=== PATIENT | female | born 1965 | race Caucasian/White ===

== ENCOUNTER 2019-09-15 10:13 | Outpatient (CLI) | payer MEDICARE, SELFPAY ==
--- NOTE | ~2019-09-15 | MM_ITS ---
EXAMINATION: MM screening jean paul BI w lady HISTORY: Screening mammogram, reported history of left breast excisional biopsy. TECHNIQUE: Craniocaudal and mediolateral oblique 3-D tomosynthesis images were obtained and synthetic 2-D images were generated. CAD analysis was submitted and interpreted. COMPARISON: No prior mammogram is available for comparison at this institution. BREAST PARENCHYMAL COMPOSITION: The breasts are almost entirely fatty. FINDINGS: RIGHT BREAST: There is no evidence of suspicious mass, calcification, or architectural distortion to suggest malignancy. LEFT BREAST: A mass is present in the posterior third of the upper outer quadrant of the breast. IMPRESSION: 1. Left breast mass which may represent the patient's baseline however no comparison is currently gauri ilable. 2. Comparison with prior mammograms is necessary. BI-RADS Category 0: Incomplete: Needs comparison with prior mammograms. Reviewed, dictated and finalized at location A. ENGINEER IMPRESSION: 1. Left breast mass which may represent the patient's baseline however no maribell rison is currently available. 2. Comparison with prior mammograms is necessary. BI-RADS Category 0: Incomplete: Needs comparison with prior mammograms.
== END 2019-09-15 10:14 | disposition home or self-care (01) ==
LOC: ANHIMG 10:15
PROVIDERS: PCP Emergency Medicine; Visit Provider Emergency Medicine
DX: Z12.31 Encounter for screening mammogram for malignant neoplasm of breast (principal); N63.20 Unspecified lump in the left breast, unspecified quadrant
CPT/HCPCS: 77063; 77067

== ENCOUNTER 2019-10-07 18:50 | Emergency (ER) | payer MEDICARE, SELFPAY ==
--- NOTE | ~2019-10-07 | XR_ITS ---
XR abdomen/kub 1V 10/07/2019 20:05 Indication: Chest pains. Procedure: 2 view chest Comparison: No prior studies for comparison. Findings: Bowel gas pattern is nonobstructive. There are cholecystectomy clips. There are pelvic phle boliths. No acute osseous abnormality. No acute osseous abnormality. Impression: 1: No acute abdominal abnormality. Reviewed, dictated and finalized at location A. Impression: 1: No acute abdominal abnormality.
[2019-10-07 19:07] VITALS: BP 178/93; PULSE 84; RESP 16; TEMP 37.1; O2SAT 98
--- NOTE | 2019-10-07 19:24 | ED.ABDPAIN ---
HPI - Abdominal Pain General Chief Complaint: Abdominal Pain Stated Complaint: problems with constipation Time Seen by Provider: 10/07/19 19:20 Source: patient and RN notes reviewed Mode of arrival: ambulatory Limitations: no limitations History of Present Illness HPI narrative: A 54 y/o female presents to the ED with worsening lower ABD pain. She states that she had been constipated for 4 days until she took some Laxatives earlier today and had a small BM. She reports that she has a hx of constipation d/t her umbilical hernia. She denies any hernia type pain. She denies any N/V/D, dysuria, hematuria, fevers, or CP. MD elicited complaint: abdominal pain Pertinent past history: constipation Onset (ago): unknown Location: other (lower) Associated symptoms: constipation (resolved) Treatments prior to arrival: other (Laxatives) Related Data Allergies Allergy/AdvReac Type Severity Reaction Status Date / Time No Known Allergies Allergy Mild Verified 12/27/10 00:04 Review of Systems Review of Systems: Narrative: CONSTITUTIONAL: Denies fever. CARDIOVASCULAR: Denies chest pain. GASTROINTESTINAL: Denies nausea, vomiting, or diarrhea. Reports lower ABD pain and constipation which has resovled. GENITOURINARY: Denies dysuria or hematuria. All systems reviewed & are unremarkable except as noted in HPI and below PMFSH Past Medical History Medical History (Updated 10/07/19 @ 20:27 by Alea Franklin MD) DM (diabetes mellitus) H/O: HTN (hypertension) Surgical History Surgical History (Updated 10/07/19 @ 19:35 by Prakash Marinelli) History of breast surgery Hx of eye surgery Social History Social History (Updated 10/07/19 @ 19:36 by Prakash Marinelli) Smoking packs per day: 0.5 Smoking cigarettes per day: 10.0 Smoking status: Current every day smoker Tobacco type: cigarettes Exam Narrative: Exam Narrative: GENERAL: Well-appearing and in no acute distress. HEAD: Normocephalic, atraumatic. EYES: PERRLA and EOMI. ENT: Nares clear, no rhinorrhea or epistaxis. Mucous membranes moist. NECK: Supple. CHEST: Clear to auscultation. No respiratory distress. HEART: Regular rate and rhythm. No murmur heard. Normal peripheral pulses. ABDOMEN: Soft, nondistended, normal active bowel sounds. Obese ABD, umbilical hernia, nontender, not indurated, and not hard to palpation. EXTREMITIES: Normal range of motion. No edema. SKIN: Warm and dry. Excoriation of the head, chest, ABD, and extremities, no areas of cellulites. NEURO: No focal deficits. Alert and oriented X3. Course Vital Signs Vital signs: Vital Signs Temperature 37.1 C 10/07/19 19:07 Pulse Rate 84 10/07/19 19:07 Respiratory Rate 16 10/07/19 19:07 Blood Pressure 178/93 H 10/07/19 19:07 Pulse Oximetry 98 10/07/19 19:07 Temperature 37.1 C 10/07/19 19:07 Pulse Rate 84 10/07/19 19:07 Respiratory Rate 16 10/07/19 19:07 Blood Pressure 178/93 H 10/07/19 19:07 Pulse Oximetry 98 10/07/19 19:07 MDM - Abdominal Pain MDM Narrative Medical decision making narrative: Pt presented for evaluation of constipation, although pt does report having a bowel movement today. On exam, she has an obese abdomen that is soft, nontender, nondistended. She has an umbilical hernia that is not incarcerated or strangulated appearing clinically it is not firm, tender, no overlying skin changes. KUB shows no sign of obstructive pathology or free air. As patient had a bowel movement today, I encouraged her to continue taking stool softeners, will add MiraLAX to this. Patient has no vomiting or abdominal pain. Patient was then discharged home in stable condition. Differential Diagnosis Differential diagnosis: Likely abdominal pain, constipation, gastroenteritis, pancreatitis and small bowel obstruction Medical Records Attestation: I reviewed the patient's medical records. Lab Data Attestation: I reviewed the patient's lab results. Result diagrams: 10/07/19 19:43 0
[2019-10-07] MEDS: ONDANSETRON INJ 4 MG/2 ML VIAL IV PUSH (19:40)
[2019-10-07] MEDS: MAGNESIUM CITRATE 300 ML BTL PO (19:40)
[2019-10-07 19:48] LABS: Basophils Absolute Auto 0.1 K/mm3 (0.0-0.1); Basophils Percent Auto 0.9 % (0.2-1.2); Eosinophils Absolute Auto 0.2 K/mm3 (0-0.3); Eosinophils Percent Auto 2.2 % (0-4.4); Hematocrit 37.6 % (37.0-47.0); Hemoglobin 11.6 g/dL (12.0-15.0); Immature Granulocyte Absolute 0.11 K/mm3 (0.00-0.031); Immature Granulocyte Percent A 1.3 % (0-0.5); Lymphocytes Absolute Auto 2.47 K/mm3 (0.9-3.2); Lymphocytes Percent Auto 30.1 % (18.3-44.2); Mean Corpuscular HGB Conc 30.9 g/dl (32-36); Mean Corpuscular Hemoglobin 26.7 pg (26-34); Mean Corpuscular Volume 86.6 fl (80-100); Mean Platelet Volume 11.4 fl (7.4-10.4); Monocytes Absolute Auto 0.6 K/mm3 (0.1-0.6); Monocytes Percent Auto 7.2 % (2.6-8.5); Neutrophils Absolute Auto 4.8 K/mm3 (1.3-6.7); Neutrophils Percent Auto 58.3 % (45.5-73.1); Platelet Count Result 275 k/mm3 (150-375); Red Blood Count 4.34 M/mm3 (4.2-5.4); Red Cell Distribution Width 16.4 % (11.5-14.5); White Blood Count 8.2 K/mm3 (4.5-10.0)
[2019-10-07 20:01] LABS: Alanine Aminotransferase 17 U/L (4-35); Albumin Level 3.8 g/dL (3.5-5.1); Alkaline Phosphatase 71 U/L (38-126); Aspartate Amino Transferase 20 U/L (14-36); Bilirubin,Total 0.2 mg/dL (0.2-1.3); Blood Urea Nitrogen 15 mg/dL (7-17); Calcium 9.4 mg/dL (8.4-10.2); Carbon Dioxide 31 mmol/L (22-30); Chloride 100 mmol/L (98-107); Estimated CRCL calculation 98 ml/min; Estimated Glomerular Filt Rate > 60; Glucose 193 mg/dL (65-105); Lipase 111 U/L (23-300); Potassium 4.1 mmol/L (3.4-5.0); Sodium 135 mmol/L (137-145)
--- NOTE | 2019-10-07 20:10 | PC.NURSE ---
Pt ambulatory to bathroom and stated she had an explosive bowel movement and feels like her abd is empty of stool now. Pt states pain is gone
== END 2019-10-07 20:40 | disposition home or self-care (01) ==
PROVIDERS: Emergency Provider Emergency Medicine; PCP Emergency Medicine
DX: K59.09 Other constipation (principal); E11.9 Type 2 diabetes mellitus without complications; I10 Essential (primary) hypertension; F17.210 Nicotine dependence, cigarettes, uncomplicated
CPT/HCPCS: 36415; 74018; 80053; 83690; 85025; 96374; 99284; A9270; J2405

== ENCOUNTER 2019-10-24 13:40 | Emergency (ER) | payer MEDICARE, SELFPAY ==
--- NOTE | ~2019-10-24 | CT_ITS ---
EXAMINATION: CT abdomen pelvis w con DATE: 10/24/2019 15:06 INDICATION: Right abdominal pain. TECHNIQUE: Computed tomography (CT) of the abdomen and pelvis was performed with 100 mL Omnipaque 350 intravenous contrast. Automated exposure control and iterative reconstruction technique were employe d. The dose-length product was 1903.17 mGy-cm. COMPARISON: None. FINDINGS: The visualized portions of the lung bases demonstrate minimal atelectasis. A calcified righ t lung nodule and calcified right hilar lymph nodes are consistent with old granulomatous disease. No pleural effusion. The heart size is normal. No pericardial effusion. The liver is normal. There are changes of cholecystectomy. Calcifications in the spleen are consistent with old granulomatous diseas e. The pancreas and right adrenal gland are normal. There is a 2.7 cm mass in left adrenal gland clifford uring soft tissue attenuation. Right kidney is normal. There is a 14 mm cyst in left kidney. There is an umbilical hernia containing fat. There are no dilated loops of bowel. The appendix is normal. The re are no pathologically enlarged lymph nodes. There is no free intraperitoneal fluid. The infraumbil ical anterior abdominal wall demonstrates skin thickening and subcutaneous fat stranding, right worse than left. There is moderate lumbar spondylosis. IMPRESSION: 1. Skin thickening and subcutaneous fat stranding involving the infraumbilical anterior abdominal wal l, right worse than left, consistent with inflammation. No abscess. 2. 2.7 cm left adrenal mass. In the absence of known malignancy, this finding is likely an adenoma. Reviewed, dictated and finalized at location A. IMPRESSION: 1. Skin thickening and subcutaneous fat stranding involving the infraumbilical anterior abdominal wall, right worse than left, consistent with inflammation. N o abscess. 2. 2.7 cm left adrenal mass. In the absence of known malignancy, this finding i s likely an adenoma.
[2019-10-24 13:52] VITALS: BP 203/107; PULSE 88; RESP 24; TEMP 36.4; O2SAT 100
--- NOTE | 2019-10-24 13:57 | ED.GENADULT ---
HPI - General Adult General Chief complaint: Skin/Abscess/Foreign Body Stated complaint: abcess, hard down below Time Seen by Provider: 10/24/19 13:43 Source: patient and family Mode of arrival: ambulatory Limitations: no limitations History of Present Illness HPI narrative: Patient is a 54-year-old female who presents to emergency department for evaluation of tenderness of the right abdomen involving the soft tissues of the pannus where she can feel a mass patient notes 2 days duration of pain worse with palpation and movement denies any fever chills nausea vomiting Related Data Home Medications Medication Instructions Recorded Confirmed lisinopril 40 mg PO DAILY 10/24/19 metformin 850 mg PO DAILY 10/24/19 Allergies Allergy/AdvReac Type Severity Reaction Status Date / Time No Known Allergies Allergy Mild Verified 10/24/19 14:00 Review of Systems Review of Systems: All systems reviewed & are unremarkable except as noted in HPI and below PMFSH Past Medical History Medical History DM (diabetes mellitus) H/O: HTN (hypertension) Surgical History Surgical History History of breast surgery Hx of eye surgery Social History Social History Smoking packs per day: 0.5 Smoking cigarettes per day: 10.0 Smoking status: Current every day smoker Tobacco type: cigarettes Gender identity (if verbalized by the patient): Female Exam Narrative: Exam Narrative: GENERAL: Well-appearing, well-nourished, and in no acute distress. HEAD: Normocephalic, atraumatic. EYES: PERRLA and EOMI. ENT: Nares clear, no rhinorrhea or epistaxis. Mucous membranes moist. CHEST: Clear to auscultation. No respiratory distress. No wheezes rales or rhonchi HEART: Regular rate and rhythm. No murmur heard. ABDOMEN: Soft, nontender, nondistended. EXTREMITIES: Normal range of motion. No edema. SKIN: Warm, dry, no rash. Tenderness of the pannus with palpable firm area there is no erythema fluctuance or other cellulitic findings area measures roughly 6 cm in diameter involving the right pannus NEURO: No focal deficits. Alert and oriented x3. PSYCH: Normal mood and affect. Course Course Emergency Course: Patient in the room at this time aware of case findings treatment plan and diagnosis agreeing to follow-up as directed or to return if symptoms worsen or concerns. Patient is afebrile nontoxic-appearing no distress. Patient with likely cellulitis or mass of unknown etiology could be a developing abscess. Patient will be referred to primary care. Patient provided with reasons to return. Given IV antibiotic in the emergency department will be continued on oral antibiotics provided with reasons to return as noted Vital Signs Vital signs: Vital Signs Temperature 97.5 F L 10/24/19 13:52 Pulse Rate 88 10/24/19 13:52 Respiratory Rate 24 H 10/24/19 13:52 Blood Pressure 203/107 H 10/24/19 13:52 Pulse Oximetry 100 10/24/19 13:52 Temperature 97.5 F L 10/24/19 13:52 Pulse Rate 83 10/24/19 15:09 Respiratory Rate 22 H 10/24/19 15:09 Blood Pressure 160/91 H 10/24/19 15:09 Pulse Oximetry 95 10/24/19 15:09 Medical Decision Making MDM Narrative Medical decision making narrative: See course for medical decision making Vital Signs Vital Signs: Vital Signs Temperature 97.5 F L 10/24/19 13:52 Pulse Rate 88 10/24/19 13:52 Respiratory Rate 24 H 10/24/19 13:52 Blood Pressure 203/107 H 10/24/19 13:52 Pulse Oximetry 100 10/24/19 13:52 Temperature 97.5 F L 10/24/19 13:52 Pulse Rate 83 10/24/19 15:09 Respiratory Rate 22 H 10/24/19 15:09 Blood Pressure 160/91 H 10/24/19 15:09 Pulse Oximetry 95 10/24/19 15:09 Lab Data Result diagrams: 10/24/19 14:13 10/24/19 14:13 Labs: Lab Results
[2019-10-24 14:23] LABS: Basophils Absolute Auto 0.1 K/mm3 (0.0-0.1); Eosinophils Absolute Auto 0.2 K/mm3 (0-0.3); Eosinophils Percent Auto 3.1 % (0-4.4); Hematocrit 35.6 % (37.0-47.0); Hemoglobin 11.1 g/dL (12.0-15.0); Immature Granulocyte Absolute 0.11 K/mm3 (0.00-0.031); Immature Granulocyte Percent A 1.5 % (0-0.5); Lymphocytes Absolute Auto 2.12 K/mm3 (0.9-3.2); Lymphocytes Percent Auto 29.4 % (18.3-44.2); Mean Corpuscular HGB Conc 31.2 g/dl (32-36); Mean Corpuscular Hemoglobin 27.2 pg (26-34); Mean Corpuscular Volume 87.3 fl (80-100); Mean Platelet Volume 10.6 fl (7.4-10.4); Monocytes Absolute Auto 0.5 K/mm3 (0.1-0.6); Monocytes Percent Auto 7.1 % (2.6-8.5); Neutrophils Absolute Auto 4.2 K/mm3 (1.3-6.7); Neutrophils Percent Auto 57.9 % (45.5-73.1); Platelet Count Result 337 k/mm3 (150-375); Red Blood Count 4.08 M/mm3 (4.2-5.4); Red Cell Distribution Width 16.2 % (11.5-14.5); White Blood Count 7.2 K/mm3 (4.5-10.0)
[2019-10-24 14:35] LABS: Blood Urea Nitrogen 7 mg/dL (7-17); Calcium 8.7 mg/dL (8.4-10.2); Carbon Dioxide 28 mmol/L (22-30); Chloride 101 mmol/L (98-107); Estimated CRCL calculation 132 ml/min; Estimated Glomerular Filt Rate > 60; Glucose 229 mg/dL (65-105); Potassium 4.4 mmol/L (3.4-5.0); Sodium 136 mmol/L (137-145)
--- NOTE | 2019-10-24 14:55 | PC.NURSE ---
Patient in radiology at this time.
[2019-10-24 15:09] VITALS: BP 160/91; PULSE 83; RESP 22; O2SAT 95
[2019-10-24] MEDS: ceFAZolin 2 GM/D5W 50 ML 2 GM/50 ML BAG IVPB (16:50)
[2019-10-24 16:55] VITALS: BP 147/107; PULSE 80; RESP 20; TEMP 36.5; O2SAT 99
== END 2019-10-24 17:06 | disposition home or self-care (01) ==
PROVIDERS: Emergency Medicine Emergency Medical Services; Emergency Provider Emergency Medicine; PCP Emergency Medicine
DX: L03.311 Cellulitis of abdominal wall (principal); E11.9 Type 2 diabetes mellitus without complications; I10 Essential (primary) hypertension; F17.210 Nicotine dependence, cigarettes, uncomplicated; E27.9 Disorder of adrenal gland, unspecified; Z79.84 Long term (current) use of oral hypoglycemic drugs
CPT/HCPCS: 36415; 74177; 80048; 85025; 96374; 99284; J0690; Q9967

== ENCOUNTER 2019-11-01 12:49 | Outpatient (CLI) | payer MEDICARE, SELFPAY ==
--- NOTE | ~2019-11-01 | MM_ITS ---
EXAMINATION: MM diagnostic mammo unilat LT HISTORY: Enlarging left breast mass on screening mammogram TECHNIQUE: Mediolateral 3-D tomosynthesis images of the left breast were performed and synthetic 2-D images were generated. Patient refused additional mammographic imaging. CAD analysis was submitted an d interpreted. COMPARISON: 09/15/2019, 03/04/2018 BREAST PARENCHYMAL COMPOSITION: The breasts are almost entirely fatty. FINDINGS: The mass in the upper outer quadrant of the left breast described on recent screening mammo gram is not demonstrated. In addition, there is a questionable asymmetry in the middle third of the l ower, slightly inner breast. Again, patient refused additional mammographic imaging. IMPRESSION: 1. Indeterminate mass in the upper outer quadrant of the breast and asymmetry of the lower breast req uiring additional imaging. Patient refused additional mammographic imaging and left the department pr ior ultrasound evaluation. 2. Additional mammographic views and left breast ultrasound are recommended. BI-RADS Category 0: Incomplete: Needs additional imaging evaluation. Reviewed, dictated and finalized at location A. IMPRESSION: 1. Indeterminate mass in the upper outer quadrant of the breast and asymmetry o f the lower breast requiring additional imaging. Patient refused additional jean paul mographic imaging and left the department prior ultrasound evaluation. 2. Additional mammographic views and left breast ultrasound are recommended. BI-RADS Category 0: Incomplete: Needs additional imaging evaluation.
== END 2019-11-01 12:50 | disposition home or self-care (01) ==
PROVIDERS: PCP Emergency Medicine; Visit Provider Emergency Medicine
DX: N63.20 Unspecified lump in the left breast, unspecified quadrant (principal); R92.8 Other abnormal and inconclusive findings on diagnostic imaging of breast
CPT/HCPCS: 77065

== ENCOUNTER 2020-11-12 14:13 | Emergency (ER) | payer MEDICARE, SELFPAY ==
[2020-11-12 14:22] VITALS: BP 184/104; PULSE 80; RESP 18; TEMP 36.4; O2SAT 99
--- NOTE | 2020-11-12 15:02 | ED.WOUNDLAC ---
HPI - Wound/Laceration General Chief Complaint: Wound/Laceration Stated Complaint: ripped off toenail-diabetic Time Seen by Provider: 11/12/20 14:40 Source: patient Mode of arrival: ambulatory Limitations: no limitations History of Present Illness HPI narrative: Patient is a 55 year old female who presents complaining of right 5th toe pain and bleeding. She reports injury to tow 2-3 days ago. Reports tenderness with ambulation. Reports losing nail today and bleeding . She denies new injury. Reports a history of diabetes. She denies other complaints at this time. Related Data Home Medications Medication Instructions Recorded Confirmed lisinopril 40 mg PO DAILY 10/24/19 metformin 850 mg PO DAILY 10/24/19 Allergies Allergy/AdvReac Type Severity Reaction Status Date / Time No Known Allergies Allergy Mild Verified 10/24/19 14:00 Review of Systems Review of Systems: Narrative: CONSTITUTIONAL: Denies fever, chills, or sweats. EYES: Denies visual changes, redness, or discharge. ENT: Denies rhinorrhea, congestion, sore throat, or otalgia. CARDIOVASCULAR: Denies chest pain, palpitations, or edema. RESPIRATORY: Denies cough or dyspnea. GASTROINTESTINAL: Denies abdominal pain, nausea, vomiting, or diarrhea. GENITOURINARY: Denies dysuria or hematuria. SKIN: Bleeding right 5th toe MUSCULOSKELETAL: Pain to right 5th toe NEUROLOGIC: Denies headache, numbness, dizziness, or weakness. PSYCHIATRIC: Denies anxiety or depression. [facility] Past Medical History Medical History (Updated 11/12/20 @ 16:02 by DONNY Tucker) DM (diabetes mellitus) H/O: HTN (hypertension) Surgical History Surgical History History of breast surgery Hx of eye surgery Family History Family History (Updated 11/12/20 @ 15:04 by DONNY Tucker) Other No significant family history Social History Social History Smoking packs per day: 0.5 Smoking cigarettes per day: 10.0 Smoking status: Current every day smoker Tobacco type: cigarettes Gender identity (if verbalized by the patient): Female Comments At the time of signature, I have reviewed and agree with nursing past medical, surgical, social, and family history unless otherwise noted. Please see nursing chart for further information. There is no relevant family history pertinent to the presenting complaint. Exam Narrative: Exam Narrative: GENERAL: Well-appearing, well-nourished, and in no acute distress. HEAD: Normocephalic, atraumatic. EYES: No redness or drainage. ENT: Mucous membranes pink and moist. CHEST: No respiratory distress. HEART: Regular rate and rhythm. EXTREMITIES: Tenderness with palpation to right fifth toe, mild ecchymosis noted, bleeding at nail bed controlled at this time. SKIN: Warm, dry, no rash. NEURO: No focal deficits. Alert and oriented x3. Gait steady. PSYCH: Normal affect. No signs of depression or anxiety. Course Vital Signs Vital signs: Vital Signs Temperature 36.4 C 11/12/20 14:22 Pulse Rate 80 11/12/20 14:22 Respiratory Rate 18 11/12/20 14:22 Blood Pressure 184/104 H 11/12/20 14:22 Pulse Oximetry 99 11/12/20 14:22 Temperature 36.4 C 11/12/20 14:22 Pulse Rate 80 11/12/20 14:22 Respiratory Rate 18 11/12/20 14:22 Blood Pressure 184/104 H 11/12/20 14:22 Pulse Oximetry 99 11/12/20 14:22 Reviewed-patient is informed that they may have pre-hypertension or hypertension based on a blood pressure reading. I recommend the patient call the primary care provider listed on their discharge instructions or a physician of their choice this week to arrange follow-up for further evaluation of possible pre-hypertension or hypertension. MDM - Wound/Laceration MDM Narrative Medical decision making narrative: Patient left without diagnostic testing, wound not cleansed and did not want discharge papers pe
--- NOTE | 2020-11-12 15:07 | PC.NURSE ---
Pt to desk at nurses station, states Im just gonna go ahead and go. They cant do anything for a broken toe anyway. I dont want no xray, Im just gonna leave. Pt ambulated out, no obvious distress. Pt did not sign AMA papers, did not want to wait for PA to come talk to her.
== END 2020-11-12 15:12 | disposition left against medical advice (07) ==
PROVIDERS: Emergency Provider Nurse Practitioner; PCP Emergency Medicine
DX: S91.205A Unspecified open wound of left lesser toe(s) with damage to nail, initial encounter (principal); I10 Essential (primary) hypertension; E11.9 Type 2 diabetes mellitus without complications; Z79.4 Long term (current) use of insulin; F17.210 Nicotine dependence, cigarettes, uncomplicated; X58.XXXA Exposure to other specified factors, initial encounter
CPT/HCPCS: 99282

== ENCOUNTER 2022-06-04 18:07 | Inpatient (IN) | payer MEDICARE, MEDICAID, SELFPAY ==
[2022-06-04 18:08] VITALS: BP 145/77; PULSE 96; RESP 16; TEMP 36.7; O2SAT 100
[2022-06-04 18:31] LABS: Basophils Absolute Auto 0.1 K/mm3 (0.0-0.1); Basophils Percent Auto 0.3 % (0.2-1.2); Hematocrit 37.5 % (37.0-47.0); Hemoglobin 11.7 g/dL (12.0-15.0); Immature Granulocyte Absolute 0.31 K/mm3 (0.00-0.031); Immature Granulocyte Percent A 1.5 % (0-0.5); Lymphocytes Absolute Auto 1.41 K/mm3 (0.9-3.2); Lymphocytes Percent Auto 6.8 % (18.3-44.2); Mean Corpuscular HGB Conc 31.2 g/dl (32-36); Mean Corpuscular Hemoglobin 28.8 pg (26-34); Mean Corpuscular Volume 92.4 fl (80-100); Mean Platelet Volume 11.7 fl (7.4-10.4); Monocytes Absolute Auto 0.9 K/mm3 (0.1-0.6); Monocytes Percent Auto 4.3 % (2.6-8.5); Neutrophils Percent Auto 87.1 % (45.5-73.1); Platelet Count Result 202 k/mm3 (150-375); Red Blood Count 4.06 M/mm3 (4.2-5.4); Red Cell Distribution Width 14.1 % (11.5-14.5); White Blood Count 20.7 K/mm3 (4.5-10.0)
[2022-06-04 18:33] LABS: Anion Gap 12 mmol/L (8-16); Blood Urea Nitrogen 18 mg/dL (7-17); Calcium 8.4 mg/dL (8.4-10.2); Carbon Dioxide 32 mmol/L (22-30); Chloride 93 mmol/L (98-107); Estimated CRCL calculation 81 ml/min; Estimated Glomerular Filt Rate > 60; Glucose 285 mg/dL (65-110); Sodium 137 mmol/L (137-145)
[2022-06-04 21:11] VITALS: BP 150/74; PULSE 78; RESP 18; TEMP 36.3; O2SAT 94
[2022-06-04 22:50] VITALS: BP 177/82; PULSE 78; RESP 22; O2SAT 92
[2022-06-04] MEDS: SODIUM CHLORIDE 0.9% IV 1,000 ML 999 ML IV CONT (23:23)
[2022-06-05] VITALS (10 sets, daily range): BP systolic 108–152; BP diastolic 57–80; PULSE 66–112; RESP 14–22; TEMP 36.1–37.7; O2SAT 92–100; BMI 54.3
[2022-06-05 00:10] LABS: SARS-CoV-2 RNA PCR Negative
--- NOTE | 2022-06-05 00:12 | ED.GENADULT ---
HPI - General Adult General Chief complaint: Extremity Problem,Nontraumatic Stated complaint: lower leg swelling and pain Time Seen by Provider: 06/04/22 22:48 History of Present Illness HPI narrative: Patient is a 57-year-old female who presents ER with concerns for infection to her left lower extremity. Worsening over the last 2 days. No fevers or chills or sweats. Reports it is painful to touch. It is also becoming more painful in her proximal extremity. No chest pain or chest pressure or difficulty breathing. Has history of diabetes but does not take medication. Related Data Home Medications Medication Instructions Recorded Confirmed lisinopril 40 mg tablet 40 mg PO DAILY 10/24/19 metformin 850 mg tablet 850 mg PO DAILY 10/24/19 Allergies Allergy/AdvReac Type Severity Reaction Status Date / Time No Known Allergies Allergy Mild Verified 10/24/19 14:00 Review of Systems Review of Systems: All systems reviewed & are unremarkable except as noted in HPI and below Constitutional: Constitutional: Denies chills and Denies fever(s) Cardiovascular: Cardiovascular: Denies chest pain and Denies rapid heart rate Respiratory: Respiratory: Denies cough and Denies dyspnea Gastrointestinal: Gastrointestinal: Denies abdominal pain, Denies nausea and Denies vomiting Musculoskeletal: Musculoskeletal: Denies back pain, Denies myalgias and Denies arthralgias Integumentary/Breasts: Skin/Breast: Reports erythema, Reports rash and Denies skin ulcer Neurologic: Denies syncope, Denies focal weakness and Denies numbness PMFSH Past Medical History Medical History (Updated 06/05/22 @ 01:19 by Baldo Stratton MD) DM (diabetes mellitus) H/O: HTN (hypertension) Surgical History Surgical History History of breast surgery Hx of eye surgery Family History Family History (Updated 11/12/20 @ 15:04 by Arabella Montemayor, INSURANCE FOLLOW UP REPRESENTATIVE) Other No significant family history Social History Social History Smoking packs per day: 0.5 Smoking cigarettes per day: 10.0 Smoking status: Current every day smoker Tobacco type: cigarettes Gender identity (if verbalized by the patient): Female Exam Narrative: GENERAL: Well-appearing, obese, and in no acute distress. HEAD: Normocephalic, atraumatic. EYES: PERRL and EOMI. ENT: Mucous membranes moist. CHEST: Clear to auscultation. No respiratory distress. HEART: Regular rate and rhythm. Normal peripheral pulses. ABDOMEN: Soft, nontender, nondistended. EXTREMITIES: Normal range of motion. No edema. SKIN: Warm, dry, cellulitis to the right lower extremity below the knee and above the ankle that circumferential. Warm and tender to touch. Lymphangitic streaking proximal to the knee on the right side.. NEURO: Alert and oriented x3. PSYCH: Normal mood and affect. Course Course Emergency Course: Significant cellulitis to the lower extremity. Admit to hospitalist service. Blood cultures ordered. Vital Signs Vital signs: Vital Signs Temperature 98.1 F 06/04/22 18:08 Pulse Rate 96 06/04/22 18:08 Respiratory Rate 16 06/04/22 18:08 Blood Pressure 145/77 H 06/04/22 18:08 Pulse Oximetry 100 06/04/22 18:08 Oxygen Delivery Room Air 06/04/22 18:08 Temperature 97.4 F L 06/04/22 21:11 Pulse Rate 78 06/04/22 22:50 Respiratory Rate 22 H 06/04/22 22:50 Blood Pressure 177/82 H 06/04/22 22:50 Pulse Oximetry 92 06/04/22 22:50 Oxygen Delivery Room Air 06/04/22 18:08 Medical Decision Making Vital Signs Vital Signs: Vital Signs Temperature 98.1 F 06/04/22 18:08 Pulse Rate 96 06/04/22 18:08 Respiratory Rate 16 06/04/22 18:08 Blood Pressure 145/77 H 06/04/22 18:08 Pulse Oximetry 100 06/04/22 18:08 Oxygen Delivery Room Air 06/04/22 18:08 Temperature 97.4 F L 06/04/22 21:11 Pulse Rate 78 06/04/22
--- NOTE | 2022-06-05 00:12 | PM.IMHP ---
H&P: HPI History of Present Illness Date/Time: 06/05/22 00:12 Chief Complaint: right leg cellulitis Narrative: This is a 57-year-old female with past medical history significant for morbid obesity, hypertension, patient presented to the emergency room due to right lower extremity redness swelling tenderness warmth for the last week or so patient had been taking doxycycline in the outpatient setting however a has gotten worse patient denies any fevers, rigors, chills, nausea, vomiting, abdominal pain, diarrhea, shortness of breath, cough, sputum production. preliminary workup was significant for white blood cell count 20,000. patient has been admitted for further evaluation management and treatment. Review of Systems Review of Systems: Right lower extremity redness, warmth, tenderness, swelling. Constitutional: Constitutional: Denies chills, Reports fatigue, Denies fever(s), Reports lethargy, Reports malaise, Reports poor appetite and Reports weakness Eyes: Eyes: Denies change in vision ENT: Denies dysphagia, Denies vertigo, Denies dizziness and Denies odynophagia Cardiovascular: Cardiovascular: Denies chest pain and Reports dyspnea on exertion Respiratory: Respiratory: Denies chest congestion, Denies cough, Denies excessive phlegm production and Denies pain on inspiration Gastrointestinal: Gastrointestinal: Denies abdominal pain, Denies dyspepsia, Denies heartburn, Denies diarrhea, Denies nausea and Denies vomiting Genitourinary: Genitourinary: Denies dysuria Musculoskeletal: Musculoskeletal: Reports other ( right lower extremity pain, redness, warmth, tenderness) Integumentary/Breasts: Skin/Breast: Reports change in pigmentation, Reports erythema ( right lower extremity), Reports rash, Reports skin pain and Reports skin swelling Neurologic: Denies vertigo, Denies dizziness, Denies focal weakness and Denies Sensory deficit (Neuro) Psychiatric: Psychiatric: Reports no additional psychiatric complaints and Reports as per HPI Endocrine: Endocrine: Denies cold intolerance, Denies flushing, Denies heat intolerance, Denies polyphagia, Denies polydipsia and Denies palpitations Hematologic/Lymphatic: Hematologic/Lymphatic: Reports no additional hematologic/lymphatic complaints and Reports as per HPI Allergic/Immunologic: Allergic/Immunologic: Reports no additional allergic/immunologic complaints and Reports as per HPI [facility] Past Medical History Medical History (Updated 06/05/22 @ 04:58 by Alana Quiles MD) DM (diabetes mellitus) H/O: HTN (hypertension) Surgical History Surgical History History of breast surgery Hx of eye surgery Family History Family History (Updated 11/12/20 @ 15:04 by Arabella Montemayor, [facility]ILLER) Other No significant family history Social History Social History Smoking packs per day: 0.5 Smoking cigarettes per day: 10.0 Smoking status: Former smoker Tobacco type: cigarettes Second hand tobacco smoke exposure: Yes Alcohol intake: former Substance use: former Other substance usage details: 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 Lack of Transportation: No Lack of Food: Never True Current Housing: I Do Not Have Housing Concerned About Future Housing: No Difficulty Paying Gas/Electric Bills: No Difficulty Paying for Meds: No 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ation: Grade School Difficulty w/ Childcare or Family Care: No Gender identity (if verbalized by the patient): Female Spiritual care concerns: No Meds Home Medications and Allergies Home Medications Medication Instructions Recorded Confirmed Type doxycycline hyclate 100 mg capsule 100 mg PO Q12H 14 days #28 caps 10/24/19 06/05/22 Rx lisinopril 40 mg tablet 40 mg PO DAILY 10/24/19 06/05/22 History metformin 850 mg tablet 850 mg PO DAILY 10/24/19 06/05/22 History Allergies Allergy/Adv
[2022-06-05] MEDS: metroNIDAZOLE 500 MG/ISO 100ML 500 MG/100 ML BAG 100 MG IVPB ×3 (00:15→22:00)
--- NOTE | 2022-06-05 02:42 | ADMGEN ---
This patient, Dona Cuello, was admitted to [facility] Room 312-01. Patient/family oriented to hospital policies and general routines including ID bracelet, bed and alarms, visiting hours, pain management, procedures, bathroom and other care routines, personal items, smoking policy, room service/diet, and visiting hours. Information on how to activate the Rapid Response Team has been discussed. Patient/Family are encouraged to report perceived risks to care and to ask questions if they do not understand what they are told or what they should do.
[2022-06-05] MEDS: SODIUM CHLORIDE 0.9% IV 1,000 ML 125 ML IV CONT ×2 (04:27→13:43)
[2022-06-05 06:32] LABS: Anion Gap 9 mmol/L (8-16); Blood Urea Nitrogen 18 mg/dL (7-17); Carbon Dioxide 21 mmol/L (22-30); Chloride 100 mmol/L (98-107); Estimated CRCL calculation 117 ml/min; Estimated Glomerular Filt Rate > 60; Glucose 262 mg/dL (65-110); Sodium 130 mmol/L (137-145)
[2022-06-05 06:50] LABS: Basophils Absolute Auto 0.1 K/mm3 (0.0-0.1); Basophils Percent Auto 0.3 % (0.2-1.2); Hematocrit 33.7 % (37.0-47.0); Hemoglobin 10.7 g/dL (12.0-15.0); Immature Granulocyte Absolute 0.38 K/mm3 (0.00-0.031); Lymphocytes Absolute Auto 1.48 K/mm3 (0.9-3.2); Mean Corpuscular HGB Conc 31.8 g/dl (32-36); Mean Corpuscular Hemoglobin 29.1 pg (26-34); Mean Corpuscular Volume 91.6 fl (80-100); Mean Platelet Volume 11.7 fl (7.4-10.4); Monocytes Percent Auto 5.4 % (2.6-8.5); Neutrophils Absolute Auto 15.7 K/mm3 (1.3-6.7); Neutrophils Percent Auto 84.3 % (45.5-73.1); Platelet Count Result 186 k/mm3 (150-375); Red Blood Count 3.68 M/mm3 (4.2-5.4); Red Cell Distribution Width 14.1 % (11.5-14.5); White Blood Count 18.6 K/mm3 (4.5-10.0)
[2022-06-05 08:10] LABS: Glucose Point of Care 251 mg/dl (65-105)
[2022-06-05] MEDS: lisinopriL 20 MG TABLET 40 MG PO (08:29)
[2022-06-05] MEDS: ENOXAPARIN 40 MG/0.4 ML SYRINGE SUB-Q (08:29)
[2022-06-05] MEDS: INSULIN ASPART (*BKC) 100 UNITS/ML 7 UNITS SUB-Q ×3 (08:30→17:30)
[2022-06-05] MEDS: ACETAMINOPHEN 325 MG TABLET 650 MG PO ×3 (08:34→20:40)
[2022-06-05 12:05] LABS: Glucose Point of Care 289 mg/dl (65-105)
--- NOTE | 2022-06-05 13:10 | PM.IMPN ---
Progress Note: A&P Assessment and Plan (1) Cellulitis: Code(s): L03.90 - Cellulitis, unspecified Status: Acute Assessment and Plan: Pt admitted for R leg cellulitis ? fungal infection between toes Pt started on cefepime, vancomycin and metronidazole Await cultures Consult wound team Continue to monitor WCC (2) Hypertension: Code(s): I10 - Essential (primary) hypertension Status: Acute Assessment and Plan: Bp is stable at 108/80 Continue to monitor, continue blood pressure medications (3) Morbid obesity with BMI of 50.0-59.9, adult: Code(s): E66.01 - Morbid (severe) obesity due to excess calories; Z68.43 - Body mass index [BMI] 50.0-59.9, adult Status: Acute Assessment and Plan: Diet and exercise advised (4) Type 2 diabetes mellitus: Code(s): E11.9 - Type 2 diabetes mellitus without complications Status: Acute Assessment and Plan: Accuchecks, SSI Hold metformin Plan Home suboxone reordered for patient Lovenox ordered for DVT prop Subjective Date/time seen: 06/05/22 13:10 57-year-old female with past medical history significant for morbid obesity, hypertension, patient presented to the emergency room due to right lower extremity redness swelling tenderness warmth for the last week or so patient had been taking doxycycline in the outpatient setting. Pt went to [facility] but they did not help her much sent her home. Admitted here yesterday, pt wants to continue on her Suboxone in the hospital Review of Systems Review of Systems: R leg pain and swelling Exam Const: General: comfortable, no acute distress, alert and awake Resp: Effort & Inspection: normal respiratory effort and able to speak in complete sentences Auscultation: clear to auscultation bilaterally Cardio: Jugular venous distension: no JVD Rate: regular rate Rhythm: regular rhythm Heart sounds: S1 normal heart sound present and S2 normal heart sound present Skin: Rashes: rashes noted right lower leg arrangement, borders indistinct, color red, surface erythematous and tender Neuro: Cognition (Neuro): normal cognition Speech: normal speech Gait exam (Neuro): Unable to assess gait Motor exam (neuro): 5/5 motor strength present throughout Extrem: General: full ROM Objective Data Vital Signs Vital Signs: Vital Signs - 24 hr 06/04/22 18:08 06/04/22 21:11 06/04/22 22:50 Temperature 36.7 C 36.3 C L Pulse Rate 96 78 78 Respiratory Rate 16 18 22 H Blood Pressure 145/77 H 150/74 H 177/82 H Pulse Oximetry 100 94 92 Oxygen Delivery Room Air 06/05/22 01:55 06/05/22 04:00 06/05/22 06:00 Temperature 36.7 C 37.7 C H 36.6 C Pulse Rate 89 89 112 H Respiratory Rate 22 H 18 20 Blood Pressure 152/75 H 124/70 109/71 Pulse Oximetry 98 93 96 Oxygen Delivery 06/05/22 08:41 06/05/22 08:00 06/05/22 12:00 Temperature 37.3 C 36.4 C L Pulse Rate 66 93 Respiratory Rate 18 16 Blood Pressure 139/57 L 108/80 Pulse Oximetry 92 100 95 Oxygen Delivery Room Air 06/05/22 04:27 Temperature 36.7 C Pulse Rate 89 Respiratory Rate Blood Pressure 152/75 H Pulse Oximetry 98 Oxygen Delivery Intake/Output Intake/Output: Intake & Output 06/02/22 06/03/22 06/04/22 06/05/22 23:59 23:59 23:59 23:59 Intake Total 2700 Output Total 0 Balance 2700 Meds/Results Medications: Active Medications Generic Name Dose Route Start Last Admin Trade Name Freq PRN Reason Stop Dose Admin Acetaminophen 650 mg 06/05/22 00:21 06/05/22 08:34 Acetaminophen 325 Mg Tablet PO 650 mg Q4H PRN Administration Mild Pain (1-3) or Fever Hydrocodone Bitart/Acetaminophen 1 tab 06/05/22 00:21 Hydrocodone/Acetaminophen (*Crx) 5-325 Mg Tablet PO Q4H PRN Pain Rated 4-6 Enoxaparin Sodium 40 mg 06/05/22 09:00 06/05/22 08:29 Enoxaparin 40 Mg/0.4 Ml Syringe SUB-Q 40 mg DAILY ANNE Administration Cefepime HCl 2 gm in 50 mls
[2022-06-05 16:54] LABS: Glucose Point of Care 238 mg/dl (65-105)
[2022-06-05 20:26] LABS: Glucose Point of Care 239 mg/dl (65-105)
[2022-06-05] MEDS: SENNOSIDES 8.6 MG TABLET 17.2 MG PO (20:40)
[2022-06-06] MEDS: SODIUM CHLORIDE 0.9% IV 1,000 ML 125 ML IV CONT ×2 (02:51→11:40)
[2022-06-06 03:10] LABS: Vancomycin Trough 11.6 ug/mL (10.0-20.0)
[2022-06-06 06:00] VITALS: BP 169/87; PULSE 83; RESP 16; TEMP 36.3; O2SAT 96
[2022-06-06] MEDS: metroNIDAZOLE 500 MG/ISO 100ML 500 MG/100 ML BAG 100 MG IVPB (06:07)
[2022-06-06] MEDS: ACETAMINOPHEN 325 MG TABLET 650 MG PO ×2 (06:48→13:08)
[2022-06-06 06:53] LABS: Hematocrit 34.7 % (37.0-47.0); Hemoglobin 10.4 g/dL (12.0-15.0); Mean Corpuscular Hemoglobin 28.4 pg (26-34); Mean Corpuscular Volume 94.8 fl (80-100); Platelet Count Result 142 k/mm3 (150-375); Red Blood Count 3.66 M/mm3 (4.2-5.4); Red Cell Distribution Width 14.2 % (11.5-14.5); White Blood Count 18.2 K/mm3 (4.5-10.0)
[2022-06-06 07:04] LABS: Anion Gap 10 mmol/L (8-16); Blood Urea Nitrogen 16 mg/dL (7-17); Calcium 7.7 mg/dL (8.4-10.2); Carbon Dioxide 22 mmol/L (22-30); Chloride 98 mmol/L (98-107); Estimated CRCL calculation 137 ml/min; Estimated Glomerular Filt Rate > 60; Glucose 232 mg/dL (65-110); Potassium 3.8 mmol/L (3.4-5.0); Sodium 130 mmol/L (137-145)
[2022-06-06 08:22] LABS: Glucose Point of Care 235 mg/dl (65-105)
[2022-06-06] MEDS: lisinopriL 20 MG TABLET 40 MG PO (08:35)
[2022-06-06] MEDS: ENOXAPARIN 40 MG/0.4 ML SYRINGE SUB-Q (08:35)
[2022-06-06] MEDS: INSULIN ASPART (*BKC) 100 UNITS/ML 7 UNITS SUB-Q ×3 (08:36→17:26)
[2022-06-06] MEDS: ONDANSETRON INJ 4 MG/2 ML VIAL IV PUSH ×2 (08:45→17:36)
--- NOTE | 2022-06-06 11:45 | PM.IMPN ---
Progress Note: A&P Assessment and Plan (1) Cellulitis: Code(s): L03.90 - Cellulitis, unspecified Status: Acute Assessment and Plan: Pt admitted for R leg cellulitis continue on cefepime, vancomycin. DC metronidazole Await cultures Consult wound team (2) Hypertension: Code(s): I10 - Essential (primary) hypertension Status: Acute Assessment and Plan: Bp is stable Continue to monitor, continue blood pressure medications (3) Morbid obesity with BMI of 50.0-59.9, adult: Code(s): E66.01 - Morbid (severe) obesity due to excess calories; Z68.43 - Body mass index [BMI] 50.0-59.9, adult Status: Acute Assessment and Plan: Diet and exercise advised (4) Type 2 diabetes mellitus: Code(s): E11.9 - Type 2 diabetes mellitus without complications Status: Acute Assessment and Plan: Accuchecks, SSI Hold metformin Plan Home suboxone reordered for patient Lovenox ordered for DVT prop Subjective Date/time seen: 06/06/22 11:45 not much change. Patient reports swelling and edema in the right lower extremity has decreased Review of Systems Review of Systems: R leg pain and swelling Exam Const: General: comfortable, no acute distress, alert and awake Other: morbidly obese Resp: Effort & Inspection: normal respiratory effort and able to speak in complete sentences Auscultation: clear to auscultation bilaterally Cardio: Jugular venous distension: no JVD Rate: regular rate Rhythm: regular rhythm Heart sounds: S1 normal heart sound present and S2 normal heart sound present Skin: Rashes: rashes noted right lower leg arrangement, borders indistinct, color red, surface erythematous and tender Neuro: Cognition (Neuro): normal cognition Speech: normal speech Gait exam (Neuro): Unable to assess gait Motor exam (neuro): 5/5 motor strength present throughout Extrem: General: full ROM Objective Data Vital Signs Vital Signs: Vital Signs - 24 hr 06/05/22 12:00 06/05/22 16:00 06/05/22 20:00 Temperature 97.5 F L 96.9 F L Pulse Rate 93 71 71 Respiratory Rate 16 18 18 Blood Pressure 108/80 140/66 Pulse Oximetry 95 95 95 Oxygen Delivery Room Air 06/05/22 22:00 06/06/22 06:00 Temperature 97.7 F 97.4 F L Pulse Rate 70 83 Respiratory Rate 14 16 Blood Pressure 128/75 169/87 H Pulse Oximetry 93 96 Oxygen Delivery Intake/Output Intake/Output: Intake & Output 06/03/22 06/04/22 06/05/22 06/06/22 23:59 23:59 23:59 23:59 Intake Total 6330 / 6330 2390 / 2390 Output Total 600 / 600 550 / 550 Balance 5730 / 5730 1840 / 1840 Meds/Results Medications: Active Medications Generic Name Dose Route Start Last Admin Trade Name Freq PRN Reason Stop Dose Admin Acetaminophen 650 mg 06/05/22 00:21 06/06/22 06:48 Acetaminophen 325 Mg Tablet PO 650 mg Q4H PRN Administration Mild Pain (1-3) or Fever Hydrocodone Bitart/Acetaminophen 1 tab 06/05/22 00:21 Hydrocodone/Acetaminophen (*Crx) 5-325 Mg Tablet PO Q4H PRN Pain Rated 4-6 Buprenorphine/Naloxone 2 each 06/05/22 17:00 06/06/22 08:36 Buprenorphine Hcl/Naloxone Hcl (*Crx) 4 Mg/1 Mg Sl Film SUBLINGUAL 2 each BID ANNE Administration Enoxaparin Sodium 40 mg 06/05/22 09:00 06/06/22 08:35 Enoxaparin 40 Mg/0.4 Ml Syringe SUB-Q 40 mg DAILY ANNE Administration Cefepime HCl 2 gm in 50 mls @ 100 mls/hr 06/05/22 11:00 06/06/22 11:40 Maxipime 2 Gm/D5w 50 Ml IVPB 100 mls/hr Q12H ANNE Administration Sodium Chloride 1,000 mls @ 125 mls/hr 06/05/22 00:25 06/06/22 11:40 Normal Saline Iv IV CONT 125 mls/hr .Q8H ANNE Administration Vancomycin HCl 1,750 mg in 500 mls @ 250 mls/hr 06/06/22 04:00 06/06/22 07:27 Vancomycin 1,750 Mg/D5w 500 Ml IVPB Infused Q8H ANNE Infusion Insulin Aspart 7 units 06/05/22 08:00 06/06/22 08:36 Insulin Aspart (*Bkc) 100 Units/Ml 0.05 units/kg (7 units) 7 units SUB-Q Admini
[2022-06-06 11:48] LABS: Glucose Point of Care 276 mg/dl (65-105)
[2022-06-06 14:00] VITALS: BP 130/68; PULSE 74; RESP 16; TEMP 36.2; O2SAT 97
[2022-06-06 16:24] LABS: Glucose Point of Care 250 mg/dl (65-105)
[2022-06-06] MEDS: SENNOSIDES 8.6 MG TABLET 17.2 MG PO (20:18)
[2022-06-06 20:36] LABS: Glucose Point of Care 219 mg/dl (65-105)
[2022-06-06 20:51] VITALS: BP 131/70; PULSE 72; RESP 16; TEMP 36.9; O2SAT 97
[2022-06-06 21:20] VITALS: BP 131/70; PULSE 72; RESP 16; TEMP 36.9; O2SAT 97
[2022-06-07] MEDS: ONDANSETRON INJ 4 MG/2 ML VIAL IV PUSH ×2 (02:18→09:32)
[2022-06-07] MEDS: ACETAMINOPHEN 325 MG TABLET 650 MG PO ×3 (02:18→20:07)
[2022-06-07 03:20] LABS: Estimated CRCL calculation 117 ml/min; Estimated Glomerular Filt Rate > 60
[2022-06-07 03:35] LABS: Vancomycin Trough 20.1 ug/mL (10.0-20.0)
[2022-06-07 05:51] VITALS: BP 117/55; PULSE 63; RESP 14; TEMP 36.1; O2SAT 95
[2022-06-07 07:46] LABS: Glucose Point of Care 247 mg/dl (65-105)
[2022-06-07] MEDS: INSULIN ASPART (*BKC) 100 UNITS/ML 7 UNITS SUB-Q ×3 (09:28→17:10)
[2022-06-07] MEDS: SODIUM CHLORIDE 0.9% IV 1,000 ML 125 ML IV CONT ×3 (09:28→20:08)
[2022-06-07] MEDS: lisinopriL 20 MG TABLET 40 MG PO (09:29)
[2022-06-07] MEDS: ENOXAPARIN 40 MG/0.4 ML SYRINGE SUB-Q (09:29)
[2022-06-07 11:47] LABS: Glucose Point of Care 215 mg/dl (65-105)
--- NOTE | 2022-06-07 12:31 | PM.IMPN ---
Progress Note: A&P Assessment and Plan (1) Cellulitis: Code(s): L03.90 - Cellulitis, unspecified Status: Acute Assessment and Plan: Pt admitted for R leg cellulitis continue on cefepime, vancomycin. DC metronidazole Await cultures Consult wound team (2) Hypertension: Code(s): I10 - Essential (primary) hypertension Status: Acute Assessment and Plan: Bp is stable Continue to monitor, continue blood pressure medications (3) Morbid obesity with BMI of 50.0-59.9, adult: Code(s): E66.01 - Morbid (severe) obesity due to excess calories; Z68.43 - Body mass index [BMI] 50.0-59.9, adult Status: Acute Assessment and Plan: Diet and exercise advised (4) Type 2 diabetes mellitus: Code(s): E11.9 - Type 2 diabetes mellitus without complications Status: Acute Assessment and Plan: Accuchecks, SSI Hold metformin Plan Home suboxone reordered for patient Lovenox ordered for DVT prop Subjective Date/time seen: 06/07/22 12:31 Patient was seen during the morning rounds today. Patient right leg is still swollen and red. No shortness of breath or chest pain. No abdominal pain, no nausea, no vomiting. Mood stable. Review of Systems Review of Systems: All systems reviewed & are unremarkable except as noted in HPI and below (the history and physical exam.) Constitutional: Constitutional: Denies chills, Reports fatigue, Denies fever(s), Reports lethargy, Reports malaise, Reports poor appetite and Reports weakness Eyes: Eyes: Denies change in vision ENT: Denies dysphagia, Denies vertigo, Denies dizziness and Denies odynophagia Cardiovascular: Cardiovascular: Denies chest pain, Denies palpitations and Reports dyspnea on exertion Respiratory: Respiratory: Denies chest congestion, Denies cough, Denies excessive phlegm production, Denies pain on inspiration and Reports dyspnea on exertion Gastrointestinal: Gastrointestinal: Denies abdominal pain, Denies dysphagia, Denies dyspepsia, Denies heartburn, Denies diarrhea, Denies nausea, Denies odynophagia and Denies vomiting Genitourinary: Genitourinary: Denies dysuria Musculoskeletal: Musculoskeletal: Reports other ( right lower extremity pain, redness, warmth, tenderness) Integumentary/Breasts: Skin/Breast: Reports change in pigmentation, Reports erythema ( right lower extremity), Reports rash, Reports skin pain and Reports skin swelling Neurologic: Denies vertigo, Denies dizziness, Denies focal weakness, Denies Sensory deficit (Neuro) and Reports weakness Psychiatric: Psychiatric: Reports no additional psychiatric complaints and Reports as per HPI Endocrine: Endocrine: Denies cold intolerance, Reports fatigue, Denies flushing, Denies heat intolerance, Denies polyphagia, Denies polydipsia and Denies palpitations Hematologic/Lymphatic: Hematologic/Lymphatic: Reports no additional hematologic/lymphatic complaints and Reports as per HPI Allergic/Immunologic: Allergic/Immunologic: Reports no additional allergic/immunologic complaints and Reports as per HPI Exam Narrative: patient is laying in bed Const: General: comfortable, no acute distress, well developed, alert, awake, ill appearing acutely, average body habitus and obese Nutritional Appearance: average body habitus and obese morbidly obese Orientation/consciousness: patient oriented x3 Other: morbidly obese HENMT: Head: normal to inspection, normocephalic and atraumatic Ears: hearing grossly normal bilaterally Face/Nose/Sinus: normal facial exam Face and sinus: normal facial exam Eyes: General: appearance normal, both eyes and all related structures Pupils: Equal, round and reactive pupils present EOM: EOMs intact bilaterally Neck: Neck: full ROM, no lymphadenopathy and no JVD Thyroid: thyroid normal Lymphatic: no lymphadenopathy noted Resp: Effort & Inspection: normal respiratory effort and able to speak in complete sentences Auscultation
[2022-06-07 14:00] VITALS: BP 143/64; PULSE 66; RESP 16; TEMP 36.1; O2SAT 98
[2022-06-07 16:33] LABS: Glucose Point of Care 205 mg/dl (65-105)
[2022-06-07] MEDS: SENNOSIDES 8.6 MG TABLET 17.2 MG PO (20:07)
[2022-06-07 21:00] VITALS: BP 160/87; PULSE 71; RESP 18; TEMP 36.4; O2SAT 97
[2022-06-07 22:16] LABS: Glucose Point of Care 181 mg/dl (65-105)
[2022-06-08 05:55] VITALS: BP 142/86; PULSE 79; RESP 20; TEMP 36.6; O2SAT 96
[2022-06-08] MEDS: SODIUM CHLORIDE 0.9% IV 1,000 ML 125 ML IV CONT ×2 (06:40→14:38)
[2022-06-08] MEDS: ONDANSETRON INJ 4 MG/2 ML VIAL IV PUSH ×2 (06:41→10:08)
[2022-06-08 06:48] LABS: Hematocrit 33.1 % (37.0-47.0); Hemoglobin 10.4 g/dL (12.0-15.0); Mean Corpuscular HGB Conc 31.4 g/dl (32-36); Mean Corpuscular Hemoglobin 28.5 pg (26-34); Mean Corpuscular Volume 90.7 fl (80-100); Mean Platelet Volume 11.5 fl (7.4-10.4); Platelet Count Result 231 k/mm3 (150-375); Red Blood Count 3.65 M/mm3 (4.2-5.4); Red Cell Distribution Width 14.3 % (11.5-14.5); White Blood Count 16.6 K/mm3 (4.5-10.0)
[2022-06-08 06:58] LABS: Alanine Aminotransferase 24 U/L (6-35); Albumin Level 3.2 g/dL (3.5-5.1); Alkaline Phosphatase 64 U/L (38-126); Anion Gap 8 mmol/L (8-16); Aspartate Amino Transferase 26 U/L (14-36); Bilirubin,Total 0.4 mg/dL (0.2-1.3); Blood Urea Nitrogen 12 mg/dL (7-17); Calcium 8.4 mg/dL (8.4-10.2); Carbon Dioxide 25 mmol/L (22-30); Chloride 101 mmol/L (98-107); Estimated CRCL calculation 117 ml/min; Estimated Glomerular Filt Rate > 60; Glucose 190 mg/dL (65-110); Potassium 3.9 mmol/L (3.4-5.0); Sodium 134 mmol/L (137-145)
[2022-06-08 07:24] LABS: Vancomycin Trough 20.5 ug/mL (10.0-20.0)
[2022-06-08 08:10] LABS: Glucose Point of Care 183 mg/dl (65-105)
--- NOTE | 2022-06-08 09:34 | PM.IMPN ---
Progress Note: A&P Assessment and Plan (1) Cellulitis: Code(s): L03.90 - Cellulitis, unspecified Status: Acute Assessment and Plan: DC IV antibiotics, blood cultures negative, started on doxycycline and Augmentin, monitor response and consider discharge later today (2) Hypertension: Code(s): I10 - Essential (primary) hypertension Status: Acute Assessment and Plan: Stable, monitor (3) Morbid obesity with BMI of 50.0-59.9, adult: Code(s): E66.01 - Morbid (severe) obesity due to excess calories; Z68.43 - Body mass index [BMI] 50.0-59.9, adult Status: Acute Assessment and Plan: Diet and exercise advised (4) Type 2 diabetes mellitus: Code(s): E11.9 - Type 2 diabetes mellitus without complications Status: Acute Assessment and Plan: Accuchecks, SSI Hold metformin Plan DVT prophylaxis with Lovenox GI prophylaxis not indicated Code status full code Subjective Date/time seen: 06/08/22 09:34 Interval history: No overnight events noted. No chest pain or shortness of breath. No nausea, vomiting or diarrhea. No fevers or chills. Review of Systems Review of Systems: 12 point review of systems was assessed and was negative except as noted in the HPI Exam Narrative: General: No acute distress, alert and oriented per baseline HEENT: Atraumatic, normocephalic, mucous membranes moist CV: Regular rate and rhythm, S1, S2 Lungs: Clear to auscultation bilaterally, no rales or crackles noted, no wheezes, good air entry Abdomen: Soft, nontender, nondistended Extremities: Normal to inspection Skin: No rashes noted, no lesions or wounds seen Psych: Euthymic, normal affect Objective Data Vital Signs Vital Signs: Vital Signs - 24 hr 06/07/22 14:00 06/07/22 21:00 06/08/22 05:55 Temperature 96.9 F L 97.6 F 97.8 F Pulse Rate 66 71 79 Respiratory Rate 16 18 20 Blood Pressure 143/64 H 160/87 H 142/86 H Pulse Oximetry 98 97 96 Intake/Output Intake/Output: Intake & Output 06/05/22 06/06/22 06/07/22 06/08/22 23:59 23:59 23:59 23:59 Intake Total 6330 4420 4340 1350 Output Total 769 012 9637 900 Balance 5730 3570 3340 450 Meds/Results Medications: Active Medications Generic Name Dose Route Start Last Admin Trade Name Freq PRN Reason Stop Dose Admin Acetaminophen 650 mg 06/05/22 00:21 06/07/22 20:07 Acetaminophen 325 Mg Tablet PO 650 mg Q4H PRN Administration Mild Pain (1-3) or Fever Hydrocodone Bitart/Acetaminophen 1 tab 06/05/22 00:21 Hydrocodone/Acetaminophen (*Crx) 5-325 Mg Tablet PO Q4H PRN Pain Rated 4-6 Buprenorphine/Naloxone 2 each 06/05/22 17:00 06/07/22 17:10 Buprenorphine Hcl/Naloxone Hcl (*Crx) 4 Mg/1 Mg Sl Film SUBLINGUAL 2 each BID ANNE Administration Enoxaparin Sodium 40 mg 06/05/22 09:00 06/07/22 09:29 Enoxaparin 40 Mg/0.4 Ml Syringe SUB-Q 40 mg DAILY ANNE Administration Cefepime HCl 2 gm in 50 mls @ 100 mls/hr 06/05/22 11:00 06/08/22 08:10 Maxipime 2 Gm/D5w 50 Ml IVPB Infused Q12H ANNE Infusion Sodium Chloride 1,000 mls @ 125 mls/hr 06/05/22 00:25 06/08/22 06:40 Normal Saline Iv IV CONT 125 mls/hr .Q8H ANNE Administration Vancomycin HCl 2,000 mg in 500 mls @ 250 mls/hr 06/08/22 09:00 Vancomycin 2,000 Mg/D5w 500 Ml IVPB Q12H [facility] Insulin Aspart 7 units 06/05/22 08:00 06/07/22 17:10 Insulin Aspart (*Bkc) 100 Units/Ml 0.05 units/kg (7 units) 7 units SUB-Q Administration TIDWM [facility] Lisinopril 40 mg 06/05/22 09:00 06/07/22 09:29 Lisinopril 20 Mg Tablet PO 40 mg DAILY ANNE Administration Morphine Sulfate 4 mg 06/05/22 00:21 Morphine Sulfate (*Crx) 4 Mg/Ml Inj IV PUSH Q2H PRN Pain Rated 7-10 Ondansetron HCl 4 mg 06/05/22 00:21 06/08/22 06:41 Ondansetron Inj 4 Mg/2 Ml Vial IV PUSH 4 mg Q4H PRN Administration Nausea Senna 17.2 mg 06/05/22 21:00 06/07/22 20:07 Sen
[2022-06-08] MEDS: INSULIN ASPART (*BKC) 100 UNITS/ML 7 UNITS SUB-Q ×2 (10:06→12:42)
[2022-06-08] MEDS: lisinopriL 20 MG TABLET 40 MG PO (10:07)
[2022-06-08] MEDS: ENOXAPARIN 40 MG/0.4 ML SYRINGE SUB-Q (10:07)
[2022-06-08] MEDS: ACETAMINOPHEN 325 MG TABLET 650 MG PO (10:08)
[2022-06-08] MEDS: DOXYCYCLINE HYCLATE 100 MG TABLET PO (10:18)
[2022-06-08] MEDS: AMOXICILLIN/CLAVULANATE K 875-125 MG TAB 1 TABLET PO (10:18)
[2022-06-08 11:59] LABS: Glucose Point of Care 237 mg/dl (65-105)
[2022-06-08 14:00] VITALS: BP 150/92; PULSE 84; RESP 20; TEMP 36.1; O2SAT 97
--- NOTE | 2022-06-08 15:18 | PM.DS ---
DS: Admitting Diagnosis Discharge Date June 08, 2022 Admitting Diagnosis Cellulitis DS: Discharge Diagnosis Discharge Diagnosis (1) Cellulitis: Code(s): L03.90 - Cellulitis, unspecified Status: Acute Assessment and Plan: DC IV antibiotics, blood cultures negative, started on doxycycline and Augmentin, monitor response and consider discharge later today (2) Hypertension: Code(s): I10 - Essential (primary) hypertension Status: Acute Assessment and Plan: Stable, monitor (3) Morbid obesity with BMI of 50.0-59.9, adult: Code(s): E66.01 - Morbid (severe) obesity due to excess calories; Z68.43 - Body mass index [BMI] 50.0-59.9, adult Status: Acute Assessment and Plan: Diet and exercise advised (4) Type 2 diabetes mellitus: Code(s): E11.9 - Type 2 diabetes mellitus without complications Status: Acute Assessment and Plan: Accuchecks, SSI Hold metformin Plan DVT prophylaxis with Lovenox GI prophylaxis not indicated Code status full code DS: Summary Hospital Course Hospital Course: 57-year-old female with past medical history significant for morbid obesity, hypertension, patient presented to the emergency room due to right lower extremity redness swelling tenderness warmth for the last week or so patient had been taking doxycycline in the outpatient setting however a has gotten worse patient denies any fevers, rigors, chills, nausea, vomiting, abdominal pain, diarrhea, shortness of breath, cough, sputum production. preliminary workup was significant for white blood cell count 20,000. patient has been admitted for further evaluation management and treatment. She was started on vancomycin, cefepime and Flagyl. Symptoms essentially resolved. All cultures came back negative. She was discharged on doxycycline and Augmentin to complete a 10 day course. Time Spent with Patient Time attestation: Total time spent providing and/or coordinating discharge services: Exam Narrative: General: No acute distress, alert and oriented per baseline HEENT: Atraumatic, normocephalic, mucous membranes moist CV: Regular rate and rhythm, S1, S2 Lungs: Clear to auscultation bilaterally, no rales or crackles noted, no wheezes, good air entry Abdomen: Soft, nontender, nondistended Extremities: Normal to inspection Skin: No rashes noted, no lesions or wounds seen Psych: Euthymic, normal affect DS: Data Data Completed and Pending Labs on day of discharge: Labs from last 24 hours 06/08/22 06/08/22 06/08/22 11:46 08:04 06:36 WBC RBC Hgb Hct MCV MCH MCHC RDW Plt Count MPV Sodium 134 L Potassium 3.9 Chloride 101 Carbon Dioxide 25 Anion Gap 8 BUN 12 Creatinine 0.60 L Estim Creat Clear Calc 117 Estimated GFR > 60 Glucose 190 H POC Capillary Glucose 237 H 183 H Calcium 8.4 Total Bilirubin 0.4 AST 26 ALT 24 Alkaline Phosphatase 64 Total Protein 7.0 Albumin 3.2 L Vancomycin Trough 06/08/22 06/08/22 06/07/22 06:36 06:36 22:14 WBC 16.6 H RBC 3.65 L Hgb 10.4 L Hct 33.1 L MCV 90.7 MCH 28.5 MCHC 31.4 L RDW 14.3 Plt Count 231 D MPV 11.5 H Sodium Potassium Chloride Carbon Dioxide Anion Gap BUN Creatinine Estim Creat Clear Calc Estimated GFR Glucose POC Capillary Glucose 181 H Calcium Total Bilirubin AST ALT Alkaline Phosphatase Total Protein Albumin Vancomycin Trough 20.5 H 06/07/22 16:27 WBC RBC Hgb Hct MCV MCH MCHC RDW Plt Count MPV Sodium Potassium Chloride Carbon Dioxide Anion Gap BUN Creatinine Estim Creat Clear Calc Estimated GFR Glucose POC Capillary Glucose 205 H Calcium Total Bilirubin AST ALT Alkaline Phosphatase Total Protein Albumin Vancomycin Trough Preliminary micro results at
== END 2022-06-08 16:42 | disposition home or self-care (01) | DRG 603 ==
LOC: ANHED 22:48 → ANH3MEDSUR 06-05 01:12
PROVIDERS: Emergency Medicine; Family Medicine; Hospitalist; Internal Medicine; Admitting Provider Internal Medicine; Emergency Provider Emergency Medicine; PCP Internal Medicine; Visit Provider Student in an Organized Health Care Education/Training Program
DX: L03.115 Cellulitis of right lower limb (principal); Z68.43 Body mass index [BMI] 50.0-59.9, adult; E66.01 Morbid (severe) obesity due to excess calories; E11.9 Type 2 diabetes mellitus without complications; I10 Essential (primary) hypertension; Z87.891 Personal history of nicotine dependence; Z20.822 Contact with and (suspected) exposure to COVID-19; Z79.84 Long term (current) use of oral hypoglycemic drugs
CPT/HCPCS: 36415; 80048; 80053; 80202; 82565; 82948; 85025; 85027; 87040; 96365; 96366; 96367; 96372; 96375; 99285; A9270; G0378; J0692; J1650; J1815; J2405; J3370; J7030; U0003; U0005

== ENCOUNTER 2022-06-21 12:55 | Emergency (ER) | payer MEDICARE, MEDICAID, SELFPAY ==
[2022-06-21] VITALS (11 sets, daily range): BP systolic 173–182; BP diastolic 90–108; PULSE 74–90; RESP 12–21; TEMP 36.4; O2SAT 95–99
--- NOTE | 2022-06-21 17:22 | ED.EXTPRO ---
HPI - Extremity Problem General Chief complaint: Extremity Problem,Nontraumatic Stated complaint: weeping leg Time Seen by Provider: 06/21/22 17:02 History of Present Illness HPI Narrative: Patient is a 57-year-old female presenting with a leg infection. Patient states that she was admitted here a couple of weeks ago for cellulitis of her right leg. She was treated with IV antibiotics and was able to go home. Patient states that she had a few blisters in the area when she was discharged but they have now opened and her leg is weeping a lot of clear fluid. She denies any pain. No fevers or chills. No spreading redness. Patient states she is just concerned that she does not know how to take care of it. She denies numbness or weakness, other lesions or rashes, headache, chest pain, shortness of breath, abdominal pain, nausea or vomiting, diarrhea. Related Data Home Medications Medication Instructions Recorded Confirmed lisinopril 40 mg tablet 40 mg PO DAILY 10/24/19 06/05/22 metformin 850 mg tablet 850 mg PO DAILY 10/24/19 06/05/22 buprenorphine 8 mg-naloxone 2 mg 1 film sublingual BID 06/05/22 06/05/22 sublingual film (Suboxone) sennosides 8.6 mg tablet (Senokot) 17.2 mg PO QHS 06/05/22 06/05/22 Allergies Allergy/AdvReac Type Severity Reaction Status Date / Time No Known Allergies Allergy Mild Verified 06/21/22 13:16 Review of Systems Review of Systems: All systems reviewed & are unremarkable except as noted in HPI and below PMFSH Past Medical History Medical History DM (diabetes mellitus) H/O: HTN (hypertension) Surgical History Surgical History History of breast surgery Hx of eye surgery Family History Family History Other No significant family history Social History Social History Smoking packs per day: 0.5 Smoking cigarettes per day: 10.0 Smoking status: Former smoker Tobacco type: cigarettes Second hand tobacco smoke exposure: Yes Alcohol intake: former Substance use: former Other substance usage details: 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 Lack of Transportation: No Lack of Food: Never True Current Housing: I Do Not Have Housing Concerned About Future Housing: No Difficulty Paying Gas/Electric Bills: No Difficulty Paying for Meds: No 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ation: Grade School Difficulty w/ Childcare or Family Care: No Gender identity (if verbalized by the patient): Female Spiritual care concerns: No Exam Narrative: GENERAL: Pleasant, obese female resting comfortably in bed HEAD: Normocephalic, atraumatic. EYES: PERRLA and EOMI. ENT: Nares clear, no rhinorrhea or epistaxis. Mucous membranes moist. NECK: Supple. CHEST: Clear to auscultation. No respiratory distress. HEART: Regular rate and rhythm. No murmur heard. Normal peripheral pulses. ABDOMEN: Soft, nontender, nondistended, normal active bowel sounds. EXTREMITIES: Right lower extremity with weeping open blisters with large amount of healthy looking granulation tissue, distal pulses 2+ SKIN: See above NEURO: No focal deficits. Alert and oriented x3. PSYCH: Normal mood and affect. Course Vital Signs Vital signs: Vital Signs Temperature 97.6 F 06/21/22 13:16 Pulse Rate 81 06/21/22 13:16 Respiratory Rate 18 06/21/22 13:16 Blood Pressure 182/108 H 06/21/22 13:16 Pulse Oximetry 98 06/21/22 13:16 Temperature 97.6 F 06/21/22 13:16 Pulse Rate 89 06/21/22 19:45 Respiratory Rate 21 H 06/21/22 19:45 Blood Pressure 173/90 H 06/21/22 16:03 Pulse Oximetry 97 06/21/22 18:46 MDM - Extremity (Nontraumatic) MDM Narrative Medical decision making narrative: Patient is a 57-year-old presenting with right leg wounds. Patient is hypertensive,
[2022-06-21] MEDS: SODIUM CHLORIDE 0.9% IV 1,000 ML 999 ML IV CONT (18:46)
[2022-06-21 18:47] LABS: Basophils Absolute Auto 0.1 K/mm3 (0.0-0.1); Eosinophils Absolute Auto 0.1 K/mm3 (0-0.3); Hematocrit 34.7 % (37.0-47.0); Hemoglobin 10.8 g/dL (12.0-15.0); Immature Granulocyte Absolute 0.06 K/mm3 (0.00-0.031); Immature Granulocyte Percent A 0.8 % (0-0.5); Immature Platelet Fraction Pct 8.3 % (0.9-11.2); Lymphocytes Absolute Auto 2.36 K/mm3 (0.9-3.2); Mean Corpuscular HGB Conc 31.1 g/dl (32-36); Mean Corpuscular Hemoglobin 28.5 pg (26-34); Mean Corpuscular Volume 91.6 fl (80-100); Mean Platelet Volume 11.3 fl (7.4-10.4); Monocytes Absolute Auto 0.6 K/mm3 (0.1-0.6); Monocytes Percent Auto 7.8 % (2.6-8.5); Neutrophils Percent Auto 55.4 % (45.5-73.1); Platelet Count Result 222 k/mm3 (150-375); Red Blood Count 3.79 M/mm3 (4.2-5.4); Red Cell Distribution Width 14.4 % (11.5-14.5); White Blood Count 7.2 K/mm3 (4.5-10.0)
[2022-06-21 18:56] LABS: Alanine Aminotransferase 25 U/L (6-35); Albumin Level 3.5 g/dL (3.5-5.1); Alkaline Phosphatase 60 U/L (38-126); Anion Gap 5 mmol/L (8-16); Aspartate Amino Transferase 44 U/L (14-36); Bilirubin,Total 0.4 mg/dL (0.2-1.3); Blood Urea Nitrogen 9 mg/dL (7-17); Calcium 8.5 mg/dL (8.4-10.2); Carbon Dioxide 33 mmol/L (22-30); Chloride 98 mmol/L (98-107); Estimated CRCL calculation 138 ml/min; Estimated Glomerular Filt Rate > 60; Glucose 180 mg/dL (65-110); Potassium 3.9 mmol/L (3.4-5.0); Sodium 136 mmol/L (137-145)
[2022-06-21 19:01] LABS: Platelet Estimate Adequate (Adequate)
[2022-06-21 19:02] LABS: Schistocytes None Seen (NORMAL)
--- NOTE | 2022-06-21 19:57 | PC.NURSE ---
Report received from NORA Farr. Assumed care of patient at this time.
== END 2022-06-21 20:36 | disposition home or self-care (01) ==
PROVIDERS: Emergency Provider Emergency Medicine; PCP Internal Medicine
DX: R23.8 Other skin changes (principal); I10 Essential (primary) hypertension; E11.9 Type 2 diabetes mellitus without complications; Z79.84 Long term (current) use of oral hypoglycemic drugs; Z87.891 Personal history of nicotine dependence
CPT/HCPCS: 36415; 80053; 85025; 85055; 87040; 96360; 96361; 99283; J7030

== ENCOUNTER 2022-08-14 07:40 | Outpatient (RCR) | payer MEDICARE, MEDICAID, SELFPAY ==
[2022-07-02 12:55] VITALS: BMI 55.9
== END 2022-08-30 15:52 | disposition home or self-care (01) ==
LOC: ANHWOC 07:40
PROVIDERS: PCP Internal Medicine; Visit Provider Internal Medicine
DX: L03.90 Cellulitis, unspecified (principal)
CPT/HCPCS: 99212; 99213; 99214; A9270; G0463

== ENCOUNTER 2022-09-05 09:36 | Outpatient (CLI) | payer MEDICARE, MEDICAID, SELFPAY ==
--- NOTE | ~2022-09-05 | US_ITS ---
Limited Abdominal Sonogram: Real-time sonographic imaging of the right upper quadrant was performed. Clinical History: Abnormal liver enzymes Findings: The liver appears echogenic, with no evidence of mass lesion or bile duct dilatation. Main portal vein demonstrates normal direction of flow. Patient is status post cholecystectomy. There is a small fluid collection at the gallbladder fossa measuring 3.4 x 2.3 x 1.9 cm. The common bile duct measures 4 mm. The visualized pancreas, aorta, and IVC are unremarkable. Impression: Status post cholecystectomy. 3.4 x 2.3 x 1.9 cm fluid collection of the gallbladder fossa. This could reflect postoperative seroma . Correlate for any possibility of abscess or biloma. Diffuse fatty infiltration of liver. Reviewed, dictated and finalized at [facility]. [employer] Impression: Status post cholecystectomy. 3.4 x 2.3 x 1.9 cm fluid collection of the gallbladder fossa. This could reflec t postoperative seroma. Correlate for any possibility of abscess or biloma. Diffuse fatty infiltration of liver.
== END 2022-09-05 09:37 | disposition home or self-care (01) ==
PROVIDERS: PCP Internal Medicine; Visit Provider Internal Medicine
DX: R74.01 Elevation of levels of liver transaminase levels (principal); K76.0 Fatty (change of) liver, not elsewhere classified
CPT/HCPCS: 76705

== ENCOUNTER 2022-10-12 18:27 | Emergency (ER) | payer MEDICARE, MEDICAID, SELFPAY ==
--- NOTE | ~2022-10-12 | CT_ITS ---
EXAMINATION: CT lumbar spine wo con DATE: 10/12/2022 20:55 INDICATION: Midline tenderness w/ Bony protuberance at L1ish . TECHNIQUE: Computed tomography (CT) of the lumbar spine was performed without intravenous contrast. A utomated exposure control and iterative reconstruction technique were employed. The dose-length produ ct was 1191.21 mGy-cm. COMPARISON: CT abdomen and pelvis 10/24/2019. FINDINGS: Mild lumbar scoliosis. 5 nonrib-bearing lumbar-type vertebral bodies. Pedicles intact. Norm al vertebral body alignment. Mild stable anterior wedge deformity at L1, possibly physiologic. The re maining body heights are preserved. Multilevel disc space narrowing and marginal osteophytosis, with vacuum phenomenon at L3-4 and L5-S1. Multilevel diffuse and left lateral disc bulges. 4 mm left subar ticular protrusion at L4-5. Multilevel moderate facet hypertrophy and sclerosis. Gas within the bilat eral SI joints and mild sclerosis, without erosion. Cholecystectomy clips. Stable 2.7cm indeterminate density left adrenal mass, consistent with an adenoma. Partially visualized hyperdensity in the left inferior pole, simple cyst in the prior exam. IMPRESSION: No acute fracture or traumatic malalignment in the lumbar spine. Reviewed, dictated and finalized at location [facility].
[2022-10-12 18:30] VITALS: BP 158/85; PULSE 85; RESP 22; TEMP 36.6; O2SAT 94
[2022-10-12] MEDS: ACETAMINOPHEN 500 MG TABLET 1000 MG PO (21:04)
[2022-10-12] MEDS: LIDOCAINE 1 EACH XX (21:05)
[2022-10-12] MEDS: LIDOCAINE 5% PATCH 1 PATCH TRANSDERM (21:05)
[2022-10-12] MEDS: methocarbamoL 750 MG TABLET 1500 MG PO (21:05)
--- NOTE | 2022-10-12 21:07 | ED.GENADULT ---
HPI - General Adult General Chief complaint: Back Pain/Injury Stated complaint: back pain Time Seen by Provider: 10/12/22 18:56 History of Present Illness HPI narrative: This is a 57-year-old female presenting ED with a chief complaint of lower back pain. Patient says that she developed a knot in the middle of her back. Occurred while she was lifting some dog food. Patient has tried Tylenol with minimal Relief. The pain does not radiate down her legs. It is not associated with bowel incontinence, urinary retention or focal neural deficits. patient denies use of drugs. No known cancer. No trauma. Related Data Home Medications Medication Instructions Recorded Confirmed lisinopril 40 mg tablet 40 mg PO DAILY 10/24/19 09/26/22 metformin 850 mg tablet 850 mg PO DAILY 10/24/19 09/26/22 buprenorphine 8 mg-naloxone 2 mg 1 film sublingual BID 06/05/22 09/26/22 sublingual film (Suboxone) sennosides 8.6 mg tablet (Senokot) 17.2 mg PO QHS 06/05/22 09/26/22 atorvastatin 10 mg tablet 10 mg PO DAILY 09/26/22 09/26/22 gabapentin 600 mg tablet 600 mg PO BID 09/26/22 09/26/22 Allergies Allergy/AdvReac Type Severity Reaction Status Date / Time No Known Allergies Allergy Mild Verified 10/12/22 18:50 [facility] Past Medical History Medical History (Updated 10/12/22 @ 23:33 by Narciso Gonzalez MD) Colon cancer screening DM (diabetes mellitus) Elevated liver enzymes H/O: HTN (hypertension) Hepatitis C Surgical History Surgical History History of breast surgery Hx of eye surgery Family History Family History Other No significant family history Social History Social History Smoking packs per day: 0.5 Smoking cigarettes per day: 10.0 Smoking status: Former smoker Tobacco type: cigarettes Second hand tobacco smoke exposure: Yes Alcohol intake: former Substance use: former Other substance usage details: 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 Lack of Transportation: No Lack of Food: Never True Current Housing: I Do Not Have Housing Concerned About Future Housing: No Difficulty Paying Gas/Electric Bills: No Difficulty Paying for Meds: No 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ation: Grade School Difficulty w/ Childcare or Family Care: No Gender identity (if verbalized by the patient): Female Spiritual care concerns: No Exam Narrative: APPEARANCE: No apparent distress. Head: atraumatic. EYES: EOMI, NOSE: Atraumatic NECK: Trachea midline RESPIRATORY: No increased rate of breathing CARDIOVASCULAR: RRR, ABDOMINAL: Obese, nontender MUSCULOSKELETAl: patient does have a small knot over L1-L2. It is not fluctuant. There are no overlying skin changes. It is not bony. NEURO: Alert. Moving 4/4 extremities SKIN:: Warm, dry. Normal color PSYCHIATRIC: Normal affect Course Vital Signs Vital signs: Vital Signs Temperature 97.9 F 10/12/22 18:30 Pulse Rate 85 10/12/22 18:30 Respiratory Rate 22 H 10/12/22 18:30 Blood Pressure 158/85 H 10/12/22 18:30 Pulse Oximetry 94 10/12/22 18:30 Oxygen Delivery Room Air 10/12/22 18:30 Temperature 97.9 F 10/12/22 18:30 Pulse Rate 85 10/12/22 18:30 Respiratory Rate 22 H 10/12/22 18:30 Blood Pressure 158/85 H 10/12/22 18:30 Pulse Oximetry 94 10/12/22 18:30 Oxygen Delivery Room Air 10/12/22 18:30 Medical Decision Making [facility] Narrative Medical decision making narrative: -Presentation: 57-year-old female presenting ED with lower back pain after lifting dog food. On physical exam she does have a small knot over her L-spine. It is tender but does not appear to be an abscess. A CT L-spine will be ordered. -DDX includes but is not limited to: Lower back strain, spinal fracture -Co-morbidities complicating care: morbid obesity, Suboxone use
[2022-10-12 23:38] VITALS: BP 151/87; PULSE 79; RESP 18; O2SAT 99
== END 2022-10-12 23:39 | disposition home or self-care (01) ==
PROVIDERS: Emergency Provider Emergency Medicine; PCP Internal Medicine
DX: M54.50 Low back pain, unspecified (principal); E11.9 Type 2 diabetes mellitus without complications; I10 Essential (primary) hypertension; B19.20 Unspecified viral hepatitis C without hepatic coma; Z87.891 Personal history of nicotine dependence; Z79.84 Long term (current) use of oral hypoglycemic drugs
CPT/HCPCS: 72131; 99284; A9270

== ENCOUNTER 2022-11-05 09:40 | Outpatient (CLI) | payer MEDICARE, MEDICAID, SELFPAY ==
--- NOTE | ~2022-11-05 | MM_ITS ---
EXAMINATION: MM screening [facility] BI w lady HISTORY: Screening mammogram TECHNIQUE: Craniocaudal and mediolateral oblique 3-D tomosynthesis images were obtained and synthetic 2-D images were generated. CAD analysis was submitted and interpreted. COMPARISON: 11/01/2019, 09/15/2019, 03/04/2018 BREAST PARENCHYMAL COMPOSITION:The breasts are almost entirely fatty FINDINGS: Stable dense ovoid mass at the upper, outer, posterior left breast. Stable coarse calcifica tions scattered in the left breast. No suspicious mass, calcification, or architectural distortion ar e identified in either breast to suggest malignancy. There has been no suspicious interval change. IMPRESSION: No mammographic evidence of malignancy. Additional stable findings, as detailed above. Stability over the comparison time interval is compati ble with benign findings. Recommend routine screening mammography in one year. BI-RADS Category 2: Benign finding(s). Reviewed, dictated and finalized at [facility]. IMPRESSION: No mammographic evidence of malignancy. Additional stable findings, as detailed above. Stability over the comparison ti me interval is compatible with benign findings. Recommend routine screening mammography in one year. BI-RADS Category 2: Benign finding(s).
== END 2022-11-05 09:41 | disposition home or self-care (01) ==
LOC: ANHIMG 09:43
PROVIDERS: PCP Internal Medicine; Visit Provider Internal Medicine
DX: Z12.31 Encounter for screening mammogram for malignant neoplasm of breast (principal)
CPT/HCPCS: 77063; 77067

== ENCOUNTER 2022-12-12 08:09 | Outpatient (CLI) | payer MEDICARE, MEDICAID, SELFPAY ==
--- NOTE | 2022-12-27 02:30 | WPDHOMESLEEP ---
Sleep Study - Home Unattended Date of Study: 12/12/22 Ordering Provider: Cesario De Los Santos MD Interpreting Provider: Corina Bell MD Home Sleep Study Type: Watch PAT Height: 1.57 m Weight: 127.006 kg Body Mass Index: 51.2 Neck Circumference (inches): 17 Hawkins: 13 Reason for Sleep Study Hypersomnolence Sleep History Dona Cuello is a 57-year-old woman with difficulty staying asleep. She uses sleeping pills. She occasionally awakens from sleep feeling short of breath. She does not awaken at night with heartburn, belching or coughing. She frequently snores and it is frequently loud enough that others complain about it. She frequently has difficulty sleeping with a cold. She rarely wakes up gasping for breath at night. She does not have breathing problems at night observed by others. She constantly sweats excessively at night. She occasionally notices her heart pounding or beating irregularly at night. She constantly falls asleep during the day, frequently falls asleep involuntarily, never falls asleep while driving. She rarely has loss of muscle tone with strong emotion. She does not have daytime difficulties due to excessive sleepiness. She does not feel paralyzed on waking or falling asleep. She frequently has vivid dreamlike scenes upon awakening or falling asleep. She does not feel afraid to go to sleep. She rarely has nightmares. She does not have dream recall. She rarely has racing thoughts across from mine. She does not feel sad or depressed. She constantly has anxiety. She occasionally has muscular tension. She occasionally notices parts of her body jerking. She does not kick at night. She constantly has crawling and aching feelings in her legs. She constantly has leg pain at night. She does not have morning jaw pain. She frequently grinds her teeth during sleep. She constantly is bothered by pain during the day. She rarely is awakened by pain at night. She rarely wakes up feeling stiff in the morning with sore or achy muscles. She frequently wakes up with pain in the neck, spine and joints. She has headaches, memory problems and concentration difficulties. She takes sedatives. Normal bedtime is 10:00 p.m.. It takes her about 1 hour to fall asleep. She wakes 3 times on average during the night. While awake, she may watch television. It takes her about an hour to return to sleep. She wakes for the day at 7:00 a.m.. Her weekend schedule is different, bedtime is 2:00 a.m. and she awakens at 9:00 a.m.. She estimates getting 4 hours of sleep on an average night. She takes naps in the afternoon or evening. A short nap lasting 10 or 15 minutes may be refreshing. She feels better in the afternoon compared to other times of day. Habits: Tobacco: Quit smoking years. ago. Caffeine: 52 oz a day. Alcohol: None. Recreational substances: None. [facility] Past Medical History Medical History Colon cancer screening DM (diabetes mellitus) Elevated liver enzymes H/O: HTN (hypertension) Hepatitis C Surgical History Surgical History History of breast surgery Hx of eye surgery Family History Family History Other No significant family history Social History Social History Smoking packs per day: 0.5 Smoking cigarettes per day: 10.0 Smoking status: Former smoker Tobacco type: cigarettes Second hand tobacco smoke exposure: Yes Alcohol intake: former Substance use: former Other substance usage details: 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 Lack of Transportation: No Lack of Food: Never True Current Housing: I Do Not Have Housing Concerned About Future Housing: No Difficulty Paying Gas/Electric Bills: No Difficulty Paying for Meds: No 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
[2022-12-27 02:49] VITALS: BMI 51.2
== END 2022-12-13 10:43 | disposition home or self-care (01) ==
LOC: ANHCSM 08:17
PROVIDERS: PCP Internal Medicine; Visit Provider Internal Medicine
DX: G47.33 Obstructive sleep apnea (adult) (pediatric) (principal); E11.9 Type 2 diabetes mellitus without complications; I10 Essential (primary) hypertension; Z87.891 Personal history of nicotine dependence
CPT/HCPCS: 95800

== ENCOUNTER 2022-12-31 10:24 | Outpatient (CLI) | payer MEDICARE, MEDICAID, SELFPAY ==
--- NOTE | ~2022-12-31 | CT_ITS ---
EXAMINATION: CT lumbar spine wo con DATE: 12/31/2022 10:45 INDICATION: Mid and low back pain. Localized swelling, mass, and lump of lumbar spine. TECHNIQUE: Computed tomography (CT) of the lumbar spine was performed without intravenous contrast. A utomated exposure control and iterative reconstruction technique were employed. The dose-length produ ct was 1342.35 mGy-cm. COMPARISON: Lumbar spine CT 10/12/2022 FINDINGS: There are changes of cholecystectomy. There is 9 degrees dextrocurvature of lumbar spine. T here is mild chronic anterior wedging of T12 and L1 vertebral bodies, likely physiologic. There is mi ldly decreased disc height at L2-L3, severely decreased disc height at L3-L4, mildly decreased disc h eight at L4-L5, and severely decreased disc height at L5-S1 with endplate remodeling. The following d isc levels are specifically discussed: L1-L2: The disc does not extend beyond the endplate margin. There is mild bilateral facet joint osteo arthritis. There is no neural foraminal stenosis. There is no central canal stenosis. L2-L3: The disc is bulging. There is severe right and moderate left facet joint osteoarthritis. There is mild bilateral neural foraminal stenosis. There is mild central canal stenosis. L3-L4: The disc is bulging. There is severe bilateral facet joint osteoarthritis. There is mild right and moderate left neural foraminal stenosis. There is mild central canal stenosis. L4-L5: The disc is bulging. There is severe bilateral facet joint osteoarthritis. There is mild bilat eral neural foraminal stenosis. There is moderate central canal stenosis. L5-S1: The disc is bulging. There is severe bilateral facet joint osteoarthritis. There is moderate r ight and mild left neural foraminal stenosis. There is mild central canal stenosis. IMPRESSION: 1. Severe lumbar spondylosis, stable from 10/12/2022. Reviewed, dictated and finalized at location [facility].
== END 2022-12-31 10:25 | disposition home or self-care (01) ==
PROVIDERS: PCP Internal Medicine; Visit Provider Surgery
DX: M47.816 Spondylosis without myelopathy or radiculopathy, lumbar region (principal)
CPT/HCPCS: 72131

== ENCOUNTER 2023-04-07 13:23 | Outpatient (CLI) | payer MEDICARE, MEDICAID, SELFPAY ==
[2023-04-07 13:48] LABS: Hematocrit 35.8 % (37.0-47.0); Hemoglobin 11.1 g/dL (12.0-15.0); Mean Corpuscular Hemoglobin 28.8 pg (26-34); Mean Corpuscular Volume 92.7 fl (80-100); Mean Platelet Volume 10.9 fl (7.4-10.4); Platelet Count Result 220 k/mm3 (150-375); Red Blood Count 3.86 M/mm3 (4.2-5.4); Red Cell Distribution Width 13.2 % (11.5-14.5); White Blood Count 7.5 K/mm3 (4.5-10.0)
[2023-04-07 14:04] LABS: Alanine Aminotransferase 12 U/L (6-35); Albumin Level 3.9 g/dL (3.5-5.1); Alkaline Phosphatase 67 U/L (38-126); Anion Gap 6 mmol/L (8-16); Aspartate Amino Transferase 29 U/L (14-36); Bilirubin,Total 0.3 mg/dL (0.2-1.3); Blood Urea Nitrogen 12 mg/dL (7-17); Calcium 9.1 mg/dL (8.4-10.2); Carbon Dioxide 32 mmol/L (22-30); Chloride 101 mmol/L (98-107); Estimated Glomerular Filt Rate > 60; Glucose 108 mg/dL (65-110); Sodium 139 mmol/L (137-145)
[2023-04-07 14:07] LABS: Prothrombin Time 13.9 Seconds (11.1-14.7)
[2023-04-10 17:07] LABS: Hepatitis C RNA, Quant PCR <15 IU/mL
== END 2023-04-07 13:24 | disposition home or self-care (01) ==
LOC: ANHLAB 13:25
PROVIDERS: PCP Internal Medicine; Visit Provider Internal Medicine Gastroenterology
DX: R74.8 Abnormal levels of other serum enzymes (principal); B19.20 Unspecified viral hepatitis C without hepatic coma
CPT/HCPCS: 36415; 80053; 85027; 85610; 87522

== ENCOUNTER 2023-04-20 11:16 | Emergency (ER) | payer MEDICARE, MEDICAID, SELFPAY ==
[2023-04-20 11:27] VITALS: BP 129/66; PULSE 76; RESP 21; TEMP 37; O2SAT 99
--- NOTE | 2023-04-20 11:39 | ED.GENADULT ---
HPI - General Adult General Chief complaint: Extremity Injury, Upper Stated complaint: right finger injury Time Seen by Provider: 04/20/23 11:40 Source: patient Mode of arrival: ambulatory Limitations: no limitations History of Present Illness HPI narrative: 57 y/o female presented for c/o right middle finger pain and swelling after falling at home last night. States she tripped and tried to catch herself with the right hand, and jammed it on the ground. Reports pain and difficulty bending the finger. Pain is mostly at the PIP. Has not taken anything for pain. Denies numbness, tingling or weakness. Related Data Home Medications Medication Instructions Recorded Confirmed lisinopril 40 mg tablet 40 mg PO DAILY 10/24/19 04/20/23 buprenorphine 8 mg-naloxone 2 mg 1 film sublingual BID 06/05/22 04/20/23 sublingual film (Suboxone) atorvastatin 10 mg tablet 10 mg PO DAILY 09/26/22 04/20/23 gabapentin 600 mg tablet 600 mg PO BID 09/26/22 04/20/23 doxepin 10 mg capsule 10 mg PO DAILY 04/20/23 04/20/23 dulaglutide 4.5 mg/0.5 mL 4.5 mg subcut DIRECTED 04/20/23 04/20/23 subcutaneous pen injector (Trulicity) empagliflozin 25 mg tablet 25 mg PO DAILY 04/20/23 04/20/23 (Jardiance) linaclotide 290 mcg capsule 290 mcg PO DAILY 04/20/23 04/20/23 (Linzess) metformin 1,000 mg tablet 1,000 mg PO DIRECTED 04/20/23 04/20/23 pioglitazone 15 mg tablet 15 mg PO DAILY 04/20/23 04/20/23 Allergies Allergy/AdvReac Type Severity Reaction Status Date / Time ibuprofen Allergy Mild hives Verified 04/20/23 11:27 strawberry Allergy Mild hives Verified 04/20/23 11:27 Review of Systems Review of Systems: CONSTITUTIONAL: Denies body aches, fever, chills EYES: Denies visual changes ENT: Denies rhinorrhea, congestion CARDIOVASCULAR: Denies chest pain, palpitations, or edema. RESPIRATORY: Denies cough or dyspnea. GASTROINTESTINAL: Denies abdominal pain, nausea, vomiting, or diarrhea. SKIN: Denies rash, itching, or wounds. MUSCULOSKELETAL: Reports right middle finger pain; Denies back pain, joint pain, or myalgia. NEUROLOGIC: Denies headache, numbness, tingling, or weakness. All systems reviewed & are unremarkable except as noted in HPI and below PMFSH Past Medical History Medical History Colon cancer screening Constipation due to opioid therapy DM (diabetes mellitus) Elevated liver enzymes Encounter for monitoring Suboxone maintenance therapy Fatty liver H/O: HTN (hypertension) Hepatitis C Surgical History Surgical History History of breast surgery Hx of eye surgery Family History Family History Other No significant family history Social History Social History Smoking packs per day: 0.5 Smoking cigarettes per day: 10.0 Smoking status: Former smoker Tobacco type: cigarettes Second hand tobacco smoke exposure: Yes Alcohol intake: former Substance use: former Other substance usage details: 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 Lack of Transportation: No Lack of Food: Never True Current Housing: I Do Not Have Housing Concerned About Future Housing: No Difficulty Paying Gas/Electric Bills: No Difficulty Paying for Meds: No 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ation: Grade School Difficulty w/ Childcare or Family Care: No Gender identity (if verbalized by the patient): Female Spiritual care concerns: No Comments At time of signature, I have reviewed and agree with nursing past medical, surgical, social and family history unless otherwise noted. Please see nursing chart for further information. There is no relevant family history pertinent to the presenting complaint Exam Narrative: GENERAL: Well-appearing, and in no acute distress. HEAD: Normocephalic, atraumatic. EYES: c
== END 2023-04-20 11:50 | disposition home or self-care (01) ==
PROVIDERS: Emergency Provider Nurse Practitioner Family; PCP Internal Medicine
DX: M79.644 Pain in right finger(s) (principal); Z87.891 Personal history of nicotine dependence; E11.9 Type 2 diabetes mellitus without complications; I10 Essential (primary) hypertension; Z86.19 Personal history of other infectious and parasitic diseases
CPT/HCPCS: 29130; 99212; G0463

== ENCOUNTER 2023-09-13 09:51 | Emergency (ER) | payer MEDICARE, MEDICAID, SELFPAY ==
--- NOTE | ~2023-09-13 | XR_ITS ---
EXAMINATION: XR finger 4th LT min 2V DATE: 09/13/2023 10:44 INDICATION: Left fourth digit injury TECHNIQUE: Dorsal palmar, lateral and oblique views of the left fourth digit were obtained COMPARISON: None FINDINGS: Alignment is normal. No fracture. 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 Soft tissue swelling about the base of the left fourth digit. IMPRESSION: 1. No acute osseous abnormality. Reviewed, dictated and finalized at location A. [employer]
--- NOTE | 2023-09-13 09:57 | ED.UPPEXIN ---
HPI - Extremity Injury (Upper) General Chief Complaint: Extremity Injury, Upper Stated Complaint: left finger injury Time Seen by Provider: 09/13/23 11:00 Source: patient and RN notes reviewed Mode of arrival: ambulatory Limitations: no limitations History of Present Illness HPI narrative: 58-year-old female presents concern for injury to the 4th digit of the left hand. Reports she fell in the snow yesterday. She reports mid digit pain and difficulty bending it. She reports she has been taking Tylenol complaint: injury to: left and finger Related Data Home Medications Medication Instructions Recorded Confirmed lisinopril 40 mg tablet 40 mg PO DAILY 10/24/19 04/20/23 buprenorphine 8 mg-naloxone 2 mg 1 film sublingual BID 06/05/22 09/13/23 sublingual film (Suboxone) atorvastatin 10 mg tablet 10 mg PO DAILY 09/26/22 09/13/23 gabapentin 600 mg tablet 600 mg PO BID 09/26/22 09/13/23 doxepin 10 mg capsule 10 mg PO DAILY 04/20/23 09/13/23 dulaglutide 4.5 mg/0.5 mL 4.5 mg subcut DIRECTED 04/20/23 09/13/23 subcutaneous pen injector (Trulicity) empagliflozin 25 mg tablet 25 mg PO DAILY 04/20/23 09/13/23 (Jardiance) linaclotide 290 mcg capsule 290 mcg PO DAILY 04/20/23 04/20/23 (Linzess) metformin 1,000 mg tablet 1,000 mg PO DIRECTED 04/20/23 04/20/23 pioglitazone 15 mg tablet 15 mg PO DAILY 04/20/23 04/20/23 Allergies Allergy/AdvReac Type Severity Reaction Status Date / Time ibuprofen Allergy Mild hives Verified 09/13/23 10:36 strawberry Allergy Mild hives Verified 09/13/23 10:36 Review of Systems Review of Systems: CONSTITUTIONAL: Denies malaise, chills, sweats, or fever. SKIN: Denies rash or itching, open skin, laceration, abrasion, redness, warmth MUSCULOSKELETAL: Reports left 4th digit finger pain and swelling, decreased range of motion NEUROLOGIC: Denies numbness, weakness All systems reviewed & are unremarkable except as noted in HPI and below PMFSH Past Medical History Medical History Colon cancer screening Constipation due to opioid therapy DM (diabetes mellitus) Elevated liver enzymes Encounter for monitoring Suboxone maintenance therapy Fatty liver H/O: HTN (hypertension) Hepatitis C Surgical History Surgical History History of breast surgery Hx of eye surgery Family History Family History Other No significant family history Social History Social History Smoking packs per day: 0.5 Smoking cigarettes per day: 10.0 Smoking status: Former smoker Tobacco type: cigarettes Second hand tobacco smoke exposure: Yes Alcohol intake: former Substance use: former Other substance usage details: 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 Lack of Transportation: No Lack of Food: Never True Current Housing: I Do Not Have Housing Concerned About Future Housing: No Difficulty Paying Gas/Electric Bills: No Difficulty Paying for Meds: No 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ation: Grade School Difficulty w/ Childcare or Family Care: No Gender identity (if verbalized by the patient): Female Spiritual care concerns: No Comments At time of signature, agree with nursing past medical, surgical, social and family history. There is no relevant family history pertinent to the presenting complaint Exam Narrative: GENERAL: Well-appearing, well-nourished, and in no acute distress. HEAD: Normocephalic, atraumatic. EYES: PERRLA, conjunctivae clear NECK: Supple. CHEST: Speaks in full sentences. No respiratory distress. HEART: Regular rate and rhythm. Normal and equal peripheral pulses. EXTREMITIES: 4th digit of the left hand has grossly normal strength and sensation, limited range of motion. Moderate mid digit edema, no erythema, ecchymosis. Normal sensation with sen
[2023-09-13 10:12] VITALS: BP 162/75; PULSE 76; RESP 18; TEMP 36.2; O2SAT 100
[2023-09-13 10:36] VITALS: BP 162/75; PULSE 76; RESP 18; TEMP 36.2; O2SAT 100
== END 2023-09-13 11:10 | disposition home or self-care (01) ==
PROVIDERS: Emergency Provider Nurse Practitioner; PCP Internal Medicine
DX: S63.615A Unspecified sprain of left ring finger, initial encounter (principal); W19.XXXA Unspecified fall, initial encounter; E11.9 Type 2 diabetes mellitus without complications; Z79.84 Long term (current) use of oral hypoglycemic drugs; K76.0 Fatty (change of) liver, not elsewhere classified; I10 Essential (primary) hypertension
CPT/HCPCS: 29130; 73140; 99213; G0463

== ENCOUNTER 2023-10-08 16:41 | Emergency (ER) | payer MEDICARE, MEDICAID, SELFPAY ==
--- NOTE | 2023-10-08 16:45 | ED.DENTAL ---
HPI - Dental/Oral General Chief complaint: Dental/Oral Stated complaint: right side dental pain Time Seen by Provider: 10/08/23 17:00 Source: patient Mode of arrival: ambulatory Limitations: no limitations History of Present Illness HPI Narrative: Sarah is a 58-year-old female patient presenting to the clinic today with complaints of right-sided dental pain. She reports that she thinks that there may be an abscess. Contacted her dentist and is unable to get in till next week. Related Data Home Medications Medication Instructions Recorded Confirmed lisinopril 40 mg tablet 40 mg PO DAILY 10/24/19 10/08/23 buprenorphine 8 mg-naloxone 2 mg 1 film sublingual BID 06/05/22 10/08/23 sublingual film (Suboxone) atorvastatin 10 mg tablet 10 mg PO DAILY 09/26/22 10/08/23 gabapentin 600 mg tablet 600 mg PO BID 09/26/22 10/08/23 doxepin 10 mg capsule 10 mg PO DAILY 04/20/23 10/08/23 dulaglutide 4.5 mg/0.5 mL 4.5 mg subcut DIRECTED 04/20/23 10/08/23 subcutaneous pen injector (Trulicity) empagliflozin 25 mg tablet 25 mg PO DAILY 04/20/23 10/08/23 (Jardiance) linaclotide 290 mcg capsule 290 mcg PO DAILY 04/20/23 10/08/23 (Linzess) metformin 1,000 mg tablet 1,000 mg PO DIRECTED 04/20/23 10/08/23 pioglitazone 15 mg tablet 15 mg PO DAILY 04/20/23 10/08/23 Allergies Allergy/AdvReac Type Severity Reaction Status Date / Time ibuprofen Allergy Mild hives Verified 10/08/23 16:43 strawberry Allergy Mild hives Verified 10/08/23 16:43 Review of Systems Review of Systems: Pertinent positives per HPI. Patient denies any fever, chills, rash, headache, visual changes, dizziness, cough, shortness of breath, chest pain, palpitations, nausea, vomiting, diarrhea, constipation, abdominal pain, or any urinary issues. [facility] Past Medical History Medical History Colon cancer screening Constipation due to opioid therapy DM (diabetes mellitus) Elevated liver enzymes Encounter for monitoring Suboxone maintenance therapy Fatty liver H/O: HTN (hypertension) Hepatitis C Surgical History Surgical History History of breast surgery Hx of eye surgery Family History Family History Other No significant family history Social History Social History Smoking packs per day: 0.5 Smoking cigarettes per day: 10.0 Smoking status: Former smoker Tobacco type: cigarettes Second hand tobacco smoke exposure: Yes Alcohol intake: former Substance use: former Other substance usage details: 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 Lack of Transportation: No Lack of Food: Never True Current Housing: I Do Not Have Housing Concerned About Future Housing: No Difficulty Paying Gas/Electric Bills: No Difficulty Paying for Meds: No 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ation: Grade School Difficulty w/ Childcare or Family Care: No Gender identity (if verbalized by the patient): Female Spiritual care concerns: No Comments At the time of my signature, I reviewed and agree with the nursing past medical, surgical, social, and family history. There is no relevant family history pertinent to the patient complaint. Exam Narrative: General: Well-developed, well nourished, in no apparent distress Head: Normocephalic, atraumatic Eyes: Pupils equally round and reactive to light bilaterally, EOM intact, sclera and conjunctive clear, no discharge, lids normal Ears: TMs intact and clear, ear canals clear, no drainage, grossly hearing normal. Nose: Nares patent, no discharge, no inflammation, no sinus tenderness. Mouth: Oral pharynx without lesions or masses, poor dentition, MMM. Neck: Supple, trachea midline, no enlargement of anterior or posterior cervical nodes, no thyroid masses or goiter palpable. Car
[2023-10-08 16:50] VITALS: BP 142/68; PULSE 75; RESP 16; TEMP 37.2; O2SAT 97
== END 2023-10-08 17:08 | disposition home or self-care (01) ==
PROVIDERS: Emergency Provider Nurse Practitioner Family; PCP Internal Medicine
DX: K04.7 Periapical abscess without sinus (principal); Z87.891 Personal history of nicotine dependence; E11.9 Type 2 diabetes mellitus without complications; Z79.84 Long term (current) use of oral hypoglycemic drugs; K76.0 Fatty (change of) liver, not elsewhere classified; I10 Essential (primary) hypertension
CPT/HCPCS: 99213; G0463

== ENCOUNTER 2024-01-02 11:48 | Emergency (ER) | payer MEDICARE, MEDICAID, SELFPAY ==
--- NOTE | 2024-01-02 11:50 | ED.EXTPRO ---
HPI - Extremity Problem General Chief complaint: Extremity Problem,Nontraumatic Stated complaint: Feet Swelling Time Seen by Provider: 01/02/24 12:06 Mode of arrival: ambulatory Limitations: no limitations History of Present Illness HPI Narrative: 58-year-old female presents with concern for bilateral feet swelling. She reports that started a couple days ago. She denies injury, trauma, redness, warmth, tenderness. She denies shortness of breath or chest pain. She takes a blood pressure pill, she denies any other history of heart disease. MD Complaint: extremity swelling Related Data Home Medications Medication Instructions Recorded Confirmed lisinopril 40 mg tablet 40 mg PO DAILY 10/24/19 01/02/24 buprenorphine 8 mg-naloxone 2 mg 1 film sublingual BID 06/05/22 01/02/24 sublingual film (Suboxone) atorvastatin 10 mg tablet 10 mg PO DAILY 09/26/22 01/02/24 gabapentin 600 mg tablet 600 mg PO BID 09/26/22 01/02/24 doxepin 10 mg capsule 10 mg PO DAILY 04/20/23 01/02/24 dulaglutide 4.5 mg/0.5 mL 4.5 mg subcut DIRECTED 04/20/23 01/02/24 subcutaneous pen injector (Trulicity) empagliflozin 25 mg tablet 25 mg PO DAILY 04/20/23 01/02/24 (Jardiance) linaclotide 290 mcg capsule 290 mcg PO DAILY 04/20/23 01/02/24 (Linzess) metformin 1,000 mg tablet 1,000 mg PO DIRECTED 04/20/23 01/02/24 pioglitazone 15 mg tablet 15 mg PO DAILY 04/20/23 01/02/24 Allergies Allergy/AdvReac Type Severity Reaction Status Date / Time ibuprofen Allergy Mild hives Verified 01/02/24 11:55 strawberry Allergy Mild hives Verified 01/02/24 11:55 Review of Systems Review of Systems: CONSTITUTIONAL: Denies malaise, chills, sweats, or fever. CARDIOVASCULAR: Denies chest pain, palpitations. Reports bilateral lower leg edema. RESPIRATORY: Denies cough or dyspnea. SKIN: Denies rash or itching. MUSCULOSKELETAL: Denies back pain, joint pain, or myalgia. NEUROLOGIC: Denies numbness, weakness, or headache. All systems reviewed & are unremarkable except as noted in HPI and below PMFSH Past Medical History Medical History Colon cancer screening Constipation due to opioid therapy DM (diabetes mellitus) Elevated liver enzymes Encounter for monitoring Suboxone maintenance therapy Fatty liver H/O: HTN (hypertension) Hepatitis C Surgical History Surgical History History of breast surgery Hx of eye surgery Family History Family History Other No significant family history Social History Social History Smoking packs per day: 0.5 Smoking cigarettes per day: 10.0 Smoking status: Former smoker Tobacco type: cigarettes Second hand tobacco smoke exposure: Yes Alcohol intake: former Substance use: former Other substance usage details: 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 Lack of Transportation: No Lack of Food: Never True Current Housing: I Do Not Have Housing Concerned About Future Housing: No Difficulty Paying Gas/Electric Bills: No Difficulty Paying for Meds: No 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ation: Grade School Difficulty w/ Childcare or Family Care: No Gender identity (if verbalized by the patient): Female Spiritual care concerns: No Comments At time of signature, agree with nursing past medical, surgical, social and family history. There is no relevant family history pertinent to the presenting complaint Exam Narrative: GENERAL: Well-appearing, well-nourished, and in no acute distress. HEAD: Normocephalic, atraumatic. EYES: PERRLA, sclera clear, and EOMI. No nystagmus. ENT: Nares clear. Mucous membranes moist. NECK: Supple. No lymphadenopathy. No jugular venous distension, thyromegaly, or carotid bruits. Carotids were easily palpable bilaterally. CHEST: No respirat
[2024-01-02 11:59] VITALS: BP 151/77; PULSE 81; RESP 16; TEMP 36.4; O2SAT 98
== END 2024-01-02 12:25 | disposition home or self-care (01) ==
PROVIDERS: Emergency Provider Nurse Practitioner; PCP Internal Medicine
DX: R60.0 Localized edema (principal); Z87.891 Personal history of nicotine dependence; E11.9 Type 2 diabetes mellitus without complications; Z79.84 Long term (current) use of oral hypoglycemic drugs; K76.0 Fatty (change of) liver, not elsewhere classified; I10 Essential (primary) hypertension
CPT/HCPCS: 99213; G0463

== ENCOUNTER 2024-01-14 12:02 | Outpatient (CLI) | payer MEDICARE, MEDICAID, SELFPAY ==
--- NOTE | ~2024-01-14 | US_ITS ---
EXAMINATION: US venous doppler [facility] DATE: 01/14/2024 12:47 INDICATION: Lower limb edema. TECHNIQUE: Grayscale ultrasound images without and with compression and Doppler ultrasound images of the bilateral lower extremity veins were obtained. COMPARISON: None. FINDINGS: The visualized portions of right common femoral vein, profunda (deep) femoral vein, femoral vein, pop liteal vein, peroneal veins, posterior tibial veins, and greater saphenous vein outflow are patent. The visualized portions of left common femoral vein, profunda femoral vein, femoral vein, popliteal v ein, peroneal veins, posterior tibial veins, and greater saphenous vein outflow are patent. IMPRESSION: 1. No deep venous thrombosis. Reviewed, dictated and finalized at location A.
== END 2024-01-14 12:03 | disposition home or self-care (01) ==
LOC: ANHIMG 12:04
PROVIDERS: PCP Internal Medicine; Visit Provider Internal Medicine
DX: R60.0 Localized edema (principal)
CPT/HCPCS: 93970

== ENCOUNTER 2025-01-22 09:54 | Emergency (ER) | payer MEDICARE, MEDICAID, SELFPAY ==
[2025-01-22 10:01] VITALS: BP 145/82; PULSE 77; RESP 16; TEMP 36.4; O2SAT 99
--- NOTE | 2025-01-22 14:48 | ED.GENADULT ---
HPI - General Adult General Chief complaint: Unspecified Stated complaint: knot on stomach, possible bite Time Seen by Provider: 01/22/25 14:24 History of Present Illness HPI narrative: Patient is a 59-year-old female who presents ER with a nodule to the right lower quadrant of her abdomen. Noticed it this morning. Tender to touch. No redness. No fevers or chills or sweats. Denies urinary or GI symptoms. No break in skin. Related Data Home Medications ?Medication ?Instructions ?Recorded ?Confirmed ?Last Taken ?Type lisinopril 40 mg tablet 40 mg PO DAILY 10/24/19 01/02/24 Unknown History buprenorphine 8 mg-naloxone 2 mg 1 film sublingual BID 06/05/22 01/02/24 Unknown History sublingual film (Suboxone) atorvastatin 10 mg tablet 10 mg PO DAILY 09/26/22 01/02/24 Unknown History gabapentin 600 mg tablet 600 mg PO BID 09/26/22 01/02/24 Unknown History doxepin 10 mg capsule 10 mg PO DAILY 04/20/23 01/02/24 Unknown History dulaglutide 4.5 mg/0.5 mL 4.5 mg subcut DIRECTED 04/20/23 01/02/24 Unknown History subcutaneous pen injector (Trulicity) empagliflozin 25 mg tablet 25 mg PO DAILY 04/20/23 01/02/24 Unknown History (Jardiance) linaclotide 290 mcg capsule 290 mcg PO DAILY 04/20/23 01/02/24 Unknown History (Linzess) metformin 1,000 mg tablet 1,000 mg PO DIRECTED 04/20/23 01/02/24 Unknown History pioglitazone 15 mg tablet 15 mg PO DAILY 04/20/23 01/02/24 Unknown History Allergies Allergy/AdvReac Type Severity Reaction Status Date / Time ibuprofen Allergy Mild hives Verified 01/22/25 10:02 strawberry Allergy Mild hives Verified 01/22/25 10:02 Review of Systems Constitutional: Constitutional: Reports no additional constitutional complaints Gastrointestinal: Gastrointestinal: Reports no additional gastrointestinal complaints Genitourinary: Genitourinary: Reports no additional female genitourinary complaints Integumentary/Breasts: Skin/Breast: Reports system reviewed and no additional complaints, except as docu [facility] Past Medical History Medical History Colon cancer screening Constipation due to opioid therapy DM (diabetes mellitus) Elevated liver enzymes Encounter for monitoring Suboxone maintenance therapy Fatty liver H/O: HTN (hypertension) Hepatitis C Surgical History Surgical History History of breast surgery Hx of eye surgery Family History Family History Other No significant family history Social History Social History Smoking packs per day: 0.5 Smoking cigarettes per day: 10.0 Smoking status: Former smoker Tobacco type: cigarettes Second hand tobacco smoke exposure: Yes Alcohol intake: former Substance use: former Other substance usage details: 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 Lack of Transportation: No Lack of Food: Never True Current Housing: I Do Not Have Housing Concerned About Future Housing: No Difficulty Paying Gas/Electric Bills: No Difficulty Paying for Meds: No 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ation: Grade School Difficulty w/ Childcare or Family Care: No Gender identity (if verbalized by the patient): Female Spiritual care concerns: No Exam Narrative: GENERAL: Well-appearing, morbidly obese, and in no acute distress. HEAD: Normocephalic, atraumatic. ABDOMEN: Soft, nontender, nondistended. Tender subcutaneous nodule right lower quadrant of the pannus without cellulitis or fluctuance. EXTREMITIES: Normal range of motion. No edema. SKIN: Warm, dry, no rash. NEURO: Alert and oriented x3. PSYCH: Normal mood and affect. Course Course Emergency Course: Subcutaneous nodule. No infection. No lab testing indicated. Discharge. Discussed treatment plan including Tylenol for pain. May use ice packs or heat as desired. Vital Signs Vital signs: Vital Signs Temperature 97.5 F L 01/22/25 10:01 Pulse Rate 77 01/22/25 10:01 Respiratory Rate 16 01/22/25 10:01 Blood Pressure 145/82 H 01/22/25 10:01 Pulse Oximetry 99 01/22/25 10:01 Temperature 97.5 F L 01/22/25 10:01 Pulse Rate 77 01/22/25 10:01 Respiratory Rate 16 01/22/25 10:01 Blood Pressure 145/82 H 01/22/25 10:01 Pulse Oximetry 99 01/22/25 10:01 Medical Decision Making Vital Signs Vital Signs: Vital Signs Temperature 97.5 F L 01/22/25 10:01 Pulse Rate 77 01/22/25 10:01 Respiratory Rate 16 01/22/25 10:01 Blood Pressure 145/82 H 01/22/25 10:01 Pulse Oximetry 99 01/22/25 10:01 Temperature 97.5 F L 01/22/25 10:01 Pulse Rate 77 01/22/25 10:01 Respiratory Rate 16 01/22/25 10:01 Blood Pressure 145/82 H 01/22/25 10:01 Pulse Oximetry 99 01/22/25 10:01 Discharge Plan Discharge Clinical Impression: Subcutaneous nodule Patient Disposition: Home Condition: Stable Additional Instructions: You have a nodule under your skin that may be inflamed fat or lymph node. There is no indication for antibiotics at this time. No evidence of abscess. Follow-up with your primary care doctor. Take Tylenol for pain. Patient Language: Taiwanese Prescriptions: No Action pioglitazone 15 mg tablet 15 mg PO DAILY doxepin 10 mg capsule 10 mg PO DAILY metformin 1,000 mg tablet 1,000 mg PO DIRECTED Linzess 290 mcg capsule 290 mcg PO DAILY Jardiance 25 mg tablet 25 mg PO DAILY Trulicity 4.5 mg/0.5 mL pen injector 4.5 mg SUBCUT DIRECTED (DME) compress.stocking,knee,reg,lrg Misc See Rx Instructions .Route Qty: 4 0RF Rx Instructions: As directed atorvastatin 10 mg tablet 10 mg PO DAILY gabapentin 600 mg tablet 600 mg PO BID Linzess 145 mcg capsule 145 mcg PO DAILY Qty: 30 5RF lisinopril 40 mg Tablet 40 mg PO DAILY Patient Comments: Pt denies taking lidocaine 5 % adhesive patch,medicated 1 patch topical DAILY Qty: 15 0RF Rx Instructions: leave on most painful area for up to 12 hrs buprenorphine-naloxone [Suboxone] 8-2 mg Film 1 film sublingual BID Follow-up/Referrals: Cesario De Los Santos MD [Primary Care Provider] - 1 Week
[2025-01-22 15:07] VITALS: RESP 17; O2SAT 98
== END 2025-01-22 15:10 | disposition home or self-care (01) ==
PROVIDERS: Emergency Provider Emergency Medicine; PCP Internal Medicine
DX: R22.2 Localized swelling, mass and lump, trunk (principal); E11.9 Type 2 diabetes mellitus without complications; I10 Essential (primary) hypertension; K76.0 Fatty (change of) liver, not elsewhere classified; Z86.19 Personal history of other infectious and parasitic diseases; Z87.891 Personal history of nicotine dependence; Z79.84 Long term (current) use of oral hypoglycemic drugs; Z79.899 Other long term (current) drug therapy; Z79.85 Long-term (current) use of injectable non-insulin antidiabetic drugs
CPT/HCPCS: 99283

== ENCOUNTER 2025-04-01 14:00 | Outpatient (CLI) | payer MEDICARE, MEDICAID, SELFPAY ==
--- OUTSIDE RECORDS SUMMARY | 2025-02-16 05:00 | XMS_ITS ---
Author Organization [facility] Address [address] [place] [address] Care Team Providers Care Signal Supervisor Name Role Phone Cesario De Los Santos Primary Care Provider [phone] [facility], Adult LEXI Unavailabl e [phone] Results Component Value Reference Range Notes Dehydroepiandrosterone (DHEA ) Sulfate Reviewed date:02/23/2025 03:06:33 PM Interpretation: Performing Lab:[facility] [place], Phone - [phone], Director - [facility] Notes/Report: Test(s) 997230-Ismnhdkwxhm; 055681-Uldzn Activity, Plasma; 549067- Normetanephrine, Pl; 485073-Azgxqspqpbaj, Pl; 856225- Androstenedione LCMS was developed and its performance characteristics determined by [employer]. It has not been cleared or approved by the Food and Drug Administration. DHEA-Sulfate 26.1 29.4-220.5 ug/dL Cortisol Reviewed date:02/23/2025 03:06:33 PM Interpretation: Performing Lab:[facility] [address] [facility], Phone - [phone], Director - [facility] Notes/Report: Test(s) 168931-Tvaidzlhyei; 598284-Cpjsd Activity, Plasma; 702279- Normetanephrine, Pl; 782189-Odfkeihftuni, Pl; 191402- Androstenedione LCMS was developed and its performance characteristics determined by [employer]. It has not been cleared or approved by the Food and Drug Administration. Cortisol 4.1 6.2-19.4 ug/dL Please Note: The reference interval and flagging for this test is for an AM collection. If this is a PM collection please use: Cortisol PM: 2.3-11.9 Androstenedione LCMS Reviewed date:02/23/2025 03:06:33 PM Interpretation: Performing Lab:[facility], [address] [place] [address], Phone - [phone], Director - [facility] Notes/Report: Test(s) 623659-Btuxstsdhke; 147899-Gjtrn Activity, Plasma; 435637- Normetanephrine, Pl; 738710-Bckkzdgtcyyj, Pl; 528408- Androstenedione LCMS was developed and its performance characteristics determined by [facility] [address]. It has not been cleared or approved by the Food and Drug Administration. Androstenedione LCMS 11 41-262 ng/dL Metanephrines, Frac., Pl. Fr ee Reviewed date:02/23/2025 03:06:33 PM Interpretation: Performing Lab:[facility] [place], [address] [place] [address], Phone - [phone], Director - [facility] Notes/Report: Test(s) 308374-Aitvaypjezz; 612355-Uodqh Activity, Plasma; 645270- Normetanephrine, Pl; 004766-Nwjfopkennut, Pl; 626887- Androstenedione LCMS was developed and its performance characteristics determined by [facility]. It has not been cleared or approved by the Food and Drug Administration. Normetanephrine, Pl 63.3 0.0-244.0 pg/mL Metanephrine, Pl <25.0 0.0-88.0 pg/mL Testosterone, Serum Reviewed date:02/23/2025 03:06:33 PM Interpretation: Performing Lab:[facility] [place], [address] [place] [address], Phone - [phone], Director - [facility] Notes/Report: Test(s) 659210-Bdqpfsosgtz; 644465-Bkskm Activity, Plasma; 140150- Normetanephrine, Pl; 670918-Wnxneqfagzes, Pl; 801009- Androstenedione LCMS was developed and its performance characteristics determined by [employer]. It has not been cleared or approved by the Food and Drug Administration. Testosterone <3 4-50 ng/dL CBC With Differential/Platel et* Reviewed date:02/23/2025 03:06:33 PM Interpretation: Performing Lab:[facility] [place] [address] [facility], Phone - [phone], Director - [facility] Notes/Report: Test(s) 938363-Xzlwdtcvknk; 453796-Kcglm Activity, Plasma; 719258- Normetanephrine, Pl; 964755-Nrvotsjhjayg, Pl; 887548- Androstenedione LCMS was developed and its performance characteristics determined by [employer]. It has not been cleared or approved by the Food and Drug Administration. WBC 9.4 3.4-10.8 x10E3/uL RBC 3.65 3.77-5.28 x10E6/uL Hemoglobin 10.9 11.1-15.9 g/dL Hematocrit 33.7 34.0-46.6 % MCV 92 79-97 fL MCH 29.9 26.6-33.0 pg MCHC 32.3 31.5-35.7 g/dL RDW 13.8 11.7-15.4 % Platelets 193 150-450 x10E3/uL Neutrophils 63 Not Estab. % Lymphs 27 Not Estab. % Monocytes 7 Not Estab. % Eos 1 Not Estab. % Basos 1 Not Estab. % Neutrophils (Absolute) 6.1 1.4-7.0 x10E3/uL Lymphs (Absolute) 2.5 0.7-3.1 x10E3/uL Monocytes(Absolute) 0.6 0.1-0.9 x10E3/uL Eos (Absolute) 0.1 0.0-0.4 x10E3/uL Baso (Absolute) 0.1 0.0-0.2 x10E3/uL Immature Granulocytes 1 Not Estab. % Immature Grans (Abs) 0.1 0.0-0.1 x10E3/uL CMP 14 Comprehensive Metabol ic Panel* Reviewed date:02/23/2025 03:06:34 PM Interpretation: Performing Lab:[facility] [place] [address] [facility], Phone - [phone], [facility] Notes/Report: Test(s) 696806-Rkmpuxrofox; 711624-Ewxyr Activity, Plasma; 831431- Normetanephrine, Pl; 092470-Hgznfdwzdlfb, Pl; 198024- Androstenedione LCMS was developed and its performance characteristics determined by [employer]. It has not been cleared or approved by the Food and Drug Administration. Glucose 119 70-99 mg/dL BUN 11 6-24 mg/dL Creatinine 0.90 0.57-1.00 mg/dL eGFR 74 >59 mL/min/1.73 BUN/Creatinine Ratio 12 9-23 Sodium 132 134-144 mmol/L Potassium 3.9 3.5-5.2 mmol/L Chloride 94 96-106 mmol/L Carbon Dioxide, Total 25 20-29 mmol/L Calcium 9.3 8.7-10.2 mg/dL Protein, Total 7.1 6.0-8.5 g/dL Albumin 4.2 3.8-4.9 g/dL Globulin, Total 2.9 1.5-4.5 g/dL Bilirubin, Total 0.5 0.0-1.2 mg/dL Alkaline Phosphatase 38 44-121 IU/L AST (SGOT) 15 0-40 IU/L ALT (SGPT) 6 0-32 IU/L TSH Rfx on Abnormal to Free T4 Reviewed date:02/23/2025 03:06:34 PM Interpretation: Performing Lab:[facility] [address] [facility], Phone - [phone], Director - [facility] Notes/Report: Test(s) 121312-Wongjjjupjo; 133887-Jppqn Activity, Plasma; 768601- Normetanephrine, Pl; 433542-Zzzxuqqytahv, Pl; 512354- Androstenedione LCMS was developed and its performance characteristics determined by [employer]. It has not been cleared or approved by the Food and Drug Administration. TSH 0.795 0.450-4.500 uIU/mL Aldosterone:Renin Ratio Reviewed date:02/23/2025 03:06:34 PM Interpretation: Performing Lab:[facility] [address] [facility], Phone - [phone], Director - [facility] Notes/Report: Test(s) 968318-Dfqwuofycrv; 227073-Tmiis Activity, Plasma; 576008- Normetanephrine, Pl; 636984-Uwektzjsshhc, Pl; 560183- Androstenedione LCMS was developed and its performance characteristics determined by [employer]. It has not been cleared or approved by the Food and Drug Administration. Aldosterone <1.0 0.0-30.0 ng/dL Renin Activity, Plasma 0.378 0.167-5.380 ng/mL/ hr Aldos/Renin Ratio <2.6 0.0-30.0 Units: ng/ dL per ng/mL/hr REASON FOR VISIT lab Medications Medication SIG (Take, Route, Frequency, Duration) Notes Start Date End Date Status dexAMETHasone 1 MG 1 tablet Orally Once a day; Duration: 30 day(s) 02/15/2025 Active Trulicity 4.5 MG/0.5ML INJECT 4.5MG SUBCUTANEOUSLY EVERY WEEK; Duration: 28 days Active Buprenorphine HCl-Naloxone HCl 8-2 MG 1 tablet under the tongue and allow to dissolve Sublingual twice a day; Duration: 30 days 02/15/2025 Active Senna 8.6 MG 2 tablets at bedtime as needed Orally Once a day 09/03/2022 Active Linzess 290 MCG TAKE 1 CAPSULE BY MO UTH AT LEAST 30 MINUTE(S) BEFORE FIRST MEAL OF THE DAY ON AN EMPTY STOMACH; Duration: 30 Active Doxepin HCl 10 MG 1-2 capsule at bedtime Orally Once a day; Duration: 90 days As needed insomnia Not-Taking Ketoconazole 2 % 1 application District Administrative Assistant ally Once a day; Duration: 30 days 04/22/2024 Not-Taking Atorvastatin Calcium 40 mg TAKE 1 TABLET BY MOUTH DAILY; Duration: 90 Not-Taking Lisinopril 20 mg TAKE 1 TABLET BY ROSLYN TH DAILY Active Lidocaine 5 % 1 patch remove after 12 hours Externally; Duration: 30 days Active metFORMIN HCl 1000 mg TAKE 1 TABLET BY M OUTH TWICE A DAY WITH MEALS; Duration: 90 Not-Taking Amlactin Daily 12 % 1 application TO LEG S AND FEET Externally at night Active Nystatin 153273 UNIT/GM 1 application TO RASH ON ABDOMEN Externally Twice a day Active Jardiance 25 mg TAKE 1 TABLET BY ROSLYN TH DAILY Active Walker - ROLLATOR WALKER FOR USE WITH AMBULATION for dx: G62.9 EXTERNAL DAILY Active Fluticasone Propionate 50 MCG/ACT 1 spray in each nostril Nasally twice daily Not-Taking Vitamin B 12 500 MCG 1 tablet Orally Onc e a day Active Social History Sex Assigned At : Social History Observation Description Sex Assigned At Female Encounters Encounter Location Date Provider Diagnosis [address] [place] [address] 02/16/2025 Cesario De Los Santos Adrenal mass E27.9 ; Fatigue R53.83 ; Kidney mass N28.89 and Type 2 diabetes mellitus without complication, without long-term current use of insulin E11.9 Assessments Encounter Date Diagnosis (ICD Code) Assessment Notes Treatment Notes Treatment Clinical Notes Section Notes 02/16/2025 Adrenal mass (ICD-10 - E27.9) 02/16/2025 Fatigue (ICD-10 - R53.83) 02/16/2025 Kidney mass (ICD-10 - N28.89) 02/16/2025 Type 2 diabetes mellitus without complication, without long-term current use of insulin (ICD-10 - E11.9) Plan Of Treatment No Information Progress Notes * Ed CUELLOB:1965 (59 yo F)Acc No.[id number]:02/16/2025 UNLOCKED PROGRESS NOTE Patient: Dona MESSER Provider: Alzie De Los Santos :1965 A ge:59 Y S ex:Female Date:02/16/2025 Address:[address] [place], [place] [id number] Check In:09:50 AM HELIUM ARC WELDER Subjective: * Chief Complaints: * 1 . Lab. * Medical History: * Medications: T aking Vitamin B 12 500 MCG Tablet 1 tablet Orally Once a day , Taking Nystatin 842041 UNIT/GM Cream 1 application TO RASH ON ABDOMEN Externally Twice a day , Taking Jardiance 25 mg Tablet TAKE 1 TABLET BY MOUTH DAILY , Taking Walker - Miscellaneous ROLLATOR WALKER FOR USE WITH AMBULATION for dx: G62.9 EXTERNAL DAILY , Taking Amlactin Daily 12 % Lotion 1 application TO LEGS AND FEET Externally at night , Taking Lisinopril 20 mg Tablet TAKE 1 TABLET BY MOUTH DAILY , Taking Lidocaine 5 % Patch 1 patch remove after 12 hours Externally , Taking Trulicity 4.5 MG/0.5ML Solution Pen-injector INJECT 4.5MG SUBCUTANEOUSLY EVERY WEEK , Taking Buprenorphine HCl-Naloxone HCl 8-2 MG Tablet Sublingual 1 tablet under the tongue and allow to dissolve Sublingual twice a day , Taking Senna 8.6 MG Tablet 2 tablets at bedtime as needed Orally Once a day , Taking Linzess 290 MCG Capsule TAKE 1 CAPSULE BY MOUTH AT LEAST 30 MINUTE(S) BEFORE FIRST MEAL OF THE DAY ON AN EMPTY STOMACH , Taking dexAMETHasone 1 MG Tablet 1 tablet Orally Once a day , Not-Taking Fluticasone Propionate 50 MCG/ACT Suspension 1 spray in each nostril Nasally twice daily , Not-Taking metFORMIN HCl 1000 mg Tablet TAKE 1 TABLET BY MOUTH TWICE A DAY WITH MEALS , Not-Taking Doxepin HCl 10 MG Capsule 1-2 capsule at bedtime Orally Once a day As needed insomnia, Not-Taking Ketoconazole 2 % Cream 1 application Externally Once a day , Not-Taking Atorvastatin Calcium 40 mg Tablet TAKE 1 TABLET BY MOUTH DAILY Objective: * Vitals: Assessment: * Assessment: 1. A drenal mass - E27.9 2 . F atigue - R53.83 3 . K idney mass - N28.89 4 . T ype 2 diabetes mellitus without complication, without long-term current use of insulin - E11.9 Plan: * Treatment: 2. F atigue L AB: TSH Rfx on Abnormal to Free T4 (Collection Date & Time - 02/16/2025) 3. K idney mass L AB: CBC With Differential/Platelet* (Collection Date & Time - 02/16/2025) 4. T ype 2 diabetes mellitus without complication, without long-term current use of insulin L AB: CMP 14 Comprehensive Metabolic Panel* (Collection Date & Time - 02/16/2025) * * Electronic signature of Sangita De Los Santos , [id number] on 04/01/2025 at 02:11 PM CDT Sign off status: Pending * Provider: Alize De Los Santos Date: 02/16/2025 Generated for Diego pereira/Jyoti/Brady on: 04/01/2025 02:11 PM CDT
--- OUTSIDE RECORDS SUMMARY | 2025-03-18 05:20 | XMS_ITS ---
Author Organization [facility] Address [address] [place] [address] Care Team Providers Care Folder And Notcher Name Role Phone Cesario De Los Santos Primary Care Provider [facility], Adult LEXI Unavailabl e [phone] REASON FOR VISIT ED F/U Cellulitis Social History Sex Assigned At : Social History Observation Description Sex Assigned At Female Encounters Encounter Location Date Provider Diagnosis [address] [place] [address] 03/18/2025 Cesario De Los Santos Plan Of Treatment No Information Progress Notes * Navarro CUELLO:1965 (59 yo F)Acc No.[id number]:03/18/2025 UNLOCKED PROGRESS NOTE Progress Note Patient: Dona MESSER Provider: Alize De Los Santos :1965 A ge:59 Y S ex:Female Date:03/18/2025 Address:[address] [place], [place] [id number] Subjective: * Chief Complaints: * 1 . ED F/U Cellulitis. * Medical History: Objective: * Vitals: Assessment: Plan: * Treatment: * * Electronic signature of Sangita De Los Santos , [id number] on 04/01/2025 at 02:11 PM CDT Sign off status: Pending * Provider: Alize De Los Santos Date: 0 03/18/2025 Generated for Diego pereira/Jyoti/Brady on: 04/01/2025 02:11 PM CDT
--- NOTE | ~2025-04-01 | XR_ITS ---
XR chest 2V 04/01/2025 14:34 Indication: Umbilical hernia with obstruction. Preop examination. Procedure: 2 view chest Comparison: No prior studies for comparison. Findings: Borderline heart size. Right basilar infiltrates may represent atelectasis/scarring or less likely pneumonia. No pleural effusion, edema or pneumothorax. Impression: 1: Right basilar infiltrates may represent atelectasis/scarring or less likely pneumonia. Reviewed, dictated and finalized at location [facility]. Impression: 1: Right basilar infiltrates may represent atelectasis/scarring or less likely pneumonia.
--- NOTE | 2025-04-01 14:07 | ECG_ITS ---
Test Date: 2025-04-01 14:18:20 Measurements Intervals [place] Rate: 79 P: 27 NV: 222 QRS: 62 QRSD: 97 T: 97 QT: 370 QTc: 425 Interpretive Statements SINUS RHYTHM WITH FIRST DEGREE AV BLOCK MODERATE T-WAVE ABNORMALITY, CONSIDER LATERAL ISCHEMIA [-0.1+ mV T WAVE IN I/aVL/V5/V6] No previous ECG available for comparison Electronically Signed On 04-02-2025 10:39:38 CDT by Pierre Hanley M.D.
--- OUTSIDE RECORDS SUMMARY | 2025-04-01 14:11 | XMS_ITS | Clinical Summary ---
Author Organization [facility] Address [address] [place] [address] Care Team Providers Care Assembly Riveter Name Role Phone Job Odell MD Primary Care Provider [phone] Source Comments [facility],non-owned Affiliates and Associated Physician Practices is amultiple site organization consisting of ambulatory clinics and hospital sitesin [place], [place], [place] and [place]. This disclosure is being madepursuant to the Care Everywhere program and may not contain all information available regarding this patient. Last updated 18.[facility] Allergies Active Allergy Reactions Criticality Noted Date Comments Levofloxacin 08/05/2016 Medications * Be aware that medications may not be up to date on this document. Alwaysverify current medications with the patient. atorvastatin (LIPITOR) 10 MG tablet Take 10 mg by mouth at bedtime Active TRAZODONE HCL PO Active citalopram (CELEXA) 20 MG tablet Take 20 mg by mouth once daily Active gabapentin (NEURONTIN) 600 MG tablet Take 600 mg by mouth 3 times daily Active metFORMIN (GLUCOPHAGE) 500 MG tablet Take 500 mg by mouth 2 times daily with morning and evening meal Active hydrOXYzine pamoate (VISTARIL) 50 MG capsule Take 50 mg by mouth every 6 hours as needed Active cloNIDine (CATAPRES) 0.1 MG tablet Take 0.1 mg by mouth 2 times daily Active ibuprofen (MOTRIN) 200 MG tablet Take by mouth every 6 hours as needed for Pain Active Social History Tobacco Use Types Packs/Day Years Used Date Smoking Tobacco: Never Assessed Comments Unknown Sex and Gender Information Value Date Recorded Sex Assigned at Not on file Legal Sex Female 12:51 PM COLLEGE COUNSELOR Gender Identity Not on file Sexual Orientation Not on file Last Filed Vital Signs Vital Sign Reading Time Taken Comments Blood Pressure 126/80 08/05/2016 2:43 PM COLLEGE COUNSELOR Pulse 86 08/05/2016 2:43 PM COLLEGE COUNSELOR Temperature 37.1 C (98.8 F) 08/05/2016 2:43 PM COLLEGE COUNSELOR Respiratory Rate 16 08/05/2016 2:43 PM COLLEGE COUNSELOR Oxygen Saturation - - Inhaled Oxygen Concentration - - Weight 105.2 kg (232 lb) 08/05/2016 2:43 PM COLLEGE COUNSELOR Height 157.5 cm (5' 2) 08/05/2016 2:43 PM COLLEGE COUNSELOR Body Mass Index 42.43 08/05/2016 2:43 PM COLLEGE COUNSELOR Plan of Treatment Health Maintenance Due Date Last Done Comments COLOGUARD (AGES 45-75) - COL ON CA SCREENING 1965 COLON MONITORING 1965 COLONOSCOPY - COLON CA SCREENING 1965 CT COLONOGRAPHY - COLON CA SCREENING 1965 Colorectal Cancer Screening 1965 FIT - COLON CA SCREENING 1965 FLEX SIG - COLON CA SCREENING 1965 MAMMOGRAM 1965 HIV SCREENING 1980 HEPATITIS C SCREENING 05/16/1983 DTAP/TDAP/TD VACCINES (1 - Tdap) 1984 HEPATITIS B VACCINE (1 of 3 - 19+ 3-dose series) 1984 PNEUMOCOCCAL VACCINE 50+ (1 of 1 - PCV) 2015 ZOSTER VACCINE (1 of 2) 2015 DEPRESSION SCREENING 07/28/2024 COVID-19 VACCINE (1 - 2023-2 5 season) 2025 INFLUENZA VACCINE (#1) 2025 HIB VACCINE Aged Out No longer eligi ble based on patient's age to complete this topic HPV VACCINE Aged Out No longer eligi ble based on patient's age to complete this topic MENINGOCOCCAL (Group B) VACC INE SHARED DECISION-MAKING Aged Out No longer eligibl e based on patient's age to complete this topic MENINGOCOCCAL GROUPS A/C/Y/W VACCINE Aged Out No longer eligible b ased on patient's [place] [id number] MEDICARE [facility] MEDICARE Care Teams Assembly Riveter Relationship Specialty Start Date End Date Job Odell MD [address] [facility] [address] [place] [address] PCP - General Internal Medicine 08/05/16
--- OUTSIDE RECORDS SUMMARY | 2025-04-01 14:11 | XMS_ITS | Clinical Summary ---
Author Organization [facility] Address [address] [place] [address] Care Team Providers Care Hplc Chemist Name Role Phone Cesario De Los Santos MD Primary Care Provider [phone] Allergies Active Allergy Reactions Criticality Noted Date Comments Ibuprofen Hives,Shortness of breath High 04/17/2023 Levofloxacin Hives Medium 08/09/2016 Hives [place] Anaphylaxis High 02/03/2019 Medications lisinopril (PRINIVIL,ZESTR [place]) 20 mg tablet Take 1 tablet (20 mg total) by mouth daily 01/11/2019 Active metFORMIN (GLUCOPHAGE) 500 mg tablet Take 2 tablets (1,000 mg total) by mouth 2 (two) times a day with meals 01/11/2019 Active tobramycin (TOBREX) 0.3 % ophthalmic solution 01/30/2019 Active cephalexin (KEFLEX) 500 mg capsule 01/29/2019 Active hydrOXYzine (VISTARIL) 50 mg capsule Take 1 capsule (50 mg total) by mouth every 6 (six) hours as needed Active ibuprofen 200 mg tab/cap Take by mouth every 6 (six) hours as needed Active cloNIDine (CATAPRES) 0.1 mg tablet Take 1 tablet (0.1 mg total) by mouth 2 (two) times a day Active dulaglutide (TRULICITY) 1.5 mg/0.5 mL pen injector Inject 0.5 mL (1.5 mg total) under the skin every 7 days Takes weekly on Mondays. Unsure of mg-patient states I am on the highest dose Active buprenorphine-n aloxone (SUBOXONE) 8-2 mg per SL tablet Place 1 tablet under the tongue 2 (two) times a day Active doxepin (SINEquan) 10 mg capsule Take 2 capsules (20 mg total) by mouth nightly Active empagliflozin (JARDIANCE) 25 mg tablet Take 1 tablet (25 mg total) by mouth daily Active atorvastatin (LIPITOR) 40 mg tablet Take 1 tablet (40 mg total) by mouth daily Active gabapentin (NEURONTIN) 600 mg tablet Take 1 tablet (600 mg total) by mouth 3 (three) times a day Active Active Problems Problem Noted Date Diagnosed Date Complex cyst of uterine adnexa 04/10/2023 Diabetes mellitus 04/10/2023 Diabetic peripheral neuropathy 04/10/2023 Hyperactive behavior 04/10/2023 Lesion of lumbar spine 04/10/2023 Uncomplicated opioid dependence 01/08/2021 Surgical History Surgery Date Site/Laterality Comments CHOLECYSTECTOMY 07/28/2001 - 07/27/2002 EYE SURGERY Right age 5 [facility] BREAST SURGERY Left age 13-removed lump CARPAL TUNNEL RELEASE 07/28/2005 - 07/27/2006 Bilateral COLONOSCOPY 07/28/2021 - 07/27/2022 Medical History Medical History Date Comments Hypertension Diabetes mellitus (HCC) Acid indigestion Anxiety and depression Sleep apnea Asthma Arthritis GERD (gastroesophageal reflux disease) rarely Irritable bowel syndrome IBS-C Anemia no hx of transfu sions Anxiety Family History Medical History Relation Name Comments Heart disease Father Heart disease Mother Relation Name Status Comments Father (Age 56) Mother (Age 62) Social History Tobacco Use Types Packs/Day Years Used Date Smoking Tobacco: Former Cigarettes Q uit: 02/03/2002 Smokeless Tobacco: Never Tobacco Cessation:Counseling Given: Not Answered Alcohol Use Standard Drinks/Week Comments Never 0 (1 standard drink = 0.6 oz pur e alcohol) AUDIT-C Answer Date Recorded Q1: How often do you have a drink containing alc ohol? Never 04/22/2023 Average Number of Drinks Not on file 023 Q3: How often do you have si x or more drinks on one occasion? Never 04/22/2023 Personal Safety Answer Date Recorded Have you ever been in or are you currently in a harmful physical or emotional relationship or is someone making you feel afraid or unsafe? 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 Gender Identity Not on file Sexual Orientation Not on file Obstetrics History Last Filed Vital Signs Vital Sign Reading Time Taken Comments Blood Pressure 139/78 04/22/2023 12:45 PM CDT Pulse 64 04/22/2023 12:45 PM CDT Temperature 36.2 C (97.2 F) 04/22/2023 12:19 PM CDT Respiratory Rate 16 04/22/2023 12:3 0 PM CDT Oxygen Saturation 98% 04/22/2023 12: 45 PM CDT Inhaled Oxygen Concentration - - Weight 125.8 kg (277 lb 4.4 oz) 023 10:35 AM CDT Height 157.5 cm (5' 2.01) 04/22/2023 1 0:35 AM CDT Body Mass Index 50.7 04/22/2023 10:35 AM CDT Plan of Treatment Health Maintenance Due Date Last Done Comments Albumin Creatinine Ratio, Urine 1965 Breast Cancer Screening-Mammogram 1965 Cervical Cancer Screening 1965 Colon Cancer Screening-Colonoscopy 1965 Depression Screening 1965 Hepatitis C Screening 1965 Dilated Eye Exam 1965 Foot Exam 1965 DTaP/Tdap/Td Vaccine (1 - Tdap) 1976 Regular Well Visit/Exam 18-64 1983 Pneumococcal vaccine <65 (1 of 2 - PCV) 1984 Zoster Vaccine (1 of 2) 2015 Lipid Panel 11/26/2019 11/25/2018, 10/19/2016 Hemoglobin A1C 10/17/2023 04/18/2023 eGFR 04/18/2024 04/18/2023 Covid-19 Vaccine ( season) 2025 07/11/2022, 01/30/2021, 01/10/2021 Influenza Vaccine (#1) 2025 05/12/2021, 2012 Hepatitis B Screening Completed 10/01/2022, 023 Procedures Procedure Name Priority Date/Time Associated Diagnosis Comments EGFR Routine 04/18/2023 11:00 AM CDT Preop testing HEMOGLOBIN A1C Routine 04/18/2023 11:00 AM CDT Preop testing Diabetes mellitus due to underlying condition with other specified complication, unspecified whether [facility] insulin use (HCC) LIPID PANEL Routine 11/25/2018 from Last 3 Months or Most Recently Relevant to Health Maintenance Results * eGFR (04/18/2023 11:00 AM CDT) eGFR 105 mL/min/1. 73 m2 [facility] Comment: Interpretive Data Reference Interval Normal >/= 90 mL/min/1.73m2 Mildly decreased* 60 - 89 mL/min/1.73m2 Mildly to moderately decreased 45 - 59 mL/min/1.73m2 Moderately to severely decreased 30 - 44 mL/min/1.73m2 Severely decreased 15 - 29 mL/min/1.73m2 Kidney Failure < 15 mL/min/1.73m2 *Relative to young adult level Estimated glomerular filtration rate is determined by the 2020 CKD-EPI equation recommended by the National Kidney Foundation (A Unifying Approach to GFR Estimation: Recommendations of the NKF-ASK Task Force on Reassessing the Inclusion of Race in Diagnosing Kidney Disease, JASN 2020). The CKD-EPI equation should not be used for patients with unstable renal function and has not been validated in children and those over 70. Current interpretive data was last reviewed 2021. Testing performed by: [address] [address] Blood 04/18/2023 11:0 0 AM CDT 04/18/2023 11:04 AM CDT Lonny Delgado MD LAB BLOOD ORDERABLES [facility] al Result PEÑA [address] [facility] [place] [address] * (ABNORMAL) Hemoglobin A1c (04/18/2023 11:00 AM CDT) Hgb A1C 6.9(H) 4.0 - 5.6 % PEÑA Comment:Testing performed by : [address] [address] Estimated Average Glucose 151 mg/dL [facility] Comment: The ADA recommends reporting an estimated Average Glucose (eAG) with all Hemoglobin A1c results using the equation derived from a study of 507 normal and diabetic adults. Minority populations were underrepresented and children were not included. (Diabetes Care 31:9153-5857, 2008). The eAG is not equivalent to a fasting glucose. Testing performed by: [facility], [address] [place] [address]., [address] Blood 04/18/2023 11:0 0 AM CDT 04/18/2023 11:04 AM CDT Lonny Delgado MD LAB BLOOD ORDERABLES Fin al Result PEÑA [address] [facility] [place] [address] * Lipid panel (11/25/2018) Blood specimen (specimen) Historical Provider LAB BLOOD ORDERABLES Gabi l Result from Last 3 Months or Most Recently Relevant to Health Maintenance Insurance MEDICARE [facility] Address: [facility] [address] [place] [address] [employer] [facility] MEDICARE ADVANTAGE IDPA [facility] MEDICARE ADVANTAGE [facility] MEDICARE ADVANTAGE [facility] MEDICARE ADVANTAGE [employer] Care Teams Hplc Chemist Relationship Specialty Start Date End Date Cesario De Los Santos MD [address] [facility] [address] [place] [address] PCP - General Internal Medicine 04/18/23
--- OUTSIDE RECORDS SUMMARY | 2025-04-01 14:11 | XMS_ITS | Patient Health Record ---
Author Organization [facility] Address [address] [place] [address] Care Team Providers Care Charge Entry Clerk Name Role Phone Cesario De Los Santos Primary Care Provider [phone] [facility], Adult LEXI Unavailabl e [phone] Taylor Delorisdavid Unavailable [phone] Corazon Garcia Unavailable [phone] Breanna Dumont Unavailable [phone] Montse Estrella Unavailable [phone] Allergies Allergen (clinical drug ingredient) Drug/Non Drug Allergy documented on EMR Reaction Allergy Type Onset Date Status Levaquin rash Drug Allergy Active Strawberries anaphylaxis Allergy Activ e Results Component Value Reference Range Notes 14 Panel Urine Drug Screen Reviewed date:03/21/2025 09:51:37 AM Interpretation: Performing Lab: Notes/Report: THC neg FELICITA neg MOP (OPI) neg AMP neg MET neg BAR neg BZO neg MDMA neg MTD neg OXY neg PCP neg BUP POS TCA neg FTY neg Buprenorphine and Metabolite (Urine test) Reviewed date:03/29/2025 10:01:44 AM Interpretation: Performing Lab:[facility], [address], [place], Phone - [phone], Director - [facility] Notes/Report: Clinical Information:CCU:[id number] LM Buprenorphine Positive Confirmation p erformed by Mass Spectrometry Buprenorphine Positive Buprenorphine Conf, MS, UR 574 Cutoff=10 ng/m L Norbuprenorphine Positive Norbuprenorphine Conf, MS, UR 1779 Cutoff=10 n g/mL 14 Panel Urine Drug Screen Reviewed date:02/15/2025 01:33:14 PM Interpretation: Performing Lab: Notes/Report: THC neg FELICITA neg MOP (OPI) neg AMP neg MET negg BAR neg BZO neg MDMA neg MTD neg OXY neg PCP neg BUP POS TCA neg FTY neg Hemoglobin A1c CLIA Waived Reviewed date:04/22/2024 10:22:40 AM Interpretation: Performing Lab: Notes/Report: Hemoglobin A1c 7.3 4.0 - 6.4 % 12 Panel Urine Drug Screen Reviewed date:12/14/2024 09:01:32 AM Interpretation: Performing Lab: Notes/Report: THC neg FELICITA neg MOP (OPI) neg AMP neg MET neg BAR neg BZO neg MDMA neg MTD neg OXY neg PCP neg BUP POS 14 Panel Urine Drug Screen Reviewed date:01/17/2025 09:31:22 AM Interpretation: Performing Lab: Notes/Report: THC neg FELICITA neg MOP (OPI) neg AMP neg MET neg BAR neg BZO neg MDMA neg MTD neg OXY neg PCP neg BUP POS TCA neg FTY neg Aldosterone:Renin Ratio Reviewed date:02/23/2025 03:06:34 PM Interpretation: Performing Lab:[facility] [address] [facility], Phone - [phone], Director - [facility] Notes/Report: Test(s) 621585-Atbbfifhyvi; 922218-Zptyr Activity, Plasma; 660996- Normetanephrine, Pl; 674442-Hacxiwcubjzj, Pl; 454733- Androstenedione LCMS was developed and its performance characteristics determined by [facility]. It has not been cleared or approved by the Food and Drug Administration. Aldosterone <1.0 0.0-30.0 ng/dL Renin Activity, Plasma 0.378 0.167-5.380 ng/mL/ hr Aldos/Renin Ratio <2.6 0.0-30.0 Units: ng/ dL per ng/mL/hr TSH Rfx on Abnormal to Free T4 Reviewed date:02/23/2025 03:06:34 PM Interpretation: Performing Lab:[facility] [address] [facility], Phone - [phone], Director - [facility] Notes/Report: Test(s) 115227-Lcudkyyqikt; 978464-Rwsia Activity, Plasma; 648470- Normetanephrine, Pl; 148502-Caxipyefxjhg, Pl; 929737- Androstenedione LCMS was developed and its performance characteristics determined by [facility]. It has not been cleared or approved by the Food and Drug Administration. TSH 0.795 0.450-4.500 uIU/mL CMP 14 Comprehensive Metabol ic Panel* Reviewed date:02/23/2025 03:06:34 PM Interpretation: Performing Lab:[facility], [address] [facility], Phone - [phone], Director - [facility] Notes/Report: Test(s) 115736-Grgvxdlidyt; 844865-Kdilj Activity, Plasma; 484311- Normetanephrine, Pl; 788437-Lillwoghfavf, Pl; 508331- Androstenedione LCMS was developed and its performance characteristics determined by [employer]. It has not been cleared or approved [...] 0-40 IU/L ALT (SGPT) 6 0-32 IU/L CBC With Differential/Platel et* Reviewed date:02/23/2025 03:06:33 PM Interpretation: Performing Lab:[facility], [address] [facility], Phone - [phone], Director - [facility] Notes/Report: Test(s) 198285-Qghbrrzkkkn; 667577-Oebij Activity, Plasma; 691603- Normetanephrine, Pl; 123755-Zdvshnlsolce, Pl; 634278- Androstenedione LCMS was developed and its performance characteristics determined by [employer]. It has not been cleared or approved [...] % Immature Grans (Abs) 0.1 0.0-0.1 x10E3/uL Metanephrines, Frac., Pl. Fr ee Reviewed date:02/23/2025 03:06:33 PM Interpretation: Performing Lab:[facility], [address] [place] [address], [place], Phone - [phone], Director - Maggie Notes/Report: Test(s) 291800-Jdoeqsewkia; 743162-Tnccd Activity, Plasma; 883759- Normetanephrine, Pl; 448281-Lbmxfcgwjjow, Pl; 654211- Androstenedione LCMS was developed and its performance characteristics determined by [employer]. It has not been cleared or approved by the Food and Drug Administration. Normetanephrine, Pl 63.3 0.0-244.0 pg/mL Metanephrine, Pl <25.0 0.0-88.0 pg/mL Cortisol Reviewed date:02/23/2025 03:06:33 PM Interpretation: Performing Lab:[facility], [address] [facility], Phone - [phone], Director - [place] Notes/Report: Test(s) 929848-Adajpfocdci; 016262-Xoypk Activity, Plasma; 332103- Normetanephrine, Pl; 962678-Zslmxthjjdhp, Pl; 711707- Androstenedione LCMS was developed and its performance characteristics determined by [employer]. It has not been cleared or approved by the Food and Drug Administration. Cortisol 4.1 6.2-19.4 ug/dL Please Note: The reference interval and flagging for this test is for an AM collection. If this is a PM collection please use: Cortisol PM: 2.3-11.9 12 Panel Urine Drug Screen Reviewed date:05/17/2024 10:26:40 AM Interpretation: Performing Lab: Notes/Report: THC neg FELICITA neg MOP (OPI) neg AMP neg MET neg BAR neg BZO neg MDMA neg MTD neg OXY neg PCP neg BUP POS 12 Panel Urine Drug Screen Reviewed date:07/16/2024 08:41:08 AM Interpretation: Performing Lab: Notes/Report: THC neg FELICITA neg MOP (OPI) neg AMP neg MET neg BAR neg BZO neg MDMA neg MTD neg OXY neg PCP neg BUP POS 12 Panel Urine Drug Screen Reviewed date:08/17/2024 08:56:21 AM Interpretation: Performing Lab: Notes/Report: THC neg FELICITA neg MOP (OPI) neg AMP neg MET neg BAR neg BZO neg MDMA neg MTD neg OXY neg PCP neg BUP POS Buprenorphine and Metabolite (Urine test) Reviewed date:08/24/2024 09:47:12 AM Interpretation: Performing Lab:[facility], [address] [facility], [facility], Phone - [phone], Director - [employer] Notes/Report: Clinical Information:[id number]:[id number] LM Buprenorphine Positive Confirmation p erformed by Mass Spectrometry Buprenorphine Positive Buprenorphine Conf, MS, UR 264 Cutoff=10 ng/m L Norbuprenorphine Positive Norbuprenorphine Conf, MS, UR >2000 Cutoff=10 n g/mL 12 Panel Urine Drug Screen Reviewed date:06/17/2024 09:05:02 AM Interpretation: Performing Lab: Notes/Report: THC neg FELICITA neg MOP (OPI) neg AMP neg MET neg BAR neg BZO neg MDMA neg MTD neg OXY neg PCP neg BUP POS 12 Panel Urine Drug Screen Reviewed date:09/17/2024 09:25:16 AM Interpretation: Performing Lab: Notes/Report: THC neg FELICITA neg MOP (OPI) neg AMP neg MET neg BAR neg BZO neg MDMA neg MTD neg OXY neg PCP neg BUP POS 12 Panel Urine Drug Screen Reviewed date:10/15/2024 09:58:15 AM Interpretation: Performing Lab: Notes/Report: THC NEG FELICITA NEG MOP (OPI) NEG AMP NEG MET NEG BAR NEG BZO NEG MDMA NEG MTD NEG OXY NEG PCP NEG BUP POS 12 Panel Urine Drug Screen Reviewed date:11/15/2024 09:46:08 AM Interpretation: Performing Lab: Notes/Report: THC neg FELICITA neg MOP (OPI) neg AMP neg MET neg BAR neg BZO neg MDMA neg MTD neg OXY neg PCP neg BUP POS Testosterone, Serum Reviewed date:02/23/2025 03:06:33 PM Interpretation: Performing Lab:[address], Phone - [phone], Director - [facility] Notes/Report: Test(s) 623521-Xjbobpxjhjj; 446439-Lmmdt Activity, Plasma; 394521- Normetanephrine, Pl; 544782-Vybrulrvguak, Pl; 560263- Androstenedione LCMS was developed and its performance characteristics determined by [employer]. It has not been cleared or approved by the Food and Drug Administration. Testosterone <3 4-50 ng/dL Androstenedione LCMS Reviewed date:02/23/2025 03:06:33 PM Interpretation: Performing Lab:[facility] [address] [place] [address], Phone - [phone], Director - [facility] Notes/Report: Test(s) 072143-Hnuzdsohfvj; 455247-Qccxh Activity, Plasma; 024871- Normetanephrine, Pl; 108216-Aqyxlpauqzrm, Pl; 898926- Androstenedione LCMS was developed and its performance characteristics determined by [employer]. It has not been cleared or approved by the Food and Drug Administration. Androstenedione LCMS 11 41-262 ng/dL Dehydroepiandrosterone (DHEA ) Sulfate Reviewed date:02/23/2025 03:06:33 PM Interpretation: Performing Lab:[facility] [place], [address] [facility], Phone - [phone], Director - [place] Notes/Report: Test(s) 881988-Drrvgphqlcs; 824760-Fdxju Activity, Plasma; 213727- Normetanephrine, Pl; 961568-Hdjkhaogxqss, Pl; 561661- Androstenedione LCMS was developed and its performance characteristics determined by [facility]. It has not been cleared or approved by the Food and Drug Administration. DHEA-Sulfate 26.1 29.4-220.5 ug/dL Reason For Referral Reason exophytic left renal mass Diagnosis 1 Kidney mass (N28.89) Referral Organization [facility] Referring Provider First Name Cesario Referring Provider Last Name Filiberto Referring Provider Speciality Internal M edicine Referred Provider Specialty Urology General Notes Selam Nagel RN 08:31:11 AM >referral faxed Clinical Notes [facility], [address] [facility] [address], [facility], Referral Priority Urgent Reason painful umbilical he rnia Diagnosis 1 Umbilical hernia (K4 2.9) Referral Organization [facility] Referring Provider First Name Cesario Referring Provider Last Name Filiberto Referring Provider Speciality Internal M edicine Referred Provider Specialty General Surg oriana General Notes Selam Nagel RN 08:12:46 AM > Clinical Notes General [facility], [address] [facility] [address], [facility] , Referral Priority Urgent Medications Medication SIG (Take, Route, Frequency, Duration) Notes Start Date End Date Status Lisinopril 20 mg TAKE 1 TABLET BY ROSLYN DAILY Active Vitamin B 12 500 MCG 1 tablet Orally Onc e a day Active Lidocaine 5 % 1 patch remove after 12 hours Externally; Duration: 30 days Active Fluticasone Propionate 50 MCG/ACT 1 spray in each nostril Nasally twice daily Not-Taking Amlactin Daily 12 % 1 application TO LEG S AND FEET Externally at night Active Trulicity 4.5 MG/0.5ML INJECT 4.5MG SUBCUTANEOUSLY EVERY WEEK; Duration: 28 days Active Doxepin HCl 10 MG 1-2 capsule at bedtime Orally Once a day; Duration: 90 days As needed insomnia Not-Taking Ketoconazole 2 % 1 application Orthotic/Prosthetic Practitioner ally Once a day; Duration: 30 days 04/22/2024 Not-Taking Atorvastatin Calcium 40 mg TAKE 1 TABLET BY MOUTH DAILY; Duration: 90 Not-Taking Nystatin 557024 UNIT/GM 1 application TO RASH ON ABDOMEN Externally Twice a day Active Senna 8.6 MG 2 tablets at bedtime as needed Orally Once a day 09/03/2022 Active Jardiance 25 mg TAKE 1 TABLET BY ROSLYN TH DAILY Active Linzess 290 MCG TAKE 1 CAPSULE BY MO UTH AT LEAST 30 MINUTE(S) BEFORE FIRST MEAL OF THE DAY ON AN EMPTY STOMACH; Duration: 30 Active Walker - ROLLATOR WALKER FOR USE WITH AMBULATION for dx: G62.9 EXTERNAL DAILY Active dexAMETHasone 1 MG 1 tablet Orally Once a day; Duration: 30 day(s) 02/15/2025 Active metFORMIN HCl 1000 mg TAKE 1 TABLET BY M OUTH TWICE A DAY WITH MEALS; Duration: 90 Not-Taking Amoxicillin-Pot Clavulanate 875-125 MG 1 tablet Orally every 12 hrs; Duration: 5 days 02/18/2025 Active Buprenorphine HCl-Naloxone HCl 8-2 MG 1 tablet under the tongue and allow to dissolve Sublingual twice a day; Duration: 30 days 03/21/2025 Active Immunizations Vaccine Route Administration Date Status Comme nts FLU VAC NO PRSV 4VAL 6 mo+ IM Intramuscular 05/01/2022 Administered Pt. tolerated well. No questions/concer ns at this time. Influenza, injectable, quadrivalent, preservative free IM Intramuscular 05/11/2018 Administered Patient tolerated well. Patient given vaccine info sheet. Tdap IM Intramuscular 06/24/2022 Administered Pt leanne well. Social History Tobacco Use: Social History Observation Description Date Details (start date - stop date) Never Smoker NA - NA Sex Assigned At : Social History Observation Description Sex Assigned At Female Alcohol Screen (Audit-C) Question Answer Notes Did you have a drink containing alcohol in the p ast year? No Points 0 Interpretation Negative PRAPARE Question Answer Notes Date Completed/Updated: 03/23/2024 What is your current housing situation? I have h ousing Are you worried about losing your housing? No What is the highest level of school that you have finished? Less than a high school degree What is your current work situation? Oth erwise unemployed but not seeking work (ex. student, retired, disabled, unpaid primary rn wound care) In the past year, have you o r any family members you live with been unable to get any of the following when it was really needed? Check all that apply I do not have problems meeting my needs Has lack of transportation k ept you from medical appointments, meetings, work or from getting things needed for daily living? Yes, it has kept me from medical appointments or from getting my medications,Yes, it has kept me from non-medical meetings, appointments, work, or getting things needed for daily living How often do you see or talk to people that you care about and feel close to? (For example: talking to friends on the phone, visiting friends or family, going to synagogue or club meetings) More than 5 times a week How stressed are you? Stress is when someone feels tense, nervous, anxious, or can\t sleep at night because their mind is troubled A little bit In the past year have you sp ent more than 2 nights in a row in a snf, halfway, care home center, or juvenile correctional facility? No Are you a refugee? No What country are you from? [place] Do you feel physically and e motionally safe where you currently live? Yes In the past year, have you b een afraid of your partner or ex-partner? No PRAPARE Score: 7 Tobacco Control (Standard) Question Answer Notes Tobacco use: Nonsmoker Section Notes: Last Heroin use 08/10/16 Last Heroin use 08/10/16 Last Heroin use 08/10/16 Last Heroin use 08/10/16 Problems Problem Type SNOMED Code ICD Code Onset Dates Problem Status W/U Status Risk Notes Problem Morbid obesity (disorder) (998140087) Morbid (severe) obesity due to excess calories (E66.01) Active confirmed Problem Chronic pain (72192402) Other chronic pain (G89.29) Active confirmed Problem Anxiety (31305823) Anxiety (F41.9) Active confi rmed Problem Vitamin D deficiency (46958222) Vitamin D deficiency (E55.9) Active confirmed Problem Allergic rhinitis (54859204) Allergic rhinitis (J30.9) Active confirmed Problem Anemia (162930766) Anemia (D64.9) Active confir med Problem Sleep apnea (66471773) Sleep apnea (G47.30) Active confirmed Problem Venous insufficiency of leg (disorder) (021289436) Venous insufficiency (I87.2) Active confirmed Problem Hallucinations (4731113) Hallucinations (R44.3) Active confirmed Problem Neuropathy (745198100) Neuropathy (G62.9) Active confirmed Problem Liver enzymes abnormal (761943681) Abnormal liver enzymes (R74.8) Active confirmed Problem Moderate recurrent major depression (08397765) Moderate episode of recurrent major depressive disorder (F33.1) Active confirmed Problem Obstipation (412722302) Obstipation (K59.00) Active confirmed Problem Severe recurrent major depression without psychotic features (88413769) Depression, major, severe recurrence (F33.2) 10/17/19 18 Active confirmed Problem Essential hypertension (39265634) Essential hypertension (I10) 10/26/19 17 Active confirmed Problem Mild intermittent asthma (991867106) Mild intermittent asthma without complication (J45.20) Active confirmed Problem Viral hepatitis type C (95934397) Hepatitis C virus infection, unspecified chronicity (B19.20) 08/07/19 17 Active confirmed Problem Type II diabetes mellitus without complication (025905514) Type 2 diabetes mellitus without complication, without long-term current use of insulin (E11.9) 08/02/19 17 Active confirmed Problem Migraine without aura, not refractory (902180277) Migraine without aura and without status migrainosus, not intractable (G43.009) Active confirmed Problem Abnormal findings on diagnostic imaging of breast (237267568) Abnormal mammogram of both breasts (R92.8) Active confirmed Problem Chronic rhinitis (75533858) Rhinitis, unspecified type (J31.0) Active confirmed Problem High cholesterol (89031618) High cholesterol (E78.00) 08/20/19 17 Active confirmed Problem Tobacco use (204325480) Tobacco use disorder (F17.200) Active confirmed Problem Gastroesophageal reflux disease (467111811) GERD without esophagitis (K21.9) Active confirmed Problem Urinary incontinence (246161402) Urinary incontinence in female (R32) Active confirmed Problem Morbid obesity (857371609) Obesity, morbid, BMI 40.0-49.9 (E66.01) Active confirmed Problem Opioid use disorder (2912034748) Opioid use disorder (F11.99) Active confirmed Problem Body mass index 40+ - severely obese (425495292) BMI 50.0-59.9, adult (Z68.43) Active confirmed Problem Adrenal mass (171148547) Adrenal mass (E27.9) Active confirmed Problem Diabetic renal disease (412057828) 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) 08/20/19 Active confirmed Problem Xeroderma (07355868) 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) Active confirmed Problem Kidney mass (622449198) Kidney mass (N28.89) Active confirmed Vital Signs Heart Rate 68 /min 03/21/2025 Temperature 98 degrees Fahrenheit 03/21/2025 Respiratory Rate 16 /min 03/21/2025 Oximetry 98 % 03/21/2025 Blood pressure diastolic 72 mm Hg 03/21/2025 Height 62 in 03/21/2025 Blood pressure systolic 118 mm Hg 03/21/2025 Weight 281 lbs 03/21/2025 BMI 51.39 kg/m2 03/21/2025 Encounters Encounter Location Date Provider Diagnosis [address] [address] 02/16/2025 Cesario De Los Santos Adrenal mass E27.9 ; Fatigue R53.83 ; Kidney mass N28.89 and Type 2 diabetes mellitus without complication, without long-term current use of insulin E11.[address] [address] 04/22/2024 Cesario De Los Santos Type 2 diabetes mellitus without complication, without long-term current use of insulin E11.9 ; Yeast dermatitis B37.2 and Nutritional counseling Z71.[address] [address] 05/17/2024 Montse Mendozafiyann Opioid use disorder F11.99 ; Nutritional counseling Z71.3 and Morbid (severe) obesity due to excess calories E66.[address] [address] 06/17/2024 Montse Grahamlufiyann Opioid use disorder F11.99 ; Nutritional counseling Z71.3 and Morbid (severe) obesity due to excess calories E66.[address] [address] 07/16/2024 Jenia Heavens Opioid use disorder F11.99 ; BMI 50.0-59.9, adult Z68.43 and Tobacco use disorder F17.[address] [address] 08/17/2024 Montse Szlufik Opioid use disorder F11.[address] [address] 09/17/2024 Jenia Heavens Opioid use disorder F11.99 ; Moderate episode of recurrent major depressive disorder F33.1 and Tobacco use disorder F17.[address] [address] 10/15/2024 Montse Szlufik Opioid use disorder F11.99 [facility] [address] [place] [address] 11/15/2024 Breanna Tanwangco Opioid use disorder F11.[address] [address] 12/14/2024 Cesario De Los Santos Opioid use disorder F11.[address] [address] 01/17/2025 Corazon Garcia Opioid use disorder F11.[address] [address] 02/15/2025 Cesario De Los Santos Obstipation K59.00 ; Kidney mass N28.89 ; Adrenal mass E27.9 ; Type 2 diabetes mellitus without complication, without long-term current use of insulin E11.9 ; Essential hypertension I10 ; Opioid use disorder F11.99 ; Umbilical hernia K42.9 and Fatigue R53.83 [facility] [address], [place] [address] 03/21/2025 Breanna Tanwangco Opioid use disorder F11.99 and Tobacco use disorder F17.[address] [address] 04/01/2025 Cesario De Los Santos [address] [address] 06/18/2024 Cesario De Los Santos [address] [address] 12/14/2024 Cesario De Los Santos [facility] [address] [facility] [place] [address] 12/14/2024 Cesario De Los Santos [address] [address] 02/03/2025 Cesario De Los Santos [address] [address] 02/10/2025 Cesario De Los Santos [address] [address] 02/18/2025 Cesario De Los Santos UTI (urinary tract infection) N39.[address] [address] 03/07/2025 Cesario De Los Santos Assessments Encounter Date Diagnosis (ICD Code) Assessment Notes Treatment Notes Treatment Clinical Notes Section Notes 02/15/2025 Obstipation (ICD-10 - K59.00) 02/18/2025 UTI (urinary tract infection) (ICD-10 - N39.0) 03/21/2025 Opioid use disorder (ICD-10 - F11.99) 02/15/2025 Kidney mass (ICD-10 - N28.89) 02/16/2025 Adrenal mass (ICD-10 - E27.9) 04/22/2024 Type 2 diabetes mellitus without complication, without long-term current use of insulin (ICD-10 - E11.9) 04/22/2024 Yeast dermatitis (ICD-10 - B37.2) 05/17/2024 Nutritional counseling (ICD-10 - Z71.3) 05/17/2024 Opioid use disorder (ICD-10 - F11.99) 07/16/2024 Opioid use disorder (ICD-10 - F11.99) 07/16/2024 BMI 50.0-59.9, adult (ICD-10 - Z68.43) 08/17/2024 Opioid use disorder (ICD-10 - F11.99) 09/17/2024 Moderate episode of recurrent major depressive disorder (ICD-10 - F33.1) 09/17/2024 Opioid use disorder (ICD-10 - F11.99) 10/15/2024 Opioid use disorder (ICD-10 - F11.99) 11/15/2024 Opioid use disorder (ICD-10 - F11.99) 12/14/2024 Opioid use disorder (ICD-10 - F11.99) 01/17/2025 Opioid use disorder (ICD-10 - F11.99) May self-administer or be administered own oral medication per [facility] Protocols. Provided informed consent with understanding of side effects, risks and benefits as well as alternative treatments as previously discussed and with the above recommended medications ang other aspects of the treatment program. Agrees to return sooner if symptoms worsen or suicidal or homicidal ideations occur. support and education provided concerning illness and treatment plan, risks and benefits, pt verbalized understanding of the same and agreeable - presents via secure Zoom connection for MAT walk in clinic. Denies concerns, cravings, or missteps. Admits constipation but has IBS and follows with PCP - Feels Suboxone at current dose has been working well, prefers to continue with current dose - continue Suboxone for OUD, evaluate at follow up in 4 weeks - [place] PDMP- no concerns - UDS-no concerns 06/17/2024 Nutritional counseling (ICD-10 - Z71.3) 06/17/2024 Opioid use disorder (ICD-10 - F11.99) 07/16/2024 Tobacco use disorder (ICD-10 - F17.200) 09/17/2024 Tobacco use disorder (ICD-10 - F17.200) 06/17/2024 Morbid (severe) obesity due to excess calories (ICD-10 - E66.01) 04/22/2024 Nutritional counseling (ICD-10 - Z71.3) 05/17/2024 Morbid (severe) obesity due to excess calories (ICD-10 - E66.01) 02/16/2025 Fatigue (ICD-10 - R53.83) 02/15/2025 Adrenal mass (ICD-10 - E27.9) INSTRUCTED ON LOW-DOSE DEX SUPPRESSION. LABS IN AM. 03/21/2025 Tobacco use disorder (ICD-10 - F17.200) 02/16/2025 Kidney mass (ICD-10 - N28.89) 02/15/2025 Type 2 diabetes mellitus without complication, without long-term current use of insulin (ICD-10 - E11.9) 02/15/2025 Essential hypertension (ICD-10 - I10) 02/16/2025 Type 2 diabetes mellitus without complication, without long-term current use of insulin (ICD-10 - E11.9) 02/15/2025 Opioid use disorder (ICD-10 - F11.99) 02/15/2025 Umbilical hernia (ICD-10 - K42.9) 02/15/2025 Fatigue (ICD-10 - R53.83) 04/22/2024 Other LIE DOWN AT LEAST 30 MIN EVERY 2 HRS TO HEALP WITH FLUID COLLECTION IN LOWER ABDOMEN. 05/17/2024 Other Client agrees to take medication as prescribed. Discussed medication side effects, adverse effects, risks, benefits, as well as interactions. Encouraged non-use of opioids and other illicit substances. Has naloxone. Discontinuing buprenorphine increases the risk of overdose upon return to illicit opioid use. Use of alcohol or benzodiazepines with buprenorphine increases the risk of overdose and . Education provided about safe storage of medications. Encouraged participation in recovery groups/counseling services. Contact office with questions or concerns. 06/17/2024 Other Patient agrees to take medication as prescribed. Discussed medication side effects, adverse effects, risks, benefits, as well as interactions. Encouraged non-use of opioids and other illicit substances. Has naloxone. Discontinuing buprenorphine increases the risk of overdose upon return to illicit opioid use. Use of alcohol or benzodiazepines with buprenorphine increases the risk of overdose and . Education provided about safe storage of medications. Encouraged participation in recovery groups/counseling services. Contact office with questions or concerns. 07/16/2024 Other Client agrees to take medication as prescribed. Discussed medication side effects, adverse effects, risks, benefits, as well as interactions. Encouraged non-use of opioids. Has naloxone. Recommended participation in recovery groups/counseling services. May contact office with questions or concerns. 08/17/2024 Other Patient agrees to take medication as prescribed. Discussed medication side effects, adverse effects, risks, benefits, as well as interactions. Encouraged non-use of opioids and other illicit substances. Has naloxone. Discontinuing buprenorphine increases the risk of overdose upon return to illicit opioid use. Use of alcohol or benzodiazepines with buprenorphine increases the risk of overdose and . Education provided about safe storage of medications. Encouraged participation in recovery groups/counseling services. Contact office with questions or concerns. 09/17/2024 Other Patient agrees to take medication as prescribed. Discussed medication side effects, adverse effects, risks, benefits, as well as interactions. Encouraged non-use of opioids. Has naloxone. Recommended participation in recovery groups and/or counseling services. May contact office with questions or concerns. Patient may self-administe r their own medications or may self-administe r their own oral medications per [facility] Protocol. 10/15/2024 Other Patient agrees to take medication as prescribed. Discussed medication side effects, adverse effects, risks, benefits, as well as interactions. Encouraged non-use of opioids and other illicit substances. Has naloxone. Discontinuing buprenorphine increases the risk of overdose upon return to illicit opioid use. Use of alcohol or benzodiazepines with buprenorphine increases the risk of overdose and . Education provided about safe storage of medications. Encouraged participation in recovery groups/counseling services. Contact office with questions or concerns. Patient may self-administe r their own medications or may self-administe r their own oral medications per [facility] Protocol. 11/15/2024 Other Patient agrees to take medication as prescribed. Discussed medication side effects, adverse effects, risks, benefits, as well as interactions. Encouraged non-use of opioids. Encouraged participation in recovery groups. Patient may contact office with questions or concerns. 03/21/2025 Other Patient agrees to take medication as prescribed. Discussed medication side effects, adverse effects, risks, benefits, as well as interactions. Encouraged non-use of opioids. Encouraged participation in recovery groups. Patient may contact office with questions or concerns. Patient agrees to take medication as prescribed. Discussed medication side effects, adverse effects, risks, benefits, as well as interactions. Encouraged non-use of opioids. Encouraged participation in recovery groups. Patient may contact office with questions or concerns. 02/18/2025 Other Learning About the Safe Use of Antibiotics material was discussed. Pt was educated on use of antibiotic medication including dosing, side effects, adverse effects and anticipated response. Pt was also educated on importance of completing full course of treatment as ordered. Patient voiced understanding of all. Plan Of Treatment No Information Insurance Providers Payer Name Payer Address Payer Phone Subscriber Number Group Number Insured Name Patient Relationship to Insured Coverage Start Date Coverage End Date [employer] Medicare Assure [address] [address] [place] [phone] [id number] Dona Cuello Self - patient is the insured 3 MEDICAID [address] [place] [address] [id number] Dona Cuello Self - patient is the insured 6 Medical (General) History Medical History History ICD [...] Hospitalization History Reason Date(Month/Year) Leg issue at [place] 05/2022 suicidal ideations - [facility] 06/2016
[2025-04-01 14:39] LABS: Hematocrit 34.9 % (37.0-47.0); Hemoglobin 10.9 g/dL (12.0-15.0); Immature Granulocyte Percent A 2.3 % (0-0.5); Lymphocytes Absolute Auto 2.31 K/mm3 (0.9-3.2); Mean Corpuscular HGB Conc 31.2 g/dl (32-36); Mean Corpuscular Hemoglobin 30.1 pg (26-34); Mean Corpuscular Volume 96.4 fl (80-100); Nucleated Red Blood Cells Absolute Auto 0.000 K/mm3 (0.0-0.012); Nucleated Red Blood Cells Perc 0.0 % (0.0-0.2); Platelet Count Result 219 k/mm3 (150-375); Red Blood Count 3.62 M/mm3 (4.2-5.4); White Blood Count 9.6 K/mm3 (4.5-10.0)
[2025-04-01 15:00] LABS: Anion Gap 7 mmol/L (4-12); Blood Urea Nitrogen 15 mg/dL (7-17); Calcium 9.2 mg/dL (8.4-10.2); Carbon Dioxide 28 mmol/L (22-30); Chloride 100 mmol/L (98-107); Estimated Glomerular Filt Rate > 60; Glucose 148 mg/dL (65-110); Potassium 4.8 mmol/L (3.4-5.0); Sodium 135 mmol/L (137-145)
== END 2025-04-01 14:01 | disposition home or self-care (01) ==
LOC: ANHSURGERY 14:03
PROVIDERS: PCP Internal Medicine; Visit Provider Surgery
DX: Z01.818 Encounter for other preprocedural examination (principal); K42.0 Umbilical hernia with obstruction, without gangrene
CPT/HCPCS: 36415; 71046; 80048; 85025; 86850; 86860; 86870; 86880; 86900; 86901; 86902; 86971; 93005

== ENCOUNTER 2025-05-03 09:14 | Outpatient (CLI) | payer MEDICARE, MEDICAID, SELFPAY ==
--- OUTSIDE RECORDS SUMMARY | 2025-03-18 05:20 | XMS_ITS ---
Author Organization [facility] Address [address] [place] [address] Care Team Providers Care Writing Manager Name Role Phone Cesario De Los Santos Primary Care Provider [facility], Adult LEXI Unavailabl e [phone] REASON FOR VISIT ED F/U Cellulitis Social History Sex Assigned At : Social History Observation Description Sex Assigned At Female Encounters Encounter Location Date Provider Diagnosis [address] [place] [address] 03/18/2025 Cesario De Los Santos Plan Of Treatment No Information Progress Notes * Navarro CUELLO:1965 (59 yo F)Acc No.[id number]:03/18/2025 UNLOCKED PROGRESS NOTE Progress Note Patient: Dona MESSER Provider: Alize De Los Santos :1965 A ge:59 Y S ex:Female Date:03/18/2025 Address:[address] [place], [place] [id number] Subjective: * Chief Complaints: * 1 . ED F/U Cellulitis. * Medical History: Objective: * Vitals: Assessment: Plan: * Treatment: * * Electronic signature of Sangita De Los Santos , [id number] on 05/03/2025 at 09:40 AM CDT Sign off status: Pending * Provider: Alize De Los Santos Date: 0 03/18/2025 Generated for Diego pereira/Jyoti/eTgarrison on: 1 09:40 AM CDT
--- OUTSIDE RECORDS SUMMARY | 2025-04-11 19:00 | XMS_ITS | Continuity of Care Document ---
Author Organization [facility] Address [address] [place] [phone] Phone Care Team Providers Care Manager [employer] Name Role Phone Artur WALLS, FAC, Latrell Unavailable Unavailab le Procedures Procedure Date EXTREMITY STUDY Advance Directives Directive Yes / No Effective Date File Name No Information Encounters Encounter Description Practice Location Reason(s) For Visit Diagnoses Date Provider Providers Copied on Encounter [facility], [address] [place] [address], [id number], tel:[phone] [facility] No Information Artur Sams. [address] [place] [address], [id number], . tel:[phone] Referring Provider: Latrell Siddiqui, [address] [place] [address], [id number]. tel:[phone] Family History Family Member Type Diagnosis Age At Onset No Information Payers Payer name Insurance type Covered constitution party ID Authoriza tion(s) [facility] [id number] PPO C [id number] [facility] [facility] [id number] Social History Type Description Quantity Date Captured Comments Sex Female Smoking Status No Information Chief Complaint And Reason For Visit No Information Reason For Referral Reason For Referral No Information History Of Present Illness Encounter Date Complaint History Of Prese nt Illness No Information Functional Status Date Functional Assessmen t No Information Instructions Date Instruction Additional Infor mation No Information Assessments Type Assessment Date No Information Patient Care Teams Name Effective Dates (start - stop) Status Members No Information
--- OUTSIDE RECORDS SUMMARY | 2025-05-03 09:41 | XMS_ITS | Patient Health Record ---
Author Organization [facility] Address [address] [place] [address] Care Team Providers Care Supervisor Tubing Name Role Phone Cesario De Los Santos Primary Care Provider [phone] [facility], Adult LEXI Unavailabl e [phone] TaylorRosemary Unavailable [phone] Corazon Garcia Unavailable [phone] Breanna Dumont Unavailable Montse Estrella Unavailable [phone] Allergies Allergen (clinical drug ingredient) Drug/Non Drug [...] Interpretation: Performing Lab:[facility], [address], [place], Phone - [phone], Director - PhDAbudu Notes/Report: Clinical Information:CCU:[id number] LM Buprenorphine Positive Confirmation p erformed by Mass Spectrometry Buprenorphine Positive Buprenorphine Conf, MS, UR 574 Cutoff=10 ng/m L Norbuprenorphine Positive Norbuprenorphine Conf, MS, UR 1779 Cutoff=10 n g/mL Testosterone, Serum Reviewed date:02/23/2025 03:06:33 PM Interpretation: Performing Lab:[facility] [address], Phone - [phone], Director - [facility] Notes/Report: Test(s) 449258-Eskuljaibzr; 451684-Jijmm Activity, Plasma; 127242- Normetanephrine, Pl; 352017-Uodwwkfqlusk, Pl; 034967- Androstenedione LCMS was developed and its performance characteristics determined by [facility]. It has not been cleared or approved by the Food and Drug Administration. Testosterone <3 4-50 ng/dL Androstenedione LCMS Reviewed date:02/23/2025 03:06:33 PM Interpretation: Performing Lab:[facility], Phone - [phone], Director - [facility] Notes/Report: Test(s) 182168-Oykvurltcvp; 738646-Pdtci Activity, Plasma; 022315- Normetanephrine, Pl; 066759-Wdzmwhtiyunj, Pl; 690249- Androstenedione LCMS was developed and its performance characteristics determined by [facility]. It has not been cleared or approved by the Food and Drug Administration. Androstenedione LCMS 11 41-262 ng/dL Dehydroepiandrosterone (DHEA ) Sulfate Reviewed date:02/23/2025 03:06:33 PM Interpretation: Performing Lab:[facility] [address], Phone - [phone], Director - [facility] Notes/Report: Test(s) 921004-Oammgwhfzxc; 847560-Cgptj Activity, Plasma; 305680- Normetanephrine, Pl; 342133-Vhhprgrxxfcl, Pl; 504170- Androstenedione LCMS was developed and its performance characteristics determined by [employer] [facility]. It has not been cleared or approved by the Food and Drug Administration. DHEA-Sulfate 26.1 29.4-220.5 ug/dL 14 Panel Urine Drug Screen Reviewed date:01/17/2025 09:31:22 AM Interpretation: Performing Lab: Notes/Report: THC neg FELICITA neg MOP (OPI) neg AMP neg MET neg BAR neg BZO neg MDMA neg MTD neg OXY neg PCP neg BUP POS TCA neg FTY neg 12 Panel Urine Drug Screen Reviewed date:08/17/2024 08:56:21 AM Interpretation: Performing Lab: Notes/Report: THC neg FELICITA neg MOP (OPI) neg AMP neg MET neg BAR neg BZO neg MDMA neg MTD neg OXY neg PCP neg BUP POS Buprenorphine and Metabolite (Urine test) Reviewed date:08/24/2024 09:47:12 AM Interpretation: Performing Lab:[facility], [address], [place], Phone - [phone], Director - PhDDarius Notes/Report: Clinical Information:[id number] LM Buprenorphine Positive Confirmation p erformed by Mass Spectrometry Buprenorphine Positive Buprenorphine Conf, MS, UR 264 Cutoff=10 ng/m L Norbuprenorphine Positive Norbuprenorphine Conf, MS, UR >2000 Cutoff=10 n g/mL 12 Panel Urine Drug Screen Reviewed date:11/15/2024 [...] POS 12 Panel Urine Drug Screen Reviewed date:06/17/2024 [...] neg OXY neg PCP neg BUP POS Aldosterone:Renin Ratio Reviewed date:02/23/2025 03:06:34 PM Interpretation: Performing Lab:[facility] [place], [address] [facility], Phone - [phone], Director - [facility] Notes/Report: Test(s) 959663-Gvbozvolhnx; 951730-Ocoms Activity, Plasma; 401075- Normetanephrine, Pl; 444955-Grftiheaverd, Pl; 783777- Androstenedione LCMS was developed and its performance characteristics determined by [employer]. It has not been cleared or approved by the Food and Drug Administration. Aldosterone <1.0 0.0-30.0 ng/dL Renin Activity, Plasma 0.378 0.167-5.380 ng/mL/ hr Aldos/Renin Ratio <2.6 0.0-30.0 Units: ng/ dL per ng/mL/hr TSH Rfx on Abnormal to Free T4 Reviewed date:02/23/2025 03:06:34 PM Interpretation: Performing Lab:[facility], Phone - [phone], Director - [facility] Notes/Report: Test(s) 270668-Lnpykhjkoqq; 769011-Dztnf Activity, Plasma; 990833- Normetanephrine, Pl; 377194-Hrxkekjlxxnf, Pl; 581145- Androstenedione LCMS was developed and its performance characteristics determined by [employer]. It has not been cleared or approved by the Food and Drug Administration. TSH 0.795 0.450-4.500 uIU/mL CMP 14 Comprehensive Metabol ic Panel* Reviewed date:02/23/2025 03:06:34 PM Interpretation: [facility]forming [facility] [address] [facility], Phone - [phone], Director - [facility] Notes/Report: Test(s) 522431-Dfxtlhdfeqn; 212202-Kkjzi Activity, Plasma; 631325- Normetanephrine, Pl; 135725-Kkmehtgrlnap, Pl; 508884- Androstenedione LCMS was developed and its performance characteristics determined by [employer]. It has not been cleared or approved [...] et* Reviewed date:02/23/2025 03:06:33 PM Interpretation: Performing Lab:[facility] [place], [address] [facility], [place], Phone - [phone], Director - Maggie Notes/Report: Test(s) 960243-Qhrdyuwsvts; 883680-Jqoku Activity, Plasma; 428915- Normetanephrine, Pl; 427925-Elryjukovkby, Pl; 704392- Androstenedione LCMS was developed and its performance characteristics determined by [employer]. It has not been cleared or approved [...] ee Reviewed date:02/23/2025 03:06:33 PM Interpretation: Performing Lab:[facility], [address] [facility], Phone - [phone], Director - [facility] Notes/Report: Test(s) 737770-Zsmcmqzzvqf; 761035-Tjojz Activity, Plasma; 375946- Normetanephrine, Pl; 110029-Uaukzjfecynt, Pl; 105174- Androstenedione LCMS was developed and its performance characteristics determined by [facility]. It has not been cleared or approved by the Food and Drug Administration. Normetanephrine, Pl 63.3 0.0-244.0 pg/mL Metanephrine, Pl <25.0 0.0-88.0 pg/mL Cortisol Reviewed date:02/23/2025 03:06:33 PM Interpretation: Performing Lab:[facility] [place], [address] [facility], Phone - [phone], Director - [facility] Notes/Report: Test(s) 702698-Umhpuibixwe; 704280-Dxojq Activity, Plasma; 867621- Normetanephrine, Pl; 720551-Xztunjeuztgk, Pl; 133790- Androstenedione LCMS was developed and its performance characteristics determined by [employer]. It has not been cleared or approved by the Food and Drug Administration. Cortisol 4.1 6.2-19.4 ug/dL Please Note: The reference interval and flagging for this test is for an AM collection. If this is a PM collection please use: Cortisol PM: 2.3-11.9 14 Panel Urine Drug Screen Reviewed date:02/15/2025 01:33:14 PM Interpretation: Performing Lab: Notes/Report: THC neg FELICITA neg MOP (OPI) neg AMP neg MET negg BAR neg BZO neg MDMA neg MTD neg OXY neg PCP neg BUP POS TCA neg FTY neg 12 Panel Urine Drug Screen Reviewed date:05/17/2024 10:26:40 AM Interpretation: Performing Lab: Notes/Report: THC neg FELICITA neg MOP (OPI) neg AMP neg MET neg BAR neg BZO neg MDMA neg MTD neg OXY neg PCP neg BUP POS 14 Panel Urine Drug Screen Reviewed date:04/19/2025 10:40:55 AM Interpretation: Performing Lab: Notes/Report: THC POS FELICITA neg MOP (OPI) neg AMP neg MET neg BAR neg BZO neg MDMA neg MTD neg OXY neg PCP neg BUP POS TCA neg FTY neg 12 Panel Urine Drug Screen Reviewed date:12/14/2024 09:01:32 AM Interpretation: Performing Lab: Notes/Report: THC neg FELICITA neg MOP (OPI) neg AMP neg MET neg BAR neg BZO neg MDMA neg MTD neg OXY neg PCP neg BUP POS Reason For Referral Reason exophytic left renal mass Diagnosis 1 Kidney mass (N28.89) Referral Organization [facility] Referring Provider First Name Cesario Referring Provider Last Name Filiberto Referring Provider Speciality Internal M edicine Referred Provider Specialty Urology General Notes Selam Nagel RN 08:31:11 AM >referral faxed Clinical Notes [facility], [address] [place] [address] [address], [facility], Referral Priority Urgent Reason painful umbilical he rndavid Diagnosis 1 Umbilical hernia (K4 2.9) Referral Organization [facility] Referring Provider First Name Cesario Referring Provider Last Name Filiberto Referring Provider Speciality Internal M edicine Referred Provider Specialty General Surg oriana General Notes Selam Nagel RN 08:12:46 AM > Clinical Notes General [facility], [address] [place] [address] [address], [facility] , Referral Priority Urgent Reason PREOP EVALUATION, [place] BERNADINE BASSETT Diagnosis 1 Abnormal EKG (R94.31 ) Referral Organization [facility] Referring Provider First Name Cesario Referring Provider Last Name Filiberto Referring Provider Speciality Internal M edicine Referred Provider Specialty Cardiology General Notes Selam Nagel RN 03:08:49 PM >confirmed taking insurance referral sent letter mailed Clinical Notes [facility] Jayne up, Dr Miguel Woo, [address] [place] [address] [address], [facility] , , fax [phone] Referral Priority Urgent Medications Medication SIG (Take, Route, Frequency, Duration) Notes Start Date End Date Status Nystatin 469105 UNIT/GM 1 application TO RASH ON ABDOMEN Externally Twice a day Active Linzess 290 MCG TAKE 1 CAPSULE BY MO UTH AT LEAST 30 MINUTE(S) BEFORE FIRST MEAL OF THE DAY ON AN EMPTY STOMACH; Duration: 30 Active Fluticasone Propionate 50 MCG/ACT 1 spray in each nostril Nasally twice daily Not-Taking Senna 8.6 MG 2 tablets at bedtime as needed Orally Once a day 09/03/2022 Active Walker - ROLLATOR WALKER FOR USE WITH AMBULATION for dx: G62.9 EXTERNAL DAILY Active Amoxicillin-Pot Clavulanate 875-125 MG 1 tablet Orally every 12 hrs; Duration: 5 days 02/18/2025 Active Jardiance 25 mg TAKE 1 TABLET BY ROSLYN TH DAILY Active dexAMETHasone 1 MG 1 tablet Orally Once a day; Duration: 30 day(s) 02/15/2025 Active Vitamin B 12 500 MCG 1 tablet Orally Onc e a day Active Lisinopril 20 mg TAKE 1 TABLET BY ROSLYN TH DAILY Active Atorvastatin Calcium 40 mg TAKE 1 TABLET BY MOUTH DAILY; Duration: 90 Not-Taking Lidocaine 5 % 1 patch remove after 12 hours Externally; Duration: 30 days Active Amlactin Daily 12 % 1 application TO LEG S AND FEET Externally at night Active Buprenorphine HCl-Naloxone HCl 8-2 MG 1 tablet under the tongue and allow to dissolve Sublingual twice a day; Duration: 30 days 04/19/2025 Active metFORMIN HCl 1000 mg TAKE 1 TABLET BY M OUTH TWICE A DAY WITH MEALS; Duration: 90 Not-Taking Trulicity 4.5 MG/0.5ML INJECT 4.5MG SUBCUTANEOUSLY EVERY WEEK; Duration: 28 days Active Ketoconazole 2 % 1 application [employer] ally Once a day; Duration: 30 days 04/22/2024 Not-Taking Doxepin HCl 10 MG 1-2 capsule at bedtime Orally Once a day; Duration: 90 days As needed insomnia Not-Taking Immunizations Vaccine Route Administration Date Status Comme [...] work (ex. student, retired, disabled, unpaid primary healthcare facility administrator) In the past year, have you o [...] phone, visiting friends or family, going to mormonism or club meetings) More than 5 times a week How stressed are you? Stress is when someone feels tense, nervous, anxious, or can\t sleep at night because their mind is troubled A little bit In the past year have you sp ent more than 2 nights in a row in a detention, intermediate, care home center, or juvenile correctional facility? [...] Status Risk Notes Problem Morbid obesity (disorder) (097280699) Morbid (severe) obesity due to excess calories (E66.01) Active confirmed Problem Chronic pain (70737893) Other chronic pain (G89.29) Active confirmed Problem Anxiety (91262448) Anxiety (F41.9) Active confi rmed Problem Vitamin D deficiency (50544340) Vitamin D deficiency (E55.9) Active confirmed Problem Allergic rhinitis (98015820) Allergic rhinitis (J30.9) Active confirmed Problem Anemia (874589572) Anemia (D64.9) Active confir med Problem Sleep apnea (72168518) Sleep apnea (G47.30) Active confirmed Problem Peripheral venous insufficiency (25234381) Venous insufficiency (I87.2) Active confirmed Problem Hallucinations (5943393) Hallucinations (R44.3) Active confirmed Problem Neuropathy (926433535) Neuropathy (G62.9) Active confirmed Problem Liver enzymes abnormal (298288580) Abnormal liver enzymes (R74.8) Active confirmed Problem Moderate recurrent major depression (83564153) Moderate episode of recurrent major depressive disorder (F33.1) Active confirmed Problem Obstipation (254182782) Obstipation (K59.00) Active confirmed Problem Severe recurrent major depression without psychotic features (18697232) Depression, major, severe recurrence (F33.2) 10/17/19 18 Active confirmed Problem Essential hypertension (04544803) Essential hypertension (I10) 10/26/19 17 Active confirmed Problem Mild intermittent asthma (453721700) Mild intermittent asthma without complication (J45.20) Active confirmed Problem Viral hepatitis type C (38293198) Hepatitis C virus infection, unspecified chronicity (B19.20) 08/07/19 17 Active confirmed Problem Type II diabetes mellitus without complication (585129418) Type 2 diabetes mellitus without complication, without long-term current use of insulin (E11.9) 08/02/19 17 Active confirmed Problem Migraine without aura, not refractory (118952108) Migraine without aura and without status migrainosus, not intractable (G43.009) Active confirmed Problem Abnormal findings on diagnostic imaging of breast (863050360) Abnormal mammogram of both breasts (R92.8) Active confirmed Problem Chronic rhinitis (22149799) Rhinitis, unspecified type (J31.0) Active confirmed Problem High cholesterol (53657293) High cholesterol (E78.00) 08/20/19 17 Active confirmed Problem Tobacco use (142888270) Tobacco use disorder (F17.200) Active confirmed Problem Gastroesophageal reflux disease (488028670) GERD without esophagitis (K21.9) Active confirmed Problem Urinary incontinence (360937909) Urinary incontinence in female (R32) Active confirmed Problem Morbid obesity (346717331) Obesity, morbid, BMI 40.0-49.9 (E66.01) Active confirmed Problem Opioid use disorder (1501825997) Opioid use disorder (F11.99) Active confirmed Problem Body mass index 40+ - severely obese (524773678) BMI 50.0-59.9, adult (Z68.43) Active confirmed Problem Adrenal mass (641872252) Adrenal mass (E27.9) Active confirmed Problem Diabetic renal disease (608646525) 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) 08/20/19 23 Active confirmed Problem Xeroderma (47709383) 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) Active confirmed Problem Kidney mass (600033112) Kidney mass (N28.89) Active confirmed Vital Signs Heart Rate 70 /min 04/19/2025 Temperature 98 degrees Fahrenheit 03/21/2025 Respiratory Rate 16 /min 04/19/2025 Oximetry 98 % 04/19/2025 Blood pressure diastolic 74 mm Hg 04/19/2025 Height 62in in 04/19/2025 Blood pressure systolic 130 mm Hg 04/19/2025 Weight 289.2lbs lbs 04/19/2025 BMI 52.89 kg/m2 04/19/2025 Encounters Encounter Location Date Provider Diagnosis [address] [place] [address] 02/16/2025 Cesario De Los Santos Adrenal mass E27.9 ; Fatigue R53.83 ; Kidney mass N28.89 and Type 2 diabetes mellitus without complication, without long-term current use of insulin E11.[address] [place] [address] 05/17/2024 Montse Estrella Opioid use disorder F11.99 ; Nutritional counseling Z71.3 and Morbid (severe) obesity due to excess calories E66.[address] [place] [address] 06/17/2024 Montse Mendozafiyann Opioid use disorder F11.99 ; Nutritional counseling Z71.3 and Morbid (severe) obesity due to excess calories E66.[address] [address] 07/16/2024 Jenia Heavevanessa Opioid use disorder F11.99 ; BMI 50.0-59.9, adult Z68.43 and Tobacco use disorder F17.[address] [address] 08/17/2024 Montse Mendozafiyann Opioid use disorder F11.[address] [address] 09/17/2024 Jenia Hejami Opioid use disorder F11.99 ; Moderate episode of recurrent major depressive disorder F33.1 and Tobacco use disorder F17.[address] [address] 10/15/2024 Montse Estrella Opioid use disorder F11.[address] [address] 11/15/2024 Breanna Dumont Opioid use disorder F11.[address] [address] 12/14/2024 Cesario De Los Santos Opioid use disorder F11.[address] [address] 01/17/2025 Corazon Garcia Opioid use disorder F11.[address] [address] 02/15/2025 Cesario De Los Santos Obstipation K59.00 ; Kidney mass N28.89 ; Adrenal mass E27.9 ; Type 2 diabetes mellitus without complication, without long-term current use of insulin E11.9 ; Essential hypertension I10 ; Opioid use disorder F11.99 ; Umbilical hernia K42.9 and Fatigue R53.83 [facility] [address] [place] [address] 03/21/2025 Breanna Dumont Opioid use disorder F11.99 and Tobacco use disorder F17.[address] [address] 04/19/2025 Cesario De Los Santos Opioid use disorder F11.99 and Abnormal EKG R94.[address] [address] 06/18/2024 Cesario De Los Santos [address] [address] 12/14/2024 Cesario De Los Santos [facility] [address] [place] [address] 12/14/2024 Cesario De Los Santos [address] [address] 02/03/2025 Cesario De Los Santos [address] [address] 02/10/2025 Cesario De Los Santos [address] [address] 02/18/2025 Cesario De Los Santos UTI (urinary tract infection) N39.[address] [address] 03/07/2025 Cesario De Los Santos [address] [address] 04/01/2025 Cesario De Los Santos [address] [address] 04/13/2025 Cesario De Los Santos Assessments Encounter Date Diagnosis (ICD Code) Assessment Notes Treatment Notes Treatment Clinical Notes Section Notes 02/15/2025 Obstipation (ICD-10 - K59.00) 02/18/2025 UTI (urinary tract infection) (ICD-10 - N39.0) 06/17/2024 Nutritional counseling (ICD-10 - Z71.3) 06/17/2024 Opioid use disorder (ICD-10 - F11.99) 09/17/2024 Moderate episode of recurrent major depressive disorder (ICD-10 - F33.1) 09/17/2024 Opioid use disorder (ICD-10 - F11.99) 04/19/2025 Abnormal EKG (ICD-10 - R94.31) 04/19/2025 Opioid use disorder (ICD-10 - F11.99) 07/16/2024 Opioid use disorder (ICD-10 - F11.99) 07/16/2024 BMI 50.0-59.9, adult (ICD-10 - Z68.43) 08/17/2024 Opioid use disorder (ICD-10 - F11.99) 11/15/2024 Opioid use disorder (ICD-10 - F11.99) 12/14/2024 Opioid use disorder (ICD-10 - F11.99) 01/17/2025 Opioid use disorder (ICD-10 - F11.99) May self-administer or be administered own oral medication per [facility] Protocols. Provided informed consent with understanding of [...] at follow up in 4 weeks - [place] PD[place]- no concerns - UDS-no concerns 02/15/2025 Kidney mass (ICD-10 - N28.89) 02/16/2025 Adrenal mass (ICD-10 - E27.9) 05/17/2024 Nutritional counseling (ICD-10 - Z71.3) 05/17/2024 Opioid use disorder (ICD-10 - F11.99) 03/21/2025 Opioid use disorder (ICD-10 - F11.99) 10/15/2024 Opioid use disorder (ICD-10 - F11.99) 05/17/2024 Morbid (severe) obesity due to excess calories (ICD-10 - E66.01) 03/21/2025 Tobacco use disorder (ICD-10 - F17.200) 07/16/2024 Tobacco use disorder (ICD-10 - F17.200) 02/16/2025 Fatigue (ICD-10 - R53.83) 02/15/2025 Adrenal mass (ICD-10 - E27.9) INSTRUCTED ON LOW-DOSE DEX SUPPRESSION. LABS IN AM. 06/17/2024 Morbid (severe) obesity due to excess calories (ICD-10 - E66.01) 09/17/2024 Tobacco use disorder (ICD-10 - F17.200) 02/15/2025 Type 2 diabetes mellitus without complication, without long-term current use of insulin (ICD-10 - E11.9) 02/16/2025 Kidney mass (ICD-10 - N28.89) 02/16/2025 Type 2 diabetes mellitus without complication, without long-term current use of insulin (ICD-10 - E11.9) 02/15/2025 Essential hypertension (ICD-10 - I10) 02/15/2025 Opioid use disorder (ICD-10 - F11.99) 02/15/2025 Umbilical hernia (ICD-10 - K42.9) 02/15/2025 Fatigue (ICD-10 - R53.83) 05/17/2024 Other Client agrees to take medication [...] self-administe r their own oral medications per [facility] Protocol. 10/15/2024 Other Patient agrees to take [...] self-administe r their own oral medications per [facility] Protocol. 11/15/2024 Other Patient agrees to take [...] Insured Coverage Start Date Coverage End Date [facility] Medicare Assure [address] [address] [place] [address] [id number] Dona Cuello Self - patient is the insured 3 MEDICAID [address] [place] [address] [id number] Dona Cuello Self - patient is the [...] Hospitalization History Reason Date(Month/Year) Leg issue at [place] 05/2022 suicidal ideations - [place] 06/2016
--- OUTSIDE RECORDS SUMMARY | 2025-05-03 09:41 | XMS_ITS | Clinical Summary ---
Author Organization [facility] Address [address] [address] Care Team Providers Care Cloth Pattern Maker Name Role Phone Job Odell MD Primary Care Provider [phone] Source Comments [facility],non-owned Affiliates and Associated Physician Practices is amultiple site organization consisting of ambulatory clinics and hospital sitesin [place], [place]. This disclosure is being madepursuant to the Care Everywhere program and may not contain all information available regarding this patient. Last updated 18.[facility] [employer] Allergies Active Allergy Reactions Criticality Noted Date [...] on file Legal Sex Female 12:51 PM [employer] Gender Identity Not on file Sexual Orientation Not on file Last Filed Vital Signs Vital Sign Reading Time Taken Comments Blood Pressure 126/80 08/05/2016 2:43 PM [employer] Pulse 86 08/05/2016 2:43 PM [employer] Temperature 37.1 C (98.8 F) 08/05/2016 2:43 PM [employer] Respiratory Rate 16 08/05/2016 2:43 PM [employer] Oxygen Saturation - - Inhaled Oxygen Concentration - - Weight 105.2 kg (232 lb) 08/05/2016 2:43 PM [employer] Height 157.5 cm (5' 2) 08/05/2016 2:43 PM [employer] Body Mass Index 42.43 08/05/2016 2:43 PM [employer] Plan of Treatment Health Maintenance Due Date [...] [place] [id number] MEDICARE [facility] MEDICARE Care Teams Cloth Pattern Maker Relationship Specialty Start Date End Date Job Odell MD [address] [facility] [place] [address] PCP - General Internal Medicine 08/05/16
--- OUTSIDE RECORDS SUMMARY | 2025-05-03 09:41 | XMS_ITS | Clinical Summary ---
Author Organization [facility] Office Building B Address [address] [place] [address] Care Team Providers Care Shirring Machine Operator Name Role Phone Cesario De Los Santos MD Primary Care Provider [phone] Allergies Active Allergy Reactions Criticality Noted Date Comments Ibuprofen Hives,Shortness of breath High 04/17/2023 Levofloxacin Hives Medium 08/09/2016 Hives [place] Anaphylaxis High 02/03/2019 Medications lisinopril (PRINIVIL,ZESTR [place]) [...] 07/27/2002 EYE SURGERY Right age 5 from [facility] BREAST SURGERY Left age 13-removed lump CARPAL TUNNEL RELEASE 07/28/2005 - 07/27/2006 Bilateral COLONOSCOPY 07/28/2021 - 07/27/2022 Medical History Medical History Date Comments Hypertension Diabetes mellitus Acid indigestion Anxiety and depression Sleep apnea [...] on file 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 Testing performed by: [address] [address] Blood 04/18/2023 11:0 0 AM CDT 04/18/2023 11:04 AM CDT us Lonny Delgado MD LAB BLOOD ORDERABLES Fin al Result PEÑA [address] [facility] Department [place] [address] * (ABNORMAL) Hemoglobin A1c (04/18/2023 11:00 AM CDT) Hgb A1C 6.9(H) 4.0 - 5.6 % PEÑA Comment:Testing performed by : [address] [address] Estimated Average Glucose 151 mg/dL PEÑA HESTER Comment: The ADA recommends reporting an estimated Average Glucose (eAG) with all Hemoglobin A1c results using the equation derived from a study of 507 normal and diabetic adults. Minority populations were underrepresented and children were not included. (Diabetes Care 31:7109-6116, 2008). The eAG is not equivalent to a fasting glucose. Testing performed by: [facility], [address] [place] [address]., [address] Blood 04/18/2023 11:0 0 AM CDT 04/18/2023 11:04 AM CDT Lonny Delgado MD LAB BLOOD ORDERABLES Fin al Result PEÑA [address] [facility] Department [place] [address] * Lipid panel (11/25/2018) Blood specimen (specimen) Historical Provider LAB BLOOD ORDERABLES Gabi l Result from Last 3 Months or Most Recently Relevant to Health Maintenance Insurance MEDICARE [facility] MEDICARE ADVANTAGE [employer] [facility] MEDICARE ADVANTAGE [facility] MEDICARE ADVANTAGE [facility] MEDICARE ADVANTAGE IDPA Care Teams Shirring Machine Operator Relationship Specialty Start Date End Date Cesario De Los Santos MD [address] [facility] [place] [address] PCP - General Internal Medicine 04/18/23
[2025-05-03 10:02] LABS: Cholesterol 117 mg/dL (0-200); HDL Direct 51 mg/dL; Triglycerides 55 mg/dL (<150)
== END 2025-05-03 09:15 | disposition home or self-care (01) ==
LOC: ANHLAB 09:15
PROVIDERS: PCP Internal Medicine; Visit Provider Internal Medicine Cardiovascular Disease
DX: I10 Essential (primary) hypertension (principal)
CPT/HCPCS: 36415; 80061

== ENCOUNTER 2025-05-19 08:19 | Outpatient (CLI) | payer MEDICARE, MEDICAID, SELFPAY ==
--- NOTE | ~2025-05-19 | NM_ITS ---
EXAMINATION: NM douglas stress w perfusion DATE: 05/19/2025 12:58 INDICATION: Encounter for preprocedural cardiovascular examination TECHNIQUE: Rest images were obtained following intravenous administration of 9.7 mCi Tc99m tetrofosmin (Myoview). The patient was infused intravenously with Lexiscan (Regadenoson). Then, 32.7 mCi Tc99m tetrofosmin (Myoview) was administered intravenously, and stress images were obtained. Data was recon structed into short axis and horizontal and vertical long axis SPECT images. Gated SPECT images were also obtained. COMPARISON: None. FINDINGS: There is no definite reversible or fixed perfusion abnormality to suggest ischemia or infarction. There is normal left ventricular chamber size, wall motion and ejection fraction. Left ventricular ejection fraction measures >70%. IMPRESSION: 1. Normal myocardial perfusion at rest and during stress. 2. Left ventricular ejection fraction measuring >70%. Reviewed, dictated and finalized at location A.
--- NOTE | 2025-05-19 08:21 | ECHO_ITS ---
Patient Info Name: Dona Cuello Age: 59 years : 1965 Gender: Female Ht: 62 in Wt: 298 lbs BSA: 2.52 m2 HR: 62 bpm BP: 152 / 92 mmHg Technical Quality: Good Exam Date: 05/19/2025 9:13 AM Patient Status: O Admit Date: 05/19/2025 Exam Type: CA echo doppler color flow Complete two-dimensional, color flow and Doppler transthoracic echocardiogram is performed. Staff Referring Physician: Miguel Woo DO Supervisor Histology: Karena Orozco Attending Provider: Miguel Woo DO Summary 1. Complete two-dimensional, color flow and Doppler transthoracic echocardiogram is performed. 2. Left ventricular chamber dimension is normal. 3. Left ventricular systolic function is normal, estimated at 60-65. 4. The left ventricular diastolic function is normal. 5. E/e' 7 is not elevated. 6. There is mild aortic valve sclerosis. 7. There is very mild aortic valve stenosis with a peak velocity of 207 cm/s, mean gradient of 9 mmHg, and aortic valve area of 2.0 cm2. Left Ventricle E/e' 7 is not elevated. Left ventricular chamber dimension is normal. Left ventricular systolic function is normal, estimated at 60-65. The left ventricular diastolic function is normal. Right Ventricle Right ventricular chamber dimension is normal. Right ventricular systolic function is normal and with normal TAPSE 2.6 cm. Left Atria Left atrial chamber dimension is normal. Right Atria Right atrial chamber dimension is normal. Aortic Valve The aortic valve is probable trileaflet. There is mild aortic valve sclerosis. There is very mild aortic valve stenosis with a peak velocity of 207 cm/s, mean gradient of 9 mmHg, and aortic valve area of 2.0 cm2. There is no aortic valve regurgitation. Pulmonic Valve There is no pulmonic regurgitation. Mitral Valve There is no mitral valve stenosis. There is no mitral valve regurgitation. Tricuspid Valve There is no tricuspid valve regurgitation. Pericardium/Pleural There is no pericardial effusion. Inferior Vena Cava Normal inferior vena cava with >50% collapse upon inspiration consistent with normal right atrial pressure, 5 mmHg. Aorta The aortic root size at the sinus of Valsalva is normal. Left Ventricular Outflow Tract Name Value Normal LVOT 2D LVOT Diameter 2.0 cm LVOT Doppler LVOT Peak Velocity 136 cm/s LVOT Peak Gradient 7 mmHg LVOT Mean Gradient 4 mmHg LVOT VTI 34 cm LVOT VTI/AV VTI Ratio 0.7 LVOT Stroke Volume 101 ml LVOT CO 5.9 l/min LVOT CI 2.3 l/min/m2 Pulmonic Valve Name Value Normal RVOT Doppler RVOT Peak Velocity 86 cm/s RVOT Peak Gradient 3 mmHg PV Doppler PV Peak Velocity 125 cm/s PV Peak Gradient 6 mmHg Mitral Valve Name Value Normal MV Diastolic Function MV E Peak Velocity 81 cm/s MV A Peak Velocity 64 cm/s MV E/A 1.3 MV Decel Time (PW) 192 ms MV Annular TDI MV E/e' (Septal) 7.8 MV E/e' (Lateral) 8.2 MV E/e' (Average) 8.0 Tricuspid Valve Name Value Normal Estimated PAP/RSVP RA Pressure 5 mmHg <=5 Aortic Valve Name Value Normal AV Doppler AV Peak Velocity 207 cm/s AV Peak Gradient 17 mmHg AV Mean Gradient 9 mmHg AV VTI 50 cm AV Area (Cont Eq VTI) 2.0 cm2 >=3.0 AV Area (Cont Eq Kwadwo) 2.0 cm2 AV DI (Kwadwo) 0.66 AV Regurgitation 2D LVOT Area 3.0 cm2 Ventricles Name Value Normal LV Dimensions 2D/MM IVS Diastolic Thickness (2D) 1.1 cm 0.6-1.0 LVID Diastole (2D) 5.0 cm 3.8-5.2 LVIW Diastolic Thickness (2D) 0.9 cm 0.6-0.9 LVID Systole (2D) 3.0 cm 2.2-3.5 LVOT Diameter 2.0 cm LV Mass (2D Cubed) 171.86 g 67.00-162.00 LV Mass Index (2D Cubed) 68 g/m2 43-95 Relative Wall Thickness (2D) 0.35 <=0.42 LV Fractional Shortening/Ejection Fraction 2D/MM LV Fractional Shortening (2D) 39 % 27-45 LV EF (2D Teichholz) 69 % LV Diastolic Volume (4C MOD) 119 ml LV EF (4C MOD) 52 % LV Diastolic Volume (2C MOD) 114 ml LV EF (2C MOD) 66 % LV Diastolic Volume (BP MOD) 120 ml 46-106 LV Diastolic Volume Index (BP MOD) 47 ml/m2 29-61 LV Systolic Volume (BP MOD) 47 ml 14-42 LV Systolic Volume Index (BP MOD) 19 ml/m2 8-24 LV EF (BP MOD) 61 % 54-74 LV Diastolic Length (4C) 8.3 cm LV Systolic Length (4C) 6.3 cm LV Stroke Volume (4C MOD) 62 ml Atria Name Value Normal LA Dimensions LA Volume (4C A-L) 48 ml LA Volume (BP A-L) 50 ml RA Dimensions RA Systolic Major Randlett Length (4C) 6.4 cm 2.2-2.8 RA Area (4C) 17.3 cm2 <=18.0 Report Signatures
--- NOTE | 2025-05-19 08:21 | EST_ITS ---
Patient Info Name: Dona Cuello Age: 59 years : 1965 Gender: Female Ht: 62 in Wt: 320 lbs BSA: 2.62 m2 HR: 69 bpm BP: 146 / 86 mmHg Exam Date: 05/19/2025 8:21 AM Patient Status: O Admit Date: 05/19/2025 Exam Type: CA stress douglas w NM A regadenoson stress test was performed. Staff Referring Physician: Miguel Woo DO Attending Provider: Miguel Woo DO Exercise Technologist: Yani Lord Exercise Physician: Miguel Woo DO Summary 1. 1. Negative lexiscan stress test for ischemic ST changes by ECG criteria. 2. 2. Baseline hypertension. 3. 3. Nuclear scan to follow and will be reported separately. Please correlate with it. 4. 4. Patient informed of the above results. Protocol: Lexiscan Stress ECG Details Stage: REST Duration (min): 1 min : 55 sec HR (bpm): 69 SBP (mmHg): 146 DBP (mmHg): 86 Stage: REST Duration (min): 4 min : 32 sec HR (bpm): 70 SBP (mmHg): 146 DBP (mmHg): 86 Stage: STAGE 1 Duration (min): 1 min : 0 sec HR (bpm): 102 SBP (mmHg): 161 DBP (mmHg): 81 Stage: RECOVERY Duration (min): 1 min : 0 sec HR (bpm): 90 SBP (mmHg): 161 DBP (mmHg): 81 Stage: RECOVERY Duration (min): 2 min : 0 sec HR (bpm): 82 SBP (mmHg): 161 DBP (mmHg): 81 Stage: RECOVERY Duration (min): 3 min : 0 sec HR (bpm): 70 SBP (mmHg): 161 DBP (mmHg): 81 Stage: RECOVERY Duration (min): 3 min : 52 sec HR (bpm): 75 SBP (mmHg): 127 DBP (mmHg): 77 Rest HR: 70 bpm Peak HR: 102 bpm Rest Sys BP: 146 mmHg Peak Sys BP: 161 mmHg Max Pred HR: 161 bpm % Max Pred HR: 63 % Target HR: 137 bpm Max RPP: 16,422 bpm*mmHg Termination Reason: Completed protocol Cardiac Symptoms: Shortness of breath Total Time: 1 min : 0 sec Rest Schwartz BP: 86 mmHg Peak Schwartz BP: 81 mmHg Total Dose: 0.4 mg Resting ECG Sinus rhythm, borderline T wave abnormality in diffuse leads. Stress ECG No ST changes. Arrhythmias None. Report Signatures
--- OUTSIDE RECORDS SUMMARY | 2025-05-19 08:26 | XMS_ITS | Clinical Summary ---
[facility] Organization [facility] B Address [address] [place] [address] Care Team Providers Care Horizontal Boring Mill Set Up Operator Name Role Phone Cesario De Los Santos MD Primary Care Provider [phone] Allergies Active Allergy Reactions Criticality Noted Date Comments Ibuprofen Hives,Shortness of breath High 04/17/2023 Levofloxacin Hives Medium 08/09/2016 Hives [place] Anaphylaxis High 02/03/2019 Medications lisinopril (PRINIVIL,ZESTR [place]) [...] 07/27/2002 EYE SURGERY Right age 5 from [facility] BREAST SURGERY Left age 13-removed lump CARPAL [...] on file 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 Testing performed by: [address] [address] Blood 04/18/2023 11:0 0 AM CDT 04/18/2023 11:04 AM CDT us Lonny Delgado MD LAB BLOOD ORDERABLES Fin al Result PEÑA [address] [facility] Department [place] [address] * (ABNORMAL) Hemoglobin A1c (04/18/2023 11:00 AM CDT) Hgb A1C 6.9(H) 4.0 - 5.6 % PEÑA Comment:Testing performed by : [address] [address] Estimated Average Glucose 151 mg/dL PEÑA HESTER Comment: The ADA recommends reporting an estimated Average Glucose (eAG) with all Hemoglobin A1c results using the equation derived from a study of 507 normal and diabetic adults. Minority populations were underrepresented and children were not included. (Diabetes Care 31:3594-1859, 2008). The eAG is not equivalent to a fasting glucose. Testing performed by: [facility], [address] [place] [address]., [address] Blood 04/18/2023 11:0 0 AM CDT 04/18/2023 11:04 AM CDT Lonny Delgado MD LAB BLOOD ORDERABLES Fin al Result PEÑA [address] [facility] Department [place] [address] * Lipid panel (11/25/2018) Blood specimen (specimen) Historical Provider LAB BLOOD ORDERABLES Gabi l Result from Last 3 Months or Most Recently Relevant to Health Maintenance Insurance [facility]ICARE [facility] MEDICARE ADVANTAGE [facility] MEDICARE Address: [address] [address] [place] [address] IDPA [facility] MEDICARE ADVANTAGE [facility] MEDICARE Address: [address] [address] [place] [address] [facility] MEDICARE ADVANTAGE [facility] MEDICARE Address: [address] [address] [place] [address] [facility] MEDICARE ADVANTAGE [facility] MEDICARE Address: [address] [address] [place] [address] IDPA Care Teams Horizontal Boring Mill Set Up Operator Relationship Specialty Start Date End Date Cesario De Los Santos MD [address] [place] [address] PCP - General Internal Medicine 04/18/23
--- OUTSIDE RECORDS SUMMARY | 2025-05-19 08:26 | XMS_ITS | Clinical Summary ---
Author Organization [facility] Address [address] [address] Care Team Providers Care Pharmacist Hospital Name Role Phone Job Odell MD Primary Care Provider [phone] Source Comments [facility],non-owned Affiliates and Associated Physician Practices is amultiple site organization consisting of ambulatory clinics and hospital sitesin [place], [place], [place] and [place]. This disclosure is being madepursuant to the Care Everywhere program and may not contain all information available regarding this patient. 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 Gender Identity Not on file Sexual Orientation Not on file Last Filed Vital Signs Vital Sign Reading Time Taken Comments Blood Pressure 126/80 08/05/2016 2:43 PM PROPERTY AND CASUALTY INSURANCE AGENT Pulse 86 08/05/2016 2:43 PM PROPERTY AND CASUALTY INSURANCE AGENT Temperature 37.1 C (98.8 F) 08/05/2016 2:43 PM PROPERTY AND CASUALTY INSURANCE AGENT Respiratory Rate 16 08/05/2016 2:43 PM PROPERTY AND CASUALTY INSURANCE AGENT Oxygen Saturation - - Inhaled Oxygen Concentration - - Weight 105.2 kg (232 lb) 08/05/2016 2:43 PM PROPERTY AND CASUALTY INSURANCE AGENT Height 157.5 cm (5' 2) 08/05/2016 2:43 PM PROPERTY AND CASUALTY INSURANCE AGENT Body Mass Index 42.43 08/05/2016 2:43 PM PROPERTY AND CASUALTY INSURANCE AGENT Plan of Treatment Health Maintenance Due Date [...] [place] [id number] MEDICARE [facility] MEDICARE Care Teams Pharmacist Hospital Relationship Specialty Start Date End Date Job Odell MD [address] [facility] [address] [place] [address] PCP - General Internal Medicine 08/05/16
== END 2025-05-19 08:20 | disposition home or self-care (01) ==
PROVIDERS: PCP Internal Medicine; Visit Provider Internal Medicine Cardiovascular Disease
DX: Z01.810 Encounter for preprocedural cardiovascular examination (principal); R06.09 Other forms of dyspnea; I35.8 Other nonrheumatic aortic valve disorders; I35.0 Nonrheumatic aortic (valve) stenosis; I10 Essential (primary) hypertension
CPT/HCPCS: 78452; 93017; 93306; A9502; J2785

== ENCOUNTER 2025-06-27 12:31 | Outpatient (CLI) | payer MEDICARE, MEDICAID, SELFPAY ==
--- OUTSIDE RECORDS SUMMARY | 2025-06-27 13:42 | XMS_ITS | Clinical Summary ---
Author Organization [facility] Address [address] [place] [address] Care Team Providers Care Photocopying Equipment Mechanic Name Role Phone Job Odell MD Primary Care Provider [phone] Source Comments [facility],non-owned Affiliates and Associated Physician Practices is amultiple site organization consisting of ambulatory clinics and hospital sitesin [place], [place], [place] and [place]. This disclosure is being madepursuant to the Care Everywhere program and may not contain all information available regarding this patient. Last updated 18.[facility] [employer] Allergies Active Allergy Reactions Criticality Noted Date [...] on file Legal Sex Female 12:51 PM REPEAT CHIEF Gender Identity Not on file Sexual Orientation Not on file Last Filed Vital Signs Vital Sign Reading Time Taken Comments Blood Pressure 126/80 08/05/2016 2:43 PM REPEAT CHIEF Pulse 86 08/05/2016 2:43 PM REPEAT CHIEF Temperature 37.1 C (98.8 F) 08/05/2016 2:43 PM REPEAT CHIEF Respiratory Rate 16 08/05/2016 2:43 PM REPEAT CHIEF Oxygen Saturation - - Inhaled Oxygen Concentration - - Weight 105.2 kg (232 lb) 08/05/2016 2:43 PM REPEAT CHIEF Height 157.5 cm (5' 2) 08/05/2016 2:43 PM REPEAT CHIEF Body Mass Index 42.43 08/05/2016 2:43 PM REPEAT CHIEF Plan of Treatment Health Maintenance Due Date [...] 05/16/1983 DTAP/TDAP/TD VACCINES (1 - Tdap) 1984 PAP SMEAR 1986 Cervical Cancer Screening 1995 PAP with HPV 1995 PNEUMOCOCCAL VACCINE 50+ (1 of 1 - PCV) 2015 Respiratory Syncytial Virus (RSV) Vaccine Pt: or over 60 yrs (1 - Risk 50-74 years 1-dose series) 2015 ZOSTER VACCINE (1 of 2) 2015 DEPRESSION SCREENING 07/28/2024 COVID-19 VACCINE (1 - 2024-2 6 season) 2025 INFLUENZA VACCINE (#1) 2025 HEPATITIS B VACCINE Aged Out No longe r eligible based on patient's age to complete this topic HIB VACCINE Aged Out No longer eligi [...] patient's age to complete this topic Insurance MEDICARE [facility] [place] [address] [place] [id number] Care Teams Photocopying Equipment Mechanic Relationship Specialty Start Date End Date Job Odell MD [address] [facility] [address] [place] [id number] PCP - General Internal Medicine 08/05/16
--- OUTSIDE RECORDS SUMMARY | 2025-06-27 13:42 | XMS_ITS | Clinical Summary ---
Author Organization [facility] Medical [facility] Building B Address [address] [place] [address] Care Team Providers Care Carton Packaging Machine Operator Name Role Phone Cesario De Los Santos MD Primary Care Provider [phone] Allergies Active Allergy Reactions Criticality Noted Date Comments Ibuprofen Hives,Shortness of breath High 04/17/2023 Levofloxacin Hives Medium 08/09/2016 Hives [place] Anaphylaxis High 02/03/2019 Medications lisinopril (PRINIVIL,ZESTR [place]) [...] 07/27/2002 EYE SURGERY Right age [address] 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 Testing performed by: [address] [address] Blood 04/18/2023 11:0 0 AM CDT 04/18/2023 11:04 AM CDT Lonny Delgado MD LAB BLOOD ORDERABLES Fin al Result PEÑA [address] [facility] [place] [address] * (ABNORMAL) Hemoglobin A1c (04/18/2023 11:00 AM CDT) Hgb A1C 6.9(H) 4.0 - 5.6 % PÑEA HESTER Comment:Testing performed by : [address] [address] Estimated Average Glucose 151 mg/dL PEÑA HESTER Comment: The ADA recommends reporting an estimated Average Glucose (eAG) with all Hemoglobin A1c results using the equation derived from a study of 507 normal and diabetic adults. Minority populations were underrepresented and children were not included. (Diabetes Care 31:5313-1832, 2008). The eAG is not equivalent to a fasting glucose. Testing performed by: [facility], [address] [place] [address], [place]., [address] Blood 04/18/2023 11:0 0 AM CDT 04/18/2023 11:04 AM CDT Lonny Delgado MD LAB BLOOD ORDERABLES Fin al Result PEÑA [address] [facility] [place] [address] * Lipid panel (11/25/2018) Blood specimen (specimen) Historical Provider LAB BLOOD ORDERABLES Gabi l Result from Last 3 Months or Most Recently Relevant to Health Maintenance Insurance MEDICARE [facility] Address: [facility] [address] [place] [address] [facility] MEDICARE ADVANTAGE IDPA [facility] MEDICARE ADVANTAGE [facility] MEDICARE ADVANTAGE [facility] MEDICARE ADVANTAGE IDPA Care Teams Carton Packaging Machine Operator Relationship Specialty Start Date End Date Cesario De Los Santos MD [address] [place] [address] [place] [address] PCP - General Internal Medicine 04/18/23
[2025-06-27 14:42] LABS: INR 1.1; Prothrombin Time 14.3 Seconds (11.1-14.7)
[2025-06-27 14:43] LABS: Partial Thromboplastin Time 28.2 Seconds (22.3-36.8)
[2025-06-27 14:50] LABS: Anion Gap 6 mmol/L (4-12); Blood Urea Nitrogen 19 mg/dL (7-17); Calcium 9.2 mg/dL (8.4-10.2); Carbon Dioxide 25 mmol/L (22-30); Chloride 106 mmol/L (98-107); Estimated Glomerular Filt Rate 57; Glucose 182 mg/dL (65-110); Potassium 4.7 mmol/L (3.4-5.0); Sodium 137 mmol/L (137-145)
== END 2025-06-27 12:32 | disposition home or self-care (01) ==
LOC: ANHSURGERY 12:37
PROVIDERS: Anesthesiology; PCP Internal Medicine; Visit Provider Surgery
DX: K42.0 Umbilical hernia with obstruction, without gangrene (principal); R74.8 Abnormal levels of other serum enzymes; B19.20 Unspecified viral hepatitis C without hepatic coma; Z01.818 Encounter for other preprocedural examination
CPT/HCPCS: 36415; 80048; 85610; 85730; 86850; 86900; 86901

== ENCOUNTER 2025-07-01 12:54 | Inpatient (IN) | payer MEDICARE, MEDICAID, SELFPAY ==
--- OUTSIDE RECORDS SUMMARY | 2025-02-16 10:00 | XMS_ITS ---
Author Organization [facility] Address [address] [place] [address] Phone [phone] Care Team Providers Care E Commerce Strategist Name Role Phone Cesario De Los Santos Primary Care Provider [phone] [facility], Adult LEXI Unavailabl e [phone] Results Component Value Reference Range Flag Notes Dehydroepiandrosterone (DHEA ) Sulfate Order date: 02/16/2025 Reviewed date:02/23/2025 03:06:33 PM Interpretation: Performing Lab:[employer] [place] [facility] [place] [facility], Phone - [phone], Director - Maggie Notes/Report: Test(s) 919262-Owhmzddnirj; 175678-Qvkbt Activity, Plasma; 510839- Normetanephrine, Pl; 609671-Fzhyvyboywzq, Pl; 207480- Androstenedione LCMS was developed and its performance characteristics determined by [employer]. It has not been cleared or approved by the Food and Drug Administration. DHEA-Sulfate 26.1 29.4-220.5 ug/dL L Cortisol Order date: 02/16/2025 Reviewed date:02/23/2025 03:06:33 PM Interpretation: Performing Lab:[employer] [place] [facility] [address] [facility] Phone - [phone], Director - Maggie Notes/Report: Test(s) 933412-Hoxovkqpxjd; 166416-Uiecc Activity, Plasma; 006173- Normetanephrine, Pl; 753368-Tdgjlcbshgct, Pl; 273552- Androstenedione LCMS was developed and its performance characteristics determined by [facility]. It has not been cleared or approved by the Food and Drug Administration. Cortisol 4.1 6.2-19.4 ug/dL L Please Note: The reference interval and flagging for this test is for an AM collection. If this is a PM collection please use: Cortisol PM: 2.3-11.9 Androstenedione LCMS Order date: 02/16/2025 Reviewed date:02/23/2025 03:06:33 PM Interpretation: Performing Lab:[address], Phone - [phone], Director - [facility] Notes/Report: Test(s) 373480-Rxxrfdkvvld; 468367-Kpxbe Activity, Plasma; 228076- Normetanephrine, Pl; 730987-Pavwzphsviha, Pl; 623471- Androstenedione LCMS was developed and its performance characteristics determined by [employer]. It has not been cleared or approved by the Food and Drug Administration. Androstenedione LCMS 11 41-262 ng/dL L Metanephrines, Frac., Pl. Fr ee Order date: 02/16/2025 Reviewed date:02/23/2025 03:06:33 PM Interpretation: Performing Lab:[facility] [place], [address] [place] [address], Phone - [phone], [facility] Notes/Report: Test(s) 665618-Tnppvrsehzj; 032925-Hsedo Activity, Plasma; 219834- Normetanephrine, Pl; 138211-Ydloyxqhkxex, Pl; 821230- Androstenedione LCMS was developed and its performance characteristics determined by [facility]. It has not been cleared or approved by the Food and Drug Administration. Normetanephrine, Pl 63.3 0.0-244.0 pg/mL Metanephrine, Pl <25.0 0.0-88.0 pg/mL Testosterone, Serum Order date: 02/16/2025 Reviewed date:02/23/2025 03:06:33 PM Interpretation: Performing Lab:[facility] [place], [address] [facility], Phone - [phone], Director - [facility] Notes/Report: Test(s) 848368-Nacngmyjiyd; 709032-Lqpny Activity, Plasma; 426995- Normetanephrine, Pl; 457997-Kgpycuynxjvn, Pl; 386393- Androstenedione LCMS was developed and its performance characteristics determined by [employer]. It has not been cleared or approved by the Food and Drug Administration. Testosterone <3 4-50 ng/dL L CBC With Differential/Platel et* Order date: 02/16/2025 Reviewed date:02/23/2025 03:06:33 PM Interpretation: Performing Lab:[facility] [place], [address] [facility], Phone - [phone], Director - [facility] Notes/Report: Test(s) 028580-Ublcnkzqnxi; 361523-Dcuor Activity, Plasma; 218280- Normetanephrine, Pl; 157842-Atvrwbleecxg, Pl; 997624- Androstenedione LCMS was developed and its performance characteristics determined by [employer]. It has not been cleared or approved by the Food and Drug Administration. WBC 9.4 3.4-10.8 x10E3/uL RBC 3.65 3.77-5.28 x10E6/uL L Hemoglobin 10.9 11.1-15.9 g/dL L Hematocrit 33.7 34.0-46.6 % L MCV 92 79-97 fL MCH 29.9 26.6-33.0 [...] x10E3/uL CMP 14 Comprehensive Metabol ic Panel* Order date: 02/16/2025 Reviewed date:02/23/2025 03:06:34 PM Interpretation: Performing Lab:[facility], [address] [facility], Phone - [phone], Director - [facility] Notes/Report: Test(s) 953244-Dphsorrsrlk; 454539-Ljayc Activity, Plasma; 869999- Normetanephrine, Pl; 225814-Rogoowwkleob, Pl; 455875- Androstenedione LCMS was developed and its performance characteristics determined by [employer]. It has not been cleared or approved by the Food and Drug Administration. Glucose 119 70-99 mg/dL H BUN 11 6-24 mg/dL Creatinine 0.90 0.57-1.00 mg/dL eGFR 74 >59 mL/min/1.73 BUN/Creatinine Ratio 12 9-23 Sodium 132 134-144 mmol/L L Potassium 3.9 3.5-5.2 mmol/L Chloride 94 96-106 mmol/L L Carbon Dioxide, Total 25 20-29 mmol/L Calcium 9.3 8.7-10.2 mg/dL Protein, Total 7.1 6.0-8.5 g/dL Albumin 4.2 3.8-4.9 g/dL Globulin, Total 2.9 1.5-4.5 g/dL Bilirubin, Total 0.5 0.0-1.2 mg/dL Alkaline Phosphatase 38 44-121 IU/L L AST (SGOT) 15 0-40 IU/L ALT (SGPT) 6 0-32 IU/L TSH Rfx on Abnormal to Free T4 Order date: 02/16/2025 Reviewed date:02/23/2025 03:06:34 PM Interpretation: Performing Lab:[facility], [address] [place] [address], Phone - [phone], Director - [facility] Notes/Report: Test(s) 499926-Vapvqylbuaz; 945181-Mqktu Activity, Plasma; 766613- Normetanephrine, Pl; 504055-Elgsdcbdcasu, Pl; 985114- Androstenedione LCMS was developed and its performance characteristics determined by [employer]. It has not been cleared or approved by the Food and Drug Administration. TSH 0.795 0.450-4.500 uIU/mL Aldosterone:Renin Ratio Order date: 02/16/2025 Reviewed date:02/23/2025 03:06:34 PM Interpretation: Performing Lab[facility], [address] [facility], [place], Phone - [phone], Director - Maggie Notes/Report: Test(s) 575512-Uzbxmsldomr; 462804-Pjeeh Activity, Plasma; 661680- Normetanephrine, Pl; 320299-Mqqyjijypypz, Pl; 941739- Androstenedione LCMS was developed and its performance characteristics determined by [employer]. It has not been cleared or approved by the Food and Drug Administration. Aldosterone <1.0 0.0-30.0 ng/dL Renin Activity, Plasma 0.378 0.167-5.380 ng/mL/hr Aldos/Renin Ratio <2.6 0.0-30.0 Units: ng/dL per ng/mL/hr REASON FOR VISIT lab Medications Medication SIG (Take, Route, Frequency, Duration) Notes Start Date End Date Diagnosis (ICD Code) Status dexAMETHasone 1 MG Tablet 1 tablet Orally Once a day; Duration: 30 day(s) 5 Kidney mass (ICD_10 - N28.89) Active Trulicity 4.5 MG/0.5ML Solution Pen-injector INJECT 4.5MG SUBCUTANEOUSLY EVERY WEEK; Duration: 28 days Type 2 diabete s mellitus without complication, without long-term current use of insulin (ICD_10 - E11.9) Active Buprenorphine HCl-Naloxone HCl 8-2 MG Tablet Sublingual 1 tablet under the tongue and allow to dissolve Sublingual twice a day; Duration: 30 days 5 Opioid use disorder (ICD_10 - F11.99) Active Senna 8.6 MG Tablet 2 tablets at bedtime as needed Orally Once a day 3 Obstipation (ICD_10 - K59.00) Active Linzess 290 MCG Capsule TAKE 1 CAPSULE BY MOUTH AT LEAST 30 MINUTE(S) BEFORE FIRST MEAL OF THE DAY ON AN EMPTY STOMACH; Duration: 30 Obstipation (ICD_10 - K59.00) Active Doxepin HCl 10 MG Capsule 1-2 capsule at bedtime Orally Once a day; Duration: 90 days As needed insomnia Not-Takin g Ketoconazole 2 % Cream 1 application Externally Once a day; Duration: 30 days 4 Yeast dermatitis (ICD_10 - B37.2) Not-Taking Atorvastatin Calcium 40 mg Tablet TAKE 1 TABLET BY MOUTH DAILY; Duration: 90 Not-Taking Lisinopril 20 mg Tablet TAKE 1 TABLET BY MOUTH DAILY Active Lidocaine 5 % Patch 1 patch remove after 12 hours Externally; Duration: 30 days Low back pain, unspecified (ICD_10 - M54.50) Active metFORMIN HCl 1000 mg Tablet TAKE 1 TABLET BY MOUTH TWICE A DAY WITH MEALS; Duration: 90 Not-Taking Amlactin Daily 12 % Lotion 1 application TO LEGS AND FEET Externally at night Xeroderma (ICD_10 - Q80.9) Active Nystatin 316593 UNIT/GM Cream 1 application TO RASH ON ABDOMEN Externally Twice a day Yeast dermatitis (ICD_10 - B37.2) Active Jardiance 25 mg Tablet TAKE 1 TABLET BY MOUTH DAILY Active Walker - Miscellaneous ROLLATOR WALKER FOR USE WITH AMBULATION for dx: G62.9 EXTERNAL DAILY Neuropathy (ICD_10 - G62.9) Active Fluticasone Propionate 50 MCG/ACT Suspension 1 spray in each nostril Nasally twice daily Allergic rhinitis (ICD_10 - J30.9) Not-Taking Vitamin B 12 500 MCG Tablet 1 tablet Orally Once a day Active Social History Sex Observation Social History Observation Description Sex Observation Female Sexual Orientation Social History Observation Description Sexual Orientation Straight or heterose xual Gender Identity Social History Observation Description Gender Identity Female Encounters Date Time Type Facility Location Provider Diagnosis 02/16/2025 10:00 AM Office Visit [address] [address] Cesario De Los Santos Adrenal mass E27.9 ; Fatigue R53.83 ; Kidney mass N28.89 and Type 2 diabetes mellitus without complication, without long-term current use of insulin E11.9 Assessments Encounter Date Diagnosis (ICD Code) Assessment Notes Treat ment Notes Section Notes 02/16/2025 Adrenal mass (ICD-10 - E27.9) 02/16/2025 Fatigue (ICD-10 - R53.83) 02/16/2025 Kidney mass (ICD-10 - N28.89) 02/16/2025 Type 2 diabetes mellitus without complication, without long-term current use of insulin (ICD-10 - E11.9) Plan Of Treatment No Information Medical (General) History Medical History History ICD Code Breast cancer Ovarian cancer Type 2 diabetes mellitus wit hout complication, without long-term current use of insulin E11.9 Moderate episode of recurrent major depr essive disorder F33.1 Anxiety F41.9 Neuropathy G62.9 Hepatitis C virus infection, unspecified chronicity B19.20 High cholesterol E78.00 Vitamin D deficiency E55.9 Essential hypertension I10 Migraine without aura and without status migrainosus, not intractable G43.009 Opioid use disorder F11.99 GERD without esophagitis K21.9 Surgical History Surgery Date(Month/Year) left breast removal of masses 1977 cholecystectomy 2001 right eye reconstructive surgery due to accident 1973 mole removal 03/2023 Hospitalization History Reason Date(Month/Year) Leg issue at [place] 05/2022 suicidal ideations - [facility] 06/2016 Progress Notes * Ed CUELLOB:1965 (60 yo F)Acc No.[id number]:02/16/2025 UNLOCKED PROGRESS NOTE Patient: Dona MESSER Provider: Alize De Los Santos :1965 A ge:59 Y S ex:Female Date:02/16/2025 Address:[address] [place], [place] [id number] Check In:09:50 AM WELFARE CASE WORKER Subjective: * Chief Complaints: * 1 . Lab. * Screening: * * Medical History: * Medications: T aking Vitamin B 12 500 MCG Tablet 1 tablet Orally Once a day , Taking Nystatin 049735 UNIT/GM Cream 1 application TO RASH ON [...] Date & Time - 02/16/2025) 3. K idal mass L AB: CBC With Differential/Platelet* (Collection Date & Time - 02/16/2025) 4. T ype 2 diabetes mellitus without complication, without long-term current use of insulin L AB: CMP 14 Comprehensive Metabolic Panel* (Collection Date & Time - 02/16/2025) * * Electronic signature of Sangita De Los Santos , [id number] on 06/30/2025 at 01:42 AM WELFARE CASE WORKER Sign off status: Pending * Provider: Alize De Los Santos Date: 0 02/16/2025 Generated for Diego pereira/Jyoti/Brady on: 1 08/31/2024 01:42 AM WELFARE CASE WORKER
--- OUTSIDE RECORDS SUMMARY | 2025-03-18 10:20 | XMS_ITS ---
Author Organization [facility] Address [address] [place] [address] Phone [phone] Care Team Providers Care Electronics Supervisor Name Role Phone Cesario De Los Santos Primary Care Provider [phone] [facility], Adult LEXI Unavailabl e [phone] REASON FOR VISIT ED F/U Cellulitis Social History Sex Observation Social History Observation Description Sex Observation Female Sexual Orientation Social History Observation Description Sexual Orientation Straight or heterose xual Gender Identity Social History Observation Description Gender Identity Female Encounters Date Time Type Facility Location Provider Diagnosis 03/18/2025 10:20 AM Office Visit [address] [place] [address] Cesario De Los Santos Plan Of Treatment No Information Medical (General) [...] Hospitalization History Reason Date(Month/Year) Leg issue at [facility] 05/2022 suicidal ideations - [facility] 06/2016 Progress Notes * Ed CUELLOB:1965 (60 yo F)Acc No.[id number]:03/18/2025 UNLOCKED PROGRESS NOTE Progress Note Patient: Dona MESSER Provider: Alize De Los Santos :1965 A ge:59 Y S ex:Female Date:03/18/2025 Address:[address] [place], [place] [id number] Subjective: * Chief Complaints: * 1 . ED F/U Cellulitis. * Screening: * * Medical History: Objective: * Vitals: Assessment: Plan: * Treatment: * * Electronic signature of Sangita De Los Santos , [id number] on 06/30/2025 at 01:42 AM CHAIN BUILDER LOOM CONTROL Sign off status: Pending * Provider: Alize De Los Santos Date: 0 03/18/2025 Generated for Diego pereira/Jyoti/Zhouitting on: 1 08/31/2024 01:42 AM CHAIN BUILDER LOOM CONTROL
[2025-04-01 09:10] VITALS: BMI 52.2
--- NOTE | 2025-04-01 09:11 | PC.NURSE ---
Addendum entered by Elle Delacruz RN 06/27/25 10:04: Pt called and updated on status for new date and time of surgery and instructions as below. Questions answered and pt to come for testing next day or two. Med list and H & P reconciled ANDREW Report to the Outpatient Waiting Room, entrance under the [facility] located off [facility], at time _10:00am_ on date _06-30-2025_. Planned Procedure Time: _12:00pm_.? Time changes happen often and if your time is changed the preop area will call you the afternoon before. - You and your visitor will be asked to self-screen and do not enter if you have any COVID symptoms. Please call surgeon if you need to reschedule. - A mask is optional within the hospital at this time. Patients may have clear liquids (water, carbonated beverages, clear teas, apple juice) until 3 hours prior to surgery with a maximum of 20 ounces. - No food from midnight until time of surgery and no smoking, or chewing tobacco (or any form of nicotine). No chewing gum, candy or mints. (0900am) Take only the following medications with a SIP of water on the morning of surgery: __None____ DO NOT STOP ANY OF YOUR OTHER PRESCRIPTION MEDICATIONS PRIOR TO SURGERY EXCEPT THE FOLLOWING Hold all vitamins and supplements for 3 days per anesthesiologist. Medications to discontinue per physician Pt stated that Dr De Los Santos told her to HOLD AM Dose only and restart post op. We will verify this ok w Anesthesia for DOS ANDREW Original Note: Report to the Outpatient Waiting Room, entrance [facility] located off [facility], at time _0700_ on date _[id number]_. Planned Procedure Time: _0900_.? Time changes happen often and if your time is changed the preop area will call you the afternoon before. - You and your visitor will be asked to self-screen and do not enter if you have any COVID symptoms. Please call surgeon if you need to reschedule. - A mask is optional within the hospital at this time. Patients may have clear liquids (water, carbonated beverages, clear teas, apple juice) until 3 hours prior to surgery with a maximum of 20 ounces. - No food from midnight until time of surgery and no smoking, or chewing tobacco (or any form of nicotine). No chewing gum, candy or mints. Take only the following medications with a SIP of water on the morning of surgery: __None____ DO NOT STOP ANY OF YOUR OTHER PRESCRIPTION MEDICATIONS PRIOR TO SURGERY EXCEPT THE FOLLOWING Hold all vitamins and supplements for 3 days per anesthesiologist. Medications to discontinue per physician Discussed Suboxone with Dr Mojica and asked the patient to discuss with whoever orders that for her if they could recommend tapering the dose down prior to surgery. Does not need to taper off completely, just to a lower dose. Date to take last dose Please no make-up, nail croatian, hairspray, perfume, deodorant, or body powder the day of surgery.? No jewelry (including any body piercings) or valuables the day of surgery, leave them at home.? Please take a shower or bath the night before, or the morning of, surgery with an antibacterial soap.? Wear comfortable, loose fitting clothing.? - Jewelry must be removed prior to entering the operating room.? Rings and piercings that are not removed may be cut off. - The hospital will not accept responsibility for valuables.? - Please leave all valuables, including medications, at home the day of surgery. If you are going home after surgery, a licensed cpr ambulance driver must drive you home.? - NO public transportation without another adult if you receive anesthesia. - We recommend that an adult stay with you for 24 hours following discharge. - We also recommend that you do not drive, make important decision, drink alcoholic beverages, or take any drugs that were not prescribed by your health care provider for at least 24 hours after your discharge time. Follow any additional instructions given to you from your surgeon. Telephone instructions given to __Dona___and asked if any additional questions and then verbalized understanding. Patient advised to call surgeon office or pre surgery nurse liaison [phone] if any additional questions.
[2025-06-27 09:51] VITALS: BMI 55.6
[2025-06-30] VITALS (16 sets, daily range): BP systolic 112–171; BP diastolic 39–82; PULSE 74–95; RESP 12–27; TEMP 35.7–37.2; O2SAT 91–100
--- OUTSIDE RECORDS SUMMARY | 2025-06-30 01:42 | XMS_ITS | Clinical Summary ---
Author Organization [facility] B Address [address] [place] [address] Care Team Providers Care Jig Filler Name Role Phone Cesario De Los Santos MD Primary Care Provider [phone] Allergies Active Allergy Reactions Criticality Noted Date Comments Ibuprofen Hives,Shortness of breath High 04/17/2023 Levofloxacin Hives Medium 08/09/2016 Hives [place] Anaphylaxis High 02/03/2019 Medications lisinopril (PRINIVIL,ZESTR [place]) [...] 07/27/2002 EYE SURGERY Right age 5 from [facility] BREAST SURGERY Left age 13-removed lump CARPAL [...] on file 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 Testing performed by: [address] [address] Blood 04/18/2023 11:0 0 AM CDT 04/18/2023 11:04 AM CDT Lonny Delgado MD LAB BLOOD ORDERABLES Fin al Result PEÑA [address] [facility] Department [place] [address] * (ABNORMAL) Hemoglobin A1c (04/18/2023 11:00 AM CDT) Hgb A1C 6.9(H) 4.0 - 5.6 % PEÑA HESTER Comment:Testing performed by : [address] [address] Estimated Average Glucose 151 mg/dL PEÑA HESTER Comment: The ADA recommends reporting an estimated Average Glucose (eAG) with all Hemoglobin A1c results using the equation derived from a study of 507 normal and diabetic adults. Minority populations were underrepresented and children were not included. (Diabetes Care 31:9411-6582, 2008). The eAG is not equivalent to a fasting glucose. Testing performed by: [facility], [address] [place] [address], [place]., [address] Blood 04/18/2023 11:0 0 AM CDT 04/18/2023 11:04 AM CDT Lonny Delgado MD LAB BLOOD ORDERABLES Fin al Result PEÑA [address] [facility] Department [place] [address] * Lipid panel (11/25/2018) Blood specimen (specimen) Historical Provider LAB BLOOD ORDERABLES Gabi l Result from Last 3 Months or Most Recently Relevant to Health Maintenance Insurance MEDICARE [facility] MEDICARE AD[facility]ANTAGE [facility] Address: [address] [address] [place] [address] IDPA [facility] MEDICARE ADVANTAGE [facility] MEDIC[facility] Address: [address] [address] [place] [address] [facility] MEDICARE ADVANTAGE [facility] MEDIC[facility] Address: [address] [address] [place] [address] [facility] MEDICARE ADVANTAGE [facility] MEDIC[facility] Address: [address] [address] [place] [address] IDPA Care Teams Jig Filler Relationship Specialty Start Date End Date Cesario De Los Santos MD [address] [place] [address] [place] [address] PCP - General Internal Medicine 04/18/23
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
--- OUTSIDE RECORDS SUMMARY | 2025-06-30 01:42 | XMS_ITS | Clinical Summary ---
Author Organization [facility] Address [address] [place] [address] Care Team Providers Care Mineralogy Professor Name Role Phone Job Odell MD Primary Care Provider [phone] Source Comments [facility],non-owned Affiliates and Associated Physician Practices is amultiple site organization consisting of ambulatory clinics and hospital sitesin [place], [place], [place] and [place]. This disclosure is being madepursuant to the Care Everywhere program and may not contain all information available regarding this patient. Last updated 18.[facility] [employer] Allergies Active Allergy Reactions Criticality Noted Date [...] on file Legal Sex Female 12:51 PM MECHANICAL RESEARCH ENGINEER Gender Identity Not on file Sexual Orientation Not on file Last Filed Vital Signs Vital Sign Reading Time Taken Comments Blood Pressure 126/80 08/05/2016 2:43 PM MECHANICAL RESEARCH ENGINEER Pulse 86 08/05/2016 2:43 PM MECHANICAL RESEARCH ENGINEER Temperature 37.1 C (98.8 F) 08/05/2016 2:43 PM MECHANICAL RESEARCH ENGINEER Respiratory Rate 16 08/05/2016 2:43 PM MECHANICAL RESEARCH ENGINEER Oxygen Saturation - - Inhaled Oxygen Concentration - - Weight 105.2 kg (232 lb) 08/05/2016 2:43 PM MECHANICAL RESEARCH ENGINEER Height 157.5 cm (5' 2) 08/05/2016 2:43 PM MECHANICAL RESEARCH ENGINEER Body Mass Index 42.43 08/05/2016 2:43 PM MECHANICAL RESEARCH ENGINEER Plan of Treatment Health Maintenance Due Date [...] 05/16/1983 DTAP/TDAP/TD VACCINES (1 - Tdap) 1984 PNEUMOCOCCAL VACCINE 50+ (1 of 1 [...] age to complete this topic Insurance MEDICARE [facility] MEDICARE Care Teams Mineralogy Professor Relationship Specialty Start Date End Date Job Odell MD [address] [place] [address] [address] [place] [id number] PCP - General Internal Medicine 08/05/16
[2025-06-30] MEDS: ACETAMINOPHEN 500 MG TABLET 1000 MG PO (11:22)
[2025-06-30] MEDS: KETOROLAC 15 MG/ML VIAL (*BKC) IV PUSH ×3 (11:24→22:51)
--- NOTE | 2025-06-30 11:30 | P.PNAN_ITS ---
Anes - Initial Pre Proc Eval Procedure: Operation Date: 06/30/25 12:00 Proposed Procedures p Robotic Assisted Incarcerated Umbilical Hernia Repair with Mesh - Sumit Gustafson MD Date/Time: 06/30/25 11:30 Surgeon: Sumit Gustafson MD Pre Op Diagnosis: Incarcerated Umbilical Hernia(5CM) Patient Data Age: 60 Gender: F Height: 1.57 m Weight: 138 kg Allergies Allergy/AdvReac Type Severity Reaction Status Date / Time ibuprofen Allergy Mild hives Verified 06/30/25 11:22 strawberry Allergy Mild hives Verified 06/30/25 11:22 Home Medications ?Medication ?Instructions ?Recorded ?Confirmed ?Type buprenorphine 8 mg-naloxone 2 mg 1 film sublingual BID 06/05/22 06/13/25 History sublingual film (Suboxone) dulaglutide 4.5 mg/0.5 mL 4.5 mg subcut DIRECTED 06/13/25 History subcutaneous pen injector (Trulicity) linaclotide 290 mcg capsule 290 mcg PO DAILY 04/20/23 06/13/25 History (Linzess) compress.stocking,knee,reg,lrg #4 ea 01/02/24 06/13/25 Rx lisinopril 20 mg tablet 20 mg PO DAILY 04/01/2505/28 History Laboratory Tests 06/30/25 10:13 POC Capillary Glucose 157 H mg/dl (65-105) Patient hx anesthesia problems: none Family hx anesthesia problems: none Results Review: All pre-operative results and documents have been reviewed as part of the pre- operative evaluation. [facility] Past Medical History Medical History Gallbladder disorder Asthma Allergies Fatty liver Encounter for monitoring Suboxone maintenance therapy Constipation due to opioid therapy Colon cancer screening Elevated liver enzymes Hepatitis C DM (diabetes mellitus) H/O: HTN (hypertension) Surgical History Surgical History Hx of carpal tunnel repair Hx of cholecystectomy 2000 History of breast surgery Hx of eye surgery Family History Family History Father Diabetes mellitus Hypertension Mother Diabetes mellitus Hypertension Sibling Diabetes mellitus Hypertension Social History Social History Smoking packs per day: 0.5 Smoking cigarettes per day: 10.0 Years smoked: 10 Smoking pack-years: 5.00 Smoking status: Former smoker Tobacco type: cigarettes Second hand tobacco smoke exposure: Yes Additional smoking assessment comments: QUIT smoking 2 cigarettes a day 06/11/25 Alcohol intake: former Substance use: former Substance use type: heroin and other Other substance usage details: 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 taking Suboxone BID daily Lack of Transportation: No Lack of Food: Never True Current Housing: I Do Not Have Housing Concerned About Future Housing: No Difficulty Paying Gas/Electric Bills: No Difficulty Paying for Meds: No 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ation: Grade School Difficulty w/ Childcare or Family Care: No Living arrangements: with family Gender identity (if verbalized by the patient): Female Spiritual care concerns: No Anes - Eval Final PreProcedure Day of Procedure 06/30/25 11:30 Patient weight: super morbidly obese Heart: regular rate and rhythm Lungs: clear to auscultation Airway: Mallampati scale class II and special considerations poor dentition Neurological: alert and oriented Last oral intake: >/= 8 hours ASA classification: III Emergent: no Anesthetic plan: proceed Anesthesia type and monitoring: general ETT and standard monitoring Results Review: All pre-operative results and documents have been reviewed as part of the pre- operative evaluation. Informed Consent: The patient's anesthetic plan and its attendant risks including NC, CVA, respiratory distress and open procedure and benefits were discussed with the patient/family/POA. Questions were solicited and answers provided to the satisfaction of the patient/family/POA.
[2025-06-30] MEDS: LACTATED RINGERS 1,000 ML 30 ML IV CONT ×2 (11:42→14:50)
--- NOTE | 2025-06-30 11:43 | WPDHPUPDATE1 ---
History and Physical Update Update Date/Time: 06/30/25 11:43 History and Physical has been reviewed, including an updated exam of the patient. There are NO changes in the patient's condition. Risks, benefits, and alternatives have been discussed and questions answered. Patient agrees to proceed with procedure.
[2025-06-30] MEDS: ceFAZolin 3 GM/D5W 100 ML 100 ML IVPB (12:20)
--- NOTE | 2025-06-30 14:49 | P.OP_ITS ---
Procedure Note - Detailed Date of Procedure 06/30/25 Pre-op Diagnosis Incarcerated Umbilical Hernia(4-5 CM) Post-op Diagnosis Same (4 cm defect) Procedure Performed Robotic laparoscopic repair incarcerated umbilical hernia with 4 cm defect, with mesh Surgeon Sumit Gustafson MD Quality Control Specialist Justo ADAME Anesthesia General and Local Indications Patient has had a longstanding incarcerated umbilical hernia. The hernia had caused skin wounds on the adjoining umbilical skin. She had an extensive preoperative workup and wound care until the umbilical skin wounds had healed. The umbilical skin is still dusky and the hernia is tender. She is taken to surgery now for repair of a 4-5 cm chronically incarcerated umbilical hernia Findings Large amount of omentum was incarcerated. No bowel was involved. She had a large hernia sac which was removed. No other significant findings were noted Description of Procedure Patient was taken to surgery and induced into general anesthesia. The abdomen was prepped and draped. Trocars were placed in the usual fashion starting with a left subcostal applied Medical optical trocar. We placed this and then the 2 robotic ports placed on the left side of the abdomen. We changed out the optical trocar for a robotic 8 mm trocar under direct visualization. The robotic arms were brought in and docked. The instruments and camera were positioned appropriately. Surgeon went to the robotic console. The omentum was able to be gently reduced. Only a few adhesions at the fascial margins had to be divided. Once this was reduced, I was able to reduce and then remove the large hernia sac. This was removed from the abdominal cavity. The the hernia measured 4 cm in transverse dimension and 3 cm in length. I dissected some of the midline properitoneal fat from the caudal end of the hernia on further towards the pubis so that the mesh would be in direct contact with the undersurface of the abdominal wall. There was no significant midline properitoneal fat going cephalad. 0 Stratafix was brought into the field. I closed the hernia defect in transverse orientation. To 0 V lock suture were introduced. A 15 x [address] hernia mesh patch was rolled and introduced into the abdomen. I placed the needle from the Stratafix through the center of the mesh and then used the needle to secure it to the anterior abdominal wall. I then used the 2-0 V lock and started on the right lateral aspect of the mesh and circumferentially sutured the Stratafix around the entire circumference of the mesh. Four of the 12 in 2 0 V lock suture were required. The mesh looked to be secure to the anterior abdominal wall and in good position. I then used another Stratafix suture and in running fashion sutured the mesh to the anterior abdominal wall to facilitate incorporation. We then removed all the needles. The mesh looked to be in good position and secure. We removed the instruments and undocked the robot. CO2 was evacuated from the abdominal cavity. I reviewed the umbilical skin and it appeared to be quite viable. I saw no evidence of injury to the skin although it was dusky prior to the surgery. Trocars were removed and the skin incisions were closed with subcuticular 4-0 Monocryl skin suture. The wounds were dressed with Exofin surgical adhesive. The patient was then awakened and extubated. She was taken to recovery in good condition. Implants 10 x [address] hernia mesh patch Estimated Blood Loss -5 Drains No Packing No Pathology None sent Complications None Condition Stable Disposition PACU [facility] Billing Surgery - Charge Forward: Surgery Billing (Robotic laparoscopic repair incarcerated umbilical hernia with 4 cm defect, with mesh)
[2025-06-30] MEDS: ONDANSETRON INJ 4 MG/2 ML VIAL IV PUSH (16:27)
[2025-06-30] MEDS: fentaNYL CITRATE INJ (*CRX) 100 MCG/2 ML VIAL 25 MCG IV PUSH ×8 (16:27→16:50)
--- NOTE | 2025-06-30 17:33 | ADMGEN ---
This patient, Dona Cuello, was admitted to [address] [facility] Surg Room 303-01. Patient/family oriented to hospital policies and general routines including ID bracelet, bed and alarms, visiting hours, pain management, procedures, bathroom and other care routines, personal items, smoking policy, room service/diet, and visiting hours. Information on how to activate the Rapid Response Team has been discussed. Patient/Family are encouraged to report perceived risks to care and to ask questions if they do not understand what they are told or what they should do. report recieved from Xuan in [place].
[2025-06-30] MEDS: LACTATED RINGERS 1,000 ML 100 ML IV CONT (17:50)
[2025-06-30] MEDS: BUPRENORPHINE/NALOXONE (*CRX) 4 MG/1 MG SL FILM 2 EACH SUBLINGUAL (20:41)
[2025-06-30] MEDS: SENNA/DOCUSATE SODIUM TABLET 2 TAB PO (20:42)
[2025-06-30] MEDS: ENOXAPARIN 30 MG/0.3 ML SYRINGE SUB-Q (20:44)
--- NOTE | 2025-06-30 23:39 | P.HP_ITS ---
H&P: HPI History of Present Illness Date/Time: 06/30/251929 [facility] Past Medical History Medical History Gallbladder disorder Asthma Allergies Fatty liver Encounter for monitoring Suboxone maintenance therapy Constipation due to opioid therapy Colon cancer screening Elevated liver enzymes Hepatitis C DM (diabetes mellitus) H/O: HTN (hypertension) Surgical History Surgical History Hx of carpal tunnel repair Hx of cholecystectomy 2000 History of breast surgery Hx of eye surgery Family History Family History Father Diabetes mellitus Hypertension Mother Diabetes mellitus Hypertension Sibling Diabetes mellitus Hypertension Social History Social History Smoking packs per day: 0.5 Smoking cigarettes per day: 10.0 Years smoked: 10 Smoking pack-years: 5.00 Smoking status: Former smoker Tobacco type: cigarettes Second hand tobacco smoke exposure: No Additional smoking assessment comments: QUIT smoking 2 cigarettes a day 06/11/25 Alcohol intake: former Substance use: former Substance use type: heroin, painkillers and other Other substance usage details: 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 taking Suboxone BID daily Lack of Transportation: No Lack of Food: Never True Current Housing: I Do Not Have Housing Concerned About Future Housing: No Difficulty Paying Gas/Electric Bills: No Difficulty Paying for Meds: No 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ation: High School Diploma/GED Difficulty w/ Childcare or Family Care: No Living arrangements: with family Gender identity (if verbalized by the patient): Female Spiritual care concerns: No Meds Home Medications and Allergies Home Medications ?Medication ?Instructions ?Recorded ?Confirmed ?Type buprenorphine 8 mg-naloxone 2 mg 1 film sublingual BID 06/05/22 06/13/25 History sublingual film (Suboxone) dulaglutide 4.5 mg/0.5 mL 4.5 mg subcut DIRECTED 06/13/25 History subcutaneous pen injector (Trulicity) linaclotide 290 mcg capsule 290 mcg PO DAILY 04/20/23 06/13/25 History (Linzess) compress.stocking,knee,reg,lrg #4 ea 01/02/24 06/13/25 Rx lisinopril 20 mg tablet 20 mg PO DAILY 04/01/2505/28 History Allergies Allergy/AdvReac Type Severity Reaction Status Date / Time ibuprofen Allergy Mild hives Verified 06/30/25 17:34 strawberry Allergy Mild hives Verified 06/30/25 17:34 Vital Signs Vital Signs - 24 hr 06/30/25 08:42 06/30/25 14:50 06/30/25 15:05 Temperature 98.2 F 98.9 F Pulse Rate 95 83 79 Respiratory Rate 16 21 H 23 H Blood Pressure 148/82 H 114/39 L 112/79 Pulse Oximetry 96 100 100 Oxygen Delivery Room Air Simple Face Mask Simple Face Mask Oxygen Flow Rate 8 8 06/30/25 15:20 06/30/25 15:35 06/30/25 15:50 Temperature Pulse Rate 78 74 76 Respiratory Rate 22 H 23 H 27 H Blood Pressure 152/54 H 153/50 H 169/54 H Pulse Oximetry 100 100 91 Oxygen Delivery Simple Face Mask Simple Face Mask Room Air Oxygen Flow Rate 8 8 06/30/25 16:05 06/30/25 16:20 06/30/25 16:35 Temperature Pulse Rate 76 82 80 Respiratory Rate 18 18 19 Blood Pressure 166/60 H 164/68 H 120/66 Pulse Oximetry 92 92 94 Oxygen Delivery Room Air Room Air Room Air Oxygen Flow Rate 06/30/25 16:50 06/30/25 17:02 06/30/25 17:15 Temperature Pulse Rate 80 74 82 Respiratory Rate 16 12 18 Blood Pressure 157/77 H 155/72 H 153/74 H Pulse Oximetry 92 92 94 Oxygen Delivery Room Air Room Air Oxygen Flow Rate 06/30/25 17:30 06/30/25 18:00 06/30/25 18:54 Temperature 96.7 F L 96.3 F L 96.3 F L Pulse Rate 77 82 83 Respiratory Rate 17 20 20 Blood Pressure 157/81 H 171/78 H 159/73 H Pulse Oximetry 93 96 95 Oxygen Delivery Oxygen Flow Rate 06/30/25 22:39 Temperature 98.3 F Pulse Rate 81 Respiratory Rate 17 Blood Pressure 132/65 Pulse Oximetry 98 Oxygen Delivery Oxygen Flow Rate
--- NOTE | 2025-06-30 23:41 | PM.IMCN2 ---
Assessment and Plan Assessment and plan (1) Incarcerated umbilical hernia: Code(s): K42.0 - Umbilical hernia with obstruction, without gangrene Status: Acute Assessment and Plan: Patient with 10 year history of umbilical hernia. Recently noticed increased pain and overlying skin changes. robotic laparoscopic repair of chronically incarcerated umbilical hernia with mesh on 06/30. -increase diet as tolerated -encourage ambulation -incentive spirometry -continue Suboxone -p.r.n. pain management with acetaminophen and ketorolac -do not order additional opioids (2) Constipation due to opioid therapy: Code(s): K59.03 - Drug induced constipation; T40.2X5A - Adverse effect of other opioids, initial encounter Status: Chronic Assessment and Plan: Patient with past history of heroin use. Now on Suboxone maintenance therapy for the past 5 years. -continue Linzess, MiraLax (3) Non-insulin dependent diabetes mellitus: Status: Chronic Assessment and Plan: - hypoglycemia protocol - POC blood glucose ACHS - home medication: Trulicity - correct regimen ordered: Low-dose sliding scale (4) Hypertension: Code(s): I10 - Essential (primary) hypertension Status: Chronic Assessment and Plan: Continue lisinopril Prior Studies I have reviewed the following patient records and this information was taken into consideration when formulating the assessment and plan.: previous labs, previous ER visits, previous hospitalizations and previous clinic visits Time Spent with Patient Time with patient: 45 - 74 minutes HPI Date of Consult Consult date: 07/01/25 Requesting Physician: Sumit Gustafson MD Primary Care Provider: Cesario De Los Santos MD Consult Narrative Reason for consult: Medical management Narrative: Dona Cuello is a 60 year old female with past medical history of constipation, hypertension, DM 2, opioid use disorder on Suboxone presents to the hospital on 06/30/2025 for a scheduled robotic repair of an umbilical hernia with mesh. Hernia has been present for about 10 years but the patient has recently noticed pain to the area and purple coloration of the overlying skin. The hernia is reducible but painful. Patient's initial surgery was supposed to be in March but due to an EKG abnormality, she had to get clearance from Cardiology. Patient was evaluated and had a negative stress test and was given clearance to proceed with the umbilical hernia surgery. [facility] Past Medical History Medical History Gallbladder disorder Asthma Allergies Fatty liver Encounter for monitoring Suboxone maintenance therapy Constipation due to opioid therapy Colon cancer screening Elevated liver enzymes Hepatitis C DM (diabetes mellitus) H/O: HTN (hypertension) Surgical History Surgical History Hx of carpal tunnel repair Hx of cholecystectomy 2000 History of breast surgery Hx of eye surgery Family History Family History Father Diabetes mellitus Hypertension Mother Diabetes mellitus Hypertension Sibling Diabetes mellitus Hypertension Social History Social History Smoking packs per day: 0.5 Smoking cigarettes per day: 10.0 Years smoked: 10 Smoking pack-years: 5.00 Smoking status: Former smoker Tobacco type: cigarettes Second hand tobacco smoke exposure: No Additional smoking assessment comments: QUIT smoking 2 cigarettes a day 06/11/25 Alcohol intake: former Substance use: former Substance use type: heroin, painkillers and other Other substance usage details: 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 taking Suboxone BID daily Lack of Transportation: No Lack of Food: Never True Current Housing: I Do Not Have Housing Concerned About Future Housing: No Difficulty Paying Gas/Electric Bills: No Difficulty Paying for Meds: No 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ation: High School Diploma/GED Difficulty w/ Childcare or Family Care: No Living arrangements: with family Gender identity (if verbalized by the patient): Female Spiritual care concerns: No Meds Home Medications and Allergies Home Medications ?Medication ?Instructions ?Recorded ?Confirmed ?Type buprenorphine 8 mg-naloxone 2 mg 1 film sublingual BID 06/05/22 06/13/25 History sublingual film (Suboxone) dulaglutide 4.5 mg/0.5 mL 4.5 mg subcut DIRECTED 04/20/23 06/13/25 History subcutaneous pen injector (Trulicity) linaclotide 290 mcg capsule 290 mcg PO DAILY 04/20/23 06/13/25 History (Linzess) compress.stocking,knee,reg,lrg #4 ea 01/02/24 06/13/25 Rx lisinopril 20 mg tablet 20 mg PO DAILY 04/01/25 06/13/25 History Allergies Allergy/AdvReac Type Severity Reaction Status Date / Time ibuprofen Allergy Mild hives Verified 06/30/25 17:34 strawberry Allergy Mild hives Verified 06/30/25 17:34 Vital Signs Vital Signs - 24 hr 06/30/25 08:42 06/30/25 14:50 06/30/25 15:05 Temperature 98.2 F 98.9 F Pulse Rate 95 83 79 Respiratory Rate 16 21 H 23 H Blood Pressure 148/82 H 114/39 L 112/79 Pulse Oximetry 96 100 100 Oxygen Delivery Room Air Simple Face Mask Simple Face Mask Oxygen Flow Rate 8 8 06/30/25 15:20 06/30/25 15:35 06/30/25 15:50 Temperature Pulse Rate 78 74 76 Respiratory Rate 22 H 23 H 27 H Blood Pressure 152/54 H 153/50 H 169/54 H Pulse Oximetry 100 100 91 Oxygen Delivery Simple Face Mask Simple Face Mask Room Air Oxygen Flow Rate 8 8 06/30/25 16:05 06/30/25 16:20 06/30/25 16:35 Temperature Pulse Rate 76 82 80 Respiratory Rate 18 18 19 Blood Pressure 166/60 H 164/68 H 120/66 Pulse Oximetry 92 92 94 Oxygen Delivery Room Air Room Air Room Air Oxygen Flow Rate 06/30/25 16:50 06/30/25 17:02 06/30/25 17:15 Temperature Pulse Rate 80 74 82 Respiratory Rate 16 12 18 Blood Pressure 157/77 H 155/72 H 153/74 H Pulse Oximetry 92 92 94 Oxygen Delivery Room Air Room Air Oxygen Flow Rate 06/30/25 17:30 06/30/25 18:00 06/30/25 18:54 Temperature 96.7 F L 96.3 F L 96.3 F L Pulse Rate 77 82 83 Respiratory Rate 17 20 20 Blood Pressure 157/81 H 171/78 H 159/73 H Pulse Oximetry 93 96 95 Oxygen Delivery Oxygen Flow Rate 06/30/25 22:39 Temperature 98.3 F Pulse Rate 81 Respiratory Rate 17 Blood Pressure 132/65 Pulse Oximetry 98 Oxygen Delivery Oxygen Flow Rate Exam Narrative: GENERAL: non-toxic appearing, in no acute distress. Morbidly obese HEAD: Normocephalic, atraumatic. EYES: PERRLA. Conjunctivae clear. NOSE: Normal no drainage. THROAT: Pharynx clear, no exudate. NECK: Trachea midline. No adenopathy, no masses. RESPIRATORY: Airway patent, respirations nonlabored. Breath sounds decreased bilaterally CARDIOVASCULAR: Regular rate and rhythm BREASTS: Defer GASTROINTESTINAL: Abdomen is soft with mild tenderness around lap sites. For lap sites with surgical glue intact. Bowel sounds present. GENITOURINARY: Defer MUSCULOSKELETAL: Moves all extremities. No gross deformities. SKIN: Warm, dry, normal color. Wound to right lateral ankle covered with Band-Aid. NEURO: A&O X4. Speech clear PSYCHIATRIC: Normal interaction Results Labs 07/01/25 05:57 07/01/25 05:57 Quality VTE Prophylaxis VTE prophylaxis: mechanical ordered
[2025-07-01] VITALS (7 sets, daily range): BP systolic 121–154; BP diastolic 56–73; PULSE 77–93; RESP 16–18; TEMP 36.2–36.8; O2SAT 92–97
--- NOTE | ~2025-07-01 | XR_ITS ---
EXAM/PROCEDURE: XR UGI water soluble w sbs HISTORY: NAUSEA AFTER HERNIA REPAIR COMPARISON: None available. TECHNIQUE: Single-contrast water-soluble upper GI and small bowel follow-through series performed. Fluoroscopy time: 0.4 minutes DAP: 242.489 [place] per square centimeter Number of images: 33 Contrast: 350 mL Omnipaque 350 contrast. FINDINGS: On the upper GI portion, tertiary contractions were noted with no stricture stenosis or occlusion. No large ulceration seen. In the stomach, no obvious abnormality identified, however the stomach is poorly distended. No extravasation of contrast or large mass effect identified. Contrast flowed readily into the proximal small bowel. On the small bowel series, contrast flowed readily into the large intestine within 1 hour. Contrast may be present in the right hemicolon at 30 minutes. No extravasation of contrast or evidence of obstruction. IMPRESSION: 1. Limited single contrast exam as above demonstrating tertiary contractions in the esophagus suggesting esophagitis. 2. No evidence of obstruction. Rapid transit of contrast with contrast possibly present in the large intestine within 30 minutes. Reviewed, dictated and finalized at location A. OUT OPERATOR
--- NOTE | ~2025-07-01 | CT_ITS ---
EXAM/PROCEDURE: CT abdomen pelvis wo con HISTORY: LEFT PERIUMBILICAL PAIN STATUS POST HERNIA REPAIR COMPARISON: October 24, 2019 TECHNIQUE: Noncontrast CT of the abdomen and pelvis performed FINDINGS: The lung bases are clear other than minimal atelectatic and/or fibrotic changes. Heart size normal with trace pericardial effusion. Within the umbilicus, a 6.1 x 4.6 x 4.4 cm fairly circumscribed fluid attenuation present with nondependent gaseous accumulation. There is also moderately extensive adjacent infiltrative changes in the surrounding extra peritoneal soft tissues. Within the peritoneum, the bowel gas pattern is nonobstructive with no free air free fluid or pneumatosis. 2 cm left adrenal nodule unchanged. No hydroureteronephrosis. Cholecystectomy clips. Pancreas spleen stomach and liver unremarkable. There are normal size. No grossly inflamed appendix. Urinary bladder nondistended with what appears to be remnant urachus with mildly increased strandy changes compared to the previous study. Diffuse degenerative changes in the bones which otherwise appear intact. IMPRESSION: 1. Directed noncontrast exam demonstrating 6.1 x 4.6 x 4.4 cm extraperitoneal umbilical fluid accumulation with gas pockets and adjacent infiltrative changes which may represent abscess and adjacent cellulitis. Correlate with clinical presentation and exam. 2. Mildly increased fatty changes about what appears to be a urachal remnant; developing inflammation or infection involving the urachus is not excluded. Reviewed, dictated and finalized at location A. CIGAR MAKING SUPERVISOR IMPRESSION: 1. Directed noncontrast exam demonstrating 6.1 x 4.6 x 4.4 cm extraperitoneal u mbilical fluid accumulation with gas pockets and adjacent infiltrative changes which may represent abscess and adjacent cellulitis. Correlate with clinical pr esentation and exam. 2. Mildly increased fatty changes about what appears to be a urachal remnant; d eveloping inflammation or infection involving the urachus is not excluded.
[2025-07-01] MEDS: KETOROLAC 15 MG/ML VIAL (*BKC) IV PUSH ×3 (04:20→20:08)
[2025-07-01] MEDS: LINACLOTIDE 145 MCG CAPSULE 290 MCG PO (06:32)
[2025-07-01 06:35] LABS: Hematocrit 32.6 % (37.0-47.0); Hemoglobin 9.9 g/dL (12.0-15.0); Mean Corpuscular HGB Conc 30.4 g/dl (32-36); Mean Corpuscular Hemoglobin 30.1 pg (26-34); Mean Corpuscular Volume 99.1 fl (80-100); Platelet Count Result 235 k/mm3 (150-375); Red Blood Count 3.29 M/mm3 (4.2-5.4); White Blood Count 12.2 K/mm3 (4.5-10.0)
[2025-07-01 06:58] LABS: Anion Gap 0 mmol/L (4-12); Blood Urea Nitrogen 16 mg/dL (7-17); Calcium 8.8 mg/dL (8.4-10.2); Carbon Dioxide 32 mmol/L (22-30); Chloride 104 mmol/L (98-107); Estimated CRCL calculation 83 ml/min; Estimated Glomerular Filt Rate > 60; Glucose 137 mg/dL (65-110); Potassium 4.5 mmol/L (3.4-5.0); Sodium 136 mmol/L (137-145)
[2025-07-01] MEDS: ENOXAPARIN 30 MG/0.3 ML SYRINGE SUB-Q ×2 (08:57→20:09)
[2025-07-01] MEDS: BUPRENORPHINE/NALOXONE (*CRX) 4 MG/1 MG SL FILM 2 EACH SUBLINGUAL ×2 (08:58→16:40)
--- NOTE | 2025-07-01 10:59 | P.PNGS_ITS ---
Progress Note: A&P Assessment and Plan (1) Incarcerated umbilical hernia: Code(s): K42.0 - Umbilical hernia with obstruction, without gangrene Status: Acute Assessment and Plan: POD1 s/p robotic umbilical hernia repair. Patient is healing appropriately. Ambulating with walker. Voiding appropriately. Tolerating full liquids without nausea or vomiting. * Continue full liquid diet today. * Encourage OOB, up to chair, and ambulation with walker. (2) Morbid obesity with BMI of 50.0-59.9, adult: Code(s): E66.01 - Morbid (severe) obesity due to excess calories; Z68.43 - Body mass index [BMI] 50.0-59.9, adult Status: Acute (3) Type 2 diabetes mellitus: Code(s): E11.9 - Type 2 diabetes mellitus without complications Status: Acute (4) Constipation due to opioid therapy: Code(s): K59.03 - Drug induced constipation; T40.2X5A - Adverse effect of other opioids, initial encounter Status: Chronic Assessment and Plan: Avoid any narcotic pain medications. Continue bowel stimulation with Senna/Docusate and Miralax. Plan Discussed patient's case and plan of care with Dr. Gustafson. Subjective Subjective Date/Time Seen: 07/01/25 10:59 Post Op day: 1 ( Robotic laparoscopic incarcerated umbilical hernia repair with mesh.) Patient reports: no new complaints, tolerating liquids well and afebrile Interval history: pod 1. Patient doing well. Ambulating with walker around room. Voiding appropriately. Tolerating liquid diet. No bowel movement or flatus yet. Exam Const: General: comfortable and no acute distress GI: Inspection: Pannus present and obesity GI Palp: Yes abdominal tenderness ( Periumbilical) and Yes Soft to palpation Auscultation: normal bowel sounds Objective Data Vital Signs Vital Signs: Vital Signs - 24 hr 06/30/25 14:50 06/30/25 15:05 06/30/25 15:20 Temperature 98.9 F Pulse Rate 83 79 78 Respiratory Rate 21 H 23 H 22 H Blood Pressure 114/39 L 112/79 152/54 H Pulse Oximetry 100 100 100 Oxygen Delivery Simple Face Mask Simple Face Mask Simple Face Mask Oxygen Flow Rate 8 8 8 06/30/25 15:35 06/30/25 15:50 06/30/25 16:05 Temperature Pulse Rate 74 76 76 Respiratory Rate 23 H 27 H 18 Blood Pressure 153/50 H 169/54 H 166/60 H Pulse Oximetry 100 91 92 Oxygen Delivery Simple Face Mask Room Air Room Air Oxygen Flow Rate 8 06/30/25 16:20 06/30/25 16:35 06/30/25 16:50 Temperature Pulse Rate 82 80 80 Respiratory Rate 18 19 16 Blood Pressure 164/68 H 120/66 157/77 H Pulse Oximetry 92 94 92 Oxygen Delivery Room Air Room Air Room Air Oxygen Flow Rate 06/30/25 17:02 06/30/25 17:15 06/30/25 17:30 Temperature 96.7 F L Pulse Rate 74 82 77 Respiratory Rate 12 18 17 Blood Pressure 155/72 H 153/74 H 157/81 H Pulse Oximetry 92 94 93 Oxygen Delivery Room Air Oxygen Flow Rate 06/30/25 18:00 06/30/25 18:54 06/30/25 20:44 Temperature 96.3 F L 96.3 F L Pulse Rate 82 83 Respiratory Rate 20 20 Blood Pressure 171/78 H 159/73 H Pulse Oximetry 96 95 Oxygen Delivery Room Air Oxygen Flow Rate 06/30/25 22:39 07/01/25 02:28 07/01/25 05:45 Temperature 98.3 F 97.2 F L 97.4 F L Pulse Rate 81 81 77 Respiratory Rate 17 16 16 Blood Pressure 132/65 121/56 L 127/58 L Pulse Oximetry 98 92 95 Oxygen Delivery Oxygen Flow Rate 07/01/25 08:35 07/01/25 09:43 Temperature Pulse Rate 88 Respiratory Rate 18 Blood Pressure 151/56 H Pulse Oximetry 95 93 Oxygen Delivery Room Air Oxygen Flow Rate Intake/Output Intake/Output: Intake & Output 06/28/25 06/29/25 06/30/25 07/01/25 23:59 23:59 23:59 23:59 Intake Total 200 200 Balance 200 200 Meds/Results Medications: Active Medications Generic Name Dose Route Start Last Admin Trade Name Freq PRN Reason Stop Dose Admin Acetaminophen 500 mg 06/30/25 17:03 Acetaminophen 500 Mg Tablet PO Q6H PRN Pain Rated 1-3 Buprenorphine/Naloxone 2 each 06/30/25 20:10 07/01/25 08:58 Buprenorphine/Naloxone (*Crx) 4 Mg/1 Mg Sl Film SUBLINGUAL 2 each BID ANNE Administration Dextrose 12.5 gm 07/01/25 02:20 Dextrose 50% 25 Gm/50 Ml Syringe IV PUSH PRN PRN Hypoglycemia Protocol Enoxaparin Sodium 30 mg 06/30/25 21:00 07/01/25 08:57 Enoxaparin 30 Mg/0.3 Ml Syringe SUB-Q 30 mg Q12HR ANNE Administration Glucagon 1 mg 07/01/25 02:20 Glucagon For Inj 1 Mg Vial IM PRN PRN Hypoglycemia Protocol Glucose 15 gm 07/01/25 02:20 Glucose Oral Gel 15 Gm Of Glucse In 37.5 Gm Tube PO PRN PRN Hypoglycemia Protocol Dextrose 1,000 mls @ 100 mls/hr 07/01/25 02:20 Dextrose 5% 1,000 Ml IVPB PRN PRN Hypoglycemia Protocol Insulin Aspart 2 - 5 units 07/01/25 08:00 07/01/25 08:58 Insulin Aspart (*Bkc) 100 Units/Ml SUB-Q Not Given TIDWM ANNE Protocol Ketorolac Tromethamine 15 mg 06/30/25 22:40 07/01/25 04:20 Ketorolac 15 Mg/Ml Vial (*Bkc) IV PUSH 15 mg Q6H PRN Administration Pain Rated 4-6 Linaclotide 290 mcg 07/01/25 06:30 07/01/25 06:32 Linaclotide 145 Mcg Capsule PO 290 mcg DAILY@0630 ANNE Administration Lisinopril 20 mg 07/01/25 09:00 07/01/25 08:57 Lisinopril 20 Mg Tablet PO 20 mg DAILY ANNE Administration Polyethylene Glycol 17 gm 07/01/25 09:00 07/01/25 08:57 Polyethylene Glycol 3350 17 Gm Powd.Pack PO 17 gm QAM ANNE Administration Senna/Docusate Sodium 2 tab 06/30/25 21:00 06/30/25 20:42 Senna/Docusate Sodium Tablet PO 2 tab HS ANNE Administration Labs Labs: Laboratory Results - last 24 hr 06/30/25 06/30/25 07/01/25 15:01 17:32 05:57 WBC 12.2 H RBC 3.29 L Hgb 9.9 L Hct 32.6 L MCV 99.1 MCH 30.1 MCHC 30.4 L RDW 13.2 Plt Count 235 MPV 10.5 H Sodium 136 L Potassium 4.5 Chloride 104 Carbon Dioxide 32 H Anion Gap 0 L BUN 16 Creatinine 0.85 Estim Creat Clear Calc 83 Estimated GFR > 60 Glucose 137 H POC Capillary Glucose 193 H 205 H Calcium 8.8 07/01/25 07:43 WBC RBC Hgb Hct MCV MCH MCHC RDW Plt Count MPV Sodium Potassium Chloride Carbon Dioxide Anion Gap BUN Creatinine Estim Creat Clear Calc Estimated GFR Glucose POC Capillary Glucose 133 H Calcium
--- NOTE | 2025-07-01 12:43 | P.PNIM_ITS ---
Assessment and Plan Assessment and Plan (1) Incarcerated umbilical hernia: Code(s): K42.0 - Umbilical hernia with obstruction, without gangrene Status: Acute Assessment and Plan: Patient with 10 year history of umbilical hernia. Recently noticed increased pain and overlying skin changes. robotic laparoscopic repair of chronically incarcerated umbilical hernia with mesh on 06/30. * increase diet as tolerated currently on full liquid diet * encourage ambulation * incentive spirometry * continue Suboxone * p.r.n. pain management with acetaminophen and ketorolac * do not order additional opioids (2) Constipation due to opioid therapy: Code(s): K59.03 - Drug induced constipation; T40.2X5A - Adverse effect of other opioids, initial encounter Status: Chronic Assessment and Plan: Patient with past history of heroin use. Now on Suboxone maintenance therapy for the past 5 years. * continue Linzess, MiraLax (3) Non-insulin dependent diabetes mellitus: Status: Chronic Assessment and Plan: * hypoglycemia protocol * POC blood glucose ACHS * home medication: Trulicity hold due to surgery * correct regimen ordered: Low-dose sliding scale (4) Hypertension: Code(s): I10 - Essential (primary) hypertension Status: Chronic Assessment and Plan: * Continue lisinopril Plan Code status: Full code per patient DVT prophylaxis: Lovenox Stress ulcer prophylaxis: NA PT/OT notes: Ambulating Disposition: Patient continues admission to the medical unit after laparoscopic repair of a incarcerated hernia plan for discharge to home when medically stable. Medical Record Review I have reviewed the following patient records and this information was taken into consideration when formulating the assessment and plan.: previous labs Consultations Consultations: I have discussed the care of this pt with the consulting sander garcia. Time Spent With Patient Time with patient: 15 - 25 minutes Subjective Date/time seen: 07/01/25 12:43 Interval history: Patient is a 60 female who underwent a laparoscopic repair of a incarcerated umbilical hernia. We are following for medical consultation. 07/01/2025: Patient with mild complaints of mid ABD pain. Patient ambulating and tolerating full liquid diet. Has not had a BM or passed gas otherwise no other complaints. Review of Systems Review of Systems: All systems reviewed & are unremarkable except as noted in HPI and below Exam Const: General: comfortable and no acute distress HENMT: Mouth: Yes moist mucous membranes Eyes: General: appearance normal, both eyes and all related structures Sclera: sclerae normal Pupils: Equal, round and reactive pupils present Neck: Neck: supple Resp: Effort & Inspection: normal respiratory effort Auscultation: clear to auscultation bilaterally Cardio: Rate: regular rate Rhythm: regular rhythm GI: GI Palp: Yes Soft to palpation and Yes Tenderness to palpation present (GI) (Periumbilical ) Auscultation: normal bowel sounds Skin: General skin exam: normal color and no rashes or lesions noted Wounds: no wounds Neuro: General: gait normal Speech: normal speech Motor exam (neuro): 5/5 motor strength present throughout Sensory Exam: normal sensation Extrem: General: normal to inspection Psych: Mental Status: mental status grossly normal Affect: normal affect Objective Data Vital Signs Vital Signs: Vital Signs - 24 hr 06/30/25 14:50 06/30/25 15:05 06/30/25 15:20 Temperature 98.9 F Pulse Rate 83 79 78 Respiratory Rate 21 H 23 H 22 H Blood Pressure 114/39 L 112/79 152/54 H Pulse Oximetry 100 100 100 Oxygen Delivery Simple Face Mask Simple Face Mask Simple Face Mask Oxygen Flow Rate 8 8 8 06/30/25 15:35 06/30/25 15:50 06/30/25 16:05 Temperature Pulse Rate 74 76 76 Respiratory Rate 23 H 27 H 18 Blood Pressure 153/50 H 169/54 H 166/60 H Pulse Oximetry 100 91 92 Oxygen Delivery Simple Face Mask Room Air Room Air Oxygen Flow Rate 8 06/30/25 16:20 06/30/25 16:35 06/30/25 16:50 Temperature Pulse Rate 82 80 80 Respiratory Rate 18 19 16 Blood Pressure 164/68 H 120/66 157/77 H Pulse Oximetry 92 94 92 Oxygen Delivery Room Air Room Air Room Air Oxygen Flow Rate 06/30/25 17:02 06/30/25 17:15 06/30/25 17:30 Temperature 96.7 F L Pulse Rate 74 82 77 Respiratory Rate 12 18 17 Blood Pressure 155/72 H 153/74 H 157/81 H Pulse Oximetry 92 94 93 Oxygen Delivery Room Air Oxygen Flow Rate 06/30/25 18:00 06/30/25 18:54 06/30/25 20:44 Temperature 96.3 F L 96.3 F L Pulse Rate 82 83 Respiratory Rate 20 20 Blood Pressure 171/78 H 159/73 H Pulse Oximetry 96 95 Oxygen Delivery Room Air Oxygen Flow Rate 06/30/25 22:39 07/01/25 02:28 07/01/25 05:45 Temperature 98.3 F 97.2 F L 97.4 F L Pulse Rate 81 81 77 Respiratory Rate 17 16 16 Blood Pressure 132/65 121/56 L 127/58 L Pulse Oximetry 98 92 95 Oxygen Delivery Oxygen Flow Rate 07/01/25 08:35 07/01/25 09:43 07/01/25 11:50 Temperature Pulse Rate 88 84 Respiratory Rate 18 Blood Pressure 151/56 H 132/73 Pulse Oximetry 95 93 94 Oxygen Delivery Room Air Oxygen Flow Rate Intake/Output Intake/Output: Intake & Output 06/28/25 06/29/25 06/30/25 07/01/25 23:59 23:59 23:59 23:59 Intake Total 200 200 Balance 200 200 Meds/Results Medications: Active Medications Generic Name Dose Route Start Last Admin Trade Name Freq PRN Reason Stop Dose Admin Acetaminophen 500 mg 06/30/25 17:03 Acetaminophen 500 Mg Tablet PO Q6H PRN Pain Rated 1-3 Buprenorphine/Naloxone 2 each 06/30/25 20:10 07/01/25 08:58 Buprenorphine/Naloxone (*Crx) 4 Mg/1 Mg Sl Film SUBLINGUAL 2 each BID ANNE Administration Dextrose 12.5 gm 07/01/25 02:20 Dextrose 50% 25 Gm/50 Ml Syringe IV PUSH PRN PRN Hypoglycemia Protocol Enoxaparin Sodium 30 mg 06/30/25 21:00 07/01/25 08:57 Enoxaparin 30 Mg/0.3 Ml Syringe SUB-Q 30 mg Q12HR ANNE Administration Glucagon 1 mg 07/01/25 02:20 Glucagon For Inj 1 Mg Vial IM PRN PRN Hypoglycemia Protocol Glucose 15 gm 07/01/25 02:20 Glucose Oral Gel 15 Gm Of Glucse In 37.5 Gm Tube PO PRN PRN Hypoglycemia Protocol Dextrose 1,000 mls @ 100 mls/hr 07/01/25 02:20 Dextrose 5% 1,000 Ml IVPB PRN PRN Hypoglycemia Protocol Insulin Aspart 2 - 5 units 07/01/25 08:00 07/01/25 08:58 Insulin Aspart (*Bkc) 100 Units/Ml SUB-Q Not Given TIDWM ANNE Protocol Ketorolac Tromethamine 15 mg 06/30/25 22:40 07/01/25 11:06 Ketorolac 15 Mg/Ml Vial (*Bkc) IV PUSH 15 mg Q6H PRN Administration Pain Rated 4-6 Linaclotide 290 mcg 07/01/25 06:30 07/01/25 06:32 Linaclotide 145 Mcg Capsule PO 290 mcg DAILY@0630 ANNE Administration Lisinopril 20 mg 07/01/25 09:00 07/01/25 08:57 Lisinopril 20 Mg Tablet PO 20 mg DAILY ANNE Administration Polyethylene Glycol 17 gm 07/01/25 09:00 07/01/25 08:57 Polyethylene Glycol 3350 17 Gm Powd.Pack PO 17 gm QAM ANEN Administration Senna/Docusate Sodium 2 tab 06/30/25 21:00 06/30/25 20:42 Senna/Docusate Sodium Tablet PO 2 tab HS ANNE Administration Labs Labs: Laboratory Results - last 24 hr 06/30/25 06/30/25 07/01/25 15:01 17:32 05:57 WBC 12.2 H RBC 3.29 L Hgb 9.9 L Hct 32.6 L MCV 99.1 MCH 30.1 MCHC 30.4 L RDW 13.2 Plt Count 235 MPV 10.5 H Sodium 136 L Potassium 4.5 Chloride 104 Carbon Dioxide 32 H Anion Gap 0 L BUN 16 Creatinine 0.85 Estim Creat Clear Calc 83 Estimated GFR > 60 Glucose 137 H POC Capillary Glucose 193 H 205 H Calcium 8.8 07/01/25 07/01/25 07:43 11:35 WBC RBC Hgb Hct MCV MCH MCHC RDW Plt Count MPV Sodium Potassium Chloride Carbon Dioxide Anion Gap BUN Creatinine Estim Creat Clear Calc Estimated GFR Glucose POC Capillary Glucose 133 H 156 H Calcium Attestation: I personally reviewed all lab results Quality VTE Prophylaxis VTE prophylaxis: mechanical ordered -Patient's previous records reviewed on admission -ER notes reviewed in detail on admission -discussed all findings and current treatment plan with patient/Family/POA -Consultations reviewed for recommendations -Patient's disposition for safe discharge discussed with embedded case manager -radiology imaging, EKG and test results I have personally reviewed and interpreted unless otherwise specified Dictation performed by [employer] direct speech recognition software, therefore cover stripper variants and typographical errors may occur. Hospitalist MIPS Advance Care Plan I have confirmed that the patient's Advanced Care Plan is present, code status is documented, or surrogate decision maker is listed in patient medical record.: Yes Medication Reconciliation I have utilized all available resources to obtain, update and review the patients current medications (includes all prescriptions, OTC, herbals, cannabis, and nutritional supplements).: Yes The patient is not eligible for med reconciliation; the patient is in a emergent medical situation where delaying treatment would jeopardize the patients health.: No
--- NOTE | 2025-07-01 14:04 | WPDANESPN ---
Anes - Prog Note Post-Op Date/Time: 07/01/25 14:04 Cardiovascular status: normal Respiratory status: normal Airway patency: baseline Mental status: baseline Post-Op hydration status: normal Vital Signs: Last Vital Signs Temp 36.3 C L 07/01/25 05:45 Pulse 84 07/01/25 11:50 Resp 18 07/01/25 08:35 BP 132/73 07/01/25 11:50 Pulse Ox 94 07/01/25 11:50 O2 Del Method Room Air 07/01/25 09:43 O2 Flow Rate 8 06/30/25 15:35 Pain Score (VAS): 2 I/O: Intake & Output 06/30/25 07/01/25 07/01/25 23:59 07:59 15:59 Intake Total 200 200 240 Balance 200 200 240 Laboratory Tests 07/01/25 05:57 07/01/25 05:57 06/30/25 06/30/25 07/01/25 15:01 17:32 05:57 WBC 12.2 H RBC 3.29 L Hgb 9.9 L Hct 32.6 L MCV 99.1 MCH 30.1 MCHC 30.4 L RDW 13.2 Plt Count 235 MPV 10.5 H Sodium 136 L Potassium 4.5 Chloride 104 Carbon Dioxide 32 H Anion Gap 0 L BUN 16 Creatinine 0.85 Estim Creat Clear Calc 83 Estimated GFR > 60 Glucose 137 H POC Capillary Glucose 193 H 205 H Calcium 8.8 07/01/25 07/01/25 07:43 11:35 WBC RBC Hgb Hct MCV MCH MCHC RDW Plt Count MPV Sodium Potassium Chloride Carbon Dioxide Anion Gap BUN Creatinine Estim Creat Clear Calc Estimated GFR Glucose POC Capillary Glucose 133 H 156 H Calcium Post-procedural complaints: none Patient Feedback: Patient satisfied with anesthetic care.
[2025-07-01] MEDS: ACETAMINOPHEN 500 MG TABLET PO (15:03)
[2025-07-01] MEDS: SENNA/DOCUSATE SODIUM TABLET 2 TAB PO (20:09)
[2025-07-02] MEDS: ACETAMINOPHEN 500 MG TABLET PO ×3 (00:04→21:52)
[2025-07-02] MEDS: KETOROLAC 15 MG/ML VIAL (*BKC) IV PUSH ×4 (03:52→23:15)
[2025-07-02] MEDS: LINACLOTIDE 145 MCG CAPSULE 290 MCG PO (06:08)
[2025-07-02] MEDS: BUPRENORPHINE/NALOXONE (*CRX) 4 MG/1 MG SL FILM 2 EACH SUBLINGUAL ×2 (08:31→17:20)
[2025-07-02] MEDS: ENOXAPARIN 30 MG/0.3 ML SYRINGE SUB-Q ×2 (08:31→20:12)
[2025-07-02 08:37] VITALS: BP 134/55; PULSE 82; RESP 18; TEMP 36.9; O2SAT 94
[2025-07-02 09:20] LABS: Hematocrit 32.2 % (37.0-47.0); Hemoglobin 10.0 g/dL (12.0-15.0); Mean Corpuscular HGB Conc 31.1 g/dl (32-36); Mean Corpuscular Hemoglobin 30.2 pg (26-34); Mean Corpuscular Volume 97.3 fl (80-100); Platelet Count Result 216 k/mm3 (150-375); Red Blood Count 3.31 M/mm3 (4.2-5.4); White Blood Count 10.7 K/mm3 (4.5-10.0)
[2025-07-02 09:43] LABS: Alanine Aminotransferase 10 U/L (6-35); Albumin Level 3.8 g/dL (3.5-5.1); Alkaline Phosphatase 65 U/L (38-126); Anion Gap 3 mmol/L (4-12); Aspartate Amino Transferase 18 U/L (14-36); Bilirubin,Total 0.6 mg/dL (0.2-1.3); Blood Urea Nitrogen 13 mg/dL (7-17); Calcium 9.0 mg/dL (8.4-10.2); Carbon Dioxide 29 mmol/L (22-30); Chloride 100 mmol/L (98-107); Estimated CRCL calculation 90 ml/min; Estimated Glomerular Filt Rate > 60; Glucose 181 mg/dL (65-110); Potassium 4.1 mmol/L (3.4-5.0); Sodium 132 mmol/L (137-145); Total Protein 7.5 g/dL (6.3-8.2)
[2025-07-02] MEDS: ONDANSETRON INJ 4 MG/2 ML VIAL IV PUSH (09:45)
[2025-07-02 12:45] VITALS: BP 126/63; PULSE 87; RESP 18; TEMP 36.8; O2SAT 94
--- NOTE | 2025-07-02 13:46 | P.PNIM_ITS ---
Assessment and Plan Assessment and Plan (1) Incarcerated umbilical hernia: Code(s): K42.0 - Umbilical hernia with obstruction, without gangrene Status: Acute Assessment and Plan: Patient with 10 year history of umbilical hernia. Recently noticed increased pain and overlying skin changes. robotic laparoscopic repair of chronically incarcerated umbilical hernia with mesh on 06/30. * increase diet as tolerated currently on full liquid diet * encourage ambulation * incentive spirometry * continue Suboxone * p.r.n. pain management with acetaminophen and ketorolac * do not order additional opioids * Should hold Trulicity post-op * Antiemetics (2) Constipation due to opioid therapy: Code(s): K59.03 - Drug induced constipation; T40.2X5A - Adverse effect of other opioids, initial encounter Status: Chronic Assessment and Plan: Patient with past history of heroin use. Now on Suboxone maintenance therapy for the past 5 years. * continue Linzess, MiraLax (3) Non-insulin dependent diabetes mellitus: Status: Chronic Assessment and Plan: * hypoglycemia protocol * POC blood glucose ACHS * home medication: Trulicity hold due to surgery * correct regimen ordered: Low-dose sliding scale (4) Hypertension: Code(s): I10 - Essential (primary) hypertension Status: Chronic Assessment and Plan: * Continue lisinopril Plan Code status: Full code per patient DVT prophylaxis: Lovenox Stress ulcer prophylaxis: NA PT/OT notes: Ambulating Disposition: Patient continues admission to the medical unit after laparoscopic repair of a incarcerated hernia plan for discharge to home when medically stable. Time Spent With Patient Time with patient: 15 - 25 minutes Subjective Date/time seen: 07/02/25 13:46 Interval history: Patient is a 60 female who underwent a laparoscopic repair of a incarcerated umbilical hernia. We are following for medical consultation. 07/02/2025: Patient reporting some nasuea no vomiting still has not had a BM or has gas othe rwise no other complaints still tolerating full liquid diet. Review of Systems Review of Systems: All systems reviewed & are unremarkable except as noted in HPI and below Exam Const: General: comfortable and no acute distress HENMT: Mouth: Yes moist mucous membranes Eyes: General: appearance normal, both eyes and all related structures Sclera: sclerae normal Pupils: Equal, round and reactive pupils present Neck: Neck: supple Resp: Effort & Inspection: normal respiratory effort Auscultation: clear to auscultation bilaterally Cardio: Rate: regular rate Rhythm: regular rhythm GI: Auscultation: normal bowel sounds Skin: General skin exam: normal color and no rashes or lesions noted Wounds: no wounds Neuro: General: gait normal Cranial nerves: Yes Equal, round and reactive pupils present Speech: normal speech Motor exam (neuro): 5/5 motor strength present throughout Sensory Exam: normal sensation Extrem: General: normal to inspection Psych: Mental Status: mental status grossly normal Affect: normal affect Objective Data Vital Signs Vital Signs: Vital Signs - 24 hr 07/01/25 17:29 07/01/25 22:06 07/02/25 08:30 Temperature 98.2 F Pulse Rate 93 86 Respiratory Rate 16 Blood Pressure 154/71 H 129/56 L Pulse Oximetry 97 93 Oxygen Delivery Room Air 07/02/25 08:37 12/06/25 12:45 Temperature 98.5 F 98.2 F Pulse Rate 82 87 Respiratory Rate 18 18 Blood Pressure 134/55 L 126/63 Pulse Oximetry 94 94 Oxygen Delivery Intake/Output Intake/Output: Intake & Output 06/29/25 06/30/25 07/01/25 07/02/25 23:59 23:59 23:59 23:59 Intake Total 200 1570 790 Balance 200 1570 790 Meds/Results Medications: Active Medications Generic Name Dose Route Start Last Admin Trade Name Freq PRN Reason Stop Dose Admin Acetaminophen 500 mg 06/30/25 17:03 07/02/25 12:12 Acetaminophen 500 Mg Tablet PO 500 mg Q6H PRN Administration Pain Rated 1-3 Buprenorphine/Naloxone 2 each 06/30/25 20:10 07/02/25 08:31 Buprenorphine/Naloxone (*Crx) 4 Mg/1 Mg Sl Film SUBLINGUAL 2 each BID ANNE Administration Dextrose 12.5 gm 07/01/25 02:20 Dextrose 50% 25 Gm/50 Ml Syringe IV PUSH PRN PRN Hypoglycemia Protocol Enoxaparin Sodium 30 mg 06/30/25 21:00 07/02/25 08:31 Enoxaparin 30 Mg/0.3 Ml Syringe SUB-Q 30 mg Q12HR ANNE Administration Glucagon 1 mg 07/01/25 02:20 Glucagon For Inj 1 Mg Vial IM PRN PRN Hypoglycemia Protocol Glucose 15 gm 07/01/25 02:20 Glucose Oral Gel 15 Gm Of Glucse In 37.5 Gm Tube PO PRN PRN Hypoglycemia Protocol Dextrose 1,000 mls @ 100 mls/hr 07/01/25 02:20 Dextrose 5% 1,000 Ml IVPB PRN PRN Hypoglycemia Protocol Insulin Aspart 2 - 5 units 07/01/25 08:00 07/02/25 12:01 Insulin Aspart (*Bkc) 100 Units/Ml SUB-Q Not Given TIDWM [facility] [place] Protocol Ketorolac Tromethamine 15 mg 06/30/25 22:40 07/02/25 09:45 Ketorolac 15 Mg/Ml Vial (*Bkc) IV PUSH 15 mg Q6H PRN Administration Pain Rated 4-6 Linaclotide 290 mcg 07/01/25 06:30 07/02/25 06:08 Linaclotide 145 Mcg Capsule PO 290 mcg DAILY@0630 ANNE Administration Lisinopril 20 mg 07/01/25 09:00 07/02/25 08:31 Lisinopril 20 Mg Tablet PO 20 mg DAILY ANNE Administration Ondansetron HCl 4 mg 07/02/25 09:39 07/02/25 09:45 Ondansetron Inj 4 Mg/2 Ml Vial IV PUSH 4 mg Q6H PRN Administration Nausea And Vomiting Polyethylene Glycol 17 gm 07/01/25 09:00 07/02/25 08:32 Polyethylene Glycol 3350 17 Gm Powd.Pack PO 17 gm QAM ANNE Administration Senna/Docusate Sodium 2 tab 06/30/25 21:00 07/01/25 20:09 Senna/Docusate Sodium Tablet PO 2 tab HS ANNE Administration Labs Labs: Laboratory Results - last 24 hr 07/01/25 07/01/25 07/02/25 16:49 21:28 07:23 WBC RBC Hgb Hct MCV MCH MCHC RDW Plt Count MPV Sodium Potassium Chloride Carbon Dioxide Anion Gap BUN Creatinine Estim Creat Clear Calc Estimated GFR Glucose POC Capillary Glucose 140 H 185 H 170 H Calcium Total Bilirubin AST ALT Alkaline Phosphatase Total Protein Albumin 07/02/25 07/02/25 09:10 11:07 WBC 10.7 H RBC 3.31 L Hgb 10.0 L Hct 32.2 L MCV 97.3 MCH 30.2 MCHC 31.1 L RDW 13.3 Plt Count 216 MPV 10.0 Sodium 132 L Potassium 4.1 Chloride 100 Carbon Dioxide 29 Anion Gap 3 L BUN 13 Creatinine 0.78 Estim Creat Clear Calc 90 Estimated GFR > 60 Glucose 181 H POC Capillary Glucose 186 H Calcium 9.0 Total Bilirubin 0.6 AST 18 ALT 10 Alkaline Phosphatase 65 Total Protein 7.5 Albumin 3.8 Quality VTE Prophylaxis VTE prophylaxis: mechanical ordered -Patient's previous records reviewed on admission -ER notes reviewed in detail on admission -discussed all findings and current treatment plan with patient/Family/POA -Consultations reviewed for recommendations -Patient's disposition for safe discharge discussed with shoe parts caser -radiology imaging, EKG and test results I have personally reviewed and interpreted unless otherwise specified Dictation performed by [employer] direct speech recognition software, therefore rotor balancer variants and typographical errors may occur. Hospitalist MIPS Advance Care Plan I have confirmed that the patient's Advanced Care Plan is present, code status is documented, or surrogate decision maker is listed in patient medical record.: Yes Medication Reconciliation I have utilized all available resources to obtain, update and review the patients current medications (includes all prescriptions, OTC, herbals, cannabis, and nutritional supplements).: Yes The patient is not eligible for med reconciliation; the patient is in a emergent medical situation where delaying treatment would jeopardize the patients health.: No
--- NOTE | 2025-07-02 17:56 | PM.PNGS ---
Progress Note: A&P Assessment and Plan (1) Incarcerated umbilical hernia: Code(s): K42.0 - Umbilical hernia with obstruction, without gangrene Status: Chronic Assessment and Plan: Repair intact, still having quite a bit of pain, no bowel movement, nausea this morning. Slowly improving postop day 2. (2) Morbid obesity with BMI of 50.0-59.9, adult: Code(s): E66.01 - Morbid (severe) obesity due to excess calories; Z68.43 - Body mass index [BMI] 50.0-59.9, adult Status: Chronic (3) Type 2 diabetes mellitus: Code(s): E11.9 - Type 2 diabetes mellitus without complications Status: Chronic (4) Constipation due to opioid therapy: Code(s): K59.03 - Drug induced constipation; T40.2X5A - Adverse effect of other opioids, initial encounter Status: Chronic Assessment and Plan: Receiving Linzess, MiraLax, Senokot tabs. No bowel movement as yet Subjective Subjective Date/Time Seen: 07/02/25 17:56 Patient reports: still having pain (Patient can only take Tylenol as she takes Suboxone twice a day), tolerating liquids well, voiding w/o difficulty, no bowel movement, nausea (Queasy, nauseated this morning but that has gone. Prefers to stay on full liquids) and afebrile Exam Const: General: cooperative, comfortable, alert, awake and obese; No acute distress Orientation/consciousness: patient oriented x3 GI: Inspection: non-distended, incision (Dry and healing well), no visible herniation and other (Umbilical skin still kind of marques but appears viable.) GI Palp: Yes Soft to palpation, Yes Tenderness to palpation present (GI), No Hernia present and No Palpable mass present Auscultation: normal bowel sounds Objective Data Vital Signs Vital Signs: Vital Signs - 24 hr 07/01/25 22:06 07/02/25 08:30 07/02/25 08:37 Temperature 36.8 C 36.9 C Pulse Rate 86 82 Respiratory Rate 16 18 Blood Pressure 129/56 L 134/55 L Pulse Oximetry 93 94 Oxygen Delivery Room Air 07/02/25 12:45 Temperature 36.8 C Pulse Rate 87 Respiratory Rate 18 Blood Pressure 126/63 Pulse Oximetry 94 Oxygen Delivery Intake/Output Intake/Output: Intake & Output 06/29/25 06/30/25 07/01/25 07/02/25 23:59 23:59 23:59 23:59 Intake Total 200 1570 990 Balance 200 1570 990 Meds/Results Medications: Active Medications Generic Name Dose Route Start Last Admin Trade Name Freq PRN Reason Stop Dose Admin Acetaminophen 500 mg 06/30/25 17:03 07/02/25 12:12 Acetaminophen 500 Mg Tablet PO 500 mg Q6H PRN Administration Pain Rated 1-3 Buprenorphine/Naloxone 2 each 06/30/25 20:10 07/02/25 17:20 Buprenorphine/Naloxone (*Crx) 4 Mg/1 Mg Sl Film SUBLINGUAL 2 each BID ANNE Administration Dextrose 12.5 gm 07/01/25 02:20 Dextrose 50% 25 Gm/50 Ml Syringe IV PUSH PRN PRN Hypoglycemia Protocol Enoxaparin Sodium 30 mg 06/30/25 21:00 07/02/25 08:31 Enoxaparin 30 Mg/0.3 Ml Syringe SUB-Q 30 mg Q12HR ANNE Administration Glucagon 1 mg 07/01/25 02:20 Glucagon For Inj 1 Mg Vial IM PRN PRN Hypoglycemia Protocol Glucose 15 gm 07/01/25 02:20 Glucose Oral Gel 15 Gm Of Glucse In 37.5 Gm Tube PO PRN PRN Hypoglycemia Protocol Dextrose 1,000 mls @ 100 mls/hr 07/01/25 02:20 Dextrose 5% 1,000 Ml IVPB PRN PRN Hypoglycemia Protocol Insulin Aspart 2 - 5 units 07/01/25 08:00 07/02/25 16:53 Insulin Aspart (*Bkc) 100 Units/Ml SUB-Q Not Given TIDWM ANNE Protocol Ketorolac Tromethamine 15 mg 06/30/25 22:40 07/02/25 17:20 Ketorolac 15 Mg/Ml Vial (*Bkc) IV PUSH 15 mg Q6H PRN Administration Pain Rated 4-6 Linaclotide 290 mcg 07/01/25 06:30 07/02/25 06:08 Linaclotide 145 Mcg Capsule PO 290 mcg DAILY@0630 ANNE Administration Lisinopril 20 mg 07/01/25 09:00 07/02/25 08:31 Lisinopril 20 Mg Tablet PO 20 mg DAILY ANNE Administration Ondansetron HCl 4 mg 07/02/25 09:39 07/02/25 09:45 Ondansetron Inj 4 Mg/2 Ml Vial IV PUSH 4 mg Q6H PRN Administration Nausea And Vomiting Polyethylene Glycol 17 gm 07/01/25 09:00 07/02/25 08:32 Polyethylene Glycol 3350 17 Gm Powd.Pack PO 17 gm QAM ANNE Administration Senna/Docusate Sodium 2 tab 06/30/25 21:00 07/01/25 20:09 Senna/Docusate Sodium Tablet PO 2 tab HS ANNE Administration Labs Labs: Laboratory Results - last 24 hr 07/01/25 07/02/25 07/02/25 21:28 07:23 09:10 WBC 10.7 H RBC 3.31 L Hgb 10.0 L Hct 32.2 L MCV 97.3 MCH 30.2 MCHC 31.1 L RDW 13.3 Plt Count 216 MPV 10.0 Sodium 132 L Potassium 4.1 Chloride 100 Carbon Dioxide 29 Anion Gap 3 L BUN 13 Creatinine 0.78 Estim Creat Clear Calc 90 Estimated GFR > 60 Glucose 181 H POC Capillary Glucose 185 H 170 H Calcium 9.0 Total Bilirubin 0.6 AST 18 ALT 10 Alkaline Phosphatase 65 Total Protein 7.5 Albumin 3.8 07/02/25 07/02/25 11:07 16:33 WBC RBC Hgb Hct MCV MCH MCHC RDW Plt Count MPV Sodium Potassium Chloride Carbon Dioxide Anion Gap BUN Creatinine Estim Creat Clear Calc Estimated GFR Glucose POC Capillary Glucose 186 H 154 H Calcium Total Bilirubin AST ALT Alkaline Phosphatase Total Protein Albumin
[2025-07-02] MEDS: SENNA/DOCUSATE SODIUM TABLET 2 TAB PO (20:12)
[2025-07-02 22:00] VITALS: BP 113/54; PULSE 91; RESP 16; TEMP 36.9; O2SAT 97
[2025-07-03 06:00] VITALS: BP 116/55; PULSE 73; RESP 16; TEMP 36.4; O2SAT 95
[2025-07-03] MEDS: LINACLOTIDE 145 MCG CAPSULE 290 MCG PO (06:16)
[2025-07-03 06:26] LABS: Hematocrit 31.5 % (37.0-47.0); Hemoglobin 9.6 g/dL (12.0-15.0); Mean Corpuscular HGB Conc 30.5 g/dl (32-36); Mean Corpuscular Hemoglobin 30.2 pg (26-34); Mean Corpuscular Volume 99.1 fl (80-100); Platelet Count Result 216 k/mm3 (150-375); Red Blood Count 3.18 M/mm3 (4.2-5.4); White Blood Count 9.0 K/mm3 (4.5-10.0)
[2025-07-03 06:53] LABS: Alanine Aminotransferase 12 U/L (6-35); Albumin Level 3.5 g/dL (3.5-5.1); Alkaline Phosphatase 66 U/L (38-126); Anion Gap 4 mmol/L (4-12); Aspartate Amino Transferase 19 U/L (14-36); Bilirubin,Total 0.5 mg/dL (0.2-1.3); Blood Urea Nitrogen 11 mg/dL (7-17); Calcium 8.9 mg/dL (8.4-10.2); Carbon Dioxide 29 mmol/L (22-30); Chloride 100 mmol/L (98-107); Estimated CRCL calculation 100 ml/min; Estimated Glomerular Filt Rate > 60; Glucose 150 mg/dL (65-110); Magnesium 1.9 mg/dL (1.6-2.3); Potassium 4.4 mmol/L (3.4-5.0); Sodium 133 mmol/L (137-145); Total Protein 7.2 g/dL (6.3-8.2)
[2025-07-03] MEDS: BUPRENORPHINE/NALOXONE (*CRX) 4 MG/1 MG SL FILM 2 EACH SUBLINGUAL ×2 (08:40→17:25)
[2025-07-03] MEDS: KETOROLAC 15 MG/ML VIAL (*BKC) IV PUSH (08:48)
[2025-07-03] MEDS: ENOXAPARIN 30 MG/0.3 ML SYRINGE SUB-Q ×2 (08:49→21:02)
--- NOTE | 2025-07-03 10:59 | P.PNIM_ITS ---
Assessment and Plan Assessment and Plan (1) Incarcerated umbilical hernia: Code(s): K42.0 - Umbilical hernia with obstruction, without gangrene Status: Chronic Assessment and Plan: Patient with 10 year history of umbilical hernia. Recently noticed increased pain and overlying skin changes. robotic laparoscopic repair of chronically incarcerated umbilical hernia with mesh on 06/30. * increase diet as tolerated regular diet * encourage ambulation * incentive spirometry * continue Suboxone * p.r.n. pain management with acetaminophen and ketorolac * do not order additional opioids * Should hold Trulicity post-op * Antiemetics (2) Constipation due to opioid therapy: Code(s): K59.03 - Drug induced constipation; T40.2X5A - Adverse effect of other opioids, initial encounter Status: Chronic Assessment and Plan: Patient with past history of heroin use. Now on Suboxone maintenance therapy for the past 5 years. * continue Linzess, MiraLax (3) Non-insulin dependent diabetes mellitus: Status: Chronic Assessment and Plan: * hypoglycemia protocol * POC blood glucose ACHS * home medication: Trulicity hold due to surgery * correct regimen ordered: Low-dose sliding scale (4) Hypertension: Code(s): I10 - Essential (primary) hypertension Status: Chronic Assessment and Plan: * Continue lisinopril Plan Code status: Full code per patient DVT prophylaxis: Lovenox Stress ulcer prophylaxis: NA PT/OT notes: Ambulating Disposition: Patient continues admission to the medical unit after laparoscopic repair of a incarcerated hernia plan for discharge to home when medically stable. Consultations Consultations: I have discussed the care of this pt with the consulting providers. Time Spent With Patient Time with patient: 15 - 25 minutes Subjective Date/time seen: 07/03/25 10:59 Interval history: Patient is a 60 female who underwent a laparoscopic repair of a incarcerated umbilical hernia. We are following for medical consultation. 07/03/2025: Patient tolerated regular diet today, still passing gas but no BM. Review of Systems Review of Systems: All systems reviewed & are unremarkable except as noted in HPI and below Exam Const: General: comfortable and no acute distress HENMT: Mouth: Yes moist mucous membranes Eyes: General: appearance normal, both eyes and all related structures Sclera: sclerae normal Pupils: Equal, round and reactive pupils present Neck: Neck: supple Resp: Effort & Inspection: normal respiratory effort Auscultation: clear to auscultation bilaterally Cardio: Rate: regular rate Rhythm: regular rhythm GI: Auscultation: normal bowel sounds Skin: General skin exam: normal color and no rashes or lesions noted Wounds: no wounds Neuro: General: gait normal Cranial nerves: Yes Equal, round and reactive pupils present Speech: normal speech Motor exam (neuro): 5/5 motor strength present throughout Sensory Exam: normal sensation Extrem: General: normal to inspection Psych: Mental Status: mental status grossly normal Affect: normal affect Objective Data Vital Signs Vital Signs: Vital Signs - 24 hr 07/02/25 12:45 07/02/25 20:00 07/02/25 22:00 Temperature 98.2 F 98.5 F Pulse Rate 87 91 Respiratory Rate 18 16 Blood Pressure 126/63 113/54 L Pulse Oximetry 94 97 Oxygen Delivery Room Air 07/03/25 06:00 Temperature 97.5 F L Pulse Rate 73 Respiratory Rate 16 Blood Pressure 116/55 L Pulse Oximetry 95 Oxygen Delivery Intake/Output Intake/Output: Intake & Output 06/30/25 07/01/25 07/02/25 07/03/25 23:59 23:59 23:59 23:59 Intake Total 200 1570 1230 620 Balance 200 1570 1230 620 Meds/Results Medications: Active Medications Generic Name Dose Route Start Last Admin Trade Name Freq PRN Reason Stop Dose Admin Acetaminophen 500 mg 06/30/25 17:03 07/02/25 21:52 Acetaminophen 500 Mg Tablet PO 500 mg Q6H PRN Administration Pain Rated 1-3 Buprenorphine/Naloxone 2 each 06/30/25 20:10 07/03/25 08:40 Buprenorphine/Naloxone (*Crx) 4 Mg/1 Mg Sl Film SUBLINGUAL 2 each BID ANNE Administration Dextrose 12.5 gm 07/01/25 02:20 Dextrose 50% 25 Gm/50 Ml Syringe IV PUSH PRN PRN Hypoglycemia Protocol Enoxaparin Sodium 30 mg 06/30/25 21:00 07/03/25 08:49 Enoxaparin 30 Mg/0.3 Ml Syringe SUB-Q 30 mg Q12HR ANNE Administration Glucagon 1 mg 07/01/25 02:20 Glucagon For Inj 1 Mg Vial IM PRN PRN Hypoglycemia Protocol Glucose 15 gm 07/01/25 02:20 Glucose Oral Gel 15 Gm Of Glucse In 37.5 Gm Tube PO PRN PRN Hypoglycemia Protocol Dextrose 1,000 mls @ 100 mls/hr 07/01/25 02:20 Dextrose 5% 1,000 Ml IVPB PRN PRN Hypoglycemia Protocol Insulin Aspart 2 - 5 units 07/01/25 08:00 07/03/25 08:40 Insulin Aspart (*Bkc) 100 Units/Ml SUB-Q Not Given [facility] Protocol Ketorolac Tromethamine 15 mg 06/30/25 22:40 07/03/25 08:48 Ketorolac 15 Mg/Ml Vial (*Bkc) IV PUSH 15 mg Q6H PRN Administration Pain Rated 4-6 Linaclotide 290 mcg 07/01/25 06:30 07/03/25 06:16 Linaclotide 145 Mcg Capsule PO 290 mcg DAILY@0630 ANNE Administration Lisinopril 20 mg 07/01/25 09:00 07/03/25 08:40 Lisinopril 20 Mg Tablet PO 20 mg DAILY ANNE Administration Ondansetron HCl 4 mg 07/02/25 09:39 07/02/25 09:45 Ondansetron Inj 4 Mg/2 Ml Vial IV PUSH 4 mg Q6H PRN Administration Nausea And Vomiting Polyethylene Glycol 17 gm 07/01/25 09:00 07/03/25 08:40 Polyethylene Glycol 3350 17 Gm Powd.Pack PO 17 gm QAM ANNE Administration Senna/Docusate Sodium 2 tab 06/30/25 21:00 07/02/25 20:12 Senna/Docusate Sodium Tablet PO 2 tab HS ANNE Administration Labs Labs: Laboratory Results - last 24 hr 07/02/25 07/02/25 07/02/25 11:07 16:33 20:33 WBC RBC Hgb Hct MCV MCH MCHC RDW Plt Count MPV Sodium Potassium Chloride Carbon Dioxide Anion Gap BUN Creatinine Estim Creat Clear Calc Estimated GFR Glucose POC Capillary Glucose 186 H 154 H 246 H Calcium Magnesium Total Bilirubin AST ALT Alkaline Phosphatase Total Protein Albumin 07/02/25 07/03/25 07/03/25 21:48 05:16 07:18 WBC 9.0 RBC 3.18 L Hgb 9.6 L Hct 31.5 L MCV 99.1 MCH 30.2 MCHC 30.5 L RDW 13.2 Plt Count 216 MPV 10.7 H Sodium 133 L Potassium 4.4 Chloride 100 Carbon Dioxide 29 Anion Gap 4 BUN 11 Creatinine 0.70 Estim Creat Clear Calc 100 Estimated GFR > 60 Glucose 150 H POC Capillary Glucose 182 H 163 H Calcium 8.9 Magnesium 1.9 Total Bilirubin 0.5 AST 19 ALT 12 Alkaline Phosphatase 66 Total Protein 7.2 Albumin 3.5 Attestation: I personally reviewed all lab results Quality VTE Prophylaxis VTE prophylaxis: mechanical ordered -Patient's previous records reviewed on admission -ER notes reviewed in detail on admission -discussed all findings and current treatment plan with patient/Family/POA -Consultations reviewed for recommendations -Patient's disposition for safe discharge discussed with case aide -radiology imaging, EKG and test results I have personally reviewed and interpreted unless otherwise specified Dictation performed by [employer] direct speech recognition software, the refore supervisor buffing and pasting variants and typographical errors may occur. Hospitalist MIPS Advance Care Plan I have confirmed that the patient's Advanced Care Plan is present, code status is documented, or surrogate decision maker is listed in patient medical record.: Yes Medication Reconciliation I have utilized all available resources to obtain, update and review the patients current medications (includes all prescriptions, OTC, herbals, cannabis, and nutritional supplements).: Yes The patient is not eligible for med reconciliation; the patient is in a emergent medical situation where delaying treatment would jeopardize the patients health.: No
[2025-07-03] MEDS: INSULIN ASPART (*BKC) 100 UNITS/ML SUB-Q (11:57)
[2025-07-03 14:00] VITALS: BP 143/64; PULSE 77; RESP 18; TEMP 36.9; O2SAT 100
--- NOTE | 2025-07-03 14:38 | P.PNGS_ITS ---
Progress Note: A&P Assessment and Plan (1) Incarcerated umbilical hernia: Code(s): K42.0 - Umbilical hernia with obstruction, without gangrene Status: Chronic Assessment and Plan: repair intact and umbilical skin healing. Pain is not severe but patient has very poor appetite and is frequently nauseated. Labs look okay. No fever. White blood cell count is now normal. Patient does have history of consti pation. Will give soapsuds enema today. If still nauseated tomorrow, will need further imaging. (2) Morbid obesity with BMI of 50.0-59.9, adult: Code(s): E66.01 - Morbid (severe) obesity due to excess calories; Z68.43 - Body mass index [BMI] 50.0-59.9, adult Status: Chronic (3) Type 2 diabetes mellitus: Code(s): E11.9 - Type 2 diabetes mellitus without complications Status: Chronic (4) Constipation due to opioid therapy: Code(s): K59.03 - Drug induced constipation; T40.2X5A - Adverse effect of other opioids, initial encounter Status: Chronic Assessment and Plan: Receiving Linzess, MiraLax, Senokot tabs. No bowel movement as yet as noted above. Subjective Subjective Date/Time Seen: 07/03/25 14:38 Patient reports: pain is less, no bowel movement and nausea ( poor appetite) Exam Const: General: comfortable, alert and awake; No acute distress GI: Inspection: non-distended, incision ( wounds healing well) and other ( umbilical skin healing) GI Palp: Yes Soft to palpation and No Tenderness to palpation present (GI) Auscultation: normal bowel sounds Objective Data Vital Signs Vital Signs: Vital Signs - 24 hr 07/02/25 20:00 07/02/25 22:00 07/03/25 06:00 Temperature 36.9 C 36.4 C L Pulse Rate 91 73 Respiratory Rate 16 16 Blood Pressure 113/54 L 116/55 L Pulse Oximetry 97 95 Oxygen Delivery Room Air 07/03/25 08:40 07/03/25 14:00 Temperature 36.9 C Pulse Rate 77 Respiratory Rate 18 Blood Pressure 143/64 H Pulse Oximetry 100 Oxygen Delivery Room Air Intake/Output Intake/Output: Intake & Output 06/30/25 07/01/25 07/02/25 07/03/25 23:59 23:59 23:59 23:59 Intake Total 200 1570 1230 860 Balance 200 1570 1230 860 Meds/Results Medications: Active Medications Generic Name Dose Route Start Last Admin Trade Name Freq PRN Reason Stop Dose Admin Acetaminophen 500 mg 06/30/25 17:03 07/02/25 21:52 Acetaminophen 500 Mg Tablet PO 500 mg Q6H PRN Administration Pain Rated 1-3 Buprenorphine/Naloxone 2 each 06/30/25 20:10 07/03/25 08:40 Buprenorphine/Naloxone (*Crx) 4 Mg/1 Mg Sl Film SUBLINGUAL 2 each BID ANNE Administration Dextrose 12.5 gm 07/01/25 02:20 Dextrose 50% 25 Gm/50 Ml Syringe IV PUSH PRN PRN Hypoglycemia Protocol Enoxaparin Sodium 30 mg 06/30/25 21:00 07/03/25 08:49 Enoxaparin 30 Mg/0.3 Ml Syringe SUB-Q 30 mg Q12HR ANNE Administration Glucagon 1 mg 07/01/25 02:20 Glucagon For Inj 1 Mg Vial IM PRN PRN Hypoglycemia Protocol Glucose 15 gm 07/01/25 02:20 Glucose Oral Gel 15 Gm Of Glucse In 37.5 Gm Tube PO PRN PRN Hypoglycemia Protocol Dextrose 1,000 mls @ 100 mls/hr 07/01/25 02:20 Dextrose 5% 1,000 Ml IVPB PRN PRN Hypoglycemia Protocol Insulin Aspart 2 - 5 units 07/01/25 08:00 07/03/25 11:57 Insulin Aspart (*Bkc) 100 Units/Ml SUB-Q 2 units TIDWM ANNE Administration Protocol Ketorolac Tromethamine 15 mg 06/30/25 22:40 07/03/25 08:48 Ketorolac 15 Mg/Ml Vial (*Bkc) IV PUSH 15 mg Q6H PRN Administration Pain Rated 4-6 Linaclotide 290 mcg 07/01/25 06:30 07/03/25 06:16 Linaclotide 145 Mcg Capsule PO 290 mcg DAILY@0630 ANNE Administration Lisinopril 20 mg 07/01/25 09:00 07/03/25 08:40 Lisinopril 20 Mg Tablet PO 20 mg DAILY ANNE Administration Ondansetron HCl 4 mg 07/02/25 09:39 07/02/25 09:45 Ondansetron Inj 4 Mg/2 Ml Vial IV PUSH 4 mg Q6H PRN Administration Nausea And Vomiting Polyethylene Glycol 17 gm 07/01/25 09:00 07/03/25 08:40 Polyethylene Glycol 3350 17 Gm Powd.Pack PO 17 gm QAM ANNE Administration Senna/Docusate Sodium 2 tab 06/30/25 21:00 07/02/25 20:12 Senna/Docusate Sodium Tablet PO 2 tab HS ANNE Administration Labs Labs: Laboratory Results - last 24 hr 07/02/25 07/02/25 07/02/25 16:33 20:33 21:48 WBC RBC Hgb Hct MCV MCH MCHC RDW Plt Count MPV Sodium Potassium Chloride Carbon Dioxide Anion Gap BUN Creatinine Estim Creat Clear Calc Estimated GFR Glucose POC Capillary Glucose 154 H 246 H 182 H Calcium Magnesium Total Bilirubin AST ALT Alkaline Phosphatase Total Protein Albumin 07/03/25 07/03/25 07/03/25 05:16 07:18 11:12 WBC 9.0 RBC 3.18 L Hgb 9.6 L Hct 31.5 L MCV 99.1 MCH 30.2 MCHC 30.5 L RDW 13.2 Plt Count 216 MPV 10.7 H Sodium 133 L Potassium 4.4 Chloride 100 Carbon Dioxide 29 Anion Gap 4 BUN 11 Creatinine 0.70 Estim Creat Clear Calc 100 Estimated GFR > 60 Glucose 150 H POC Capillary Glucose 163 H 202 H Calcium 8.9 Magnesium 1.9 Total Bilirubin 0.5 AST 19 ALT 12 Alkaline Phosphatase 66 Total Protein 7.2 Albumin 3.5
[2025-07-03] MEDS: SENNA/DOCUSATE SODIUM TABLET 2 TAB PO (21:01)
[2025-07-03 21:34] VITALS: BP 154/70; PULSE 78; RESP 14; TEMP 36.8; O2SAT 97
[2025-07-04] MEDS: KETOROLAC 15 MG/ML VIAL (*BKC) IV PUSH ×4 (00:52→20:54)
[2025-07-04] MEDS: ACETAMINOPHEN 500 MG TABLET PO ×2 (04:33→11:12)
[2025-07-04 05:28] VITALS: BP 142/84; PULSE 83; RESP 16; TEMP 36.7; O2SAT 96
[2025-07-04] MEDS: LINACLOTIDE 145 MCG CAPSULE 290 MCG PO (05:42)
[2025-07-04 06:15] LABS: Hematocrit 31.3 % (37.0-47.0); Hemoglobin 9.4 g/dL (12.0-15.0); Mean Corpuscular HGB Conc 30.0 g/dl (32-36); Mean Corpuscular Hemoglobin 29.9 pg (26-34); Mean Corpuscular Volume 99.7 fl (80-100); Platelet Count Result 218 k/mm3 (150-375); Red Blood Count 3.14 M/mm3 (4.2-5.4); White Blood Count 8.8 K/mm3 (4.5-10.0)
[2025-07-04 08:15] LABS: Alanine Aminotransferase 11 U/L (6-35); Albumin Level 3.2 g/dL (3.5-5.1); Alkaline Phosphatase 67 U/L (38-126); Anion Gap 3 mmol/L (4-12); Aspartate Amino Transferase 16 U/L (14-36); Bilirubin,Total 0.3 mg/dL (0.2-1.3); Blood Urea Nitrogen 15 mg/dL (7-17); Calcium 8.9 mg/dL (8.4-10.2); Carbon Dioxide 29 mmol/L (22-30); Chloride 102 mmol/L (98-107); Estimated CRCL calculation 101 ml/min; Estimated Glomerular Filt Rate > 60; Glucose 153 mg/dL (65-110); Magnesium 1.7 mg/dL (1.6-2.3); Potassium 4.4 mmol/L (3.4-5.0); Sodium 134 mmol/L (137-145); Total Protein 6.5 g/dL (6.3-8.2)
[2025-07-04] MEDS: BUPRENORPHINE/NALOXONE (*CRX) 4 MG/1 MG SL FILM 2 EACH SUBLINGUAL ×2 (11:11→17:28)
[2025-07-04] MEDS: ENOXAPARIN 30 MG/0.3 ML SYRINGE SUB-Q ×2 (11:12→20:53)
--- NOTE | 2025-07-04 12:02 | PM.PNGS ---
Progress Note: A&P Assessment and Plan (1) Incarcerated umbilical hernia: Code(s): K42.0 - Umbilical hernia with obstruction, without gangrene Status: Chronic Assessment and Plan: Repair is intact. Trocar incisions are healing well. Umbilical skin is healing as well. (2) Morbid obesity with BMI of 50.0-59.9, adult: Code(s): E66.01 - Morbid (severe) obesity due to excess calories; Z68.43 - Body mass index [BMI] 50.0-59.9, adult Status: Chronic (3) Type 2 diabetes mellitus: Code(s): E11.9 - Type 2 diabetes mellitus without complications Status: Chronic (4) Constipation due to opioid therapy: Code(s): K59.03 - Drug induced constipation; T40.2X5A - Adverse effect of other opioids, initial encounter Status: Chronic Assessment and Plan: Receiving Linzess, MiraLax, Senokot tabs. No bowel movement after soap suds enema yesterday. Water-soluble upper GI small-bowel follow-through performed this morning. No evidence of small-bowel obstruction. Hopefully this will stimulate some bowel movements. Will try to advance diet after small-bowel series. Subjective Subjective Date/Time Seen: 07/04/25 12:02 Post Op day: 4 Patient reports: feels better (Having pain but nausea is gone today), still having pain (Midline lower abdominal or suprapubic pain after got her enema yesterday), tolerating liquids well, no bowel movement (After soap suds enema, patient had only a small palpable or 2 of bowel movement, otherwise no result) and afebrile Exam Const: General: comfortable, alert and awake Nutritional Appearance: obese Orientation/consciousness: No confusion GI: Inspection: non-distended, incision (Healing well) and other (Umbilicus shows no recurrent hernia, skin healing nicely) GI Palp: Yes Soft to palpation, Yes Tenderness to palpation present (GI) (Umbilical area), No Hernia present and No Palpable mass present Objective Data Vital Signs Vital Signs: Vital Signs - 24 hr 07/03/25 14:00 07/03/25 20:00 07/03/25 21:34 Temperature 36.9 C 36.8 C Pulse Rate 77 78 Respiratory Rate 18 14 Blood Pressure 143/64 H 154/70 H Pulse Oximetry 100 97 Oxygen Delivery Room Air 07/04/25 05:28 07/04/25 11:15 Temperature 36.7 C Pulse Rate 83 Respiratory Rate 16 Blood Pressure 142/84 H Pulse Oximetry 96 Oxygen Delivery Room Air Intake/Output Intake/Output: Intake & Output 07/01/25 07/02/25 07/03/25 07/04/25 23:59 23:59 23:59 23:59 Intake Total 1570 1230 1410 590 Balance 1570 1230 1410 590 Meds/Results Medications: Active Medications Generic Name Dose Route Start Last Admin Trade Name Freq PRN Reason Stop Dose Admin Acetaminophen 500 mg 06/30/25 17:03 07/04/25 11:12 Acetaminophen 500 Mg Tablet PO 500 mg Q6H PRN Administration Pain Rated 1-3 Buprenorphine/Naloxone 2 each 06/30/25 20:10 07/04/25 11:11 Buprenorphine/Naloxone (*Crx) 4 Mg/1 Mg Sl Film SUBLINGUAL 2 each BID ANNE Administration Dextrose 12.5 gm 07/01/25 02:20 Dextrose 50% 25 Gm/50 Ml Syringe IV PUSH PRN PRN Hypoglycemia Protocol Enoxaparin Sodium 30 mg 06/30/25 21:00 07/04/25 11:12 Enoxaparin 30 Mg/0.3 Ml Syringe SUB-Q 30 mg Q12HR ANNE Administration Glucagon 1 mg 07/01/25 02:20 Glucagon For Inj 1 Mg Vial IM PRN PRN Hypoglycemia Protocol Glucose 15 gm 07/01/25 02:20 Glucose Oral Gel 15 Gm Of Glucse In 37.5 Gm Tube PO PRN PRN Hypoglycemia Protocol Dextrose 1,000 mls @ 100 mls/hr 07/01/25 02:20 Dextrose 5% 1,000 Ml IVPB PRN PRN Hypoglycemia Protocol Insulin Aspart 2 - 5 units 07/01/25 08:00 07/04/25 09:12 Insulin Aspart (*Bkc) 100 Units/Ml SUB-Q Not Given TIDWM ANNE Protocol Ketorolac Tromethamine 15 mg 06/30/25 22:40 07/04/25 06:24 Ketorolac 15 Mg/Ml Vial (*Bkc) IV PUSH 15 mg Q6H PRN Administration Pain Rated 4-6 Linaclotide 290 mcg 07/01/25 06:30 07/04/25 05:42 Linaclotide 145 Mcg Capsule PO 290 mcg DAILY@0630 ANNE Administration Lisinopril 20 mg 07/01/25 09:00 07/04/25 11:12 Lisinopril 20 Mg Tablet PO 20 mg DAILY ANNE Administration Ondansetron HCl 4 mg 07/02/25 09:39 07/02/25 09:45 Ondansetron Inj 4 Mg/2 Ml Vial IV PUSH 4 mg Q6H PRN Administration Nausea And Vomiting Polyethylene Glycol 17 gm 07/01/25 09:00 07/04/25 11:12 Polyethylene Glycol 3350 17 Gm Powd.Pack PO 17 gm QAM ANNE Administration Senna/Docusate Sodium 2 tab 06/30/25 21:00 07/03/25 21:01 Senna/Docusate Sodium Tablet PO 2 tab HS ANNE Administration Radiology Results: ITS Impressions Upper GI Series 07/04/25 11:23 IMPRESSION: 1. Limited single contrast exam as above demonstrating tertiary contractions in the esophagus suggesting esophagitis. 2. No evidence of obstruction. Rapid transit of contrast with contrast possibly present in the large intestine within 30 minutes. Labs Labs: Laboratory Results - last 24 hr 07/03/25 07/03/25 07/04/25 16:27 21:13 05:11 WBC 8.8 RBC 3.14 L Hgb 9.4 L Hct 31.3 L MCV 99.7 MCH 29.9 MCHC 30.0 L RDW 13.1 Plt Count 218 MPV 11.1 H Sodium 134 L Potassium 4.4 Chloride 102 Carbon Dioxide 29 Anion Gap 3 L BUN 15 Creatinine 0.69 L Estim Creat Clear Calc 101 Estimated GFR > 60 Glucose 153 H POC Capillary Glucose 143 H 187 H Calcium 8.9 Magnesium 1.7 Total Bilirubin 0.3 AST 16 ALT 11 Alkaline Phosphatase 67 Total Protein 6.5 Albumin 3.2 L 07/04/25 07/04/25 07:35 11:21 WBC RBC Hgb Hct MCV MCH MCHC RDW Plt Count MPV Sodium Potassium Chloride Carbon Dioxide Anion Gap BUN Creatinine Estim Creat Clear Calc Estimated GFR Glucose POC Capillary Glucose 145 H 150 H Calcium Magnesium Total Bilirubin AST ALT Alkaline Phosphatase Total Protein Albumin Imaging Attestation: I personally reviewed and interpreted this imaging study as follows: (Upper GI small-bowel follow-through done this morning) My impression: Contrast definitely in the colon by 45 minutes, maybe even sooner. Colon is dilated and there are areas of stool in the colon. Radiologist's impression: FINDINGS: On the upper GI portion, tertiary contractions were noted with no stricture stenosis or occlusion. No large ulceration seen. In the stomach, no obvious abnormality identified, however the stomach is poorly distended. No extravasation of contrast or large mass effect identified. Contrast flowed readily into the proximal small bowel. On the small bowel series, contrast flowed readily into the large intestine within 1 hour. Contrast may be present in the right hemicolon at 30 minutes. No extravasation of contrast or evidence of obstruction. IMPRESSION: 1. Limited single contrast exam as above demonstrating tertiary contractions in the esophagus suggesting esophagitis. 2. No evidence of obstruction. Rapid transit of contrast with contrast possibly present in the large intestine within 30 minutes. Reviewed, dictated and finalized at location A. [employer]
--- NOTE | 2025-07-04 12:52 | P.PNIM_ITS ---
Assessment and Plan Assessment and Plan (1) Incarcerated umbilical hernia: Code(s): K42.0 - Umbilical hernia with obstruction, without gangrene Status: Chronic Assessment and Plan: Patient with 10 year history of umbilical hernia. Recently noticed increased pain and overlying skin changes. robotic laparoscopic repair of chronically incarcerated umbilical hernia with mesh on 06/30. * increase diet as tolerated regular diet * encourage ambulation * incentive spirometry * continue Suboxone * p.r.n. pain management with acetaminophen and ketorolac * do not order additional opioids * Should hold Trulicity post-op * Antiemetics * SBS no obstruction (2) Constipation due to opioid therapy: Code(s): K59.03 - Drug induced constipation; T40.2X5A - Adverse effect of other opioids, initial encounter Status: Chronic Assessment and Plan: Patient with past history of heroin use. Now on Suboxone maintenance therapy for the past 5 years. * continue Linzess, MiraLax (3) Non-insulin dependent diabetes mellitus: Status: Chronic Assessment and Plan: * hypoglycemia protocol * POC blood glucose ACHS * home medication: Trulicity hold due to surgery * correct regimen ordered: Low-dose sliding scale (4) Hypertension: Code(s): I10 - Essential (primary) hypertension Status: Chronic Assessment and Plan: * Continue lisinopril Plan Code status: Full code per patient DVT prophylaxis: Lovenox Stress ulcer prophylaxis: NA PT/OT notes: Ambulating Disposition: Patient continues admission to the medical unit after laparoscopic repair of a incarcerated hernia plan for discharge to home when medically stable. Time Spent With Patient Time with patient: 15 - 25 minutes Subjective Date/time seen: 07/04/25 12:52 Interval history: Patient is a 60 female who underwent a laparoscopic repair of a incarcerated umbilical hernia. We are following for medical consultation. 07/04/2025: Patient tolerating advancement of diet and passing gas. Initially patient still had not had a bowel movement a small bowel series was performed with no evidence of obstruction and rapid transit of contrast. Multiple patient post bowel series which time she reported she did have a large movement. Review of Systems Review of Systems: All systems reviewed & are unremarkable except as noted in HPI and below Exam Const: General: comfortable and no acute distress HENMT: Mouth: Yes moist mucous membranes Eyes: General: appearance normal, both eyes and all related structures Sclera: sclerae normal Pupils: Equal, round and reactive pupils present Neck: Neck: supple Resp: Effort & Inspection: normal respiratory effort Auscultation: clear to auscultation bilaterally Cardio: Rate: regular rate Rhythm: regular rhythm GI: Auscultation: normal bowel sounds Skin: General skin exam: normal color and no rashes or lesions noted Wounds: no wounds Neuro: General: gait normal Cranial nerves: Yes Equal, round and reactive pupils present Speech: normal speech Motor exam (neuro): 5/5 motor strength present throughout Sensory Exam: normal sensation Extrem: General: normal to inspection Psych: Mental Status: mental status grossly normal Affect: normal affect Objective Data Vital Signs Vital Signs: Vital Signs - 24 hr 07/03/25 14:00 07/03/25 20:00 07/03/25 21:34 Temperature 98.5 F 98.2 F Pulse Rate 77 78 Respiratory Rate 18 14 Blood Pressure 143/64 H 154/70 H Pulse Oximetry 100 97 Oxygen Delivery Room Air 07/04/25 05:28 07/04/25 11:15 Temperature 98.0 F Pulse Rate 83 Respiratory Rate 16 Blood Pressure 142/84 H Pulse Oximetry 96 Oxygen Delivery Room Air Intake/Output Intake/Output: Intake & Output 07/01/25 07/02/25 07/03/25 07/04/25 23:59 23:59 23:59 23:59 Intake Total 1570 1230 1410 590 Balance 1570 1230 1410 590 Meds/Results Medications: Active Medications Generic Name Dose Route Start Last Admin Trade Name Freq PRN Reason Stop Dose Admin Acetaminophen 500 mg 06/30/25 17:03 07/04/25 11:12 Acetaminophen 500 Mg Tablet PO 500 mg Q6H PRN Administration Pain Rated 1-3 Buprenorphine/Naloxone 2 each 06/30/25 20:10 07/04/25 11:11 Buprenorphine/Naloxone (*Crx) 4 Mg/1 Mg Sl Film SUBLINGUAL 2 each BID ANNE Administration Dextrose 12.5 gm 07/01/25 02:20 Dextrose 50% 25 Gm/50 Ml Syringe IV PUSH PRN PRN Hypoglycemia Protocol Enoxaparin Sodium 30 mg 06/30/25 21:00 07/04/25 11:12 Enoxaparin 30 Mg/0.3 Ml Syringe SUB-Q 30 mg Q12HR ANNE Administration Glucagon 1 mg 07/01/25 02:20 Glucagon For Inj 1 Mg Vial IM PRN PRN Hypoglycemia Protocol Glucose 15 gm 07/01/25 02:20 Glucose Oral Gel 15 Gm Of Glucse In 37.5 Gm Tube PO PRN PRN Hypoglycemia Protocol Dextrose 1,000 mls @ 100 mls/hr 07/01/25 02:20 Dextrose 5% 1,000 Ml IVPB PRN PRN Hypoglycemia Protocol Insulin Aspart 2 - 5 units 07/01/25 08:00 07/04/25 12:12 Insulin Aspart (*Bkc) 100 Units/Ml SUB-Q Not Given TIDWM ANNE Protocol Ketorolac Tromethamine 15 mg 06/30/25 22:40 07/04/25 06:24 Ketorolac 15 Mg/Ml Vial (*Bkc) IV PUSH 15 mg Q6H PRN Administration Pain Rated 4-6 Linaclotide 290 mcg 07/01/25 06:30 07/04/25 05:42 Linaclotide 145 Mcg Capsule PO 290 mcg DAILY@0630 ANNE Administration Lisinopril 20 mg 07/01/25 09:00 07/04/25 11:12 Lisinopril 20 Mg Tablet PO 20 mg DAILY ANNE Administration Ondansetron HCl 4 mg 07/02/25 09:39 07/02/25 09:45 Ondansetron Inj 4 Mg/2 Ml Vial IV PUSH 4 mg Q6H PRN Administration Nausea And Vomiting Polyethylene Glycol 17 gm 07/01/25 09:00 07/04/25 11:12 Polyethylene Glycol 3350 17 Gm Powd.Pack PO 17 gm QAM ANNE Administration Senna/Docusate Sodium 2 tab 06/30/25 21:00 07/03/25 21:01 Senna/Docusate Sodium Tablet PO 2 tab HS ANNE Administration Radiology Results: ITS Impressions Upper GI Series 07/04/25 11:23 IMPRESSION: 1. Limited single contrast exam as above demonstrating tertiary contractions in the esophagus suggesting esophagitis. 2. No evidence of obstruction. Rapid transit of contrast with contrast possibly present in the large intestine within 30 minutes. Labs Labs: Laboratory Results - last 24 hr 07/03/25 07/03/25 07/04/25 16:27 21:13 05:11 WBC 8.8 RBC 3.14 L Hgb 9.4 L Hct 31.3 L MCV 99.7 MCH 29.9 MCHC 30.0 L RDW 13.1 Plt Count 218 MPV 11.1 H Sodium 134 L Potassium 4.4 Chloride 102 Carbon Dioxide 29 Anion Gap 3 L BUN 15 Creatinine 0.69 L Estim Creat Clear Calc 101 Estimated GFR > 60 Glucose 153 H POC Capillary Glucose 143 H 187 H Calcium 8.9 Magnesium 1.7 Total Bilirubin 0.3 AST 16 ALT 11 Alkaline Phosphatase 67 Total Protein 6.5 Albumin 3.2 L 07/04/25 07/04/25 07:35 11:21 WBC RBC Hgb Hct MCV MCH MCHC RDW Plt Count MPV Sodium Potassium Chloride Carbon Dioxide Anion Gap BUN Creatinine Estim Creat Clear Calc Estimated GFR Glucose POC Capillary Glucose 145 H 150 H Calcium Magnesium Total Bilirubin AST ALT Alkaline Phosphatase Total Protein Albumin Attestation: I personally reviewed all lab results Quality VTE Prophylaxis VTE prophylaxis: mechanical ordered -Patient's previous records reviewed on admission -ER notes reviewed in detail on admission -discussed all findings and current treatment plan with patient/Family/POA -Consultations reviewed for recommendations -Patient's disposition for safe discharge discussed with manager case management -radiology imaging, EKG and test results I have personally reviewed and interpreted unless otherwise specified Dictation performed by [employer] direct speech recognition software, therefore senior risk analyst variants and typographical errors may occur. Hospitalist MIPS Advance Care Plan I have confirmed that the patient's Advanced Care Plan is present, code status is documented, or surrogate decision maker is listed in patient medical record.: Yes Medication Reconciliation I have utilized all available resources to obtain, update and review the patients current medications (includes all prescriptions, OTC, herbals, cannabis, and nutritional supplements).: Yes The patient is not eligible for med reconciliation; the patient is in a emergent medical situation where delaying treatment would jeopardize the patients health.: No
[2025-07-04 15:15] VITALS: BP 127/68; PULSE 78; RESP 19; TEMP 36.8; O2SAT 94
[2025-07-04] MEDS: SENNA/DOCUSATE SODIUM TABLET 2 TAB PO (20:54)
[2025-07-04 22:00] VITALS: BP 142/74; PULSE 78; RESP 20; TEMP 36.4; O2SAT 97
[2025-07-05] MEDS: LINACLOTIDE 145 MCG CAPSULE 290 MCG PO (05:37)
[2025-07-05 06:00] VITALS: BP 138/69; PULSE 73; RESP 18; TEMP 36.6; O2SAT 95
[2025-07-05 06:13] LABS: Hematocrit 31.6 % (37.0-47.0); Hemoglobin 9.7 g/dL (12.0-15.0); Mean Corpuscular HGB Conc 30.7 g/dl (32-36); Mean Corpuscular Hemoglobin 30.2 pg (26-34); Mean Corpuscular Volume 98.4 fl (80-100); Platelet Count Result 243 k/mm3 (150-375); Red Blood Count 3.21 M/mm3 (4.2-5.4); White Blood Count 7.0 K/mm3 (4.5-10.0)
[2025-07-05 06:41] LABS: Alanine Aminotransferase 11 U/L (6-35); Albumin Level 3.3 g/dL (3.5-5.1); Alkaline Phosphatase 71 U/L (38-126); Anion Gap 1 mmol/L (4-12); Aspartate Amino Transferase 15 U/L (14-36); Bilirubin,Total 0.3 mg/dL (0.2-1.3); Blood Urea Nitrogen 15 mg/dL (7-17); Calcium 9.0 mg/dL (8.4-10.2); Carbon Dioxide 31 mmol/L (22-30); Chloride 104 mmol/L (98-107); Estimated CRCL calculation 102 ml/min; Estimated Glomerular Filt Rate > 60; Glucose 150 mg/dL (65-110); Magnesium 1.9 mg/dL (1.6-2.3); Potassium 4.4 mmol/L (3.4-5.0); Sodium 136 mmol/L (137-145); Total Protein 6.9 g/dL (6.3-8.2)
--- NOTE | 2025-07-05 07:10 | P.PNGS_ITS ---
Progress Note: A&P Assessment and Plan (1) Incarcerated umbilical hernia: Code(s): K42.0 - Umbilical hernia with obstruction, without gangrene Status: Chronic Assessment and Plan: Repair is intact. Trocar incisions are healing well. Umbilical skin is healing as well. Limited on analgesics due to being on Suboxone. Probably home tomorrow. (2) Morbid obesity with BMI of 50.0-59.9, adult: Code(s): E66.01 - Morbid (severe) obesity due to excess calories; Z68.43 - Body mass index [BMI] 50.0-59.9, adult Status: Chronic (3) Type 2 diabetes mellitus: Code(s): E11.9 - Type 2 diabetes mellitus without complications Status: Chronic (4) Constipation due to opioid therapy: Code(s): K59.03 - Drug induced constipation; T40.2X5A - Adverse effect of other opioids, initial encounter Status: Chronic Assessment and Plan: Patient did have at least 3 bowel movements after water-soluble upper GI small- bowel follow-through yesterday. She still feels constipated but it is much better. Will give magnesium citrate today. Hopefully, home tomorrow. Subjective Subjective Date/Time Seen: 07/05/25 07:10 Patient reports: feels better, still having pain (Periumbilical), tolerating a regular diet, bowel movement (Still feels constipated, bowel movements after water-soluble upper GI yesterday) and afebrile Exam Const: General: comfortable, no acute distress, alert and awake; No confusion Orientation/consciousness: patient oriented x3 GI: Inspection: non-distended, incision (Healing), no visible herniation and other (Umbilical skin healing well) GI Palp: Yes Soft to palpation, Yes Tenderness to palpation present (GI) (Periumbilical), No Guarding due to palpation present (GI) and No Rebound tenderness present Auscultation: normal bowel sounds Neuro: General: patient oriented x3 and no focal motor deficits Extrem: General: no calf tenderness and no edema Psych: Affect: normal affect Insight: Good insight present (Psych) Judgement: Good judgement present (Psych) Objective Data Vital Signs Vital Signs: Vital Signs - 24 hr 07/04/25 11:15 07/04/25 15:15 07/04/25 20:00 Temperature 36.8 C Pulse Rate 78 Respiratory Rate 19 Blood Pressure 127/68 Pulse Oximetry 94 Oxygen Delivery Room Air Room Air 07/04/25 22:00 Temperature 36.4 C Pulse Rate 78 Respiratory Rate 20 Blood Pressure 142/74 H Pulse Oximetry 97 Oxygen Delivery Intake/Output Intake/Output: Intake & Output 07/02/25 07/03/25 07/04/25 07/05/25 23:59 23:59 23:59 23:59 Intake Total 1230 1410 1620 500 Balance 1230 1410 1620 500 Meds/Results Medications: Active Medications Generic Name Dose Route Start Last Admin Trade Name Freq PRN Reason Stop Dose Admin Acetaminophen 500 mg 06/30/25 17:03 07/04/25 11:12 Acetaminophen 500 Mg Tablet PO 500 mg Q6H PRN Administration Pain Rated 1-3 Buprenorphine/Naloxone 2 each 06/30/25 20:10 07/04/25 17:28 Buprenorphine/Naloxone (*Crx) 4 Mg/1 Mg Sl Film SUBLINGUAL 2 each BID ANNE Administration Dextrose 12.5 gm 07/01/25 02:20 Dextrose 50% 25 Gm/50 Ml Syringe IV PUSH PRN PRN Hypoglycemia Protocol Enoxaparin Sodium 30 mg 06/30/25 21:00 07/04/25 20:53 Enoxaparin 30 Mg/0.3 Ml Syringe SUB-Q 30 mg Q12HR ANNE Administration Glucagon 1 mg 07/01/25 02:20 Glucagon For Inj 1 Mg Vial IM PRN PRN Hypoglycemia Protocol Glucose 15 gm 07/01/25 02:20 Glucose Oral Gel 15 Gm Of Glucse In 37.5 Gm Tube PO PRN PRN Hypoglycemia Protocol Dextrose 1,000 mls @ 100 mls/hr 07/01/25 02:20 Dextrose 5% 1,000 Ml IVPB PRN PRN Hypoglycemia Protocol Insulin Aspart 2 - 5 units 07/01/25 08:00 07/04/25 17:28 Insulin Aspart (*Bkc) 100 Units/Ml SUB-Q Not Given TIDWM ANNE Protocol Ketorolac Tromethamine 15 mg 06/30/25 22:40 07/04/25 20:54 Ketorolac 15 Mg/Ml Vial (*Bkc) IV PUSH 15 mg Q6H PRN Administration Pain Rated 4-6 Linaclotide 290 mcg 07/01/25 06:30 07/05/25 05:37 Linaclotide 145 Mcg Capsule PO 290 mcg DAILY@0630 ANNE Administration Lisinopril 20 mg 07/01/25 09:00 07/04/25 11:12 Lisinopril 20 Mg Tablet PO 20 mg DAILY ANNE Administration Miscellaneous Information 1 each 07/05/25 00:01 Toradol Needs To Be Renewed Or It Will Automatically Discontinue. XX 08/04/25 00:00 [facility] Ondansetron HCl 4 mg 07/02/25 09:39 07/02/25 09:45 Ondansetron Inj 4 Mg/2 Ml Vial IV PUSH 4 mg Q6H PRN Administration Nausea And Vomiting Polyethylene Glycol 17 gm 07/01/25 09:00 07/04/25 11:12 Polyethylene Glycol 3350 17 Gm Powd.Pack PO 17 gm QAM ANNE Administration Senna/Docusate Sodium 2 tab 06/30/25 21:00 07/04/25 20:54 Senna/Docusate Sodium Tablet PO 2 tab HS ANNE Administration Radiology Results: ITS Impressions Upper GI Series 07/04/25 11:23 IMPRESSION: 1. Limited single contrast exam as above demonstrating tertiary contractions in the esophagus suggesting esophagitis. 2. No evidence of obstruction. Rapid transit of contrast with contrast possibly present in the large intestine within 30 minutes. Labs Labs: Laboratory Results - last 24 hr 07/04/25 07/04/25 07/04/25 05:11 07:35 11:21 WBC RBC Hgb Hct MCV MCH MCHC RDW Plt Count MPV Sodium 134 L Potassium 4.4 Chloride 102 Carbon Dioxide 29 Anion Gap 3 L BUN 15 Creatinine 0.69 L Estim Creat Clear Calc 101 Estimated GFR > 60 Glucose 153 H POC Capillary Glucose 145 H 150 H Calcium 8.9 Magnesium 1.7 Total Bilirubin 0.3 AST 16 ALT 11 Alkaline Phosphatase 67 Total Protein 6.5 Albumin 3.2 L 07/04/25 07/04/25 07/05/25 17:15 20:40 05:28 WBC 7.0 RBC 3.21 L Hgb 9.7 L Hct 31.6 L MCV 98.4 MCH 30.2 MCHC 30.7 L RDW 13.2 Plt Count 243 MPV 10.3 Sodium 136 L Potassium 4.4 Chloride 104 Carbon Dioxide 31 H Anion Gap 1 L BUN 15 Creatinine 0.68 L Estim Creat Clear Calc 102 Estimated GFR > 60 Glucose 150 H POC Capillary Glucose 153 H 162 H Calcium 9.0 Magnesium 1.9 Total Bilirubin 0.3 AST 15 ALT 11 Alkaline Phosphatase 71 Total Protein 6.9 Albumin 3.3 L
[2025-07-05] MEDS: ENOXAPARIN 30 MG/0.3 ML SYRINGE SUB-Q ×2 (08:02→20:09)
[2025-07-05] MEDS: KETOROLAC 15 MG/ML VIAL (*BKC) IV PUSH ×3 (08:03→20:08)
[2025-07-05] MEDS: BUPRENORPHINE/NALOXONE (*CRX) 4 MG/1 MG SL FILM 2 EACH SUBLINGUAL ×2 (08:03→18:04)
--- NOTE | 2025-07-05 09:34 | P.PNIM_ITS ---
Assessment and Plan Assessment and Plan (1) Incarcerated umbilical hernia: Code(s): K42.0 - Umbilical hernia with obstruction, without gangrene Status: Chronic Assessment and Plan: Patient with 10 year history of umbilical hernia. Recently noticed increased pain and overlying skin changes. robotic laparoscopic repair of chronically incarcerated umbilical hernia with mesh on 06/30. * increase diet as tolerated regular diet * encourage ambulation * incentive spirometry * continue Suboxone * p.r.n. pain management with acetaminophen and ketorolac * do not order additional opioids * Should hold Trulicity post-op * Antiemetics * SBS no obstruction (2) Constipation due to opioid therapy: Code(s): K59.03 - Drug induced constipation; T40.2X5A - Adverse effect of other opioids, initial encounter Status: Chronic Assessment and Plan: Patient with past history of heroin use. Now on Suboxone maintenance therapy for the past 5 years. * continue Saba Romo * BM x3 after SBS (3) Non-insulin dependent diabetes mellitus: Status: Chronic Assessment and Plan: * hypoglycemia protocol * POC blood glucose ACHS * home medication: Trulicity hold due to surgery * correct regimen ordered: Low-dose sliding scale (4) Hypertension: Code(s): I10 - Essential (primary) hypertension Status: Chronic Assessment and Plan: * Continue lisinopril Plan Code status: Full code per patient DVT prophylaxis: Lovenox Stress ulcer prophylaxis: NA PT/OT notes: Ambulating Disposition: Patient continues admission to the medical unit after laparoscopic repair of a incarcerated hernia plan for discharge to home when medically stable. Time Spent With Patient Time with patient: less than 15 minutes Subjective Date/time seen: 07/05/25 09:34 Interval history: Patient is a 60 female who underwent a laparoscopic repair of a incarcerated umbilical hernia. We are following for medical consultation. 07/05/2025: Patient having BM's with mild ABD tenderness. Patient tolerating advanced diet. No leukocytosis or fever. Review of Systems Review of Systems: All systems reviewed & are unremarkable except as noted in HPI and below Exam Const: General: comfortable and no acute distress HENMT: Mouth: Yes moist mucous membranes Eyes: General: appearance normal, both eyes and all related structures Sclera: sclerae normal Pupils: Equal, round and reactive pupils present Neck: Neck: supple Resp: Effort & Inspection: normal respiratory effort Auscultation: clear to auscultation bilaterally Cardio: Rate: regular rate Rhythm: regular rhythm GI: Auscultation: normal bowel sounds Skin: General skin exam: normal color and no rashes or lesions noted Wounds: no wounds Neuro: General: gait normal Cranial nerves: Yes Equal, round and reactive pupils present Speech: normal speech Motor exam (neuro): 5/5 motor strength present throughout Sensory Exam: normal sensation Extrem: General: normal to inspection Psych: Mental Status: mental status grossly normal Affect: normal affect Objective Data Vital Signs Vital Signs: Vital Signs - 24 hr 07/04/25 11:15 07/04/25 15:15 07/04/25 20:00 Temperature 98.2 F Pulse Rate 78 Respiratory Rate 19 Blood Pressure 127/68 Pulse Oximetry 94 Oxygen Delivery Room Air Room Air 07/04/25 22:00 07/05/25 06:00 Temperature 97.6 F 97.8 F Pulse Rate 78 73 Respiratory Rate 20 18 Blood Pressure 142/74 H 138/69 Pulse Oximetry 97 95 Oxygen Delivery Intake/Output Intake/Output: Intake & Output 07/02/25 07/03/25 07/04/25 07/05/25 23:59 23:59 23:59 23:59 Intake Total 1230 1410 1620 620 Balance 1230 1410 1620 620 Meds/Results Medications: Active Medications Generic Name Dose Route Start Last Admin Trade Name Freq PRN Reason Stop Dose Admin Acetaminophen 500 mg 06/30/25 17:03 07/04/25 11:12 Acetaminophen 500 Mg Tablet PO 500 mg Q6H PRN Administration Pain Rated 1-3 Buprenorphine/Naloxone 2 each 06/30/25 20:10 07/05/25 08:03 Buprenorphine/Naloxone (*Crx) 4 Mg/1 Mg Sl Film SUBLINGUAL 2 each BID ANNE Administration Dextrose 12.5 gm 07/01/25 02:20 Dextrose 50% 25 Gm/50 Ml Syringe IV PUSH PRN PRN Hypoglycemia Protocol Enoxaparin Sodium 30 mg 06/30/25 21:00 07/05/25 08:02 Enoxaparin 30 Mg/0.3 Ml Syringe SUB-Q 30 mg Q12HR ANNE Administration Glucagon 1 mg 07/01/25 02:20 Glucagon For Inj 1 Mg Vial IM PRN PRN Hypoglycemia Protocol Glucose 15 gm 07/01/25 02:20 Glucose Oral Gel 15 Gm Of Glucse In 37.5 Gm Tube PO PRN PRN Hypoglycemia Protocol Dextrose 1,000 mls @ 100 mls/hr 07/01/25 02:20 Dextrose 5% 1,000 Ml IVPB PRN PRN Hypoglycemia Protocol Insulin Aspart 2 - 5 units 07/01/25 08:00 07/05/25 08:04 Insulin Aspart (*Bkc) 100 Units/Ml SUB-Q Not Given TIDWM ANNE Protocol Ketorolac Tromethamine 15 mg 06/30/25 22:40 07/05/25 08:03 Ketorolac 15 Mg/Ml Vial (*Bkc) IV PUSH 15 mg Q6H PRN Administration Pain Rated 4-6 Linaclotide 290 mcg 07/01/25 06:30 07/05/25 05:37 Linaclotide 145 Mcg Capsule PO 290 mcg DAILY@0630 ANNE Administration Lisinopril 20 mg 07/01/25 09:00 07/05/25 08:02 Lisinopril 20 Mg Tablet PO 20 mg DAILY ANNE Administration Miscellaneous Information 1 each 07/05/25 00:01 Toradol Needs To Be Renewed Or It Will Automatically Discontinue. XX 08/04/25 00:00 [facility] Ondansetron HCl 4 mg 07/02/25 09:39 07/02/25 09:45 Ondansetron Inj 4 Mg/2 Ml Vial IV PUSH 4 mg Q6H PRN Administration Nausea And Vomiting Polyethylene Glycol 17 gm 07/01/25 09:00 07/05/25 08:02 Polyethylene Glycol 3350 17 Gm Powd.Pack PO 17 gm QAM ANNE Administration Senna/Docusate Sodium 2 tab 06/30/25 21:00 07/04/25 20:54 Senna/Docusate Sodium Tablet PO 2 tab HS ANNE Administration Radiology Results: ITS Impressions Upper GI Series 07/04/25 11:23 IMPRESSION: 1. Limited single contrast exam as above demonstrating tertiary contractions in the esophagus suggesting esophagitis. 2. No evidence of obstruction. Rapid transit of contrast with contrast possibly present in the large intestine within 30 minutes. Labs Labs: Laboratory Results - last 24 hr 07/04/25 07/04/25 07/04/25 11:21 17:15 20:40 WBC RBC Hgb Hct MCV MCH MCHC RDW Plt Count MPV Sodium Potassium Chloride Carbon Dioxide Anion Gap BUN Creatinine Estim Creat Clear Calc Estimated GFR Glucose POC Capillary Glucose 150 H 153 H 162 H Calcium Magnesium Total Bilirubin AST ALT Alkaline Phosphatase Total Protein Albumin 07/05/25 07/05/25 05:28 07:53 WBC 7.0 RBC 3.21 L Hgb 9.7 L Hct 31.6 L MCV 98.4 MCH 30.2 MCHC 30.7 L RDW 13.2 Plt Count 243 MPV 10.3 Sodium 136 L Potassium 4.4 Chloride 104 Carbon Dioxide 31 H Anion Gap 1 L BUN 15 Creatinine 0.68 L Estim Creat Clear Calc 102 Estimated GFR > 60 Glucose 150 H POC Capillary Glucose 172 H Calcium 9.0 Magnesium 1.9 Total Bilirubin 0.3 AST 15 ALT 11 Alkaline Phosphatase 71 Total Protein 6.9 Albumin 3.3 L Attestation: I personally reviewed all lab results Quality VTE Prophylaxis VTE prophylaxis: mechanical ordered -Patient's previous records reviewed on admission -ER notes reviewed in detail on admission -discussed all findings and current treatment plan with patient/Family/POA -Consultations reviewed for recommendations -Patient's disposition for safe discharge discussed with community case manager -radiology imaging, EKG and test results I have personally reviewed and interpreted unless otherwise specified Dictation performed by [employer] direct speech recognition software, therefore process safety engineer variants and typographical errors may occur. Hospitalist MIPS Advance Care Plan I have confirmed that the patient's Advanced Care Plan is present, code status is documented, or surrogate decision maker is listed in patient medical record.: Yes Medication Reconciliation I have utilized all available resources to obtain, update and review the patients current medications (includes all prescriptions, OTC, herbals, cannabis, and nutritional supplements).: Yes The patient is not eligible for med reconciliation; the patient is in a emergent medical situation where delaying treatment would jeopardize the patients health.: No
[2025-07-05 14:00] VITALS: BP 168/84; PULSE 88; RESP 22; TEMP 36.3; O2SAT 100
[2025-07-05] MEDS: ACETAMINOPHEN 500 MG TABLET PO (18:05)
[2025-07-05] MEDS: SENNA/DOCUSATE SODIUM TABLET 2 TAB PO (20:08)
[2025-07-05 21:24] VITALS: BP 129/63; PULSE 76; RESP 16; TEMP 36.2; O2SAT 95
[2025-07-06] MEDS: ACETAMINOPHEN 500 MG TABLET PO ×2 (03:48→09:08)
[2025-07-06 05:42] VITALS: BP 114/68; PULSE 64; RESP 18; TEMP 36.4; O2SAT 94
[2025-07-06] MEDS: LINACLOTIDE 145 MCG CAPSULE 290 MCG PO (05:54)
[2025-07-06 07:46] LABS: Hematocrit 31.3 % (37.0-47.0); Hemoglobin 9.5 g/dL (12.0-15.0); Mean Corpuscular HGB Conc 30.4 g/dl (32-36); Mean Corpuscular Hemoglobin 30.0 pg (26-34); Mean Corpuscular Volume 98.7 fl (80-100); Platelet Count Result 256 k/mm3 (150-375); Red Blood Count 3.17 M/mm3 (4.2-5.4); White Blood Count 6.7 K/mm3 (4.5-10.0)
[2025-07-06 08:04] LABS: Alanine Aminotransferase 10 U/L (6-35); Albumin Level 3.3 g/dL (3.5-5.1); Alkaline Phosphatase 63 U/L (38-126); Anion Gap 0 mmol/L (4-12); Aspartate Amino Transferase 23 U/L (14-36); Bilirubin,Total 0.3 mg/dL (0.2-1.3); Blood Urea Nitrogen 17 mg/dL (7-17); Calcium 8.8 mg/dL (8.4-10.2); Carbon Dioxide 32 mmol/L (22-30); Chloride 103 mmol/L (98-107); Estimated CRCL calculation 97 ml/min; Estimated Glomerular Filt Rate > 60; Glucose 150 mg/dL (65-110); Magnesium 1.9 mg/dL (1.6-2.3); Potassium 4.6 mmol/L (3.4-5.0); Sodium 135 mmol/L (137-145); Total Protein 6.9 g/dL (6.3-8.2)
[2025-07-06] MEDS: BUPRENORPHINE/NALOXONE (*CRX) 4 MG/1 MG SL FILM 2 EACH SUBLINGUAL ×2 (09:07→17:15)
[2025-07-06] MEDS: ENOXAPARIN 30 MG/0.3 ML SYRINGE SUB-Q ×2 (09:08→22:51)
--- NOTE | 2025-07-06 11:56 | P.PNGS_ITS ---
Progress Note: A&P Assessment and Plan (1) Incarcerated umbilical hernia: Code(s): K42.0 - Umbilical hernia with obstruction, without gangrene Status: Chronic Assessment and Plan: * Patient is still complaining of lower abdominal pain. Patient has been getting ketorolac for the past 5 days. This was not renewed. Continue with Tylenol for pain. Limit pain medications as patient is on Suboxone for previous drug abuse. * Patient expresses concerns for going up and down stairs when she returns home. Physical therapy was consulted and working with her today. * Hopefully home today or tomorrow. (2) Morbid obesity with BMI of 50.0-59.9, adult: Code(s): E66.01 - Morbid (severe) obesity due to excess calories; Z68.43 - Body mass index [BMI] 50.0-59.9, adult Status: Chronic (3) Type 2 diabetes mellitus: Code(s): E11.9 - Type 2 diabetes mellitus without complications Status: Chronic (4) Constipation due to opioid therapy: Code(s): K59.03 - Drug induced constipation; T40.2X5A - Adverse effect of other opioids, initial encounter Status: Chronic Assessment and Plan: Patient has had several bowel movements in the past few days. Continue MiraLax and senna docusate. Plan Discussed patient's case and plan of care with Dr. Gustafson. Subjective Subjective Date/Time Seen: 07/06/25 11:56 Patient reports: still having pain, tolerating a regular diet, bowel movement and afebrile Interval history: Patient complaining of abdominal pain through the roof since her Toradol has been discontinued after 5 days. Patient is also tearful when mentioning discharge. She has fears that she is unable to do stairs. She has 4 stairs in her home. Exam Const: General: comfortable and no acute distress GI: Inspection: distended, Pannus present and obesity GI Palp: Yes Soft to palpation and Yes Firmness to palpation present (GI) ( Epigastric) Auscultation: normal bowel sounds Rectal Exam: deferred Other: incisions are clean and dry with glue intact. Psych: Mental Status: mental status grossly normal Objective Data Vital Signs Vital Signs: Vital Signs - 24 hr 07/05/25 14:00 07/05/25 21:24 07/06/25 05:42 Temperature 97.4 F L 97.2 F L 97.5 F L Pulse Rate 88 76 64 Respiratory Rate 22 H 16 18 Blood Pressure 168/84 H 129/63 114/68 Pulse Oximetry 100 95 94 Oxygen Delivery 07/06/25 09:00 07/06/25 11:15 Temperature Pulse Rate Respiratory Rate Blood Pressure Pulse Oximetry Oxygen Delivery Room Air Room Air Intake/Output Intake/Output: Intake & Output 07/03/25 07/04/25 07/05/25 07/06/25 23:59 23:59 23:59 23:59 Intake Total 1410 1620 2080 1120 Balance 1410 1620 2080 1120 Meds/Results Medications: Active Medications Generic Name Dose Route Start Last Admin Trade Name Freq PRN Reason Stop Dose Admin Acetaminophen 500 mg 06/30/25 17:03 07/06/25 09:08 Acetaminophen 500 Mg Tablet PO 500 mg Q6H PRN Administration Pain Rated 1-3 Buprenorphine/Naloxone 2 each 06/30/25 20:10 07/06/25 09:07 Buprenorphine/Naloxone (*Crx) 4 Mg/1 Mg Sl Film SUBLINGUAL 2 each BID ANNE Administration Dextrose 12.5 gm 07/01/25 02:20 Dextrose 50% 25 Gm/50 Ml Syringe IV PUSH PRN PRN Hypoglycemia Protocol Enoxaparin Sodium 30 mg 06/30/25 21:00 07/06/25 09:08 Enoxaparin 30 Mg/0.3 Ml Syringe SUB-Q 30 mg Q12HR ANNE Administration Glucagon 1 mg 07/01/25 02:20 Glucagon For Inj 1 Mg Vial IM PRN PRN Hypoglycemia Protocol Glucose 15 gm 07/01/25 02:20 Glucose Oral Gel 15 Gm Of Glucse In 37.5 Gm Tube PO PRN PRN Hypoglycemia Protocol Dextrose 1,000 mls @ 100 mls/hr 07/01/25 02:20 Dextrose 5% 1,000 Ml IVPB PRN PRN Hypoglycemia Protocol Insulin Aspart 2 - 5 units 07/01/25 08:00 07/06/25 10:26 Insulin Aspart (*Bkc) 100 Units/Ml SUB-Q Not Given TIDWM [facility] Protocol Linaclotide 290 mcg 07/01/25 06:30 07/06/25 05:54 Linaclotide 145 Mcg Capsule PO 290 mcg DAILY@0630 ANNE Administration Lisinopril 20 mg 07/01/25 09:00 07/06/25 09:08 Lisinopril 20 Mg Tablet PO 20 mg DAILY ANNE Administration Ondansetron HCl 4 mg 07/02/25 09:39 07/02/25 09:45 Ondansetron Inj 4 Mg/2 Ml Vial IV PUSH 4 mg Q6H PRN Administration Nausea And Vomiting Polyethylene Glycol 17 gm 07/01/25 09:00 07/06/25 09:07 Polyethylene Glycol 3350 17 Gm Powd.Pack PO 17 gm QAM ANNE Administration Senna/Docusate Sodium 2 tab 06/30/25 21:00 07/05/25 20:08 Senna/Docusate Sodium Tablet PO 2 tab HS ANNE Administration Radiology Results: ITS Impressions Upper GI Series 07/04/25 11:23 IMPRESSION: 1. Limited single contrast exam as above demonstrating tertiary contractions in the esophagus suggesting esophagitis. 2. No evidence of obstruction. Rapid transit of contrast with contrast possibly present in the large intestine within 30 minutes. Labs Labs: Laboratory Results - last 24 hr 07/05/25 07/05/25 07/06/25 16:30 20:00 06:37 WBC 6.7 RBC 3.17 L Hgb 9.5 L Hct 31.3 L MCV 98.7 MCH 30.0 MCHC 30.4 L RDW 13.3 Plt Count 256 MPV 10.8 H Sodium 135 L Potassium 4.6 Chloride 103 Carbon Dioxide 32 H Anion Gap 0 L BUN 17 Creatinine 0.72 Estim Creat Clear Calc 97 Estimated GFR > 60 Glucose 150 H POC Capillary Glucose 169 H 185 H Calcium 8.8 Magnesium 1.9 Total Bilirubin 0.3 AST 23 ALT 10 Alkaline Phosphatase 63 Total Protein 6.9 Albumin 3.3 L 07/06/25 07:33 WBC RBC Hgb Hct MCV MCH MCHC RDW Plt Count MPV Sodium Potassium Chloride Carbon Dioxide Anion Gap BUN Creatinine Estim Creat Clear Calc Estimated GFR Glucose POC Capillary Glucose 153 H Calcium Magnesium Total Bilirubin AST ALT Alkaline Phosphatase Total Protein Albumin
[2025-07-06 14:00] VITALS: BP 171/78; PULSE 78; RESP 20; TEMP 36.9; O2SAT 95
--- NOTE | 2025-07-06 14:28 | P.CONIM_ITS ---
Assessment and Plan Assessment and plan (1) Incarcerated umbilical hernia: Code(s): K42.0 - Umbilical hernia with obstruction, without gangrene Status: Chronic Assessment and Plan: Patient with 10 year history of umbilical hernia. Recently noticed increased pain and overlying skin changes. robotic laparoscopic repair of chronically incarcerated umbilical hernia with mesh on 06/30. -increase diet as tolerated -encourage ambulation, worked with PT for stair concern at home, PT recs for HH -incentive spirometry -continue Suboxone -p.r.n. pain management with acetaminophen. Course of Ketoralac completed. -do not order additional opioids (2) Constipation due to opioid therapy: Code(s): K59.03 - Drug induced constipation; T40.2X5A - Adverse effect of other opioids, initial encounter Status: Chronic Assessment and Plan: Patient with past history of heroin use. Now on Suboxone maintenance therapy for the past 5 years. -continue Linzess, MiraLax (3) Non-insulin dependent diabetes mellitus: Status: Chronic Assessment and Plan: - hypoglycemia protocol - POC blood glucose ACHS - home medication: Trulicity - correct regimen ordered: Low-dose sliding scale (4) Hypertension: Code(s): I10 - Essential (primary) hypertension Status: Chronic Assessment and Plan: Continue lisinopril Plan Pt to discharge back home via surgery team.. Medically cleared per HM. Prior Studies I have reviewed the following patient records and this information was taken into consideration when formulating the assessment and plan.: previous labs, previous ER visits, previous hospitalizations and previous clinic visits Time Spent with Patient Time with patient: less than 45 minutes HPI Date of Consult Consult date: 07/06/25 Requesting Physician: Sumit Gustafson MD Primary Care Provider: Cesario De Los Santos MD Consult Narrative Reason for consult: Medical management Narrative: Dona Cuello is a 60 year old female here for hernia surgery. Pt with residual post-op pain but with no additional complaints. Pt is medically cleared to discharge home. Review of Systems 2 Review of Systems: All systems reviewed & are unremarkable except as noted in HPI and below PMFSH Past Medical History Medical History Gallbladder disorder Asthma Allergies Fatty liver Encounter for monitoring Suboxone maintenance therapy Constipation due to opioid therapy Colon cancer screening Elevated liver enzymes Hepatitis C DM (diabetes mellitus) H/O: HTN (hypertension) Surgical History Surgical History Hx of carpal tunnel repair Hx of cholecystectomy 2000 History of breast surgery Hx of eye surgery Family History Family History Father Diabetes mellitus Hypertension Mother Diabetes mellitus Hypertension Sibling Diabetes mellitus Hypertension Social History Social History Smoking packs per day: 0.5 Smoking cigarettes per day: 10.0 Years smoked: 10 Smoking pack-years: 5.00 Smoking status: Former smoker Tobacco type: cigarettes Second hand tobacco smoke exposure: No Additional smoking assessment comments: QUIT smoking 2 cigarettes a day 06/11/25 Alcohol intake: former Substance use: former Substance use type: heroin, painkillers and other Other substance usage details: 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 taking Suboxone BID daily Lack of Transportation: No Lack of Food: Never True Current Housing: I Do Not Have Housing Concerned About Future Housing: No Difficulty Paying Gas/Electric Bills: No Difficulty Paying for Meds: No 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ation: High School Diploma/GED Difficulty w/ Childcare or Family Care: No Living arrangements: with family Gender identity (if verbalized by the patient): Female Spiritual care concerns: No Meds Home Medications and Allergies Home Medications ?Medication ?Instructions ?Recorded ?Confirmed ?Type buprenorphine 8 mg-naloxone 2 mg 1 film sublingual BID 06/05/22 06/13/25 History sublingual film (Suboxone) dulaglutide 4.5 mg/0.5 mL 4.5 mg subcut DIRECTED 06/13/25 History subcutaneous pen injector (Trulicity) linaclotide 290 mcg capsule 290 mcg PO DAILY 04/20/23 06/13/25 History (Linzess) compress.stocking,knee,reg,lrg #4 ea 01/02/24 06/13/25 Rx lisinopril 20 mg tablet 20 mg PO DAILY 04/01/2505/28 History Allergies Allergy/AdvReac Type Severity Reaction Status Date / Time ibuprofen Allergy Mild hives Verified 06/30/25 17:34 strawberry Allergy Mild hives Verified 06/30/25 17:34 Vital Signs Vital Signs - 24 hr 07/05/25 21:24 07/06/25 05:42 07/06/25 09:00 Temperature 97.2 F L 97.5 F L Pulse Rate 76 64 Respiratory Rate 16 18 Blood Pressure 129/63 114/68 Pulse Oximetry 95 94 Oxygen Delivery Room Air 07/06/25 11:15 Temperature Pulse Rate Respiratory Rate Blood Pressure Pulse Oximetry Oxygen Delivery Room Air Exam 2 Narrative: GENERAL: non-toxic appearing, in no acute distress. Morbidly obese HEAD: Normocephalic, atraumatic. EYES: PERRLA. Conjunctivae clear. NOSE: Normal no drainage. THROAT: Pharynx clear, no exudate. NECK: Trachea midline. No adenopathy, no masses. RESPIRATORY: Airway patent, respirations nonlabored. Breath sounds decreased bilaterally CARDIOVASCULAR: Regular rate and rhythm BREASTS: Defer GASTROINTESTINAL: Abdomen is soft with mild tenderness around lap sites. For lap sites with surgical glue intact. Bowel sounds present. GENITOURINARY: Defer MUSCULOSKELETAL: Moves all extremities. No gross deformities. SKIN: Warm, dry, normal color. Wound to right lateral ankle covered with Band- Aid. NEURO: A&O X4. Speech clear PSYCHIATRIC: Normal interaction Results Labs 07/06/25 06:37 07/06/25 06:37 Labs: Short CBC 07/06/25 Range/Units 06:37 WBC 6.7 (4.5-10.0) K/mm3 Hgb 9.5 L (12.0-15.0) g/dL Hct 31.3 L (37.0-47.0) % Plt Count 256 (150-375) k/mm3 [facility] 07/06/25 06:37 Sodium 135 L Potassium 4.6 Chloride 103 Carbon Dioxide 32 H BUN 17 Creatinine 0.72 Glucose 150 H Calcium 8.8 Liver Function 07/06/25 Range/Units 06:37 Total Bilirubin 0.3 (0.2-1.3) mg/dL AST 23 (14-36) U/L ALT 10 (6-35) U/L Alkaline Phosphatase 63 (38-126) U/L Albumin 3.3 L (3.5-5.1) g/dL Quality VTE Prophylaxis VTE prophylaxis: mechanical ordered
[2025-07-06] MEDS: KETOROLAC 15 MG/ML VIAL (*BKC) IV PUSH ×2 (17:16→22:51)
[2025-07-06 20:30] VITALS: BP 168/73; PULSE 80; RESP 16; TEMP 36.5; O2SAT 96
[2025-07-06] MEDS: SENNA/DOCUSATE SODIUM TABLET 2 TAB PO (22:51)
[2025-07-07 04:30] VITALS: PULSE 71; RESP 18; TEMP 36.1; O2SAT 93
[2025-07-07 05:23] VITALS: BP 153/74
[2025-07-07] MEDS: LINACLOTIDE 145 MCG CAPSULE 290 MCG PO (05:38)
[2025-07-07] MEDS: KETOROLAC 15 MG/ML VIAL (*BKC) IV PUSH (05:38)
[2025-07-07 06:35] LABS: Hematocrit 31.8 % (37.0-47.0); Hemoglobin 9.7 g/dL (12.0-15.0); Mean Corpuscular HGB Conc 30.5 g/dl (32-36); Mean Corpuscular Hemoglobin 30.0 pg (26-34); Mean Corpuscular Volume 98.5 fl (80-100); Platelet Count Result 263 k/mm3 (150-375); Red Blood Count 3.23 M/mm3 (4.2-5.4); White Blood Count 6.1 K/mm3 (4.5-10.0)
--- NOTE | 2025-07-07 06:54 | PM.PNGS ---
Progress Note: A&P Assessment and Plan (1) Incarcerated umbilical hernia: Code(s): K42.0 - Umbilical hernia with obstruction, without gangrene Status: Chronic Assessment and Plan: Complains of quite a bit of pain particularly just left of the umbilicus. Exam does not reveal any abnormalities other than postoperative discomfort. I will go ahead and get a CT scan of the abdomen and pelvis today to evaluate. Repair is intact. Trocar incisions are healing well. Umbilical skin is healing as well. Limited on analgesics due to being on Suboxone. Probably home tomorrow. Continue to work on stairs today with physical therapy. Still receiving IV Toradol, will change to p.o.. (2) Morbid obesity with BMI of 50.0-59.9, adult: Code(s): E66.01 - Morbid (severe) obesity due to excess calories; Z68.43 - Body mass index [BMI] 50.0-59.9, adult Status: Chronic (3) Type 2 diabetes mellitus: Code(s): E11.9 - Type 2 diabetes mellitus without complications Status: Chronic (4) Constipation due to opioid therapy: Code(s): K59.03 - Drug induced constipation; T40.2X5A - Adverse effect of other opioids, initial encounter Status: Chronic Assessment and Plan: Bowels working well now. Subjective Subjective Date/Time Seen: 07/07/25 06:54 Post Op day: #7 Patient reports: still having pain (Left of umbilicus mostly), tolerating a regular diet, bowel movement, afebrile and other (Concerned about being able to do stairs at home) Exam Const: General: comfortable and no acute distress Orientation/consciousness: patient oriented x3 GI: Inspection: non-distended, incision (Dry and healing), obesity and other (Umbilical skin healing) GI Palp: Yes Soft to palpation, Yes Tenderness to palpation present (GI) (Periumbilical, worse on the left) and Yes Guarding due to palpation present (GI) Auscultation: normal bowel sounds Neuro: General: patient oriented x3 and no focal motor deficits Extrem: General: no calf tenderness and no edema Psych: Affect: normal affect Insight: Good insight present (Psych) Judgement: Good judgement present (Psych) Objective Data Vital Signs Vital Signs: Vital Signs - 24 hr 07/06/25 09:00 07/06/25 11:15 07/06/25 14:00 Temperature 36.9 C Pulse Rate 78 Respiratory Rate 20 Blood Pressure 171/78 H Pulse Oximetry 95 Oxygen Delivery Room Air Room Air 07/06/25 20:30 07/07/25 04:30 07/07/25 05:23 Temperature 36.5 C 36.1 C L Pulse Rate 80 71 Respiratory Rate 16 18 Blood Pressure 168/73 H 153/74 H Pulse Oximetry 96 93 Oxygen Delivery Intake/Output Intake/Output: Intake & Output 07/04/25 07/05/25 07/06/25 07/07/25 23:59 23:59 23:59 23:59 Intake Total 1620 2080 1600 100 Balance 1620 2080 1600 100 Meds/Results Medications: Active Medications Generic Name Dose Route Start Last Admin Trade Name Freq PRN Reason Stop Dose Admin Acetaminophen 500 mg 06/30/25 17:03 07/06/25 09:08 Acetaminophen 500 Mg Tablet PO 500 mg Q6H PRN Administration Pain Rated 1-3 Buprenorphine/Naloxone 2 each 06/30/25 20:10 07/06/25 17:15 Buprenorphine/Naloxone (*Crx) 4 Mg/1 Mg Sl Film SUBLINGUAL 2 each BID ANNE Administration Dextrose 12.5 gm 07/01/25 02:20 Dextrose 50% 25 Gm/50 Ml Syringe IV PUSH PRN PRN Hypoglycemia Protocol Enoxaparin Sodium 30 mg 06/30/25 21:00 07/06/25 22:51 Enoxaparin 30 Mg/0.3 Ml Syringe SUB-Q 30 mg Q12HR ANNE Administration Glucagon 1 mg 07/01/25 02:20 Glucagon For Inj 1 Mg Vial IM PRN PRN Hypoglycemia Protocol Glucose 15 gm 07/01/25 02:20 Glucose Oral Gel 15 Gm Of Glucse In 37.5 Gm Tube PO PRN PRN Hypoglycemia Protocol Dextrose 1,000 mls @ 100 mls/hr 07/01/25 02:20 Dextrose 5% 1,000 Ml IVPB PRN PRN Hypoglycemia Protocol Insulin Aspart 2 - 5 units 07/01/25 08:00 07/06/25 18:20 Insulin Aspart (*Bkc) 100 Units/Ml SUB-Q Not Given TIDWM ANNE Protocol Ketorolac Tromethamine 15 mg 07/06/25 13:13 07/07/25 05:38 Ketorolac 15 Mg/Ml Vial (*Bkc) IV PUSH 15 mg Q6H PRN Administration Pain Rated 7-10 Linaclotide 290 mcg 07/01/25 06:30 07/07/25 05:38 Linaclotide 145 Mcg Capsule PO 290 mcg DAILY@0630 ANNE Administration Lisinopril 20 mg 07/01/25 09:00 07/06/25 09:08 Lisinopril 20 Mg Tablet PO 20 mg DAILY ANNE Administration Ondansetron HCl 4 mg 07/02/25 09:39 07/02/25 09:45 Ondansetron Inj 4 Mg/2 Ml Vial IV PUSH 4 mg Q6H PRN Administration Nausea And Vomiting Polyethylene Glycol 17 gm 07/01/25 09:00 07/06/25 09:07 Polyethylene Glycol 3350 17 Gm Powd.Pack PO 17 gm QAM ANNE Administration Senna/Docusate Sodium 2 tab 06/30/25 21:00 07/06/25 22:51 Senna/Docusate Sodium Tablet PO 2 tab HS ANNE Administration Radiology Results: ITS Impressions Upper GI Series 07/04/25 11:23 IMPRESSION: 1. Limited single contrast exam as above demonstrating tertiary contractions in the esophagus suggesting esophagitis. 2. No evidence of obstruction. Rapid transit of contrast with contrast possibly present in the large intestine within 30 minutes. Labs Labs: Laboratory Results - last 24 hr 07/06/25 07/06/25 07/06/25 06:37 07:33 12:07 WBC 6.7 RBC 3.17 L Hgb 9.5 L Hct 31.3 L MCV 98.7 MCH 30.0 MCHC 30.4 L RDW 13.3 Plt Count 256 MPV 10.8 H Sodium 135 L Potassium 4.6 Chloride 103 Carbon Dioxide 32 H Anion Gap 0 L BUN 17 Creatinine 0.72 Estim Creat Clear Calc 97 Estimated GFR > 60 Glucose 150 H POC Capillary Glucose 153 H 136 H Calcium 8.8 Magnesium 1.9 Total Bilirubin 0.3 AST 23 ALT 10 Alkaline Phosphatase 63 Total Protein 6.9 Albumin 3.3 L 07/06/25 07/06/25 07/07/25 17:09 20:38 05:47 WBC 6.1 RBC 3.23 L Hgb 9.7 L Hct 31.8 L MCV 98.5 MCH 30.0 MCHC 30.5 L RDW 13.2 Plt Count 263 MPV 10.3 Sodium Potassium Chloride Carbon Dioxide Anion Gap BUN Creatinine Estim Creat Clear Calc Estimated GFR Glucose POC Capillary Glucose 144 H 224 H Calcium Magnesium Total Bilirubin AST ALT Alkaline Phosphatase Total Protein Albumin
[2025-07-07 07:04] LABS: Alanine Aminotransferase 10 U/L (6-35); Albumin Level 3.4 g/dL (3.5-5.1); Alkaline Phosphatase 68 U/L (38-126); Anion Gap 3 mmol/L (4-12); Aspartate Amino Transferase 16 U/L (14-36); Bilirubin,Total 0.3 mg/dL (0.2-1.3); Blood Urea Nitrogen 15 mg/dL (7-17); Calcium 8.9 mg/dL (8.4-10.2); Carbon Dioxide 31 mmol/L (22-30); Chloride 101 mmol/L (98-107); Estimated CRCL calculation 104 ml/min; Estimated Glomerular Filt Rate > 60; Glucose 152 mg/dL (65-110); Magnesium 1.9 mg/dL (1.6-2.3); Potassium 4.5 mmol/L (3.4-5.0); Sodium 135 mmol/L (137-145); Total Protein 7.0 g/dL (6.3-8.2)
[2025-07-07] MEDS: BUPRENORPHINE/NALOXONE (*CRX) 4 MG/1 MG SL FILM 2 EACH SUBLINGUAL ×2 (09:05→16:08)
[2025-07-07] MEDS: ENOXAPARIN 30 MG/0.3 ML SYRINGE SUB-Q ×2 (09:55→20:41)
[2025-07-07] MEDS: KETOROLAC 10 MG TABLET PO ×3 (11:38→23:14)
--- NOTE | 2025-07-07 12:38 | PM.IMCN2 ---
Assessment and Plan Assessment and plan (1) Incarcerated umbilical hernia: Code(s): K42.0 - Umbilical hernia with obstruction, without gangrene Status: Chronic Assessment and Plan: Patient with 10 year history of umbilical hernia. Recently noticed increased pain and overlying skin changes. robotic laparoscopic repair of chronically incarcerated umbilical hernia with mesh on 06/30. -increase diet as tolerated -encourage ambulation, worked with PT for stair concern at home, PT recs for HH -incentive spirometry -continue Suboxone -p.r.n. pain management with acetaminophen. Course of Ketoralac IV completed, surg switched to PO. -do not order additional opioids (2) Constipation due to opioid therapy: Code(s): K59.03 - Drug induced constipation; T40.2X5A - Adverse effect of other opioids, initial encounter Status: Chronic Assessment and Plan: Patient with past history of heroin use. Now on Suboxone maintenance therapy for the past 5 years. -continue Linzess, MiraLax (3) Non-insulin dependent diabetes mellitus: Status: Chronic Assessment and Plan: - hypoglycemia protocol - POC blood glucose ACHS - home medication: Trulicity - correct regimen ordered: Low-dose sliding scale (4) Hypertension: Code(s): I10 - Essential (primary) hypertension Status: Chronic Assessment and Plan: Continue lisinopril Plan Pt to discharge back home via surgery team.. Medically cleared per HM. Prior Studies I have reviewed the following patient records and this information was taken into consideration when formulating the assessment and plan.: previous labs, previous ER visits, previous hospitalizations and previous clinic visits Time Spent with Patient Time with patient: less than 45 minutes HPI Date of Consult Consult date: 07/07/25 Requesting Physician: Sumit Gustafson MD Primary Care Provider: Cesario De Los Santos MD Consult Narrative Reason for consult: Medical management Narrative: Dona Cuello is a 60 year old female who is admitted under surgery for hernia surgery with post op pain. HM consulted for DM and HTN maintenance. Pt continues to c/o incisional pain, surg following. Review of Systems Review of Systems: All systems reviewed & are unremarkable except as noted in HPI and below PMFSH Past Medical History Medical History (Updated 07/02/25 @ 18:00 by Sumit Gustafson MD) Gallbladder disorder Asthma Allergies Fatty liver Encounter for monitoring Suboxone maintenance therapy Constipation due to opioid therapy Colon cancer screening Elevated liver enzymes Hepatitis C DM (diabetes mellitus) H/O: HTN (hypertension) Surgical History Surgical History (Updated 07/07/25 @ 12:36 by Pat Wilson MA) History of umbilical hernia repair Robotic laparoscopic repair incarcerated umbilical hernia with 4 cm defect, with mesh 06/30/2025 Dr. Gustafson Hx of carpal tunnel repair Hx of cholecystectomy 2000 History of breast surgery Hx of eye surgery Family History Family History Father Diabetes mellitus Hypertension Mother Diabetes mellitus Hypertension Sibling Diabetes mellitus Hypertension Social History Social History Smoking packs per day: 0.5 Smoking cigarettes per day: 10.0 Years smoked: 10 Smoking pack-years: 5.00 Smoking status: Former smoker Tobacco type: cigarettes Second hand tobacco smoke exposure: No Additional smoking assessment comments: QUIT smoking 2 cigarettes a day 06/11/25 Alcohol intake: former Substance use: former Substance use type: heroin, painkillers and other Other substance usage details: 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 taking Suboxone BID daily Lack of Transportation: No Lack of Food: Never True Current Housing: I Do Not Have Housing Concerned About Future Housing: No Difficulty Paying Gas/Electric Bills: No Difficulty Paying for Meds: No 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ation: High School Diploma/GED Difficulty w/ Childcare or Family Care: No Living arrangements: with family Gender identity (if verbalized by the patient): Female Spiritual care concerns: No Meds Home Medications and Allergies Home Medications ?Medication ?Instructions ?Recorded ?Confirmed ?Type buprenorphine 8 mg-naloxone 2 mg 1 film sublingual BID 06/05/22 06/13/25 History sublingual film (Suboxone) dulaglutide 4.5 mg/0.5 mL 4.5 mg subcut DIRECTED 04/20/23 06/13/25 History subcutaneous pen injector (Trulicity) linaclotide 290 mcg capsule 290 mcg PO DAILY 04/20/23 06/13/25 History (Linzess) compress.stocking,knee,reg,lrg #4 ea 01/02/24 06/13/25 Rx lisinopril 20 mg tablet 20 mg PO DAILY 04/01/25 06/13/25 History Allergies Allergy/AdvReac Type Severity Reaction Status Date / Time ibuprofen Allergy Mild hives Verified 06/30/25 17:34 strawberry Allergy Mild hives Verified 06/30/25 17:34 Vital Signs Vital Signs - 24 hr 07/06/25 14:00 07/06/25 20:30 07/07/25 04:30 Temperature 98.4 F 97.7 F 96.9 F L Pulse Rate 78 80 71 Respiratory Rate 20 16 18 Blood Pressure 171/78 H 168/73 H Pulse Oximetry 95 96 93 07/07/25 05:23 Temperature Pulse Rate Respiratory Rate Blood Pressure 153/74 H Pulse Oximetry Exam Narrative: GENERAL: non-toxic appearing, in no acute distress. Morbidly obese HEAD: Normocephalic, atraumatic. EYES: PERRLA. Conjunctivae clear. NOSE: Normal no drainage. THROAT: Pharynx clear, no exudate. NECK: Trachea midline. No adenopathy, no masses. RESPIRATORY: Airway patent, respirations nonlabored. Breath sounds decreased bilaterally CARDIOVASCULAR: Regular rate and rhythm BREASTS: Defer GASTROINTESTINAL: Abdomen is soft with mild tenderness around lap sites. For lap sites with surgical glue intact. Bowel sounds present. GENITOURINARY: Defer MUSCULOSKELETAL: Moves all extremities. No gross deformities. SKIN: Warm, dry, normal color. Wound to right lateral ankle covered with Band-Aid. NEURO: A&O X4. Speech clear PSYCHIATRIC: Normal interaction Results Labs 07/07/25 05:47 07/07/25 05:47 Labs: Short CBC 07/07/25 Range/Units 05:47 WBC 6.1 (4.5-10.0) K/mm3 Hgb 9.7 L (12.0-15.0) g/dL Hct 31.8 L (37.0-47.0) % Plt Count 263 (150-375) k/mm3 BMP 07/07/25 05:47 Sodium 135 L Potassium 4.5 Chloride 101 Carbon Dioxide 31 H BUN 15 Creatinine 0.67 L Glucose 152 H Calcium 8.9 Liver Function 07/07/25 Range/Units 05:47 Total Bilirubin 0.3 (0.2-1.3) mg/dL AST 16 (14-36) U/L ALT 10 (6-35) U/L Alkaline Phosphatase 68 (38-126) U/L Albumin 3.4 L (3.5-5.1) g/dL Quality VTE Prophylaxis VTE prophylaxis: mechanical ordered
[2025-07-07] MEDS: ACETAMINOPHEN 500 MG TABLET PO ×2 (13:55→20:44)
[2025-07-07 14:00] VITALS: BP 139/75; PULSE 75; RESP 18; TEMP 36.1; O2SAT 94
[2025-07-07 19:55] VITALS: BP 150/77; PULSE 76; RESP 20; TEMP 36.6; O2SAT 96
[2025-07-07] MEDS: SENNA/DOCUSATE SODIUM TABLET 2 TAB PO (20:41)
[2025-07-08 04:30] VITALS: BP 136/70; PULSE 74; RESP 20; TEMP 36.3; O2SAT 99
[2025-07-08] MEDS: ACETAMINOPHEN 500 MG TABLET PO ×2 (04:45→10:17)
[2025-07-08] MEDS: ONDANSETRON INJ 4 MG/2 ML VIAL IV PUSH (04:49)
[2025-07-08 05:44] LABS: Hematocrit 31.1 % (37.0-47.0); Hemoglobin 9.4 g/dL (12.0-15.0); Mean Corpuscular HGB Conc 30.2 g/dl (32-36); Mean Corpuscular Hemoglobin 29.9 pg (26-34); Mean Corpuscular Volume 99.0 fl (80-100); Platelet Count Result 245 k/mm3 (150-375); Red Blood Count 3.14 M/mm3 (4.2-5.4); White Blood Count 7.0 K/mm3 (4.5-10.0)
[2025-07-08] MEDS: LINACLOTIDE 145 MCG CAPSULE 290 MCG PO (05:48)
[2025-07-08] MEDS: KETOROLAC 10 MG TABLET PO (05:48)
[2025-07-08 06:24] LABS: Alanine Aminotransferase 11 U/L (6-35); Albumin Level 3.3 g/dL (3.5-5.1); Alkaline Phosphatase 66 U/L (38-126); Anion Gap 1 mmol/L (4-12); Aspartate Amino Transferase 17 U/L (14-36); Bilirubin,Total 0.3 mg/dL (0.2-1.3); Blood Urea Nitrogen 17 mg/dL (7-17); Calcium 8.7 mg/dL (8.4-10.2); Carbon Dioxide 33 mmol/L (22-30); Chloride 102 mmol/L (98-107); Estimated CRCL calculation 88 ml/min; Estimated Glomerular Filt Rate > 60; Glucose 157 mg/dL (65-110); Magnesium 1.8 mg/dL (1.6-2.3); Potassium 4.4 mmol/L (3.4-5.0); Sodium 136 mmol/L (137-145); Total Protein 6.9 g/dL (6.3-8.2)
--- NOTE | 2025-07-08 09:30 | P.DS_ITS ---
DS: Admitting Diagnosis Discharge Date 07/08/2025 Admitting Diagnosis * incarcerated umbilical hernia * noninsulin-dependent diabetes * history of heroin addiction-on Suboxone * morbid obesity -BMI 56 * chronic constipation * essential hypertension DS: Discharge Diagnosis Discharge Diagnosis (1) Incarcerated umbilical hernia: Code(s): K42.0 - Umbilical hernia with obstruction, without gangrene Status: Chronic Assessment and Plan: robotic laparoscopic repair performed 07/04/[address] Gustafson. Wounds healing well. Umbilical skin healing. No evidence of hernia recurrence or infection. Does have a small seroma associated with the umbilical skin which is expected. (2) Constipation due to opioid therapy: Code(s): K59.03 - Drug induced constipation; T40.2X5A - Adverse effect of other opioids, initial encounter Status: Chronic Assessment and Plan: Despite taking MiraLax and Senokot along with her normal Linzess, patient had severe postoperative constipation. She did not respond to a soap suds enema. Eventually a water-soluble contrast upper GI small-bowel follow-through did induce bowel function. Since then, she has had regular bowel movements but continues to take MiraLax and Senokot. (3) Heroin addiction: Code(s): F11.20 - Opioid dependence, uncomplicated Status: Chronic Assessment and Plan: Patient has not used heroin in over a year. She takes Suboxone. Pain control has been a problem as the Suboxone does not help with postoperative pain and patient can only take non narcotic analgesics such as Toradol or Tylenol. Oral Toradol was finally adequate pain control as of 07/07/2025 and the day of discharge. (4) Physical deconditioning: Code(s): R53.81 - Other malaise Status: Acute Assessment and Plan: Patient has stairs at home. She has been receiving physical therapy and some teaching. She has to get up and down the stairs to get into her home. She is extremely heavy and this is a great concern for her. She will be receiving physical therapy on the day of discharge. (5) Morbid obesity with BMI of 50.0-59.9, adult: Code(s): E66.01 - Morbid (severe) obesity due to excess calories; Z68.43 - Body mass index [BMI] 50.0-59.9, adult Status: Chronic (6) Non-insulin dependent diabetes mellitus: Status: Chronic (7) Hypertension: Qualifiers: Hypertension type: primary hypertension Qualified Code(s): I10 - Essential (primary) hypertension Code(s): I10 - Essential (primary) hypertension Status: Chronic DS: Summary Hospital Course Hospital Course: Patient had extensive preoperative evaluation and workup prior to surgery. She was taken to surgery on the day of admission, 06/30/2025. Robotic laparoscopic repair of her chronically incarcerated umbilical hernia was performed. This went very well. The hernia was repaired and mesh was placed as planned. Postoperatively, the patient had expected postoperative pain which was difficult Ng control with her Suboxone therapy. IV Toradol was helpful. She also experienced severe constipation. She was continued on her Linzess which she normally takes and also given MiraLax and Senokot starting the day of surgery. By postop day 3, she was given a soapsuds enema and had no results. On postop day 4., she had a water-soluble upper GI small-bowel follow-through. This showed no evidence of bowel obstruction or other concerning lesions. This did induce several bowel movements. She was continued on Linzess, MiraLax, and Senokot. Bowel function has persisted since then. She was having difficulty with pain control without IV Toradol as well as weakness and deconditioning that she was very concerned about going up and down a few steps to get in to her home. She is at high risk for falling and has severe morbid obesity with BMI of 56. She does not have a supportive family to help her either. She did receive physical therapy the last 3 days of her admission and was improving significantly. She was comfortable on oral analgesics. She can go down and up stairs mostly sideways but safely. She is discharged now in improved condition. Her hernia repair continues to heal well. She was complaining of periumbilical, particularly left periumbilical, pain on postop day number 6. CT scan of the abdomen and pelvis showed a seroma associated with the umbilical skin but no signs of bowel obstruction or recurrent hernia. This is most likely postoperative pain and should continue to improve. She is discharged now on postop day 8. Status at Discharge Functional status at discharge: uses cane/walker Overall status at discharge: patient is progressing back to baseline Time Spent with Patient Time attestation: Total time spent providing and/or coordinating discharge services: Time spent: Less than 30 minutes DS: Data Data Completed and Pending Labs on day of discharge: Labs from last 24 hours 07/08/25 07/08/25 07/07/25 07:37 05:25 19:56 WBC 7.0 RBC 3.14 L Hgb 9.4 L Hct 31.1 L MCV 99.0 MCH 29.9 MCHC 30.2 L RDW 13.3 Plt Count 245 MPV 10.0 Sodium 136 L Potassium 4.4 Chloride 102 Carbon Dioxide 33 H Anion Gap 1 L BUN 17 Creatinine 0.80 Estim Creat Clear Calc 88 Estimated GFR > 60 Glucose 157 H POC Capillary Glucose 154 H 196 H Calcium 8.7 Magnesium 1.8 Total Bilirubin 0.3 AST 17 ALT 11 Alkaline Phosphatase 66 Total Protein 6.9 Albumin 3.3 L 07/07/25 07/07/25 16:46 12:30 WBC RBC Hgb Hct MCV MCH MCHC RDW Plt Count MPV Sodium Potassium Chloride Carbon Dioxide Anion Gap BUN Creatinine Estim Creat Clear Calc Estimated GFR Glucose POC Capillary Glucose 165 H 173 H Calcium Magnesium Total Bilirubin AST ALT Alkaline Phosphatase Total Protein Albumin Discharge Plan Discharge Attending physician on discharge: Sumit Gustafson Consulting providers: Juliette Shelton; Mimi Cook; Evelin Thompson Discharging Clinician: Sumit Gustafson Anticipated Discharge Date/Time: 07/08/25 14:00 Patient Disposition: Home Activity: may shower, no straining and as tolerated Diet: diabetic Wound Care Instructions: incision open to air Discharge Instructions: * Ambulate 3-4 x per day and as tolerated. * No lifting over 15-20lbs. * May bathe or shower. * Stairs are OK. * May drive a car in 3 days. * Call Dr. Amanda office for severe pain, persistent wound drainage or bleeding, vomiting, temp over 100.5, or other significant change in condition. Patient Instructions: Antibiotic Form Patient Language: Estonian Stand Alone Forms: General Discharge Information Follow-up/Referrals: Cesario De Los Santos MD [Primary Care Provider, Hospitalist] - 2 Weeks Sumit Gustafson MD [Physician, General Surgery] - Keep Reg. Scheduled Appt. Discharge Medications: New sennosides-docusate sodium [Senokot-S] 8.6-50 mg Tablet 2 tab-cap PO HS Qty: 10 0RF ketorolac 10 mg tablet 10 mg PO Q6H PRN (Reason: pain) 4 Days Qty: 16 0RF polyethylene glycol 3350 [Miralax] 17 gram/dose powder 17 g PO DAILY Qty: 238 0RF Continued Linzess 290 mcg capsule 290 mcg PO DAILY Trulicity 4.5 mg/0.5 mL pen injector 4.5 mg SUBCUT DIRECTED Patient Comments: Tuesdays for Diabetes. (DME) compress.stocking,knee,reg,lrg Misc See Rx Instructions .Route Qty: 4 0RF Rx Instructions: As directed buprenorphine-naloxone [Suboxone] 8-2 mg Film 1 film sublingual BID Patient Comments: HOLD AM OF SURGERY lisinopril 20 mg tablet 20 mg PO DAILY Date of admission: 07/04/25 14:46 Primary Care Provider: Cesario De Los Santos Admitting Provider: Sumit Gustafson Attending physician on admission: Sumit Gustafson Condition: Improved
[2025-07-08] MEDS: BUPRENORPHINE/NALOXONE (*CRX) 4 MG/1 MG SL FILM 2 EACH SUBLINGUAL (09:39)
== END 2025-07-08 11:55 | disposition home or self-care (01) | DRG 354 ==
LOC: ANHSURGERY 13:09 → ANH3MEDSUR 13:09
PROVIDERS: Nurse Practitioner Family; Admitting Provider Surgery; PCP Internal Medicine; Visit Provider Surgery
PROC: 0WUF4JZ Supplement Abdominal Wall with Synthetic Substitute, Percutaneous Endoscopic Approach (ICD-10-PCS; principal; 2025-06-30 12:00)
DX: K42.0 Umbilical hernia with obstruction, without gangrene (principal); Z68.43 Body mass index [BMI] 50.0-59.9, adult; F11.20 Opioid dependence, uncomplicated; E66.01 Morbid (severe) obesity due to excess calories; E11.9 Type 2 diabetes mellitus without complications; I10 Essential (primary) hypertension; K76.0 Fatty (change of) liver, not elsewhere classified; K59.03 Drug induced constipation; T40.2X5A Adverse effect of other opioids, initial encounter; Z90.49 Acquired absence of other specified parts of digestive tract; Z87.891 Personal history of nicotine dependence; Z86.19 Personal history of other infectious and parasitic diseases
CPT/HCPCS: 36415; 74176; 74240; 74248; 80048; 80053; 82948; 83735; 85027; 97116; 97161; 97530; 99212; A9270; C1781; G0378; G0379; G0463; J0690; J1100; J1650; J1815; J1885; J2003; J2250; J2405; J2704; J3010; J7030; J7120